=== PATIENT | male | born 1965 | race Caucasian/White ===

== ENCOUNTER 2016-08-12 13:20 | Inpatient (IN) | payer MEDICAID ==
[~2016-08-12] VITALS: Ht 190.5 cm; Wt 95.3 kg
[2016-08-12 13:30] VITALS: BP 151/81
[2016-08-12] MEDS ORDERED: LORazepam Inj 2mg/ml 1ml IV ONE (13:45)
[2016-08-12] MEDS ORDERED: Thiamine HCl 100 MG in D5W 55 ML IVPB ONE (14:00)
[2016-08-12] MEDS ORDERED: Thiamine HCl 100mg/ml Inj ONE ×2 (14:09→15:01)
--- NOTE | 2016-08-12 14:12 | Emergency Room Report ---
History of Present Illness General Chief Complaint: Edema Source: Patient Present Illness HPI Patient is a 50-year-old male presented for increased lower extremity swelling. The patient had prior history of alcohol abuse and had been previously told he had some liver disease as well as low platelet count patient reports having fallen down some stairs. Patient states he drinks alcohol every day. He states he usually drinks approximately one bottle of hard alcohol.He denies any fever. He reports having some low back pain which he states is chronic for him.He had previously been prescribed Librium. Allergies: Coded Allergies: No Known Allergies (Unverified , 08/12/16) Patient History Reviewed Nursing Documentation: PMH: Agreed, PSxH: Agreed Nursing Documentation-PM Past Medical History: No History, Except For History Of Psychiatric Problem: Yes - etoh abuse Review of Systems All Other Systems: negative except mentioned in HPI Physical Exam Vital Signs Date Time Temp Pulse Resp B/P Pulse Ox O2 Delivery O2 Flow Rate FiO2 08/12/16 13:24 98.1 98 18 150/97 100 Room Air Sp02 EP Interpretation: reviewed, normal General Appearance: normal inspection, well appearing, no apparent distress, alert, GCS 15 Head: atraumatic ENT: normal ENT inspection, hearing grossly normal, normal voice Neck: normal inspection, full range of motion, supple, no bony tend Respiratory: normal inspection, lungs clear, normal breath sounds, no respiratory distress, no retraction, no wheezing Cardiovascular #1: regular rate, rhythm, no edema Gastrointestinal: normal inspection, normal bowel sounds, non tender, soft, no guarding, no hernia Genitourinary: no CVA tenderness Musculoskeletal: normal inspection, back normal, normal range of motion Neurologic: normal inspection, alert, oriented x3, responsive, development team lead III-XII nml as tested, speech normal Psychiatric: normal inspection, judgement/insight normal, mood/affect normal Skin: normal color, no rash, other Medical Decision Making Diagnostic Impression: Primary Impression: Generalized weakness Additional Impressions: Alcohol withdrawal Alcoholic liver disease ER Course Patient presented for leg swelling and generalized weakness. Differential diagnosis included but was not limited to deep venous thrombosis, dependent edema, alcohol liver disease, congestive heart failure, alcohol withdrawal among others.Because of complexity of patient's case laboratory testing and imaging studies were ordered. The patient was given IV thiamine and appear to have evidence of chronic liver disease. Patient was noted to be tremulous and tachycardic. Patient was given IV Ativan. Dr. Chacon was contacted for inpatient management Labs Test 08/12/16 14:16 08/12/16 14:52 Urine Color Brown Urine Appearance Clear Urine pH 6.5 (4.5-8.0) Urine Specific [place] 1.010 (1.005-1.035) Urine Protein 1+ (NEGATIVE) Urine Glucose (UA) Negative (NEGATIVE) Urine Ketones 3+ (NEGATIVE) Urine Occult Blood 2+ (NEGATIVE) Urine Nitrite Negative (NEGATIVE) Urine Bilirubin 1+ (NEGATIVE) Urine Ictotest Negative Urine Urobilinogen 12 MG/DL (0.0-1.0) Urine Leukocyte Esterase 1+ (NEGATIVE) Urine RBC 5-10 /HPF (0 - 0) Urine WBC 0-2 /HPF (0 - 0) Urine Squamous Epithelial Cells Occasional /LPF Urine Bacteria Few /HPF (NONE) Urine Mucus Occasional /LPF White Blood Count 6.4 K/UL (4.8-10.8) Red Blood Count 3.84 M/UL (4.70-6.10) Hemoglobin 10.7 G/DL (14.2-18.0) Hematocrit 33.1 % (42.0-52.0) Mean Corpuscular Volume 86 FL (80-99) Mean Corpuscular Hemoglobin 27.8 PG (27.0-31.0) Mean Corpuscular Hemoglobin Concent 32.2 G/DL (32.0-36.0) Red Cell Distribution Width 16.7 % (11.6-14.8) Platelet Count 48 K/UL (150-450) Mean Platelet Volume 9.0 FL (6.5-10.1) Neutrophils (%) (Auto) % (45.0-75.0) Lymphocytes (%) (Auto) % (20.0-45.0) Monocytes (%) (Auto) % (1.0-10.0) Eosinophils (%) (Auto) % (0.0-3.0) Basophils (%) (Auto) % (0.0-2.0) Differential Total Cells Counted 100 Neutrophils % (Manual) 69 % (45-75) Lymphocytes % (Manual) 18 % (20-45) Monocytes % (Manual) 10 % (1-10) Eosinophils % (Manual) 2 % (0-3) Basophils % (Manual) 1 % (0-2) Band Neutrophils 0 % (0-8) Platelet Estimate Decreased Platelet Morphology Normal Hypochromasia 1+ Anisocytosis 1+ Prothrombin Time 17.1 SEC (9.30-11.50) Prothromb Time International Ratio 1.7 (0.9-1.1) Activated Partial Thromboplast Time 31 SEC (23-33) Sodium Level 140 mEQ/L (135-145) Potassium Level 3.4 mEQ/L (3.4-4.9) Chloride Level 99 mEQ/L (98-107) Carbon Dioxide Level 23 mEQ/L (20-30) Anion Gap 18 (5-15) Blood Urea Nitrogen 9 mg/dL (7-23) Creatinine 0.8 mg/dL (0.7-1.2) Estimat Glomerular Filtration Rate > 60 mL/min (>60) Glucose Level 113 mg/dL (74-106) Calcium Level 8.2 mg/dL (8.6-10.2) Total Bilirubin 4.1 mg/dL (0.0-1.2) Direct Bilirubin 2.1 mg/dL (0.1-0.3) Aspartate Amino Transf (AST/SGOT) 232 U/L (5-40) Alanine Aminotransferase (ALT/SGPT) 54 U/L (3-41) Alkaline Phosphatase 74 U/L (40-129) Total Protein 7.3 g/dL (6.6-8.7) Albumin 3.1 g/dL (3.5-5.2) Globulin 4.2 g/dL Albumin/Globulin Ratio 0.7 (1.0-2.7) Serum Alcohol 96 mg/dL Last Vital Signs Date Time Temp Pulse Resp B/P Pulse Ox O2 Delivery O2 Flow Rate FiO2 08/12/16 13:24 98.1 98 18 150/97 100 Room Air Status: unchanged Disposition: ADMITTED INPATIENT Condition: Serious Referrals: NOT CHOSEN IPA/,REFERRING (PCP) Ramón Gay Aug 12, 2016 14:12
[2016-08-12 14:25] LABS: APPEARANCE,URINE CLEAR; KETONES,URINE 3+ (NEGATIVE); LEUKOCYTE ESTERASE ,URINE 1+ (NEGATIVE); NITRITE,URINE NEGATIVE (NEGATIVE); PH,URINE 6.5 (4.5-8.0); PROTEIN,URINE 1+ (NEGATIVE); UROBILINOGEN,URINE 12 MG/DL (0.0-1.0)
[2016-08-12 14:38] LABS: BACTERIA,URINE FEW /HPF; ICTOTEST NEGATIVE; MUCUS,URINE OCCASIONAL /LPF (NONE/OCC); SQUAMOUS EPITHELIAL CELL,UR OCCASIONAL /LPF (NONE/OCC); WBC,URINE 0-2 /HPF (0 - 0)
[2016-08-12 15:09] LABS: MEAN CORPUSCULAR HEMOGLOBIN 27.8 PG (27.0-31.0); MEAN CORPUSCULAR HGB CONC 32.2 G/DL (32.0-36.0); MEAN CORPUSCULAR VOLUME 86 FL (80-99); PLATELET COUNT 48 K/UL (150-450); RED BLOOD COUNT 3.84 M/UL (4.70-6.10); RED CELL DISTRIBUTION WIDTH 16.7 % (11.6-14.8); WHITE BLOOD COUNT 6.4 K/UL (4.8-10.8)
[2016-08-12 15:11] LABS: INR 1.7 (0.9-1.1); PROTHROMBIN TIME 17.1 SEC (9.30-11.50)
[2016-08-12 15:15] LABS: ALANINE AMINOTRANSFERASE 54 U/L (3-41); ALBUMIN/GLOBULIN RATIO 0.7 (1.0-2.7); ALCOHOL 96 mg/dL; ANION GAP 18 (5-15); ASPARTATE AMINO TRANSFERASE 232 U/L (5-40); CALCIUM 8.2 mg/dL (8.6-10.2); CARBON DIOXIDE 23 mEQ/L (20-30); CHLORIDE 99 mEQ/L (98-107); CREATININE 0.8 mg/dL (0.7-1.2); GLOMERULAR FILTRATION RATE > 60 mL/min (>60); HEMOLYSIS 5; POTASSIUM 3.4 mEQ/L (3.4-4.9); SODIUM 140 mEQ/L (135-145); TOTAL PROTEIN 7.3 g/dL (6.6-8.7)
--- NOTE | 2016-08-12 15:19 | Diagnostic Imaging Report ---
Indication: PAIN Technique: 3 views of the lumbar spine Comparison: None Findings:Bony alignment is normal. There is moderate degenerative disc narrowing at L5-S1. The remaining disc spaces are preserved. Vertebral body heights are preserved. Pedicles are intact. Sacral arches are preserved. Sacroiliac joint spaces are preserved Impression:L5-S1 disc degeneration No acute bony trauma
[2016-08-12 15:29] LABS: BILIRUBIN,DIRECT 2.1 mg/dL (0.1-0.3)
[2016-08-12] MEDS ORDERED: D5 1/2NS w/KCl 20mEq 1,000 ML IV SCH (15:30)
[2016-08-12 15:37] VITALS: BP 157/89
[2016-08-12 16:09] LABS: BASOPHILS % (MANUAL) 1 % (0-2); EOSINOPHILS % (MANUAL) 2 % (0-3); LYMPHOCYTES % (MANUAL) 18 % (20-45); NEUTROPHILS % (MANUAL) 69 % (45-75); TOTAL CELLS COUNTED 100
[2016-08-12 16:10] LABS: ANISOCYTOSIS 1+; BAND NEUTROPHILS % (MANUAL) 0 % (0-8); HYPOCHROMASIA 1+; PLATELET ESTIMATE DECREASED; PLATELET MORPHOLOGY NORMAL
[2016-08-12 18:08] VITALS: BP 156/79
[2016-08-12 19:00] VITALS: BP 164/101
[2016-08-12] MEDS: LORazepam Inj 2mg/ml 1ml IV ONE ×2 (19:51→20:01)
[2016-08-12 20:08] VITALS: BP 151/78
[2016-08-12] MEDS: LORazepam Inj 2mg/ml 1ml IV PRN (23:57)
[2016-08-13] VITALS (7 sets, daily range): BP systolic 135–156; BP diastolic 69–96
[2016-08-13] MEDS: LORazepam Inj 2mg/ml 1ml IV PRN ×3 (04:32→13:44)
--- NOTE | 2016-08-13 04:39 | History and Physical Report ---
DATE OF ADMISSION: 08/12/2016 REASON FOR ADMISSION: Alcohol intoxication and withdrawal. HISTORY OF PRESENT ILLNESS: This is a 50-year-old white male with history of alcoholism and a known history of alcoholic liver disease. He fell down some stairs. He has been drinking alcohol daily and consumes almost approximately a bottle of hard liquor a day. He came to the emergency room with low back pain following his fall and was noted to be intoxicated, confused and having signs of withdrawal. In the emergency room, workup was undertaken. He was admitted to the medical adrian. PAST MEDICAL HISTORY: Difficult to obtain due to his mental status, other than that noted above. MEDICATIONS: Unknown. ALLERGIES: None known. SOCIAL HISTORY: Alcoholic. No smoking history. Denied substance abuse. FAMILY HISTORY: Not obtainable. REVIEW OF SYSTEMS: A 10-point review of systems was attempted. Limited data from the patient, positive findings noted above. PHYSICAL EXAMINATION: GENERAL: The patient is tremulous and diaphoretic. VITAL SIGNS: Afebrile. Blood pressure 150/97, pulse 98, and respiratory rate 18. HEENT: Normocephalic and atraumatic. Conjunctivae pink. Sclerae are anicteric. Oropharynx clear. Mucous membranes moist. NECK: Supple. Jugular venous pressure normal. LUNGS: Clear. CARDIAC: Regular rhythm and rate. Normal S1 and S2 with no murmur rub or gallop. ABDOMEN: Soft. Normoactive bowel sounds. No palpable liver. EXTREMITIES: With trace edema. SKIN: With no rash or petechiae. LABORATORY AND DIAGNOSTIC DATA: Urinalysis reveals ketones and blood. White count is 6.4, hemoglobin 10.7, and platelet count is 48,000. Sodium 140, potassium 3.4, bicarbonate 23, BUN 9, and creatinine 0.8. AST and ALT elevated at 232, and 54 respectively. Albumin 3.1. Alcohol level was 96. IMPRESSION: 1. Alcohol intoxication, alcohol withdrawal. 2. Alcoholic liver disease. 3. Probable encephalopathy. PLAN: 1. Hydration, withdrawal precautions. 2. Vitamin supplementation. 3. Fall precautions. 4. Seizure precautions. 5. We will make effort to contact family members and database in addition to the assistance with discharge disposition. Suman Chacon M.D. DR: Tamera JOB#: [id number] CC:
[2016-08-13 05:00] LABS: MEAN CORPUSCULAR HEMOGLOBIN 28.4 PG (27.0-31.0); MEAN CORPUSCULAR HGB CONC 33.1 G/DL (32.0-36.0); MEAN CORPUSCULAR VOLUME 86 FL (80-99); MEAN PLATELET VOLUME 11.6 FL (6.5-10.1); PLATELET COUNT 46 K/UL (150-450); RED BLOOD COUNT 3.83 M/UL (4.70-6.10); RED CELL DISTRIBUTION WIDTH 16.7 % (11.6-14.8); WHITE BLOOD COUNT 5.7 K/UL (4.8-10.8)
[2016-08-13 05:14] LABS: AMMONIA 127 umol/L (16-60)
[2016-08-13 06:11] LABS: AMYLASE 46 U/L (10-110); ANION GAP 18 (5-15); CALCIUM 8.3 mg/dL (8.6-10.2); CARBON DIOXIDE 23 mEQ/L (20-30); CHLORIDE 97 mEQ/L (98-107); CREATININE 0.7 mg/dL (0.7-1.2); GLOMERULAR FILTRATION RATE > 60 mL/min (>60); HEMOLYSIS 3; POTASSIUM 3.3 mEQ/L (3.4-4.9); SODIUM 138 mEQ/L (135-145)
[2016-08-13] MEDS: Thiamine 100mg tab ORAL SCH (09:00)
[2016-08-13] MEDS ORDERED: Heparin 5000 units/ml inj SUBQ SCH (09:00)
--- NOTE | 2016-08-13 10:08 | Diagnostic Imaging Report ---
Indication: Headache Technique: Contiguous 5 mm thick transaxial imaging of the head obtained in a Siemens Sensation [address] scanner. Soft tissue and bone windows generated. Total Dose length Product (DLP): [address] Dose Index Volume (CTDIvol): 70.38 mGy Comparison: none Findings: There is mild prominence of the ventricles, basal cisterns, and cerebral sulci consistent with atrophy. Mild, nonspecific, white matter hypoattenuation is noted throughout the brain consistent with chronic small vessel disease. There is no midline shift, edema, acute hemorrhage, mass effect, or abnormal extra-axial fluid collections. Bones and extra osseous soft tissues are unremarkable. Impression: No acute intracranial bleed, mass effect or edema. Mild atrophy of the brain. Nonspecific white matter hypoattenuation probably due to chronic small vessel disease. The CT scanner at [facility] is accredited by the [employer] and the scans are performed using protocols designed to limit radiation exposure to as low as reasonably achievable to attain images of sufficient resolution adequate for diagnostic evaluation.
[2016-08-13 10:32] LABS: ANISOCYTOSIS 1+; BAND NEUTROPHILS % (MANUAL) 2 % (0-8); BASOPHILS % (MANUAL) 1 % (0-2); EOSINOPHILS % (MANUAL) 2 % (0-3); HYPOCHROMASIA 1+; LYMPHOCYTES % (MANUAL) 17 % (20-45); NEUTROPHILS % (MANUAL) 67 % (45-75); PLATELET ESTIMATE DECREASED; PLATELET MORPHOLOGY NORMAL; TOTAL CELLS COUNTED 100
[2016-08-13] MEDS ORDERED: KCl 10% 20 mEq/15ml liquid ORAL ONE (20:00)
[2016-08-13] MEDS: Lactulose 20gm/30ml UDC ORAL SCH (21:26)
[2016-08-14 04:00] VITALS: BP 145/79
[2016-08-14 07:12] LABS: ANION GAP 18 (5-15); CALCIUM 8.2 mg/dL (8.6-10.2); CARBON DIOXIDE 22 mEQ/L (20-30); CHLORIDE 95 mEQ/L (98-107); CREATININE 0.9 mg/dL (0.7-1.2); GLOMERULAR FILTRATION RATE > 60 mL/min (>60); HEMOLYSIS 5; MAGNESIUM 1.3 mg/dL (1.7-2.5); POTASSIUM 3.5 mEQ/L (3.4-4.9); SODIUM 135 mEQ/L (135-145)
[2016-08-14 08:00] VITALS: BP 149/98
[2016-08-14] MEDS: Lactulose 20gm/30ml UDC ORAL SCH ×3 (08:07→19:10)
[2016-08-14] MEDS: Thiamine 100mg tab ORAL SCH (08:08)
--- NOTE | 2016-08-14 08:26 | Diagnostic Imaging Report ---
Indication:Abdominal pain Technique: Grayscale and duplex Doppler imaging of the abdomen performed. Comparison: None Findings: The liver is abnormal with coarsened echotexture, surface nodularity. Portosystemic varices are demonstrated in the upper abdomen. Main portal vein is patent. The spleen is enlarged measuring 13 cm. CBD is 5 mm. Gallbladder noted with stones. There is a small mount of ascites. Pancreas and aorta are poorly seen. There is no hydronephrosis identified. Impression: Chronic liver disease/cirrhosis. Signs of portal hypertension including ascites, splenomegaly and varices. Cholelithiasis. Note: The study was suboptimal as the patient was uncooperative and combative
--- NOTE | 2016-08-14 12:45 | Diagnostic Imaging Report ---
APPROVED REPORT CPT Code: 19936 Present Symptoms Comments: R/O DVT Limited study due to patient status, moved all extremites. BILATERAL: Imaging reveals a patent deep venous system bilaterally. There is no evidence of thrombus within the femoral, popliteal or tibial segments. The greater saphenous veins are also within normal limits. Doppler indicates normal spontaneous flow within these segments.
[2016-08-14 16:05] VITALS: BP 132/77
[2016-08-14 20:32] VITALS: BP 155/97
--- NOTE | 2016-08-15 00:28 | Progress Note ---
DATE: 08/13/2016 INTERNAL MEDICINE PROGRESS NOTE SUBJECTIVE: The patient remains withdrawn and lethargic. He is arousable, but confused. OBJECTIVE: VITAL SIGNS: Blood pressure 156/96, pulse 127, respirations 20, and afebrile. HEENT: Oropharynx is clear. Anicteric sclerae. NECK: Supple. LUNGS: Clear. CARDIAC: Regular rhythm. Rapid rate. Normal S1 and S2. ABDOMEN: Soft. EXTREMITIES: No edema. Positive asterixis. LABORATORY DATA: White count 5.7, hemoglobin 10.9, and platelets 46,000. Potassium 3.3, BUN 6, and creatinine 0.7. Ammonia level is 127. TSH and amylase are normal. IMPRESSION: 1. Alcohol intoxication. 2. Alcoholic liver disease. 3. Hepatic encephalopathy. 4. Alcoholism. 5. Thrombocytopenia. PLAN: 1. therapy. 2. Hydration. 3. Vitamin replacement. 4. Withdrawal precautions. Suman Chacon M.D. DR: RUBEN JOB#: [id number] CC:
[2016-08-15 00:31] VITALS: BP 155/103
[2016-08-15] MEDS: NS w/KCl 20mEq 1,000 ML IV SCH ×2 (00:55→12:38)
--- NOTE | 2016-08-15 01:28 | Progress Note ---
DATE: 08/14/2016 INTERNAL MEDICINE PROGRESS NOTE: SUBJECTIVE: The patient is more awake and alert. Still has episodes of confusion and agitation. OBJECTIVE: VITAL SIGNS: Blood pressure 149/98, pulse 102, respiratory rate 20, and afebrile. NECK: Supple. LUNGS: Clear. CARDIAC: Regular rhythm. Rapid rate. Normal S1, S2. ABDOMEN: Soft. No edema. LABORATORY DATA: Potassium 3.5, BUN 8, and creatinine 0.9. Magnesium 1.3. IMPRESSION: 1. Alcohol intoxication. 2. Alcohol withdrawal . 3. Alcoholism. 4. Hypomagnesemia. 5. Thrombocytopenia. 6. Hepatic encephalopathy. 7. Secondary sinus tachycardia. 8. Labile blood pressure. PLAN: Continue hydration. IV magnesium. Oral potassium. benzodiazepine for withdrawal symptoms. Continue lactulose. Follow up lab studies including ammonia level. Suman Chacon M.D. DR: Eloina JOB#: [id number] CC:
[2016-08-15 05:49] LABS: MEAN CORPUSCULAR HEMOGLOBIN 28.5 PG (27.0-31.0); MEAN CORPUSCULAR HGB CONC 32.8 G/DL (32.0-36.0); MEAN CORPUSCULAR VOLUME 87 FL (80-99); MEAN PLATELET VOLUME 8.1 FL (6.5-10.1); PLATELET COUNT 50 K/UL (150-450); RED BLOOD COUNT 3.84 M/UL (4.70-6.10); RED CELL DISTRIBUTION WIDTH 16.7 % (11.6-14.8); WHITE BLOOD COUNT 5.5 K/UL (4.8-10.8)
[2016-08-15 06:09] LABS: AMMONIA 96 umol/L (16-60)
[2016-08-15 06:13] LABS: ALANINE AMINOTRANSFERASE 57 U/L (3-41); ALBUMIN/GLOBULIN RATIO 0.6 (1.0-2.7); ANION GAP 15 (5-15); ASPARTATE AMINO TRANSFERASE 196 U/L (5-40); CALCIUM 8.2 mg/dL (8.6-10.2); CARBON DIOXIDE 23 mEQ/L (20-30); CHLORIDE 101 mEQ/L (98-107); CREATININE 0.7 mg/dL (0.7-1.2); GLOMERULAR FILTRATION RATE > 60 mL/min (>60); HEMOLYSIS 0; POTASSIUM 3.3 mEQ/L (3.4-4.9); SODIUM 139 mEQ/L (135-145); TOTAL PROTEIN 6.8 g/dL (6.6-8.7)
[2016-08-15 06:55] LABS: BILIRUBIN,DIRECT 1.9 mg/dL (0.1-0.3)
[2016-08-15 08:00] VITALS: BP 148/99
[2016-08-15] MEDS: Lactulose 20gm/30ml UDC ORAL SCH ×3 (08:24→17:17)
[2016-08-15] MEDS: Thiamine 100mg tab ORAL SCH (08:24)
[2016-08-15] MEDS: LORazepam Inj 2mg/ml 1ml IV PRN ×4 (08:25→21:25)
[2016-08-15 08:26] LABS: ANISOCYTOSIS 1+; BAND NEUTROPHILS % (MANUAL) 0 % (0-8); BASOPHILS % (MANUAL) 1 % (0-2); EOSINOPHILS % (MANUAL) 6 % (0-3); HYPOCHROMASIA 1+; LYMPHOCYTES % (MANUAL) 25 % (20-45); METAMYELOCYTES % 1 % (0-0); NEUTROPHILS % (MANUAL) 52 % (45-75); PLATELET ESTIMATE DECREASED; PLATELET MORPHOLOGY NORMAL; TOTAL CELLS COUNTED 100
[2016-08-15 11:25] VITALS: BP 150/99
[2016-08-15] MEDS ORDERED: KCl 10% 40mEq/30ml liquid ORAL ONE (13:15)
[2016-08-15 16:00] VITALS: BP 150/87
[2016-08-15] MEDS ORDERED: Artificial Tears 1.4% Op Soln BOTH EYES PRN (18:15)
[2016-08-15 20:00] VITALS: BP 131/98
[2016-08-16] VITALS: BP 141/91
[2016-08-16] MEDS: LORazepam Inj 2mg/ml 1ml IV PRN ×4 (00:19→19:34)
--- NOTE | 2016-08-16 02:18 | Progress Note ---
DATE: 08/15/2016 Internal medicine progress note SUBJECTIVE: The patient remains awake, but confused frequently to try to get out of bed and go home. He is confused as such. OBJECTIVE: VITAL SIGNS: Blood pressure 131/98, pulse 108, respiratory rate 20. NECK: Supple. LUNGS: Clear. CARDIAC: Regular rhythm. Rapid rate. Normal S1 and S2. ABDOMEN: Soft. No ascites. No edema. LABORATORY AND DIAGNOSTIC DATA: Reviewed. IMPRESSION: Alcoholism, alcohol intoxication, alcohol-withdrawal thrombocytopenia, and alcoholic liver disease, secondary sinus tachycardia and hypertension. PLAN OF CARE: In place, we will continue to replace electrolytes including potassium today with vitamin supplements and benzodiazepines for withdrawal. We will attempt physical therapy for mobilization. Suman Chacon M.D. DR: Tamera JOB#: [id number] CC:
[2016-08-16] MEDS: NS w/KCl 20mEq 1,000 ML IV SCH ×2 (02:56→15:49)
[2016-08-16 04:00] VITALS: BP 122/74
[2016-08-16 04:47] LABS: MEAN CORPUSCULAR HEMOGLOBIN 28.4 PG (27.0-31.0); MEAN CORPUSCULAR HGB CONC 32.5 G/DL (32.0-36.0); MEAN CORPUSCULAR VOLUME 87 FL (80-99); MEAN PLATELET VOLUME 7.6 FL (6.5-10.1); PLATELET COUNT 56 K/UL (150-450); RED BLOOD COUNT 3.81 M/UL (4.70-6.10); RED CELL DISTRIBUTION WIDTH 17.6 % (11.6-14.8); WHITE BLOOD COUNT 6.3 K/UL (4.8-10.8)
[2016-08-16 05:17] LABS: AMMONIA 78 umol/L (16-60)
[2016-08-16 05:19] LABS: ANION GAP 13 (5-15); CALCIUM 8.1 mg/dL (8.6-10.2); CARBON DIOXIDE 23 mEQ/L (20-30); CHLORIDE 100 mEQ/L (98-107); CREATININE 0.8 mg/dL (0.7-1.2); GLOMERULAR FILTRATION RATE > 60 mL/min (>60); HEMOLYSIS 0; MAGNESIUM 1.4 mg/dL (1.7-2.5); POTASSIUM 3.7 mEQ/L (3.4-4.9); SODIUM 136 mEQ/L (135-145)
[2016-08-16 08:00] VITALS: BP 142/86
[2016-08-16] MEDS: Thiamine 100mg tab ORAL SCH (08:30)
[2016-08-16] MEDS: Lactulose 20gm/30ml UDC ORAL SCH ×3 (08:30→17:27)
[2016-08-16 09:35] LABS: ANISOCYTOSIS 1+; BAND NEUTROPHILS % (MANUAL) 0 % (0-8); BASOPHILS % (MANUAL) 0 % (0-2); EOSINOPHILS % (MANUAL) 1 % (0-3); HYPOCHROMASIA 1+; LYMPHOCYTES % (MANUAL) 17 % (20-45); NEUTROPHILS % (MANUAL) 63 % (45-75); PLATELET ESTIMATE DECREASED; PLATELET MORPHOLOGY NORMAL; TOTAL CELLS COUNTED 100
[2016-08-16 12:00] VITALS: BP 123/72
[2016-08-16 16:00] VITALS: BP 142/44
[2016-08-16 20:00] VITALS: BP 141/86
[2016-08-17] VITALS: BP 148/90
--- NOTE | 2016-08-17 03:48 | Progress Note ---
DATE: 08/16/2016 INTERNAL MEDICINE PROGRESS NOTE SUBJECTIVE: Condition largely unchanged. The patient is more alert. Still with episodes of agitation and confusion. He still needs a sitter for safety as he is pulling out lines and gets out of bed without assist. LABORATORY DATA: Reviewed. Ammonia down to 78 and magnesium 1.4. PHYSICAL EXAMINATION: Unchanged. IMPRESSION: 1. Alcoholism. 2. Alcohol withdrawal. 3. Alcoholic liver disease. 4. Hypomagnesemia. PLAN: 1. Continue vitamin supplementation. 2. IV magnesium. 3. Discontinue telemetry. 4. Continue sitter. 5. Withdrawal precautions. 6. Mobilize. Suman Chacon M.D. DR: ANTWON JOB#: [id number] CC:
[2016-08-17 04:00] VITALS: BP 148/90
[2016-08-17] MEDS: NS w/KCl 20mEq 1,000 ML IV SCH ×2 (05:12→18:19)
[2016-08-17] MEDS: LORazepam Inj 2mg/ml 1ml IV PRN ×2 (05:28→12:00)
[2016-08-17 08:00] VITALS: BP 135/82
[2016-08-17] MEDS: Thiamine 100mg tab ORAL SCH (08:21)
[2016-08-17] MEDS: Lactulose 20gm/30ml UDC ORAL SCH ×3 (08:22→18:17)
[2016-08-17 12:00] VITALS: BP 153/98
[2016-08-17 16:00] VITALS: BP 147/84
[2016-08-17 19:59] VITALS: BP 137/78
[2016-08-18] VITALS: BP 140/84
[2016-08-18] MEDS: NS w/KCl 20mEq 1,000 ML IV SCH ×2 (01:17→14:54)
[2016-08-18] MEDS ORDERED: Artificial Tears 1.4% Op Soln BOTH EYES PRN (02:15)
--- NOTE | 2016-08-18 02:18 | Progress Note ---
DATE: 08/17/2016 INTERNAL MEDICINE PROGRESS NOTE SUBJECTIVE: The patient is still unsteady on his feet. He is confused periodically and less tremulous. OBJECTIVE: VITAL SIGNS: More stable. Blood pressure 147/84, pulse 92, and respirations 19. NECK: Supple. LUNGS: Clear. CARDIAC: Regular. ABDOMEN: Soft. No ascites. EXTREMITIES: No asterixis. No edema. IMPRESSION: Slow progress with ongoing alcohol withdrawal in the setting of alcoholism. We will continue efforts at mobilizing and adjust therapy accordingly. Disposition remains a concern and he is unable to care for himself at home. Suman Chacon M.D. DR: URBEN JOB#: [id number] CC:
[2016-08-18 04:00] VITALS: BP 137/87
[2016-08-18 07:31] LABS: MEAN CORPUSCULAR HEMOGLOBIN 29.1 PG (27.0-31.0); MEAN CORPUSCULAR HGB CONC 32.9 G/DL (32.0-36.0); MEAN CORPUSCULAR VOLUME 88 FL (80-99); PLATELET COUNT 57 K/UL (150-450); RED BLOOD COUNT 3.76 M/UL (4.70-6.10); RED CELL DISTRIBUTION WIDTH 17.3 % (11.6-14.8); WHITE BLOOD COUNT 6.4 K/UL (4.8-10.8)
[2016-08-18 07:59] LABS: AMMONIA 60 umol/L (16-60)
[2016-08-18 08:00] VITALS: BP 135/84
[2016-08-18 08:07] LABS: ALANINE AMINOTRANSFERASE 43 U/L (3-41); ALBUMIN/GLOBULIN RATIO 0.6 (1.0-2.7); ANION GAP 14 (5-15); ASPARTATE AMINO TRANSFERASE 108 U/L (5-40); CALCIUM 7.9 mg/dL (8.6-10.2); CARBON DIOXIDE 21 mEQ/L (20-30); CHLORIDE 99 mEQ/L (98-107); CREATININE 0.8 mg/dL (0.7-1.2); GLOMERULAR FILTRATION RATE > 60 mL/min (>60); HEMOLYSIS 6; MAGNESIUM 1.6 mg/dL (1.7-2.5); POTASSIUM 4.3 mEQ/L (3.4-4.9); SODIUM 134 mEQ/L (135-145); TOTAL PROTEIN 6.6 g/dL (6.6-8.7)
[2016-08-18] MEDS: Thiamine 100mg tab ORAL SCH (08:54)
[2016-08-18] MEDS: Lactulose 20gm/30ml UDC ORAL SCH ×3 (08:54→17:39)
[2016-08-18 11:34] LABS: BAND NEUTROPHILS % (MANUAL) 0 % (0-8); BASOPHILS % (MANUAL) 4 % (0-2); EOSINOPHILS % (MANUAL) 1 % (0-3); LYMPHOCYTES % (MANUAL) 17 % (20-45); NEUTROPHILS % (MANUAL) 58 % (45-75); PLATELET ESTIMATE DECREASED; TOTAL CELLS COUNTED 100
[2016-08-18 11:35] LABS: ANISOCYTOSIS 1+; HYPOCHROMASIA 1+; PLATELET MORPHOLOGY NORMAL
[2016-08-18 12:00] VITALS: BP 127/76
[2016-08-18 16:00] VITALS: BP 122/71
[2016-08-18 19:00] VITALS: BP 120/67
[2016-08-19] VITALS (7 sets, daily range): BP systolic 118–138; BP diastolic 67–85
[2016-08-19] MEDS: NS w/KCl 20mEq 1,000 ML IV SCH ×2 (02:20→16:41)
--- NOTE | 2016-08-19 02:59 | Progress Note ---
DATE: 08/18/2016 INTERNAL MEDICINE PROGRESS NOTE SUBJECTIVE: The patient is somewhat more alert, less confused, but still impaired with regard to function. OBJECTIVE: VITAL SIGNS: Blood pressure 120/67, pulse 98, respirations 18, and afebrile. NECK: Supple. LUNGS: Clear. CARDIAC: Regular. Normal S1 and S2. ABDOMEN: Soft. EXTREMITIES: No edema. IMPRESSION: 1. Alcoholism recovering. 2. Alcoholic intoxication and alcoholic liver disease. 3. Hypomagnesemia. 4. Alcohol associated dementia. PLAN: 1. Advance oral intake. 2. Decrease intravenous therapy. 3. Vitamin supplementation. 4. Await social service assistance with safe disposition. Suman Chacon M.D. DR: RUBEN JOB#: [id number] CC:
[2016-08-19] MEDS: Lactulose 20gm/30ml UDC ORAL SCH ×3 (08:18→17:24)
[2016-08-19] MEDS: Thiamine 100mg tab ORAL SCH (08:19)
[2016-08-19 08:20] LABS: MEAN CORPUSCULAR HGB CONC 32.9 G/DL (32.0-36.0); MEAN CORPUSCULAR VOLUME 88 FL (80-99); MEAN PLATELET VOLUME 8.8 FL (6.5-10.1); PLATELET COUNT 65 K/UL (150-450); RED BLOOD COUNT 3.75 M/UL (4.70-6.10); RED CELL DISTRIBUTION WIDTH 17.4 % (11.6-14.8); WHITE BLOOD COUNT 6.3 K/UL (4.8-10.8)
[2016-08-19 08:34] LABS: ALANINE AMINOTRANSFERASE 39 U/L (3-41); ALBUMIN/GLOBULIN RATIO 0.6 (1.0-2.7); ANION GAP 13 (5-15); ASPARTATE AMINO TRANSFERASE 92 U/L (5-40); CALCIUM 7.9 mg/dL (8.6-10.2); CARBON DIOXIDE 23 mEQ/L (20-30); CHLORIDE 99 mEQ/L (98-107); CREATININE 0.7 mg/dL (0.7-1.2); GLOMERULAR FILTRATION RATE > 60 mL/min (>60); HEMOLYSIS 37; MAGNESIUM 1.5 mg/dL (1.7-2.5); POTASSIUM 4.1 mEQ/L (3.4-4.9); SODIUM 135 mEQ/L (135-145); TOTAL PROTEIN 6.4 g/dL (6.6-8.7)
[2016-08-19] MEDS ORDERED: Influenza Virus Vaccine 0.5ml IM ONE (09:00)
[2016-08-19 09:01] LABS: BILIRUBIN,DIRECT 1.4 mg/dL (0.1-0.3)
[2016-08-19 09:13] LABS: AMMONIA 50 umol/L (16-60)
[2016-08-19 10:23] LABS: BAND NEUTROPHILS % (MANUAL) 0 % (0-8); BASOPHILS % (MANUAL) 2 % (0-2); EOSINOPHILS % (MANUAL) 7 % (0-3); LYMPHOCYTES % (MANUAL) 16 % (20-45); NEUTROPHILS % (MANUAL) 55 % (45-75); PLATELET ESTIMATE DECREASED; PLATELET MORPHOLOGY NORMAL; TOTAL CELLS COUNTED 100
[2016-08-19 10:24] LABS: ANISOCYTOSIS 1+; HYPOCHROMASIA 1+
[2016-08-19] MEDS ORDERED: Sterile Water Irrig 1000ml IRRIG ONE (18:48)
[2016-08-19] MEDS ORDERED: Tubing IV Secondary IV ONE (18:48)
[2016-08-20] VITALS: BP 129/86
[2016-08-20 04:00] VITALS: BP 133/81
--- NOTE | 2016-08-20 05:09 | Progress Note ---
DATE: 08/19/2016 Internal Medicine Progress Note SUBJECTIVE: The patient continues to have limitations in mobility and function due to ongoing withdrawal from alcohol. His ex- was available today and felt that he is still more confused than his prior baseline, although she has not seen him for a while. The patient's vital signs are stable. LABORATORY DATA: Laboratory studies were notable for white count of 6.3, hemoglobin 10.9, and platelet count improved at 65,000. Chemistry panel is within normal limits. Magnesium remains low at 1.5 and albumin is 2.5. PLAN: We will continue withdrawal precautions and lactulose titration, ammonia level has normalized now. Additional magnesium will be ordered. The patient cannot be discharged until we find a suitable disposition with adequate support, he is presently requiring total care. Suman Chacon M.D. DR: JOEY JOB#: [id number] CC:
[2016-08-20 08:09] VITALS: BP 136/83
[2016-08-20] MEDS: Thiamine 100mg tab ORAL SCH (08:10)
[2016-08-20] MEDS: Lactulose 20gm/30ml UDC ORAL SCH ×2 (08:10→17:31)
[2016-08-20 12:15] VITALS: BP 133/62
[2016-08-20 16:00] VITALS: BP 97/49
[2016-08-20 19:00] VITALS: BP 108/58
[2016-08-20] MEDS ORDERED: Tubing IV Secondary IV ONE (22:23)
[2016-08-20] MEDS ORDERED: NS 275ml ONE (22:23)
[2016-08-21 00:39] VITALS: BP 131/79
--- NOTE | 2016-08-21 01:28 | Progress Note ---
DATE: 08/20/2016 INTERNAL MEDICINE PROGRESS NOTE SUBJECTIVE: The patient remains incontinent and episodically confused. We are awaiting callback from the patient's friend to confirm that he can care for the patient upon discharge. Overall, the patient is more appropriate with answers to questions, however, he needs a 24-hour care at this point in view of his alcoholism. OBJECTIVE: Exam is unchanged and vitals remained stable. PLAN: We will recheck laboratory studies and proceed with discharge once appropriate caregiver is identified. Suman Chacon M.D. DR: LUCIA JOB#: [id number] CC:
[2016-08-21 04:00] VITALS: BP 115/71
[2016-08-21 06:52] LABS: AMMONIA 97 umol/L (16-60); MEAN CORPUSCULAR HEMOGLOBIN 28.7 PG (27.0-31.0); MEAN CORPUSCULAR HGB CONC 32.7 G/DL (32.0-36.0); MEAN CORPUSCULAR VOLUME 88 FL (80-99); MEAN PLATELET VOLUME 8.1 FL (6.5-10.1); PLATELET COUNT 70 K/UL (150-450); RED BLOOD COUNT 3.49 M/UL (4.70-6.10); RED CELL DISTRIBUTION WIDTH 17.3 % (11.6-14.8); WHITE BLOOD COUNT 5.7 K/UL (4.8-10.8)
[2016-08-21 06:55] LABS: ANION GAP 14 (5-15); CALCIUM 7.6 mg/dL (8.6-10.2); CARBON DIOXIDE 22 mEQ/L (20-30); CHLORIDE 99 mEQ/L (98-107); CREATININE 0.7 mg/dL (0.7-1.2); GLOMERULAR FILTRATION RATE > 60 mL/min (>60); HEMOLYSIS 3; MAGNESIUM 1.6 mg/dL (1.7-2.5); POTASSIUM 3.8 mEQ/L (3.4-4.9); SODIUM 135 mEQ/L (135-145)
[2016-08-21 07:45] LABS: BAND NEUTROPHILS % (MANUAL) 0 % (0-8); BASOPHILS % (MANUAL) 0 % (0-2); EOSINOPHILS % (MANUAL) 5 % (0-3); LYMPHOCYTES % (MANUAL) 17 % (20-45); NEUTROPHILS % (MANUAL) 63 % (45-75); PLATELET ESTIMATE DECREASED; TOTAL CELLS COUNTED 100
[2016-08-21 07:46] LABS: ANISOCYTOSIS 1+; HYPOCHROMASIA 1+; PLATELET MORPHOLOGY NORMAL
[2016-08-21] MEDS: Thiamine 100mg tab ORAL SCH (09:14)
[2016-08-21] MEDS: Lactulose 20gm/30ml UDC ORAL SCH ×2 (09:16→17:15)
[2016-08-21 11:52] VITALS: BP 120/74
[2016-08-21 16:15] VITALS: BP 127/81
[2016-08-21 19:00] VITALS: BP 133/77
[2016-08-21] MEDS: LORazepam Inj 2mg/ml 1ml IV PRN (22:28)
[2016-08-22 00:15] VITALS: BP 126/74
[2016-08-22 04:00] VITALS: BP 125/81
[2016-08-22 08:03] VITALS: BP 112/66
[2016-08-22] MEDS: Thiamine 100mg tab ORAL SCH (08:38)
[2016-08-22] MEDS: Lactulose 20gm/30ml UDC ORAL SCH ×3 (08:38→18:06)
[2016-08-22 12:06] VITALS: BP 114/65
[2016-08-22 16:00] VITALS: BP 132/62
[2016-08-22 20:00] VITALS: BP 132/60
[2016-08-22] MEDS: LORazepam Inj 2mg/ml 1ml IV PRN (22:42)
[2016-08-23] VITALS: BP 130/72
--- NOTE | 2016-08-23 01:48 | Progress Note ---
DATE: 08/22/2016 INTERNAL MEDICINE PROGRESS NOTE: SUBJECTIVE: The patient is ambulatory with a walker up and down the hallway. No chest pain. No shortness of breath. He has not had any seizures. He still requires close observation. Suitable disposition home is pending. He remains medically stable on current regimen. Suman Chacon M.D. DR: Eloina JOB#: [id number] CC:
[2016-08-23 04:00] VITALS: BP 122/55
[2016-08-23] MEDS: Thiamine 100mg tab ORAL SCH (07:46)
[2016-08-23] MEDS: Lactulose 20gm/30ml UDC ORAL SCH ×3 (07:46→18:54)
[2016-08-23 07:49] VITALS: BP 130/78
[2016-08-23 12:00] VITALS: BP 140/85
[2016-08-23] MEDS: LORazepam Inj 2mg/ml 1ml IV PRN (14:00)
[2016-08-23 16:05] VITALS: BP 132/78
[2016-08-23] MEDS ORDERED: LORazepam Inj 2mg/ml 1ml IV PRN (16:36)
[2016-08-23 17:59] LABS: MEAN CORPUSCULAR HEMOGLOBIN 28.3 PG (27.0-31.0); MEAN CORPUSCULAR HGB CONC 30.8 G/DL (32.0-36.0); MEAN CORPUSCULAR VOLUME 92 FL (80-99); MEAN PLATELET VOLUME 7.7 FL (6.5-10.1); PLATELET COUNT 72 K/UL (150-450); RED CELL DISTRIBUTION WIDTH 16.8 % (11.6-14.8); WHITE BLOOD COUNT 6.8 K/UL (4.8-10.8)
[2016-08-23 18:05] LABS: AMMONIA 46 umol/L (16-60)
[2016-08-23 18:08] LABS: ALANINE AMINOTRANSFERASE 38 U/L (3-41); ALBUMIN/GLOBULIN RATIO 0.7 (1.0-2.7); ANION GAP 16 (5-15); ASPARTATE AMINO TRANSFERASE 84 U/L (5-40); CALCIUM 8.4 mg/dL (8.6-10.2); CARBON DIOXIDE 22 mEQ/L (20-30); CHLORIDE 98 mEQ/L (98-107); CREATININE 0.8 mg/dL (0.7-1.2); GLOMERULAR FILTRATION RATE > 60 mL/min (>60); HEMOLYSIS 8; MAGNESIUM 1.5 mg/dL (1.7-2.5); POTASSIUM 3.7 mEQ/L (3.4-4.9); SODIUM 136 mEQ/L (135-145); TOTAL PROTEIN 6.8 g/dL (6.6-8.7)
[2016-08-23 18:25] LABS: BILIRUBIN,DIRECT 1.4 mg/dL (0.1-0.3)
[2016-08-23 18:45] LABS: ANISOCYTOSIS 1+; BAND NEUTROPHILS % (MANUAL) 0 % (0-8); BASOPHILS % (MANUAL) 0 % (0-2); EOSINOPHILS % (MANUAL) 9 % (0-3); LYMPHOCYTES % (MANUAL) 16 % (20-45); NEUTROPHILS % (MANUAL) 66 % (45-75); PLATELET ESTIMATE DECREASED; PLATELET MORPHOLOGY NORMAL; TOTAL CELLS COUNTED 100
[2016-08-23 20:00] VITALS: BP 105/58
[2016-08-24] VITALS: BP 121/66
--- NOTE | 2016-08-24 00:58 | Progress Note ---
DATE: 08/23/2016 INTERNAL MEDICINE PROGRESS NOTE SUBJECTIVE: The patient is awake and alert. Memory is good. Comprehension is normal. He is ambulatory without assist, up and down the adrian and to the bathroom. OBJECTIVE: VITAL SIGNS: Stable. NECK: Supple. LUNGS: Clear. ABDOMEN: soft. No ascites. EXTREMITIES: No edema. CARDIAC: Regular. LABORATORY DATA: White count 6.8, hemoglobin 9.9, and platelet count is 2000. Potassium 3.7, BUN 8, creatinine 0.8, glucose 157, magnesium 1.5. Ammonia is down to 46. IMPRESSION: 1. Acute alcohol intoxication, resolved. 2. Alcoholic withdrawal, resolved. 3. Encephalopathy, . 4. Hypomagnesemia. 5. Hyperglycemia. PLAN: 1. Additional IV magnesium. 2. Decrease lactulose dose. 3. Discharge home when family members can pick him up as he is functionally stable to remain at home alone in the absence of any alcohol. Suman Chacon M.D. DR: RAUL JOB#: [id number] CC:
[2016-08-24 04:21] VITALS: BP 134/81
[2016-08-24 08:00] VITALS: BP 118/68
[2016-08-24] MEDS: Thiamine 100mg tab ORAL SCH (08:08)
[2016-08-24] MEDS ORDERED: Lactulose 20gm/30ml UDC ORAL SCH (09:00)
[2016-08-24] MEDS ORDERED: LACTULOSE20 GM/301 ORAL (11:23)
[2016-08-24] MEDS ORDERED: FOLIC ACID1 MG ORAL (11:24)
[2016-08-24] MEDS ORDERED: VITAMIN B1100 MG PO (11:26)
[2016-08-24 12:00] VITALS: BP 120/71
--- NOTE | 2016-08-26 09:49 | Discharge Summary ---
Discharge Summary Hospital Course Date of Admission Aug 12, 2016 at 16:56 Date of Discharge Aug 24, 2016 at 13:40 Admitting Diagnosis alcohol withdrawal, generalized weakness HPI Mario Ramirez is a 50 year old male who was admitted on Aug 12, 2016 at 16:56 for Alcohol Withdrawal Generalized Weakness Hospital Course dc summary #[id number] Discharge Medications Continued Medications: Folic Acid* (Folic Acid*) 1 Mg Tablet 1 MG ORAL DAILY, #30 TAB Lactulose (Lactulose*) 20 Gm/30 Ml Solution 45 ML ORAL BID for 30 Days, ML 0 Refills Thiamine HCl (Thiamine HCl) 100 Mg Tablet 100 MG PO DAILY, #30 TAB Discharge Condition Upon Discharge: stable Discharge Disposition Patient was discharged to Home (01) Discharge Diagnoses: Discharge Instructions Discharge Instructions Special Instructions I have been assigned to complete a D/C Summary on this account. I was not involved in the patient management Wendy Hunter NP (Vanchtein) Aug 26, 2016 09:49
--- NOTE | 2016-08-27 04:18 | Discharge Summary 2 SIG ---
DATE OF ADMISSION: 08/12/2016 DATE OF DISCHARGE: 08/24/2016 REASON FOR ADMISSION: 50-year-old male presented with increased lower extremities swelling. The patient with a prior history of alcohol abuse. Patient have been told that he had liver disease. The patient reported falling downstairs. The patient was drinking alcohol every day. He usually drinks about 1 bottle of hard liquor daily. He denied fever or chills. He reported low back pain, which became chronic. Workup in the emergency room revealed serum alcohol level of 96. CT of the head revealed no acute intracranial pathology. Urinalysis was negative for urinary tract infection. Noted elevated total and direct bilirubin and LFT. Platelets low -48, mild anemia, no leukocytosis. AST 232, ALT 54, total bilirubin 4.1. Direct bilirubin - 2.1. Albumin -3.1. INR- 1.7. The patient admitted to the hospital for further management. ADMITTING DIAGNOSES: 1. Alcohol intoxication 2. Alcohol withdrawal 3. Alcoholic liver disease. 4. Encephalopathy secondary to alcohol intoxication. HOSPITAL STAY: The patient started on IV fluids with thiamine, folic acid, and multivitamin. Withdrawal precaution maintained. Seizure precaution maintained. The patient was on Ativan as needed and Klonopin. Fall precaution maintained. Sitter at the bedside at all times. Magnesium level initially low, replaced. Ammonia high - 127. The patient was started on lactulose. Ammonia level was monitored clsoely, 46 on day of discharge. When mental status was stab, the patient was mobilized with physical and occupational therapists. Able to ambulate with a walker. Venous duplex bilateral lower extremities was negative. Abdominal ultrasound revealed chronic liver disease/cirrhosis with signs of portal hypertension including ascites, splenomegaly, and varices. LFT and bilirubin were trending down. The patient was counseled on abstinence from the alcohol and urged to go to Alcoholics Anonymous meetings. The patient counseled about gravity of his prognosis. The family member was able to get the patient discharged home with him. The patient deemed functionally stable to remain at home alone in absence of alcohol. Patient was able to ambulate with walker. DISCHARGE DIAGNOSES: 1. Acute alcohol intoxication. 2. Alcohol withdrawal. 3. Alcoholic liver disease/cirrhosis manifested by thrombocytopenia,hypoalbuminemia and coagulopathy. 4. Portal hypertension manifested by ascites, splenomegaly, and varices. 5. Toxic encephalopathy secondary to alcohol intoxication. 6. Hepatic encephalopathy. 7. Hypomagnesemia. DISCHARGE MEDICATIONS: See medication reconciliation list. DISCHARGE INSTRUCTIONS: Follow up with primary doctor. The patient was counseled on abstinence from alcohol and the seriousness of his condition and need to enrol and attend Alcoholic Anonymous meetings. Suman Chacon M.D. I have been assigned to dictate discharge summary on this account and I was not involved in the patient's management. Wendy PhillipSt. [facility]S Hospital Westchesterkalyani N.PRita DR: Chelsy JOB#: [id number] CC: ALICIA
== END 2016-08-24 13:40 | disposition home or self-care (01) | DRG 775 ==
LOC: EMR 13:50 → 4E 16:56 → EDBEDREQ 19:43 → 2W 22:18 → 4E 08-18 00:53
DX: F10.239 Alcohol dependence with withdrawal, unspecified (principal); F10.27 Alcohol dependence with alcohol-induced persisting dementia; D69.59 Other secondary thrombocytopenia; K70.9 Alcoholic liver disease, unspecified; E83.42 Hypomagnesemia; F10.229 Alcohol dependence with intoxication, unspecified; Y90.4 Blood alcohol level of 80-99 mg/100 ml; K72.90 Hepatic failure, unspecified without coma; R00.0 Tachycardia, unspecified; R73.9 Hyperglycemia, unspecified
CPT/HCPCS: 36415; 70450; 72020; 76700; 80048; 80053; 80329; 81001; 82140; 82150; 82248; 82962; 82977; 83735; 84443; 85007; 85025; 85610; 85730; 93970; Q2036

== ENCOUNTER 2016-09-08 07:37 | Inpatient (IN) | payer MEDICAID ==
[~2016-09-08] VITALS: Ht 190.5 cm; Wt 95.3 kg
[2016-09-08] VITALS (8 sets, daily range): BP systolic 121–139; BP diastolic 73–97
--- NOTE | 2016-09-08 07:35 | Emergency Room Report ---
History of Present Illness General Source: Patient Present Illness HPI Patient is a 49-year-old male who presented after having reported hematemesis. Patient was having some dark stool over the past 2 days. Patient had prior history of alcohol abuse. Patient states he drank a bottle of vodka throughout the day. Patient had prior history of alcohol abuse he does take any medications currently. Patient had recently been hospitalized for similar symptoms. The patient is brought in by EMS. Allergies: Coded Allergies: No Known Allergies (Unverified , 08/12/16) Patient History Past Medical History: see triage record Reviewed Nursing Documentation: PMH: Agreed, PSxH: Agreed Review of Systems All Other Systems: negative except mentioned in HPI Physical Exam Sp02 EP Interpretation: reviewed, normal General Appearance: normal inspection, well appearing, no apparent distress, alert, GCS 15 Head: atraumatic ENT: normal ENT inspection, hearing grossly normal, normal voice Neck: normal inspection, full range of motion, supple, no bony tend Respiratory: normal inspection, lungs clear, normal breath sounds, no respiratory distress, no retraction, no wheezing Cardiovascular #1: regular rate, rhythm, no edema Gastrointestinal: normal inspection, normal bowel sounds, non tender, soft, no guarding, no hernia Genitourinary: no CVA tenderness Musculoskeletal: normal inspection, back normal, normal range of motion Neurologic: normal inspection, alert, oriented x3, responsive, sports lawyer III-XII nml as tested, speech normal Psychiatric: normal inspection, judgement/insight normal, mood/affect normal Skin: normal inspection, normal color, no rash Medical Decision Making Diagnostic Impression: Primary Impression: Gastrointestinal hemorrhage Additional Impression: Alcohol abuse ER Course Patient presented for vomiting blood. Differential diagnosis included was not limited to gastritis, esophageal varices, peptic ulcer disease, and others.Because of complexity of patient's case laboratory testing and imaging studies were ordered.Patient was placed on a ekg monitor tech. Patient was noted to have episode of coffee-ground emesis while in the emergency department. Patient started on IV Protonix. Patient was on ekg monitor tech. Rhythm strip interpreted by me showed sinus tachycardia with rate of 112 without PVCs or ectopy.The patient was noted to have prior history of portal hypertension on ultrasound. Patient was given IV octreotide.Dr. hernandez was contacted for inpatient management. Labs Test 09/08/16 08:33 White Blood Count 5.4 K/UL (4.8-10.8) Red Blood Count 3.35 M/UL (4.70-6.10) Hemoglobin 9.5 G/DL (14.2-18.0) Hematocrit 30.2 % (42.0-52.0) Mean Corpuscular Volume 90 FL (80-99) Mean Corpuscular Hemoglobin 28.4 PG (27.0-31.0) Mean Corpuscular Hemoglobin Concent 31.5 G/DL (32.0-36.0) Red Cell Distribution Width 17.3 % (11.6-14.8) Platelet Count 58 K/UL (150-450) Mean Platelet Volume 6.8 FL (6.5-10.1) Neutrophils (%) (Auto) % (45.0-75.0) Lymphocytes (%) (Auto) % (20.0-45.0) Monocytes (%) (Auto) % (1.0-10.0) Eosinophils (%) (Auto) % (0.0-3.0) Basophils (%) (Auto) % (0.0-2.0) Prothrombin Time 18.3 SEC (9.30-11.50) Prothromb Time International Ratio 1.8 (0.9-1.1) Activated Partial Thromboplast Time 32 SEC (23-33) Sodium Level 142 mEQ/L (135-145) Potassium Level 4.6 mEQ/L (3.4-4.9) Chloride Level 103 mEQ/L (98-107) Carbon Dioxide Level 27 mEQ/L (20-30) Anion Gap 12 (5-15) Blood Urea Nitrogen 20 mg/dL (7-23) Creatinine 0.9 mg/dL (0.7-1.2) Estimat Glomerular Filtration Rate > 60 mL/min (>60) Glucose Level 131 mg/dL (74-106) Calcium Level 7.9 mg/dL (8.6-10.2) Total Bilirubin 2.6 mg/dL (0.0-1.2) Aspartate Amino Transf (AST/SGOT) 111 U/L (5-40) Alanine Aminotransferase (ALT/SGPT) 32 U/L (3-41) Alkaline Phosphatase 71 U/L (40-129) Troponin I < 0.30 ng/mL (<=0.30) Total Protein 6.2 g/dL (6.6-8.7) Albumin 2.6 g/dL (3.5-5.2) Globulin 3.6 g/dL Albumin/Globulin Ratio 0.7 (1.0-2.7) Serum Alcohol 191 mg/dL EKG Diagnostic Results Rate: tachycardiac - 111 Rhythm: NSR ST Segments: no acute changes Status: unchanged Disposition: ADMITTED INPATIENT Condition: Serious Ramón Gay Sep 08, 2016 07:35
[~2016-09-08 07:37] MED LIST: FOLIC ACID1 MG ORAL; LACTULOSE20 GM/301 ORAL; VITAMIN B1100 MG PO
[2016-09-08] MEDS ORDERED: NKM (07:41)
[2016-09-08] MEDS ORDERED: Pantoprazole Inj IVP ONE (08:00)
[2016-09-08 08:55] LABS: MEAN CORPUSCULAR HEMOGLOBIN 28.4 PG (27.0-31.0); MEAN CORPUSCULAR HGB CONC 31.5 G/DL (32.0-36.0); MEAN CORPUSCULAR VOLUME 90 FL (80-99); MEAN PLATELET VOLUME 6.8 FL (6.5-10.1); PLATELET COUNT 58 K/UL (150-450); RED BLOOD COUNT 3.35 M/UL (4.70-6.10); RED CELL DISTRIBUTION WIDTH 17.3 % (11.6-14.8); WHITE BLOOD COUNT 5.4 K/UL (4.8-10.8)
[2016-09-08] MEDS ORDERED: SandoSTATIN 50mcg Inj IVP ONE (09:00)
[2016-09-08 09:02] LABS: INR 1.8 (0.9-1.1); PROTHROMBIN TIME 18.3 SEC (9.30-11.50)
[2016-09-08 09:11] LABS: TROPONIN I < 0.30 ng/mL (<=0.30)
[2016-09-08 09:13] LABS: ALANINE AMINOTRANSFERASE 32 U/L (3-41); ALBUMIN/GLOBULIN RATIO 0.7 (1.0-2.7); ALCOHOL 191 mg/dL; ANION GAP 12 (5-15); ASPARTATE AMINO TRANSFERASE 111 U/L (5-40); CALCIUM 7.9 mg/dL (8.6-10.2); CARBON DIOXIDE 27 mEQ/L (20-30); CHLORIDE 103 mEQ/L (98-107); CREATININE 0.9 mg/dL (0.7-1.2); GLOMERULAR FILTRATION RATE > 60 mL/min (>60); HEMOLYSIS 2; POTASSIUM 4.6 mEQ/L (3.4-4.9); SODIUM 142 mEQ/L (135-145); TOTAL PROTEIN 6.2 g/dL (6.6-8.7)
[2016-09-08] MEDS ORDERED: LORazepam Inj 2mg/ml 1ml IV ONE (09:15)
[2016-09-08] MEDS ORDERED: Thiamine HCl 100 MG in D5W 55 ML IVPB SCH (09:15)
[2016-09-08 09:25] LABS: BILIRUBIN,DIRECT 1.3 mg/dL (0.1-0.3)
[2016-09-08 09:59] LABS: ANISOCYTOSIS 1+; BAND NEUTROPHILS % (MANUAL) 1 % (0-8); BASOPHILS % (MANUAL) 0 % (0-2); EOSINOPHILS % (MANUAL) 1 % (0-3); HYPOCHROMASIA 1+; LYMPHOCYTES % (MANUAL) 19 % (20-45); NEUTROPHILS % (MANUAL) 61 % (45-75); PLATELET ESTIMATE DECREASED; PLATELET MORPHOLOGY NORMAL; TOTAL CELLS COUNTED 100
[2016-09-08] MEDS ORDERED: Morphine Sulfate 2mg/ml Inj IVP PRN (13:00)
[2016-09-08] MEDS ORDERED: Nitroglycerin Subl 0.4mg tab (Bottle Of 25) SL PRN (13:00)
[2016-09-08] MEDS ORDERED: Mylanta II UD 30ml ORAL PRN (13:00)
[2016-09-08] MEDS ORDERED: Phytonadione 10 MG in D5W 55 ML IVPB ONE (14:30)
[2016-09-08] MEDS ORDERED: Phytonadione 10 mg/mL 1ml amp ONE (14:36)
[2016-09-08 14:54] LABS: MEAN CORPUSCULAR HEMOGLOBIN 28.9 PG (27.0-31.0); MEAN CORPUSCULAR HGB CONC 31.9 G/DL (32.0-36.0); MEAN CORPUSCULAR VOLUME 91 FL (80-99); PLATELET COUNT 54 K/UL (150-450); RED BLOOD COUNT 3.19 M/UL (4.70-6.10); WHITE BLOOD COUNT 6.1 K/UL (4.8-10.8)
[2016-09-08] MEDS: D5 1/2NS 1,000 ML IV SCH (15:29)
[2016-09-08 15:52] LABS: BASOPHILS % (MANUAL) 1 % (0-2); EOSINOPHILS % (MANUAL) 1 % (0-3); LYMPHOCYTES % (MANUAL) 20 % (20-45); NEUTROPHILS % (MANUAL) 71 % (45-75); TOTAL CELLS COUNTED 100
[2016-09-08 15:53] LABS: ANISOCYTOSIS 1+; BAND NEUTROPHILS % (MANUAL) 0 % (0-8); HYPOCHROMASIA 1+; PLATELET ESTIMATE DECREASED; PLATELET MORPHOLOGY NORMAL; POLYCHROMASIA 1+; TARGET CELLS 1+
--- NOTE | 2016-09-08 17:54 | GI Initial Consult Note ---
History of Present Illness General Date patient seen: Sep 08, 2016 Time patient seen: 17:54 Reason for Hospitalization: Gastrointestinal Bleed Referring physician: SPENCER NIÑO Reason for Consultation: UGIB Present Illness HPI Patient is a 49-year-old male who presented after having reported hematemesis. Patient was having some dark stool over the past 2 days. Patient had prior history of alcohol abuse. Patient states he drank a bottle of vodka throughout the day. Patient had prior history of alcohol abuse he does take any medications currently. Patient had recently been hospitalized for similar symptoms. The patient is brought in by EMS. GI CONSULT: HPI as noted above. GI consulted for hematemesis. Pt seen in ER, awake alert AMS with periods of confusion. Pt stated he's been drinking alot and has been vomiting up alot of blood. Unable to obtain any other history at this time. Unknown history of any endoscopic procedures. He presents today with active hematemesis, anemia due to acute blood loss, elevated LFTs and serum alcohol 191. Home Meds Reported Medications No Known Medications* (NKM - No Known Medications*) ., 0 ., 0 Refills 09/08/16 Thiamine HCl (Thiamine HCl) 100 Mg Tablet, 100 MG PO DAILY, #30 TAB 08/24/16 Folic Acid* (FOLIC ACID*) 1 Mg Tablet, 1 MG ORAL DAILY, #30 TAB 08/24/16 Lactulose (LACTULOSE*) 20 Gm/30 Ml Solution, 45 ML ORAL BID for 30 Days, ML 0 Refills 08/24/16 Med list reviewed/reconciled: Yes Allergies: Coded Allergies: No Known Allergies (Unverified , 08/12/16) Patient History Limited by: medical condition History Provided By: Medical Record PMH Narrative Past Medical History: see triage record Reviewed Nursing Documentation: PMH: Agreed, PSxH: Agreed Social History: Reports: alcohol use Review of Systems All Other Systems: limited Physical Exam Vital Signs Date Time Temp Pulse Resp B/P Pulse Ox O2 Delivery O2 Flow Rate FiO2 09/08/16 07:31 98.6 111 18 126/77 98 Room Air Sp02 EP Interpretation: reviewed Labs Laboratory Tests Test 09/08/16 08:33 09/08/16 14:38 White Blood Count 5.4 K/UL (4.8-10.8) 6.1 K/UL (4.8-10.8) Red Blood Count 3.35 M/UL (4.70-6.10) L 3.19 M/UL (4.70-6.10) L Hemoglobin 9.5 G/DL (14.2-18.0) L 9.2 G/DL (14.2-18.0) L Hematocrit 30.2 % (42.0-52.0) L 28.9 % (42.0-52.0) L Mean Corpuscular Volume 90 FL (80-99) 91 FL (80-99) Mean Corpuscular Hemoglobin 28.4 PG (27.0-31.0) 28.9 PG (27.0-31.0) Mean Corpuscular Hemoglobin Concent 31.5 G/DL (32.0-36.0) L 31.9 G/DL (32.0-36.0) L Red Cell Distribution Width 17.3 % (11.6-14.8) H 17.0 % (11.6-14.8) H Platelet Count 58 K/UL (150-450) L 54 K/UL (150-450) L Mean Platelet Volume 6.8 FL (6.5-10.1) 7.0 FL (6.5-10.1) Neutrophils (%) (Auto) % (45.0-75.0) % (45.0-75.0) Lymphocytes (%) (Auto) % (20.0-45.0) % (20.0-45.0) Monocytes (%) (Auto) % (1.0-10.0) % (1.0-10.0) Eosinophils (%) (Auto) % (0.0-3.0) % (0.0-3.0) Basophils (%) (Auto) % (0.0-2.0) % (0.0-2.0) Differential Total Cells Counted 100 100 Neutrophils % (Manual) 61 % (45-75) 71 % (45-75) Lymphocytes % (Manual) 19 % (20-45) L 20 % (20-45) Monocytes % (Manual) 18 % (1-10) H 7 % (1-10) Eosinophils % (Manual) 1 % (0-3) 1 % (0-3) Basophils % (Manual) 0 % (0-2) 1 % (0-2) Band Neutrophils 1 % (0-8) 0 % (0-8) Platelet Estimate Decreased L Decreased L Platelet Morphology Normal Normal Hypochromasia 1+ 1+ Anisocytosis 1+ 1+ Prothrombin Time 18.3 SEC (9.30-11.50) H Prothromb Time International Ratio 1.8 (0.9-1.1) H Activated Partial Thromboplast Time 32 SEC (23-33) Sodium Level 142 mEQ/L (135-145) Potassium Level 4.6 mEQ/L (3.4-4.9) Chloride Level 103 mEQ/L (98-107) Carbon Dioxide Level 27 mEQ/L (20-30) Anion Gap 12 (5-15) Blood Urea Nitrogen 20 mg/dL (7-23) Creatinine 0.9 mg/dL (0.7-1.2) Estimat Glomerular Filtration Rate > 60 mL/min (>60) Glucose Level 131 mg/dL (74-106) H Calcium Level 7.9 mg/dL (8.6-10.2) L Total Bilirubin 2.6 mg/dL (0.0-1.2) H Direct Bilirubin 1.3 mg/dL (0.1-0.3) H Aspartate Amino Transf (AST/SGOT) 111 U/L (5-40) H Alanine Aminotransferase (ALT/SGPT) 32 U/L (3-41) Alkaline Phosphatase 71 U/L (40-129) Troponin I < 0.30 ng/mL (<=0.30) Total Protein 6.2 g/dL (6.6-8.7) L Albumin 2.6 g/dL (3.5-5.2) L Globulin 3.6 g/dL Albumin/Globulin Ratio 0.7 (1.0-2.7) L Serum Alcohol 191 mg/dL Polychromasia 1+ Target Cells 1+ General Appearance: no apparent distress, alert, other - AMS 2/2 alcohol intoxication Head: normocephalic EENT: PERRL/EOMI, normal ENT inspection Neck: supple Respiratory: normal breath sounds, no respiratory distress Cardiovascular: normal rate Gastrointestinal: normal bowel sounds Rectal: deferred Genitourinary: no CVA tenderness Musculoskeletal: back normal Neurologic: alert, oriented x3, responsive Skin: jaundice Lymphatic: normal inspection, no adenopathy Current Medications Current Medications Medications (Trade) Dose Ordered Sig/Saturnino Route PRN Reason Start Time Stop Time Status Last Admin Dose Admin Acetaminophen (Tylenol) 650 mg Q4H PRN ORAL T>100.5 09/08/16 13:00 10/08/16 12:59 Al Hydroxide/Mg Hydroxide (Mylanta II) 30 ml Q6H PRN ORAL dyspepsia 09/08/16 13:00 10/08/16 12:59 Ciprofloxacin (Cipro 400mg/ 200ml premix bag) 200 ml @ 200 mls/hr DAILY IVPB 09/08/16 21:00 09/15/16 20:59 UNV Dextrose STAT PRN IV Hypoglycemia 09/08/16 13:00 10/08/16 12:59 Dextrose/Sodium Chloride (D5 0.45% NS) 1,000 ml @ 75 mls/hr [id number] IV 09/08/16 15:00 10/08/16 14:59 09/08/16 15:29 Diphenhydramine HCl (Benadryl) 25 mg Q6H PRN ORAL Itching/Pruritis 09/08/16 13:00 10/08/16 12:59 Morphine Sulfate (Morphine Sulfate) 2 mg Q4H PRN IVP Severe Pain (Pain Scale 7-10) 09/08/16 13:00 09/15/16 12:59 Nitroglycerin (Ntg) 0.4 mg Q5M X 3 DOSES PRN SL Prn Chest Pain 09/08/16 13:00 10/08/16 12:59 Octreotide Acetate 500 mcg/ Sodium Chloride 500 ml @ 50 mls/hr Q10H IV 09/08/16 18:00 10/08/16 17:59 UNV Ondansetron HCl (Zofran) 4 mg Q6H PRN IVP Nausea & Vomiting 09/08/16 13:00 10/08/16 12:59 09/08/16 16:40 Pantoprazole 80 mg/Sodium Chloride 250 ml @ 25 mls/hr Q10H IV 09/08/16 18:00 10/08/16 17:59 UNV Polyethylene Glycol (Miralax) 17 gm HSPRN PRN ORAL Constipation 09/08/16 21:00 10/08/16 20:59 Temazepam (Restoril) 15 mg HSPRN PRN ORAL Insomnia 09/08/16 21:00 09/15/16 20:59 Thiamine HCl 100 mg/Dextrose 56 ml @ 112 mls/hr Q24H IVPB 09/08/16 09:15 10/08/16 09:14 09/08/16 11:05 GI: Plan Problems: (1) Alcohol abuse (2) Gastrointestinal hemorrhage (3) Anemia due to acute blood loss (4) Hypoalbuminemia (5) LFT elevation Plan UGIB most likely due to EV anemia due to acute blood loss alcoholic abuse elevated serum alcohol EGD scheduled for tomorrow for hematemesis most likely due to esophageal varices maintain NPO + IVF, ok for ice chips ordered octreotide gtt ordered ppi gtt ordered ciprofloxacin IV 400mg daily ordered ammonia level fu labs Discussed with Dr. Wright. Thank you for referring this patient, we will follow. Mary Norman N.P. Sep 08, 2016 17:54
[2016-09-08] MEDS: Pantoprazole 80 MG in NS 250 ML IV SCH (20:42)
[2016-09-08] MEDS: Octreotide Acetate 500 MCG in Sodium Chloride 499 ML IV SCH (20:42)
[2016-09-08] MEDS ORDERED: Miralax 17gm pkt ORAL PRN (21:00)
--- NOTE | 2016-09-08 23:07 | History and Physical ---
History of Present Illness General Date patient seen: Sep 08, 2016 Reason for Hospitalization: Gastrointestinal Bleed Present Illness HPI 49-year-old male with end stage liver disease brought in by paramedics for hematemesis. He was having some dark stool over the past 2 days. Patient had prior history of alcohol abuse. Patient states he drank a bottle of vodka throughout the day. . Patient had recently been hospitalized for similar symptoms. He is admitted to telemetry for acute GI bleeding and encephalopathy. Allergies: Coded Allergies: No Known Allergies (Unverified , 08/12/16) Medication History Scheduled Folic Acid* (Folic Acid*), 1 MG ORAL DAILY, (Reported) Lactulose (Lactulose*), 45 ML ORAL BID, (Reported) No Known Medications* (NKM - No Known Medications*), 0 ., (Reported) Thiamine HCl (Thiamine HCl), 100 MG PO DAILY, (Reported) Patient History Healthcare decision maker Resuscitation status No Chest Compressions Advanced Directive on File Past Medical/Surgical History Past Medical/Surgical History: (1) Liver cirrhosis (2) Hypoalbuminemia (3) Alcohol abuse Physical Exam Lines, tubes and drains: peripheral HEENT: normocephalic, atraumatic Neck: non-tender, normal alignment Respiratory/Chest: chest wall non-tender, lungs clear Cardiovascular/Chest: normal peripheral pulses, normal rate Abdomen: normal bowel sounds, non tender Extremities: normal range of motion Neurologic: cone operator II-XII grossly normal Last 24 Hour Vital Signs Date Time Temp Pulse Resp B/P Pulse Ox O2 Delivery O2 Flow Rate FiO2 09/08/16 19:56 98.5 86 20 139/84 95 Room Air 09/08/16 18:30 97.0 79 17 138/79 98 Room Air 09/08/16 18:17 97.0 94 19 138/79 98 Room Air 09/08/16 18:00 97.8 79 19 138/79 98 Room Air 09/08/16 16:54 110 16 157/83 98 Room Air 09/08/16 13:05 119 14 121/73 98 Room Air 09/08/16 11:05 98.0 121 21 133/85 99 Room Air 09/08/16 08:48 98.6 111 18 128/97 98 Room Air 09/08/16 07:31 98.6 111 18 126/77 98 Room Air Laboratory Tests Test 09/08/16 08:33 09/08/16 14:38 White Blood Count 5.4 K/UL (4.8-10.8) 6.1 K/UL (4.8-10.8) Red Blood Count 3.35 M/UL (4.70-6.10) L 3.19 M/UL (4.70-6.10) L Hemoglobin 9.5 G/DL (14.2-18.0) L 9.2 G/DL (14.2-18.0) L Hematocrit 30.2 % (42.0-52.0) L 28.9 % (42.0-52.0) L Mean Corpuscular Volume 90 FL (80-99) 91 FL (80-99) Mean Corpuscular Hemoglobin 28.4 PG (27.0-31.0) 28.9 PG (27.0-31.0) Mean Corpuscular Hemoglobin Concent 31.5 G/DL (32.0-36.0) L 31.9 G/DL (32.0-36.0) L Red Cell Distribution Width 17.3 % (11.6-14.8) H 17.0 % (11.6-14.8) H Platelet Count 58 K/UL (150-450) L 54 K/UL (150-450) L Mean Platelet Volume 6.8 FL (6.5-10.1) 7.0 FL (6.5-10.1) Neutrophils (%) (Auto) % (45.0-75.0) % (45.0-75.0) Lymphocytes (%) (Auto) % (20.0-45.0) % (20.0-45.0) Monocytes (%) (Auto) % (1.0-10.0) % (1.0-10.0) Eosinophils (%) (Auto) % (0.0-3.0) % (0.0-3.0) Basophils (%) (Auto) % (0.0-2.0) % (0.0-2.0) Differential Total Cells Counted 100 100 Neutrophils % (Manual) 61 % (45-75) 71 % (45-75) Lymphocytes % (Manual) 19 % (20-45) L 20 % (20-45) Monocytes % (Manual) 18 % (1-10) H 7 % (1-10) Eosinophils % (Manual) 1 % (0-3) 1 % (0-3) Basophils % (Manual) 0 % (0-2) 1 % (0-2) Band Neutrophils 1 % (0-8) 0 % (0-8) Platelet Estimate Decreased L Decreased L Platelet Morphology Normal Normal Hypochromasia 1+ 1+ Anisocytosis 1+ 1+ Prothrombin Time 18.3 SEC (9.30-11.50) H Prothromb Time International Ratio 1.8 (0.9-1.1) H Activated Partial Thromboplast Time 32 SEC (23-33) Sodium Level 142 mEQ/L (135-145) Potassium Level 4.6 mEQ/L (3.4-4.9) Chloride Level 103 mEQ/L (98-107) Carbon Dioxide Level 27 mEQ/L (20-30) Anion Gap 12 (5-15) Blood Urea Nitrogen 20 mg/dL (7-23) Creatinine 0.9 mg/dL (0.7-1.2) Estimat Glomerular Filtration Rate > 60 mL/min (>60) Glucose Level 131 mg/dL (74-106) H Calcium Level 7.9 mg/dL (8.6-10.2) L Total Bilirubin 2.6 mg/dL (0.0-1.2) H Direct Bilirubin 1.3 mg/dL (0.1-0.3) H Aspartate Amino Transf (AST/SGOT) 111 U/L (5-40) H Alanine Aminotransferase (ALT/SGPT) 32 U/L (3-41) Alkaline Phosphatase 71 U/L (40-129) Troponin I < 0.30 ng/mL (<=0.30) Total Protein 6.2 g/dL (6.6-8.7) L Albumin 2.6 g/dL (3.5-5.2) L Globulin 3.6 g/dL Albumin/Globulin Ratio 0.7 (1.0-2.7) L Serum Alcohol 191 mg/dL Polychromasia 1+ Target Cells 1+ Height (Feet): 6 Height (Inches): 3.00 Weight (Pounds): 220 Medications Current Medications Medications (Trade) Dose Ordered Sig/Saturnino Route PRN Reason Start Time Stop Time Status Last Admin Dose Admin Acetaminophen (Tylenol) 650 mg Q4H PRN ORAL T>100.5 09/08/16 13:00 10/08/16 12:59 Al Hydroxide/Mg Hydroxide (Mylanta II) 30 ml Q6H PRN ORAL dyspepsia 09/08/16 13:00 10/08/16 12:59 Ciprofloxacin (Cipro 400mg/ 200ml premix bag) 200 ml @ 200 mls/hr QHS IV 09/08/16 19:00 09/15/16 18:59 09/08/16 19:35 Dextrose STAT PRN IV Hypoglycemia 09/08/16 13:00 10/08/16 12:59 Dextrose/Sodium Chloride (D5 0.45% NS) 1,000 ml @ 75 mls/hr [id number] IV 09/08/16 15:00 10/08/16 14:59 09/08/16 15:29 Diphenhydramine HCl (Benadryl) 25 mg Q6H PRN ORAL Itching/Pruritis 09/08/16 13:00 10/08/16 12:59 Metoprolol Tartrate (Lopressor) 10 mg Q4HR PRN IVP HR>120 09/08/16 18:30 10/08/16 18:29 Morphine Sulfate (Morphine Sulfate) 2 mg Q4H PRN IVP Severe Pain (Pain Scale 7-10) 09/08/16 13:00 09/15/16 12:59 Nitroglycerin (Ntg) 0.4 mg Q5M X 3 DOSES PRN SL Prn Chest Pain 09/08/16 13:00 10/08/16 12:59 Octreotide Acetate 500 mcg/ Sodium Chloride 500 ml @ 50 mls/hr Q10H IV 09/08/16 19:00 10/08/16 18:59 09/08/16 20:42 Ondansetron HCl (Zofran) 4 mg Q6H PRN IVP Nausea & Vomiting 09/08/16 13:00 10/08/16 12:59 09/08/16 16:40 Pantoprazole 80 mg/Sodium Chloride 250 ml @ 25 mls/hr Q10H IV 09/08/16 19:00 10/08/16 18:59 09/08/16 20:42 Polyethylene Glycol (Miralax) 17 gm HSPRN PRN ORAL Constipation 09/08/16 21:00 10/08/16 20:59 Temazepam (Restoril) 15 mg HSPRN PRN ORAL Insomnia 09/08/16 21:00 09/15/16 20:59 09/08/16 20:43 Thiamine HCl 100 mg/Dextrose 56 ml @ 112 mls/hr Q24H IVPB 09/08/16 09:15 10/08/16 09:14 09/08/16 11:05 Assessment/Plan Problem List: (1) Gastrointestinal hemorrhage ICD Codes: K92.2 - Gastrointestinal hemorrhage, unspecified SNOMED: 62087849 (2) Anemia due to acute blood loss ICD Codes: D62 - Acute posthemorrhagic anemia SNOMED: 313595043 (3) Alcohol abuse ICD Codes: F10.10 - Alcohol abuse, uncomplicated SNOMED: 85727239 (4) Liver cirrhosis ICD Codes: K74.60 - Unspecified cirrhosis of liver SNOMED: 44575018 Assessment/Plan NPO GI evaluation prbc prn iv fluids SPENCER BERGER Sep 08, 2016 23:07
[2016-09-09] VITALS (8 sets, daily range): BP systolic 135–195; BP diastolic 81–118
[2016-09-09] MEDS: Metoprolol 5mg/5ml Inj IVP PRN ×2 (02:01→15:30)
[2016-09-09] MEDS: D5 1/2NS 1,000 ML IV SCH (04:20)
[2016-09-09 04:53] LABS: MEAN CORPUSCULAR HEMOGLOBIN 28.4 PG (27.0-31.0); MEAN CORPUSCULAR HGB CONC 31.8 G/DL (32.0-36.0); MEAN CORPUSCULAR VOLUME 90 FL (80-99); MEAN PLATELET VOLUME 7.9 FL (6.5-10.1); PLATELET COUNT 68 K/UL (150-450); RED BLOOD COUNT 3.08 M/UL (4.70-6.10); RED CELL DISTRIBUTION WIDTH 16.8 % (11.6-14.8); WHITE BLOOD COUNT 8.2 K/UL (4.8-10.8)
[2016-09-09 05:06] LABS: INR 1.7 (0.9-1.1)
[2016-09-09 05:14] LABS: ALANINE AMINOTRANSFERASE 30 U/L (3-41); ALBUMIN/GLOBULIN RATIO 0.7 (1.0-2.7); AMYLASE 68 U/L (10-110); ANION GAP 16 (5-15); ASPARTATE AMINO TRANSFERASE 104 U/L (5-40); CALCIUM 7.9 mg/dL (8.6-10.2); CARBON DIOXIDE 22 mEQ/L (20-30); CHLORIDE 101 mEQ/L (98-107); GLOMERULAR FILTRATION RATE > 60 mL/min (>60); HEMOLYSIS 2; LIPASE 39 U/L (< 60); POTASSIUM 4.5 mEQ/L (3.4-4.9); SODIUM 139 mEQ/L (135-145); TOTAL PROTEIN 6.2 g/dL (6.6-8.7)
[2016-09-09 05:35] LABS: BILIRUBIN,DIRECT 1.6 mg/dL (0.1-0.3)
[2016-09-09 05:44] LABS: ANISOCYTOSIS 1+; BAND NEUTROPHILS % (MANUAL) 0 % (0-8); BASOPHILS % (MANUAL) 1 % (0-2); EOSINOPHILS % (MANUAL) 0 % (0-3); HYPOCHROMASIA 3+; LYMPHOCYTES % (MANUAL) 9 % (20-45); NEUTROPHILS % (MANUAL) 86 % (45-75); PLATELET ESTIMATE DECREASED; TOTAL CELLS COUNTED 100
[2016-09-09 05:45] LABS: PLATELET MORPHOLOGY NORMAL
[2016-09-09] MEDS: Octreotide Acetate 500 MCG in Sodium Chloride 499 ML IV SCH ×2 (06:01→16:14)
[2016-09-09] MEDS: Pantoprazole 80 MG in NS 250 ML IV SCH ×2 (06:01→16:14)
[2016-09-09] MEDS ORDERED: chlordiazePOXIDE 25mg Cap ORAL PRN (07:00)
[2016-09-09] MEDS ORDERED: Pantoprazole Inj IVP SCH (09:00)
--- NOTE | 2016-09-09 12:53 | Pulmonology Progress Note ---
Assessment/Plan Problems: (1) Anemia due to acute blood loss (2) Alcohol abuse (3) Liver cirrhosis (4) Gastrointestinal hemorrhage (5) Coagulopathy (6) Fever Assessment/Plan banana bag iv fluids ID evaluation IV antibiotics giron culture Subjective ROS Limited/Unobtainable: Yes Interval Events: obtundet Allergies: Coded Allergies: No Known Allergies (Unverified , 08/12/16) Objective Last 24 Hour Vital Signs Date Time Temp Pulse Resp B/P Pulse Ox O2 Delivery O2 Flow Rate FiO2 09/09/16 11:24 98.2 104 20 144/96 95 Room Air 09/09/16 07:45 98.1 83 20 135/81 95 Room Air 09/09/16 05:09 98.7 09/09/16 04:00 120 09/09/16 03:56 101.1 145 24 156/92 95 Room Air 09/09/16 02:01 150 165/107 09/09/16 00:00 107 09/08/16 23:54 98.3 100 21 123/73 98 Room Air 09/08/16 20:00 111 09/08/16 19:56 98.5 86 20 139/84 95 Room Air 09/08/16 18:30 97.0 79 17 138/79 98 Room Air 09/08/16 18:17 97.0 94 19 138/79 98 Room Air 09/08/16 18:00 97.8 79 19 138/79 98 Room Air 09/08/16 16:54 110 16 157/83 98 Room Air 09/08/16 13:05 119 14 121/73 98 Room Air Intake and Output 09/08/16 09/09/16 19:00 07:00 Intake Total 56 ml 1448.75 ml Balance 56 ml 1448.75 ml Intake Oral 0 ml IV Total 56 ml 1448.75 ml # Voids 2 # Bowel Movements 2 General Appearance: WD/WN HEENT: normocephalic, atraumatic Respiratory/Chest: chest wall non-tender, normal breath sounds Cardiovascular: normal peripheral pulses, normal rate Abdomen: normal bowel sounds, soft, non tender Extremities: no cyanosis Skin: no rash Laboratory Tests 09/08/16 14:38: White Blood Count 6.1, Red Blood Count 3.19L, Hemoglobin 9.2L, Hematocrit 28.9L , Mean Corpuscular Volume 91, Mean Corpuscular Hemoglobin 28.9, Mean Corpuscular Hemoglobin Concent 31.9L, Red Cell Distribution Width 17.0H, Platelet Count 54L, Mean Platelet Volume 7.0, Neutrophils (%) (Auto) , Lymphocytes (%) (Auto) , Monocytes (%) (Auto) , Eosinophils (%) (Auto) , Basophils (%) (Auto) , Differential Total Cells Counted 100, Neutrophils % ( Manual) 71, Lymphocytes % (Manual) 20, Monocytes % (Manual) 7, Eosinophils % ( Manual) 1, Basophils % (Manual) 1, Band Neutrophils 0, Platelet Estimate DecreasedL, Platelet Morphology Normal, Polychromasia 1+, Hypochromasia 1+, Anisocytosis 1+, Target Cells 1+ 09/09/16 04:45: White Blood Count 8.2, Red Blood Count 3.08L, Hemoglobin 8.8L, Hematocrit 27.6L , Mean Corpuscular Volume 90, Mean Corpuscular Hemoglobin 28.4, Mean Corpuscular Hemoglobin Concent 31.8L, Red Cell Distribution Width 16.8H, Platelet Count 68L, Mean Platelet Volume 7.9, Neutrophils (%) (Auto) , Lymphocytes (%) (Auto) , Monocytes (%) (Auto) , Eosinophils (%) (Auto) , Basophils (%) (Auto) , Differential Total Cells Counted 100, Neutrophils % ( Manual) 86H, Lymphocytes % (Manual) 9L, Monocytes % (Manual) 4, Eosinophils % ( Manual) 0, Basophils % (Manual) 1, Band Neutrophils 0, Platelet Estimate DecreasedL, Platelet Morphology Normal, Hypochromasia 3+, Anisocytosis 1+, Prothrombin Time 18.0H, Prothromb Time International Ratio 1.7H, Activated Partial Thromboplast Time 32, Sodium Level 139, Potassium Level 4.5, Chloride Level 101, Carbon Dioxide Level 22, Anion Gap 16H, Blood Urea Nitrogen 26H, Creatinine 1.0, Estimat Glomerular Filtration Rate > 60, Glucose Level 155H, Calcium Level 7.9L, Total Bilirubin 3.8H, Direct Bilirubin 1.6H, Aspartate Amino Transf (AST/SGOT) 104H, Alanine Aminotransferase (ALT/SGPT) 30, Alkaline Phosphatase 60, Ammonia 190H, Total Protein 6.2L, Albumin 2.6L, Globulin 3.6, Albumin/Globulin Ratio 0.7L, Amylase Level 68, Lipase 39 Current Medications Medications (Trade) Dose Ordered Sig/Saturnino Route PRN Reason Start Time Stop Time Status Last Admin Dose Admin Acetaminophen (Tylenol) 650 mg Q4H PRN ORAL T>100.5 09/08/16 13:00 10/08/16 12:59 09/09/16 04:10 Al Hydroxide/Mg Hydroxide (Mylanta II) 30 ml Q6H PRN ORAL dyspepsia 09/08/16 13:00 10/08/16 12:59 Chlordiazepoxide 25 mg 25 mg Q8H PRN ORAL Agitation 09/09/16 07:00 09/16/16 06:59 Ciprofloxacin (Cipro 400mg/ 200ml premix bag) 200 ml @ 200 mls/hr Q12HR IV 09/09/16 13:00 09/16/16 12:59 Dextrose STAT PRN IV Hypoglycemia 09/08/16 13:00 10/08/16 12:59 Dextrose/Sodium Chloride (D5 0.45% NS) 1,000 ml @ 75 mls/hr [id number] IV 09/08/16 15:00 10/08/16 14:59 09/08/16 15:29 Diphenhydramine HCl (Benadryl) 25 mg Q6H PRN ORAL Itching/Pruritis 09/08/16 13:00 10/08/16 12:59 Metoprolol Tartrate (Lopressor) 10 mg Q4HR PRN IVP HR>120 09/08/16 18:30 10/08/16 18:29 09/09/16 02:01 Morphine Sulfate (Morphine Sulfate) 2 mg Q4H PRN IVP Severe Pain (Pain Scale 7-10) 09/08/16 13:00 09/15/16 12:59 Nitroglycerin (Ntg) 0.4 mg Q5M X 3 DOSES PRN SL Prn Chest Pain 09/08/16 13:00 10/08/16 12:59 Octreotide Acetate 500 mcg/ Sodium Chloride 500 ml @ 50 mls/hr Q10H IV 09/08/16 19:00 10/08/16 18:59 09/09/16 06:01 Ondansetron HCl (Zofran) 4 mg Q6H PRN IVP Nausea & Vomiting 09/08/16 13:00 10/08/16 12:59 09/08/16 16:40 Pantoprazole/ Sodium Chloride (Protonix/Sodium Chloride) 250 ml @ 25 mls/hr Q10H IV 09/08/16 19:00 10/08/16 18:59 09/09/16 06:01 Polyethylene Glycol (Miralax) 17 gm HSPRN PRN ORAL Constipation 09/08/16 21:00 10/08/16 20:59 Rifaximin (Xifaxan) 550 mg EVERY 12 HOURS ORAL 09/09/16 13:00 09/16/16 12:59 Temazepam (Restoril) 15 mg HSPRN PRN ORAL Insomnia 09/08/16 21:00 09/15/16 20:59 09/08/16 20:43 SPENCER BERGER Sep 09, 2016 12:53
[2016-09-09] MEDS ORDERED: Cipro 400mg/D5W 200ml IV SCH (13:00)
--- NOTE | 2016-09-09 13:20 | GI Progress Note ---
Assessment/Plan Problems: (1) Liver cirrhosis ICD Codes: K74.60 - Unspecified cirrhosis of liver SNOMED: 33551746 (2) LFT elevation ICD Codes: R94.5 - Abnormal results of liver function studies SNOMED: 846257745 (3) Anemia due to acute blood loss ICD Codes: D62 - Acute posthemorrhagic anemia SNOMED: 836400940 (4) Hypoalbuminemia ICD Codes: E88.09 - Other disorders of plasma-protein metabolism, not elsewhere classified SNOMED: 783863413 (5) Gastrointestinal hemorrhage ICD Codes: K92.2 - Gastrointestinal hemorrhage, unspecified SNOMED: 17344941 (6) Alcohol abuse ICD Codes: F10.10 - Alcohol abuse, uncomplicated SNOMED: 65176202 Status: not improved Status Narrative Discussed with Dr. Wright. Assessment/Plan EGD cancelled by anesthesia due to lethargy/AMS, rescheduled for tomorrow. Maintain NPO + IVFs insert NGT elevated ammonia >> lactulose TID cont octreotide gtt cont ppi gtt cont ciprofloxacin IV 400mg daily monitor H&H, transfuse prn fu labs Subjective Subjective limited, AMS Objective Last 24 Hour Vital Signs Date Time Temp Pulse Resp B/P Pulse Ox O2 Delivery O2 Flow Rate FiO2 09/09/16 11:24 98.2 104 20 144/96 95 Room Air 09/09/16 07:45 98.1 83 20 135/81 95 Room Air 09/09/16 05:09 98.7 09/09/16 04:00 120 09/09/16 03:56 101.1 145 24 156/92 95 Room Air 09/09/16 02:01 150 165/107 09/09/16 00:00 107 09/08/16 23:54 98.3 100 21 123/73 98 Room Air 09/08/16 20:00 111 09/08/16 19:56 98.5 86 20 139/84 95 Room Air 09/08/16 18:30 97.0 79 17 138/79 98 Room Air 09/08/16 18:17 97.0 94 19 138/79 98 Room Air 09/08/16 18:00 97.8 79 19 138/79 98 Room Air 09/08/16 16:54 110 16 157/83 98 Room Air Intake and Output 09/08/16 09/09/16 19:00 07:00 Intake Total 56 ml 1448.75 ml Balance 56 ml 1448.75 ml Intake Oral 0 ml IV Total 56 ml 1448.75 ml # Voids 2 # Bowel Movements 2 Laboratory Tests Test 09/08/16 14:38 09/09/16 04:45 White Blood Count 6.1 K/UL (4.8-10.8) 8.2 K/UL (4.8-10.8) Red Blood Count 3.19 M/UL (4.70-6.10) L 3.08 M/UL (4.70-6.10) L Hemoglobin 9.2 G/DL (14.2-18.0) L 8.8 G/DL (14.2-18.0) L Hematocrit 28.9 % (42.0-52.0) L 27.6 % (42.0-52.0) L Mean Corpuscular Volume 91 FL (80-99) 90 FL (80-99) Mean Corpuscular Hemoglobin 28.9 PG (27.0-31.0) 28.4 PG (27.0-31.0) Mean Corpuscular Hemoglobin Concent 31.9 G/DL (32.0-36.0) L 31.8 G/DL (32.0-36.0) L Red Cell Distribution Width 17.0 % (11.6-14.8) H 16.8 % (11.6-14.8) H Platelet Count 54 K/UL (150-450) L 68 K/UL (150-450) L Mean Platelet Volume 7.0 FL (6.5-10.1) 7.9 FL (6.5-10.1) Neutrophils (%) (Auto) % (45.0-75.0) % (45.0-75.0) Lymphocytes (%) (Auto) % (20.0-45.0) % (20.0-45.0) Monocytes (%) (Auto) % (1.0-10.0) % (1.0-10.0) Eosinophils (%) (Auto) % (0.0-3.0) % (0.0-3.0) Basophils (%) (Auto) % (0.0-2.0) % (0.0-2.0) Differential Total Cells Counted 100 100 Neutrophils % (Manual) 71 % (45-75) 86 % (45-75) H Lymphocytes % (Manual) 20 % (20-45) 9 % (20-45) L Monocytes % (Manual) 7 % (1-10) 4 % (1-10) Eosinophils % (Manual) 1 % (0-3) 0 % (0-3) Basophils % (Manual) 1 % (0-2) 1 % (0-2) Band Neutrophils 0 % (0-8) 0 % (0-8) Platelet Estimate Decreased L Decreased L Platelet Morphology Normal Normal Polychromasia 1+ Hypochromasia 1+ 3+ Anisocytosis 1+ 1+ Target Cells 1+ Prothrombin Time 18.0 SEC (9.30-11.50) H Prothromb Time International Ratio 1.7 (0.9-1.1) H Activated Partial Thromboplast Time 32 SEC (23-33) Sodium Level 139 mEQ/L (135-145) Potassium Level 4.5 mEQ/L (3.4-4.9) Chloride Level 101 mEQ/L (98-107) Carbon Dioxide Level 22 mEQ/L (20-30) Anion Gap 16 (5-15) H Blood Urea Nitrogen 26 mg/dL (7-23) H Creatinine 1.0 mg/dL (0.7-1.2) Estimat Glomerular Filtration Rate > 60 mL/min (>60) Glucose Level 155 mg/dL (74-106) H Calcium Level 7.9 mg/dL (8.6-10.2) L Total Bilirubin 3.8 mg/dL (0.0-1.2) H Direct Bilirubin 1.6 mg/dL (0.1-0.3) H Aspartate Amino Transf (AST/SGOT) 104 U/L (5-40) H Alanine Aminotransferase (ALT/SGPT) 30 U/L (3-41) Alkaline Phosphatase 60 U/L (40-129) Ammonia 190 umol/L (16-60) H Total Protein 6.2 g/dL (6.6-8.7) L Albumin 2.6 g/dL (3.5-5.2) L Globulin 3.6 g/dL Albumin/Globulin Ratio 0.7 (1.0-2.7) L Amylase Level 68 U/L (10-110) Lipase 39 U/L (< 60) Height (Feet): 6 Height (Inches): 3.00 Weight (Pounds): 220 General Appearance: no apparent distress, lethargic, confused Cardiovascular: normal rate Respiratory/Chest: normal breath sounds Abdominal Exam: soft Mary Norman N.P. Sep 09, 2016 13:20
[2016-09-09] MEDS ORDERED: NS IV SCH ×4 (15:00)
[2016-09-09] MEDS ORDERED: KCL IV SCH ×4 (15:00)
[2016-09-09] MEDS ORDERED: FOLIC ACID IV SCH ×4 (15:00)
[2016-09-09] MEDS ORDERED: MVI IV SCH ×4 (15:00)
[2016-09-09] MEDS: Thiamine 100mg IVPB (Q24H) IVPB SCH ×2 (15:00)
[2016-09-09] MEDS ORDERED: Phytonadione 10 MG in D5W 55 ML IVPB ONE (15:00)
[2016-09-09] MEDS ORDERED: [UNRECOGNIZED DRUG - OTHER] IV SCH ×4 (15:00)
[2016-09-09] MEDS: Piperacillin/Tazobactam 3.375 GM in NS 110 ML IVPB SCH ×2 (16:13→22:48)
--- NOTE | 2016-09-09 16:34 | Diagnostic Imaging Report ---
Indication: Post nasogastric tube placement Technique: Supine view of the abdomen Comparison: none Findings: There is a nasogastric tube present, tip projecting at level of the fundus body junction, proximal port within the fundus. Bowel gas pattern demonstrates slight prominence to gas filled small bowel loops, otherwise unremarkable. No unusual masses or calcifications Impression: Satisfactory position of nasogastric tube
[2016-09-09] MEDS: Lactulose 20gm/30ml UDC ORAL SCH ×2 (19:16→23:37)
[2016-09-09] MEDS: Rifaximin 550mg tab ORAL SCH ×2 (19:18→22:48)
[2016-09-09] MEDS ORDERED: Vancomycin 1.5 GM in D5W 325 ML IVPB ONE (20:00)
[2016-09-10] VITALS: BP 185/109
[2016-09-10] MEDS: Octreotide Acetate 500 MCG in Sodium Chloride 499 ML IV SCH ×3 (01:58→19:16)
[2016-09-10] MEDS: Pantoprazole 80 MG in NS 250 ML IV SCH ×3 (01:59→22:18)
[2016-09-10 04:00] VITALS: BP 142/86
[2016-09-10] MEDS: Vancomycin 1gm/D5W 275ml IVPB SCH ×4 (04:02→11:11)
[2016-09-10] MEDS: Piperacillin/Tazobactam 3.375 GM in NS 110 ML IVPB SCH ×3 (05:51→22:26)
[2016-09-10 07:32] LABS: MEAN CORPUSCULAR HEMOGLOBIN 29.5 PG (27.0-31.0); MEAN CORPUSCULAR HGB CONC 32.9 G/DL (32.0-36.0); MEAN CORPUSCULAR VOLUME 90 FL (80-99); MEAN PLATELET VOLUME 8.3 FL (6.5-10.1); PLATELET COUNT 71 K/UL (150-450); RED BLOOD COUNT 2.92 M/UL (4.70-6.10); RED CELL DISTRIBUTION WIDTH 16.8 % (11.6-14.8); WHITE BLOOD COUNT 9.3 K/UL (4.8-10.8)
[2016-09-10 07:41] LABS: ALANINE AMINOTRANSFERASE 27 U/L (3-41); ALBUMIN/GLOBULIN RATIO 0.7 (1.0-2.7); ANION GAP 16 (5-15); ASPARTATE AMINO TRANSFERASE 98 U/L (5-40); CALCIUM 7.8 mg/dL (8.6-10.2); CARBON DIOXIDE 22 mEQ/L (20-30); CHLORIDE 107 mEQ/L (98-107); CREATININE 0.9 mg/dL (0.7-1.2); GLOMERULAR FILTRATION RATE > 60 mL/min (>60); HEMOLYSIS 0; POTASSIUM 3.4 mEQ/L (3.4-4.9); SODIUM 145 mEQ/L (135-145); TOTAL PROTEIN 6.1 g/dL (6.6-8.7)
[2016-09-10 07:58] LABS: MAGNESIUM 1.7 mg/dL (1.7-2.5); PHOSPHORUS 3.9 mg/dL (2.5-4.8)
[2016-09-10 08:00] VITALS: BP 153/108
[2016-09-10 08:01] LABS: INR 1.8 (0.9-1.1); PROTHROMBIN TIME 18.3 SEC (9.30-11.50)
--- NOTE | 2016-09-10 08:48 | Pre-Procedure Note/Attestation ---
Pre-Procedure Note/Attestation Complete Prior to Procedure Planned Procedure: not applicable Procedure Narrative: egd Indications for Procedure Pre-Operative Diagnosis: gib Attestation I attest that I discussed the nature of the procedure; its benefits; risks and complications; and alternatives (and the risks and benefits of such alternatives ), prior to the procedure, with the patient (or the patient's legal financial representative). I attest that, if there was a reasonable possibility of needing a blood transfusion, the patient (or the patient's legal financial representative) was given the [facility] standardized written summary, pursuant to the Ajay [place] Blood Safety Act ([place] Health and Safety Code # 1645, as amended). I attest that I re-evaluated the patient just prior to the surgery and that there has been no change in the patient's H&P, except as documented below: GURWINDER STANLEY Sep 10, 2016 08:48
[2016-09-10] MEDS: Lactulose 20gm/30ml UDC ORAL SCH ×3 (10:17→18:19)
[2016-09-10] MEDS: Rifaximin 550mg tab ORAL SCH ×2 (10:18→22:25)
[2016-09-10 10:40] LABS: ANISOCYTOSIS 1+; BAND NEUTROPHILS % (MANUAL) 0 % (0-8); BASOPHILS % (MANUAL) 0 % (0-2); EOSINOPHILS % (MANUAL) 0 % (0-3); HYPOCHROMASIA 1+; LYMPHOCYTES % (MANUAL) 24 % (20-45); NEUTROPHILS % (MANUAL) 68 % (45-75); PLATELET ESTIMATE ADEQUATE; PLATELET MORPHOLOGY NORMAL; POLYCHROMASIA OCCASIONAL; TOTAL CELLS COUNTED 100
--- NOTE | 2016-09-10 10:52 | GI Progress Note ---
Assessment/Plan Problems: (1) Liver cirrhosis ICD Codes: K74.60 - Unspecified cirrhosis of liver SNOMED: 38313597 (2) LFT elevation ICD Codes: R94.5 - Abnormal results of liver function studies SNOMED: 071733383 (3) Anemia due to acute blood loss ICD Codes: D62 - Acute posthemorrhagic anemia SNOMED: 602202844 (4) Hypoalbuminemia ICD Codes: E88.09 - Other disorders of plasma-protein metabolism, not elsewhere classified SNOMED: 399455948 (5) Gastrointestinal hemorrhage ICD Codes: K92.2 - Gastrointestinal hemorrhage, unspecified SNOMED: 09410208 (6) Alcohol abuse ICD Codes: F10.10 - Alcohol abuse, uncomplicated SNOMED: 62332795 Status: unchanged Status Narrative Discussed with Dr. Wright. Assessment/Plan EGD cancelled again by anesthesia due to lethargy/AMS, rescheduled for Thursday. Maintain NPO + IVFs insert NGT elevated ammonia >> lactulose TID + xifaxin cont octreotide gtt cont ppi gtt cont ciprofloxacin IV 400mg daily monitor H&H, transfuse prn fu labs Subjective Subjective limited, AMS Objective Last 24 Hour Vital Signs Date Time Temp Pulse Resp B/P Pulse Ox O2 Delivery O2 Flow Rate FiO2 09/10/16 08:00 99.7 102 19 153/108 94 Room Air 09/10/16 04:00 105 09/10/16 04:00 99.3 81 16 142/86 94 Room Air 09/10/16 00:00 84 09/10/16 00:00 99.5 108 16 185/109 98 Room Air 09/09/16 20:00 103 09/09/16 20:00 100.4 87 16 160/92 94 Room Air 09/09/16 18:07 91 165/93 09/09/16 16:00 101 09/09/16 15:52 101 18 160/106 95 Room Air 09/09/16 15:30 131 195/118 09/09/16 15:30 131 195/118 09/09/16 15:18 98.2 95 20 188/106 95 Room Air 09/09/16 12:00 101 09/09/16 11:24 98.2 104 20 144/96 95 Room Air Intake and Output 09/09/16 09/10/16 19:00 07:00 Intake Total 150 ml Balance 150 ml IV Total 150 ml # Voids 5 2 # Bowel Movements 2 Laboratory Tests Test 09/10/16 06:15 White Blood Count 9.3 K/UL (4.8-10.8) Red Blood Count 2.92 M/UL (4.70-6.10) L Hemoglobin 8.6 G/DL (14.2-18.0) L Hematocrit 26.1 % (42.0-52.0) L Mean Corpuscular Volume 90 FL (80-99) Mean Corpuscular Hemoglobin 29.5 PG (27.0-31.0) Mean Corpuscular Hemoglobin Concent 32.9 G/DL (32.0-36.0) Red Cell Distribution Width 16.8 % (11.6-14.8) H Platelet Count 71 K/UL (150-450) L Mean Platelet Volume 8.3 FL (6.5-10.1) Neutrophils (%) (Auto) % (45.0-75.0) Lymphocytes (%) (Auto) % (20.0-45.0) Monocytes (%) (Auto) % (1.0-10.0) Eosinophils (%) (Auto) % (0.0-3.0) Basophils (%) (Auto) % (0.0-2.0) Differential Total Cells Counted 100 Neutrophils % (Manual) 68 % (45-75) Lymphocytes % (Manual) 24 % (20-45) Monocytes % (Manual) 8 % (1-10) Eosinophils % (Manual) 0 % (0-3) Basophils % (Manual) 0 % (0-2) Band Neutrophils 0 % (0-8) Platelet Estimate Adequate Platelet Morphology Normal Polychromasia Occasional Hypochromasia 1+ Anisocytosis 1+ Prothrombin Time 18.3 SEC (9.30-11.50) H Prothromb Time International Ratio 1.8 (0.9-1.1) H Activated Partial Thromboplast Time 33 SEC (23-33) Sodium Level 145 mEQ/L (135-145) Potassium Level 3.4 mEQ/L (3.4-4.9) Chloride Level 107 mEQ/L (98-107) Carbon Dioxide Level 22 mEQ/L (20-30) Anion Gap 16 (5-15) H Blood Urea Nitrogen 23 mg/dL (7-23) Creatinine 0.9 mg/dL (0.7-1.2) Estimat Glomerular Filtration Rate > 60 mL/min (>60) Glucose Level 123 mg/dL (74-106) H Calcium Level 7.8 mg/dL (8.6-10.2) L Phosphorus Level 3.9 mg/dL (2.5-4.8) Magnesium Level 1.7 mg/dL (1.7-2.5) Total Bilirubin 4.1 mg/dL (0.0-1.2) H Direct Bilirubin 2.0 mg/dL (0.1-0.3) H Aspartate Amino Transf (AST/SGOT) 98 U/L (5-40) H Alanine Aminotransferase (ALT/SGPT) 27 U/L (3-41) Alkaline Phosphatase 63 U/L (40-129) Ammonia 122 umol/L (16-60) H Total Protein 6.1 g/dL (6.6-8.7) L Albumin 2.6 g/dL (3.5-5.2) L Globulin 3.5 g/dL Albumin/Globulin Ratio 0.7 (1.0-2.7) L Height (Feet): 6 Height (Inches): 3.00 Weight (Pounds): 220 General Appearance: lethargic Cardiovascular: normal rate Respiratory/Chest: normal breath sounds, no respiratory distress Abdominal Exam: soft, other - NGT Mary Norman N.P. Sep 10, 2016 10:52
[2016-09-10 12:00] VITALS: BP 146/93
--- NOTE | 2016-09-10 12:42 | Diagnostic Imaging Report ---
Indications: Altered level of consciousness Technique: Spiral acquisitions obtained through the brain. Angled axial and coronal 5 x 5 mm slices were reconstructed. Total dose length product 1541 mGycm. CTDI vol(s) 70 mGy. Dose reduction achieved using automated exposure control Comparison: 08/12/2016 Findings: Prominent, for age, ventricles and extra-axial CSF spaces are again demonstrated. There is some periventricular the white matter low-attenuation. No acute hemorrhage or edema. No mass effect or midline shift. Normal herzog-white differentiation otherwise. There is minimal ethmoid sinus disease. The mastoids are clear. Impression: Mild cerebral volume loss and periventricular deep white matter chronic changes, rather striking for age. Also previously demonstrated Negative for acute intracranial bleed or mass effect Minimal ethmoid sinus disease The CT scanner at [facility] is accredited by the [employer] and the scans are performed using protocols designed to limit radiation exposure to as low as reasonably achievable to attain images of sufficient resolution adequate for diagnostic evaluation.
--- NOTE | 2016-09-10 12:44 | Pulmonology Progress Note ---
Assessment/Plan Problems: (1) Anemia due to acute blood loss (2) Alcohol abuse (3) Liver cirrhosis (4) Gastrointestinal hemorrhage (5) Coagulopathy (6) Fever Assessment/Plan banana bag iv fluids ID evaluation IV antibiotics giron culture lactulose check ammonia level Subjective ROS Limited/Unobtainable: Yes Interval Events: still deep coma Allergies: Coded Allergies: No Known Allergies (Unverified , 08/12/16) Objective Last 24 Hour Vital Signs Date Time Temp Pulse Resp B/P Pulse Ox O2 Delivery O2 Flow Rate FiO2 09/10/16 08:00 99.7 102 19 153/108 94 Room Air 09/10/16 04:00 105 09/10/16 04:00 99.3 81 16 142/86 94 Room Air 09/10/16 00:00 84 09/10/16 00:00 99.5 108 16 185/109 98 Room Air 09/09/16 20:00 103 09/09/16 20:00 100.4 87 16 160/92 94 Room Air 09/09/16 18:07 91 165/93 09/09/16 16:00 101 09/09/16 15:52 101 18 160/106 95 Room Air 09/09/16 15:30 131 195/118 09/09/16 15:30 131 195/118 09/09/16 15:18 98.2 95 20 188/106 95 Room Air Intake and Output 09/09/16 09/10/16 19:00 07:00 Intake Total 150 ml Balance 150 ml IV Total 150 ml # Voids 5 2 # Bowel Movements 2 General Appearance: WD/WN HEENT: normocephalic, atraumatic Respiratory/Chest: chest wall non-tender, lungs clear Cardiovascular: normal peripheral pulses, normal rate Abdomen: normal bowel sounds, no organomegaly Genitourinary: normal external genitalia Skin: no rash 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: guidance secretary II-XII grossly normal Microbiology Date/Time Source Procedure Growth Status 09/09/16 04:55 Blood Blood Culture - Preliminary NO GROWTH AFTER 24 HOURS Resulted 09/09/16 04:45 Blood Blood Culture - Preliminary NO GROWTH AFTER 24 HOURS Resulted Laboratory Tests 09/10/16 06:15: White Blood Count 9.3, Red Blood Count 2.92L, Hemoglobin 8.6L, Hematocrit 26.1L , Mean Corpuscular Volume 90, Mean Corpuscular Hemoglobin 29.5, Mean Corpuscular Hemoglobin Concent 32.9, Red Cell Distribution Width 16.8H, Platelet Count 71L, Mean Platelet Volume 8.3, Neutrophils (%) (Auto) , Lymphocytes (%) (Auto) , Monocytes (%) (Auto) , Eosinophils (%) (Auto) , Basophils (%) (Auto) , Differential Total Cells Counted 100, Neutrophils % ( Manual) 68, Lymphocytes % (Manual) 24, Monocytes % (Manual) 8, Eosinophils % ( Manual) 0, Basophils % (Manual) 0, Band Neutrophils 0, Platelet Estimate Adequate, Platelet Morphology Normal, Polychromasia Occasional, Hypochromasia 1+ , Anisocytosis 1+, Prothrombin Time 18.3H, Prothromb Time International Ratio 1.8H, Activated Partial Thromboplast Time 33, Sodium Level 145, Potassium Level 3.4, Chloride Level 107, Carbon Dioxide Level 22, Anion Gap 16H, Blood Urea Nitrogen 23, Creatinine 0.9, Estimat Glomerular Filtration Rate > 60, Glucose Level 123H, Calcium Level 7.8L, Phosphorus Level 3.9, Magnesium Level 1.7, Total Bilirubin 4.1H, Direct Bilirubin 2.0H, Aspartate Amino Transf (AST/SGOT) 98H, Alanine Aminotransferase (ALT/SGPT) 27, Alkaline Phosphatase 63, Ammonia 122H, Total Protein 6.1L, Albumin 2.6L, Globulin 3.5, Albumin/Globulin Ratio 0.7L Current Medications Medications (Trade) Dose Ordered Sig/Satrunino Route PRN Reason Start Time Stop Time Status Last Admin Dose Admin Acetaminophen (Tylenol) 650 mg Q4H PRN ORAL T>100.5 09/08/16 13:00 10/08/16 12:59 09/09/16 04:10 Al Hydroxide/Mg Hydroxide (Mylanta II) 30 ml Q6H PRN ORAL dyspepsia 09/08/16 13:00 10/08/16 12:59 Chlordiazepoxide (Librium) 25 mg Q8H PRN ORAL Agitation 09/09/16 07:00 09/16/16 06:59 Dextrose STAT PRN IV Hypoglycemia 09/08/16 13:00 10/08/16 12:59 Diphenhydramine HCl (Benadryl) 25 mg Q6H PRN ORAL Itching/Pruritis 09/08/16 13:00 10/08/16 12:59 Folic Acid 1 mg/ Magnesium Sulfate 2000 mg/ Multivitamins 10 ml/Sodium Chloride 1,014.2 ml @ 125 mls/ hr Q24H IV 09/09/16 15:00 10/09/16 14:59 09/09/16 16:13 Lactulose 30 gm 30 gm THREE TIMES A DAY ORAL 09/09/16 14:00 10/09/16 13:59 09/10/16 12:19 Metoprolol Tartrate (Lopressor) 10 mg Q4HR PRN IVP HR>120 09/08/16 18:30 10/08/16 18:29 09/09/16 15:30 Octreotide Acetate 500 mcg/ Sodium Chloride 500 ml @ 50 mls/hr Q10H IV 09/08/16 19:00 10/08/16 18:59 09/10/16 10:19 Ondansetron HCl (Zofran) 4 mg Q6H PRN IVP Nausea & Vomiting 09/08/16 13:00 10/08/16 12:59 09/08/16 16:40 Pantoprazole/ Sodium Chloride (Protonix/Sodium Chloride) 250 ml @ 25 mls/hr Q10H IV 09/08/16 19:00 10/08/16 18:59 09/10/16 10:18 Piperacillin Sod/ Tazobactam Sod/ Sodium Chloride (Zosyn/Sodium Chloride) 110 ml @ 27.5 mls/hr Q8HR IVPB 09/09/16 14:30 09/16/16 14:29 09/10/16 05:51 Rifaximin 550 mg 550 mg EVERY 12 HOURS ORAL 09/09/16 13:00 09/16/16 12:59 09/10/16 10:18 Temazepam (Restoril) 15 mg HSPRN PRN ORAL Insomnia 09/08/16 21:00 09/15/16 20:59 09/08/16 20:43 Thiamine HCl 100 mg/Dextrose 56 ml @ 112 mls/hr Q24H IVPB 09/09/16 15:00 10/09/16 14:59 09/09/16 15:00 Vancomycin HCl (Vanco rx to dose) 1 ea DAILY PRN MISC Per rx protocol 09/09/16 12:45 10/09/16 12:44 Vancomycin HCl/ Dextrose (Vancomycin/D5W) 275 ml @ 183.708 mls/hr Q8HR@0400,1200,2000 IVPB 09/10/16 04:00 09/15/16 03:59 09/10/16 11:11 SPENCER BERGER Sep 10, 2016 12:43
[2016-09-10] MEDS: Thiamine 100mg IVPB (Q24H) IVPB SCH ×2 (15:24)
--- NOTE | 2016-09-10 16:29 | Infectious Diseases Prog Note ---
Assessment/Plan Assessment/Plan Ro UTI Subjective Allergies: Coded Allergies: No Known Allergies (Unverified , 08/12/16) Subjective low grade fever Objective Vital Signs Last 24 Hour Vital Signs Date Time Temp Pulse Resp B/P Pulse Ox O2 Delivery O2 Flow Rate FiO2 09/10/16 12:00 98.4 94 19 146/93 97 09/10/16 12:00 77 09/10/16 08:00 99.7 102 19 153/108 94 Room Air 09/10/16 08:00 89 09/10/16 04:00 105 09/10/16 04:00 99.3 81 16 142/86 94 Room Air 09/10/16 00:00 84 09/10/16 00:00 99.5 108 16 185/109 98 Room Air 09/09/16 20:00 103 09/09/16 20:00 100.4 87 16 160/92 94 Room Air 09/09/16 18:07 91 165/93 Height (Feet): 6 Height (Inches): 3.00 Weight (Pounds): 220 HEENT: atraumatic Respiratory/Chest: normal breath sounds Cardiovascular: no JVD Abdomen: non distended Microbiology Date/Time Source Procedure Growth Status 09/09/16 04:55 Blood Blood Culture - Preliminary NO GROWTH AFTER 24 HOURS Resulted 09/09/16 04:45 Blood Blood Culture - Preliminary NO GROWTH AFTER 24 HOURS Resulted Laboratory Tests Test 09/10/16 06:15 White Blood Count 9.3 K/UL (4.8-10.8) Red Blood Count 2.92 M/UL (4.70-6.10) L Hemoglobin 8.6 G/DL (14.2-18.0) L Hematocrit 26.1 % (42.0-52.0) L Mean Corpuscular Volume 90 FL (80-99) Mean Corpuscular Hemoglobin 29.5 PG (27.0-31.0) Mean Corpuscular Hemoglobin Concent 32.9 G/DL (32.0-36.0) Red Cell Distribution Width 16.8 % (11.6-14.8) H Platelet Count 71 K/UL (150-450) L Mean Platelet Volume 8.3 FL (6.5-10.1) Neutrophils (%) (Auto) % (45.0-75.0) Lymphocytes (%) (Auto) % (20.0-45.0) Monocytes (%) (Auto) % (1.0-10.0) Eosinophils (%) (Auto) % (0.0-3.0) Basophils (%) (Auto) % (0.0-2.0) Differential Total Cells Counted 100 Neutrophils % (Manual) 68 % (45-75) Lymphocytes % (Manual) 24 % (20-45) Monocytes % (Manual) 8 % (1-10) Eosinophils % (Manual) 0 % (0-3) Basophils % (Manual) 0 % (0-2) Band Neutrophils 0 % (0-8) Platelet Estimate Adequate Platelet Morphology Normal Polychromasia Occasional Hypochromasia 1+ Anisocytosis 1+ Prothrombin Time 18.3 SEC (9.30-11.50) H Prothromb Time International Ratio 1.8 (0.9-1.1) H Activated Partial Thromboplast Time 33 SEC (23-33) Sodium Level 145 mEQ/L (135-145) Potassium Level 3.4 mEQ/L (3.4-4.9) Chloride Level 107 mEQ/L (98-107) Carbon Dioxide Level 22 mEQ/L (20-30) Anion Gap 16 (5-15) H Blood Urea Nitrogen 23 mg/dL (7-23) Creatinine 0.9 mg/dL (0.7-1.2) Estimat Glomerular Filtration Rate > 60 mL/min (>60) Glucose Level 123 mg/dL (74-106) H Calcium Level 7.8 mg/dL (8.6-10.2) L Phosphorus Level 3.9 mg/dL (2.5-4.8) Magnesium Level 1.7 mg/dL (1.7-2.5) Total Bilirubin 4.1 mg/dL (0.0-1.2) H Direct Bilirubin 2.0 mg/dL (0.1-0.3) H Aspartate Amino Transf (AST/SGOT) 98 U/L (5-40) H Alanine Aminotransferase (ALT/SGPT) 27 U/L (3-41) Alkaline Phosphatase 63 U/L (40-129) Ammonia 122 umol/L (16-60) H Total Protein 6.1 g/dL (6.6-8.7) L Albumin 2.6 g/dL (3.5-5.2) L Globulin 3.5 g/dL Albumin/Globulin Ratio 0.7 (1.0-2.7) L Current Medications Medications (Trade) Dose Ordered Sig/Saturnino Route PRN Reason Start Time Stop Time Status Last Admin Dose Admin Acetaminophen (Tylenol) 650 mg Q4H PRN ORAL T>100.5 09/10/16 17:00 10/10/16 16:59 UNV Al Hydroxide/Mg Hydroxide (Mylanta II) 30 ml Q6H PRN ORAL dyspepsia 09/10/16 19:00 10/10/16 18:59 UNV Chlordiazepoxide (Librium) 25 mg Q8H PRN ORAL Agitation 09/10/16 23:00 09/17/16 22:59 UNV Dextrose (Dextrose 50%) STAT PRN IV Hypoglycemia 09/11/16 13:00 10/11/16 12:59 UNV Diphenhydramine HCl (Benadryl) 25 mg Q6H PRN ORAL Itching/Pruritis 09/10/16 19:00 10/10/16 18:59 UNV Folic Acid 1 mg/ Magnesium Sulfate 2000 mg/ Multivitamins 10 ml/Sodium Chloride 1,014.2 ml @ 125 mls/ hr Q24H IV 09/11/16 15:00 10/11/16 14:59 UNV Lactulose (Cephulac) 30 gm THREE TIMES A DAY ORAL 09/10/16 18:00 10/10/16 17:59 UNV Metoprolol Tartrate (Lopressor) 10 mg Q4HR PRN IVP HR>120 09/10/16 17:00 10/10/16 16:59 UNV Octreotide Acetate 500 mcg/ Sodium Chloride 500 ml @ 50 mls/hr Q10H IV 09/10/16 16:30 10/10/16 16:29 UNV Ondansetron HCl (Zofran) 4 mg Q6H PRN IVP Nausea & Vomiting 09/10/16 19:00 10/10/16 18:59 UNV Pantoprazole 80 mg/Sodium Chloride 250 ml @ 25 mls/hr Q10H IV 09/10/16 16:30 10/10/16 16:29 UNV Phytonadione 1 mg/ Dextrose 55.5 ml @ 222 mls/hr ONCE ONCE IVPB 09/10/16 17:00 09/10/16 17:14 UNV Piperacillin Sod/ Tazobactam Sod 3.375 gm/Sodium Chloride 110 ml @ 27.5 mls/hr Q8HR IVPB 09/10/16 22:00 09/17/16 21:59 UNV Rifaximin (Xifaxan) 550 mg EVERY 12 HOURS ORAL 09/10/16 21:00 09/17/16 20:59 UNV Temazepam (Restoril) 15 mg HSPRN PRN ORAL Insomnia 09/10/16 21:00 09/17/16 20:59 UNV Thiamine HCl 100 mg/Dextrose 56 ml @ 112 mls/hr Q24H IVPB 09/11/16 15:00 10/11/16 14:59 UNV Vancomycin HCl (Vanco rx to dose) 1 ea DAILY PRN MISC Per rx protocol 09/11/16 09:00 10/11/16 08:59 UNV Vancomycin HCl/ Dextrose (Vancomycin/D5W) 275 ml @ 183.708 mls/hr Q8HR@0400,1200,2000 IVPB 09/10/16 20:00 09/15/16 19:59 UNV JACQUELINE LUGO M.D. Sep 10, 2016 16:29
[2016-09-10 16:57] VITALS: BP 151/88
[2016-09-10] MEDS ORDERED: Mylanta II UD 30ml ORAL PRN (17:00)
[2016-09-10] MEDS ORDERED: Phytonadione 1 MG in D5W 55 ML IVPB ONE ×4 (17:00)
[2016-09-10] MEDS ORDERED: Metoprolol 5mg/5ml Inj IVP PRN (17:00)
[2016-09-10] MEDS: Folic Acid 1 MG, Magnesium Sulfate 2,000 MG, Multivitamin - 12 Injection 10 ML in NS w/... IV SCH (17:09)
--- NOTE | 2016-09-10 17:36 | Consultation ---
Consult Note Consult Note ID Dic# [id number] JACQUELINE LUGO M.D. Sep 10, 2016 17:36
[2016-09-10 20:00] VITALS: BP 140/92
[2016-09-10] MEDS ORDERED: Vancomycin 1 GM in D5W 275 ML IVPB SCH (20:00)
--- NOTE | 2016-09-10 22:19 | Consultation ---
DATE OF CONSULTATION: INFECTIOUS DISEASE CONSULTATION: REFERRING PHYSICIAN: Massiel Stevens M.D. REASON FOR CONSULTATION: Evaluation of patient for possible sepsis. HISTORY OF PRESENT ILLNESS: The patient is a 50-year-old male who was admitted to this medical center two days ago for altered level of consciousness. The patient was found to have dark stool suggestive of GI bleed. The patient was brought to the hospital encephalopathy. Infectious Disease consultation has been requested for further evaluation of the patient's for possible sepsis as a contributory factor to the patient's hepatic encephalopathy. PAST MEDICAL HISTORY: Significant for, 1. Alcohol abuse. 2. Alcoholic liver cirrhosis. 3. History of hepatic encephalopathy. 4. History of portal hypertension. PAST SURGICAL HISTORY: As mentioned. ALLERGIES: No known drug allergies. FAMILY HISTORY: Not available. REVIEW OF SYSTEMS: Unobtainable. The patient is confused. PHYSICAL EXAMINATION: VITAL SIGNS: Temperature 98.2 degrees, blood pressure 151/88, T-Max 99.7, and pulse 101. HEENT: Mouth, no thrush. No icterus. CHEST: Coarse breathing sounds. HEART: S1 and S2. ABDOMEN: Soft. EXTREMITIES: No cyanosis. NEUROLOGIC: Confused. LABORATORY AND DIAGNOSTIC DATA: White blood cell 9.2, hemoglobin 8.6, and platelets 71,000. UA, 5-10 red blood cells and 0-2 white blood cells. BUN 22 and creatinine 0.3. ALT and alkaline phosphatase within normal range, and AST 98. Blood culture is pending. ASSESSMENT: The patient is a 50-year-old male with multiple medical problems, who was admitted to this medical center. The patient has low-grade fever. The patient is at risk for aspiration pneumonia also spontaneous bacterial peritonitis. The patient will benefit from coverage for gram positive cocci and anaerobes. PLAN: 1. We will continue the patient on IV Zosyn, discontinue vancomycin. 2. CBC. 3. Monitor BMP. 4. Ultrasound of the abdomen to rule out for evaluation of ascites and possible need later for paracentesis. 5. Chest x-ray, rule out aspiration pneumonia. 6. Monitor blood cultures. 7. Based on the patient's clinical course and labs, we will do further recommendations. Thank you, Dr. Stevens, for allowing me to participate in the care of this patient. I will follow the patient with you during this hospitalization Matias Koch M.D. DR: Beverly JOB#: [id number] CC:
[2016-09-11] VITALS: BP 151/82
[2016-09-11] MEDS: Pantoprazole 80 MG in NS 250 ML IV SCH ×3 (02:56→23:35)
[2016-09-11] MEDS: Octreotide Acetate 500 MCG in Sodium Chloride 499 ML IV SCH ×3 (02:57→23:36)
[2016-09-11 04:11] VITALS: BP 170/99
[2016-09-11] MEDS: Piperacillin/Tazobactam 3.375 GM in NS 110 ML IVPB SCH ×3 (06:03→21:57)
[2016-09-11 07:15] LABS: MEAN CORPUSCULAR HEMOGLOBIN 29.8 PG (27.0-31.0); MEAN CORPUSCULAR HGB CONC 32.8 G/DL (32.0-36.0); MEAN CORPUSCULAR VOLUME 91 FL (80-99); MEAN PLATELET VOLUME 7.1 FL (6.5-10.1); PLATELET COUNT 57 K/UL (150-450); RED BLOOD COUNT 2.91 M/UL (4.70-6.10); WHITE BLOOD COUNT 8.7 K/UL (4.8-10.8)
[2016-09-11 07:45] LABS: ALANINE AMINOTRANSFERASE 28 U/L (3-41); ALBUMIN/GLOBULIN RATIO 0.7 (1.0-2.7); ANION GAP 16 (5-15); ASPARTATE AMINO TRANSFERASE 102 U/L (5-40); CALCIUM 7.6 mg/dL (8.6-10.2); CARBON DIOXIDE 21 mEQ/L (20-30); CHLORIDE 106 mEQ/L (98-107); CREATININE 0.9 mg/dL (0.7-1.2); GLOMERULAR FILTRATION RATE > 60 mL/min (>60); HEMOLYSIS 1; SODIUM 143 mEQ/L (135-145); TOTAL PROTEIN 6.2 g/dL (6.6-8.7)
[2016-09-11 08:00] VITALS: BP 160/92
[2016-09-11 08:01] LABS: AMMONIA 62 umol/L (16-60); INR 1.7 (0.9-1.1); PROTHROMBIN TIME 17.3 SEC (9.30-11.50)
[2016-09-11] MEDS: Lactulose 20gm/30ml UDC ORAL SCH ×3 (08:01→17:03)
[2016-09-11] MEDS: Rifaximin 550mg tab ORAL SCH ×2 (08:01→21:57)
[2016-09-11 08:04] LABS: PHOSPHORUS 3.2 mg/dL (2.5-4.8)
[2016-09-11 08:30] LABS: BILIRUBIN,DIRECT 2.3 mg/dL (0.1-0.3)
[2016-09-11 10:01] LABS: ANISOCYTOSIS 1+; BAND NEUTROPHILS % (MANUAL) 0 % (0-8); BASOPHILS % (MANUAL) 0 % (0-2); EOSINOPHILS % (MANUAL) 2 % (0-3); LYMPHOCYTES % (MANUAL) 13 % (20-45); NEUTROPHILS % (MANUAL) 79 % (45-75); PLATELET ESTIMATE DECREASED; PLATELET MORPHOLOGY NORMAL; TOTAL CELLS COUNTED 100
--- NOTE | 2016-09-11 10:36 | Infectious Diseases Prog Note ---
Assessment/Plan Assessment/Plan A: The patient is a 50-year-old male w Aspiration pneumonia Possible sepsis Low grade fever may need to SBP ALOC / hepatic Encephalopathy GI bleed Hx of Alcohol abuse Alcoholic liver cirrhosis. History of portal hypertension PLAN: continue the patient on IV Zosyn d# 3 CBC Monitor BMP. Ultrasound of the abdomen to rule out for evaluation of ascites Chest x-ray, rule out aspiration pneumonia. Monitor blood cultures. Subjective Allergies: Coded Allergies: No Known Allergies (Unverified , 08/12/16) Subjective afebrile Objective Vital Signs Last 24 Hour Vital Signs Date Time Temp Pulse Resp B/P Pulse Ox O2 Delivery O2 Flow Rate FiO2 09/11/16 08:00 98.2 89 20 160/92 98 Room Air 09/11/16 04:11 98.5 115 21 170/99 95 Room Air 09/11/16 00:00 98.2 91 20 151/82 97 Room Air 09/10/16 20:00 98.4 90 21 140/92 98 Room Air 09/10/16 16:57 98.2 94 20 151/88 98 Room Air 09/10/16 12:00 98.4 94 19 146/93 97 09/10/16 12:00 77 Height (Feet): 6 Height (Inches): 3.00 Weight (Pounds): 220 HEENT: mucous membranes moist Respiratory/Chest: no accessory muscle use Cardiovascular: regularly irregular Abdomen: no mass Microbiology Date/Time Source Procedure Growth Status 09/09/16 04:55 Blood Blood Culture - Preliminary NO GROWTH AFTER 48 HOURS Resulted 09/09/16 04:45 Blood Blood Culture - Preliminary NO GROWTH AFTER 48 HOURS Resulted Laboratory Tests Test 09/10/16 17:40 09/11/16 05:50 Stool Occult Blood Pending White Blood Count 8.7 K/UL (4.8-10.8) Red Blood Count 2.91 M/UL (4.70-6.10) L Hemoglobin 8.7 G/DL (14.2-18.0) L Hematocrit 26.4 % (42.0-52.0) L Mean Corpuscular Volume 91 FL (80-99) Mean Corpuscular Hemoglobin 29.8 PG (27.0-31.0) Mean Corpuscular Hemoglobin Concent 32.8 G/DL (32.0-36.0) Red Cell Distribution Width 17.0 % (11.6-14.8) H Platelet Count 57 K/UL (150-450) L Mean Platelet Volume 7.1 FL (6.5-10.1) Neutrophils (%) (Auto) % (45.0-75.0) Lymphocytes (%) (Auto) % (20.0-45.0) Monocytes (%) (Auto) % (1.0-10.0) Eosinophils (%) (Auto) % (0.0-3.0) Basophils (%) (Auto) % (0.0-2.0) Differential Total Cells Counted 100 Neutrophils % (Manual) 79 % (45-75) H Lymphocytes % (Manual) 13 % (20-45) L Monocytes % (Manual) 6 % (1-10) Eosinophils % (Manual) 2 % (0-3) Basophils % (Manual) 0 % (0-2) Band Neutrophils 0 % (0-8) Platelet Estimate Decreased L Platelet Morphology Normal Anisocytosis 1+ Prothrombin Time 17.3 SEC (9.30-11.50) H Prothromb Time International Ratio 1.7 (0.9-1.1) H Activated Partial Thromboplast Time 30 SEC (23-33) Sodium Level 143 mEQ/L (135-145) Potassium Level 3.0 mEQ/L (3.4-4.9) L Chloride Level 106 mEQ/L (98-107) Carbon Dioxide Level 21 mEQ/L (20-30) Anion Gap 16 (5-15) H Blood Urea Nitrogen 22 mg/dL (7-23) Creatinine 0.9 mg/dL (0.7-1.2) Estimat Glomerular Filtration Rate > 60 mL/min (>60) Glucose Level 126 mg/dL (74-106) H Calcium Level 7.6 mg/dL (8.6-10.2) L Phosphorus Level 3.2 mg/dL (2.5-4.8) Magnesium Level 2.0 mg/dL (1.7-2.5) Total Bilirubin 4.4 mg/dL (0.0-1.2) H Direct Bilirubin 2.3 mg/dL (0.1-0.3) H Aspartate Amino Transf (AST/SGOT) 102 U/L (5-40) H Alanine Aminotransferase (ALT/SGPT) 28 U/L (3-41) Alkaline Phosphatase 64 U/L (40-129) Ammonia 62 umol/L (16-60) H Total Protein 6.2 g/dL (6.6-8.7) L Albumin 2.6 g/dL (3.5-5.2) L Globulin 3.6 g/dL Albumin/Globulin Ratio 0.7 (1.0-2.7) L Current Medications Medications (Trade) Dose Ordered Sig/Saturnino Route PRN Reason Start Time Stop Time Status Last Admin Dose Admin Acetaminophen (Tylenol) 650 mg Q4H PRN ORAL T>100.5 09/10/16 17:00 10/10/16 16:59 Al Hydroxide/Mg Hydroxide (Mylanta II) 30 ml Q6H PRN ORAL dyspepsia 09/10/16 17:00 10/10/16 16:59 Chlordiazepoxide (Librium) 25 mg Q8H PRN ORAL Agitation 09/10/16 17:00 09/17/16 16:59 Dextrose (Dextrose 50%) STAT PRN IV Hypoglycemia 09/10/16 17:00 10/10/16 16:59 Diphenhydramine HCl (Benadryl) 25 mg Q6H PRN ORAL Itching/Pruritis 09/10/16 17:00 10/10/16 16:59 Folic Acid 1 mg/ Magnesium Sulfate 2000 mg/ Multivitamins 10 ml/Sodium Chloride 1,014.2 ml @ 125 mls/ hr Q24H IV 09/10/16 17:00 10/10/16 16:59 09/10/16 17:09 Lactulose (Cephulac) 30 gm THREE TIMES A DAY ORAL 09/10/16 18:00 10/10/16 17:59 09/11/16 08:01 Octreotide Acetate 500 mcg/ Sodium Chloride 500 ml @ 50 mls/hr Q10H IV 09/10/16 17:30 10/10/16 17:29 09/11/16 02:57 Ondansetron HCl (Zofran) 4 mg Q6H PRN IVP Nausea & Vomiting 09/10/16 17:00 10/10/16 16:59 Pantoprazole 80 mg/Sodium Chloride 250 ml @ 25 mls/hr Q10H IV 09/10/16 17:30 10/10/16 17:29 09/11/16 02:56 Piperacillin Sod/ Tazobactam Sod 3.375 gm/Sodium Chloride 110 ml @ 27.5 mls/hr Q8HR IVPB 09/10/16 22:00 09/17/16 21:59 09/11/16 06:03 Rifaximin (Xifaxan) 550 mg EVERY 12 HOURS ORAL 09/10/16 21:00 09/17/16 20:59 09/11/16 08:01 Temazepam (Restoril) 15 mg HSPRN PRN ORAL Insomnia 09/10/16 21:00 09/17/16 20:59 Thiamine HCl/ Dextrose (Vitamin B1/D5W) 56 ml @ 112 mls/hr Q24H IVPB 09/11/16 17:00 10/11/16 16:59 JACQUELINE LUGO M.D. Sep 11, 2016 10:36
--- NOTE | 2016-09-11 11:18 | GI Progress Note ---
Assessment/Plan Problems: (1) Liver cirrhosis ICD Codes: K74.60 - Unspecified cirrhosis of liver SNOMED: 32412618 (2) LFT elevation ICD Codes: R94.5 - Abnormal results of liver function studies SNOMED: 384018581 (3) Anemia due to acute blood loss ICD Codes: D62 - Acute posthemorrhagic anemia SNOMED: 666832119 (4) Hypoalbuminemia ICD Codes: E88.09 - Other disorders of plasma-protein metabolism, not elsewhere classified SNOMED: 806107378 (5) Gastrointestinal hemorrhage ICD Codes: K92.2 - Gastrointestinal hemorrhage, unspecified SNOMED: 50444968 (6) Alcohol abuse ICD Codes: F10.10 - Alcohol abuse, uncomplicated SNOMED: 13564929 Status: unchanged Status Narrative Discussed with Dr. Wright. Assessment/Plan EGD cancelled yesterday by anesthesia due to lethargy/AMS, presumptively scheduled for tomorrow if more alert. ordered paracentesis >> r/o SBP Maintain NPO + IVFs maintain NGT elevated ammonia >> lactulose TID + xifaxin cont octreotide gtt cont ppi gtt cont ciprofloxacin IV 400mg daily monitor H&H, transfuse prn fu labs Subjective Subjective limited, AMS Objective Last 24 Hour Vital Signs Date Time Temp Pulse Resp B/P Pulse Ox O2 Delivery O2 Flow Rate FiO2 09/11/16 08:00 98.2 89 20 160/92 98 Room Air 09/11/16 04:11 98.5 115 21 170/99 95 Room Air 09/11/16 00:00 98.2 91 20 151/82 97 Room Air 09/10/16 20:00 98.4 90 21 140/92 98 Room Air 09/10/16 16:57 98.2 94 20 151/88 98 Room Air 09/10/16 12:00 98.4 94 19 146/93 97 09/10/16 12:00 77 Intake and Output 09/10/16 09/11/16 19:00 07:00 Intake Total 1265 ml Output Total 95 ml Balance 1170 ml IV Total 1265 ml Output Stool Total 95 ml # Bowel Movements 1 Laboratory Tests Test 09/10/16 17:40 09/11/16 05:50 Stool Occult Blood Negative (NEGATIVE) White Blood Count 8.7 K/UL (4.8-10.8) Red Blood Count 2.91 M/UL (4.70-6.10) L Hemoglobin 8.7 G/DL (14.2-18.0) L Hematocrit 26.4 % (42.0-52.0) L Mean Corpuscular Volume 91 FL (80-99) Mean Corpuscular Hemoglobin 29.8 PG (27.0-31.0) Mean Corpuscular Hemoglobin Concent 32.8 G/DL (32.0-36.0) Red Cell Distribution Width 17.0 % (11.6-14.8) H Platelet Count 57 K/UL (150-450) L Mean Platelet Volume 7.1 FL (6.5-10.1) Neutrophils (%) (Auto) % (45.0-75.0) Lymphocytes (%) (Auto) % (20.0-45.0) Monocytes (%) (Auto) % (1.0-10.0) Eosinophils (%) (Auto) % (0.0-3.0) Basophils (%) (Auto) % (0.0-2.0) Differential Total Cells Counted 100 Neutrophils % (Manual) 79 % (45-75) H Lymphocytes % (Manual) 13 % (20-45) L Monocytes % (Manual) 6 % (1-10) Eosinophils % (Manual) 2 % (0-3) Basophils % (Manual) 0 % (0-2) Band Neutrophils 0 % (0-8) Platelet Estimate Decreased L Platelet Morphology Normal Anisocytosis 1+ Prothrombin Time 17.3 SEC (9.30-11.50) H Prothromb Time International Ratio 1.7 (0.9-1.1) H Activated Partial Thromboplast Time 30 SEC (23-33) Sodium Level 143 mEQ/L (135-145) Potassium Level 3.0 mEQ/L (3.4-4.9) L Chloride Level 106 mEQ/L (98-107) Carbon Dioxide Level 21 mEQ/L (20-30) Anion Gap 16 (5-15) H Blood Urea Nitrogen 22 mg/dL (7-23) Creatinine 0.9 mg/dL (0.7-1.2) Estimat Glomerular Filtration Rate > 60 mL/min (>60) Glucose Level 126 mg/dL (74-106) H Calcium Level 7.6 mg/dL (8.6-10.2) L Phosphorus Level 3.2 mg/dL (2.5-4.8) Magnesium Level 2.0 mg/dL (1.7-2.5) Total Bilirubin 4.4 mg/dL (0.0-1.2) H Direct Bilirubin 2.3 mg/dL (0.1-0.3) H Aspartate Amino Transf (AST/SGOT) 102 U/L (5-40) H Alanine Aminotransferase (ALT/SGPT) 28 U/L (3-41) Alkaline Phosphatase 64 U/L (40-129) Ammonia 62 umol/L (16-60) H Total Protein 6.2 g/dL (6.6-8.7) L Albumin 2.6 g/dL (3.5-5.2) L Globulin 3.6 g/dL Albumin/Globulin Ratio 0.7 (1.0-2.7) L Height (Feet): 6 Height (Inches): 3.00 Weight (Pounds): 220 General Appearance: no apparent distress, lethargic Cardiovascular: normal rate Respiratory/Chest: normal breath sounds, no respiratory distress Abdominal Exam: other - NGT Mary Norman NTerri Sep 11, 2016 11:18
--- NOTE | 2016-09-11 11:45 | Diagnostic Imaging Report ---
Indication: Cough Technique: Single portable AP view of the chest. Findings: Comparison: None. Nasogastric tube in place, tip in region of proximal aspect of stomach, proximal port in region of esophagogastric junction. The bones and extra pulmonary soft tissues, cardiomediastinal silhouette, pulmonary vasculature and parenchyma, and pleural surfaces are otherwise unremarkable. IMPRESSION: Nasogastric tube in place as described, recommend advancement 5-10 cm Otherwise negative portable AP chest.
[2016-09-11 12:00] VITALS: BP 140/92
[2016-09-11 16:00] VITALS: BP 158/90
[2016-09-11] MEDS: Thiamine HCl 100 MG in D5W 55 ML IVPB SCH (17:02)
[2016-09-11] MEDS: Folic Acid 1 MG, Magnesium Sulfate 2,000 MG, Multivitamin - 12 Injection 10 ML in NS w/... IV SCH (17:03)
[2016-09-11 20:00] VITALS: BP 145/100
--- NOTE | 2016-09-11 22:22 | Pulmonology Progress Note ---
Assessment/Plan Problems: (1) Anemia due to acute blood loss (2) Alcohol abuse (3) Liver cirrhosis (4) Gastrointestinal hemorrhage (5) Coagulopathy (6) Fever Assessment/Plan banana bag iv fluids ID evaluation IV antibiotics giron culture lactulose check ammonia level Subjective Constitutional: Reports: anorexia, fatigue Neurologic: Reports: weakness Allergies: Coded Allergies: No Known Allergies (Unverified , 08/12/16) Objective Last 24 Hour Vital Signs Date Time Temp Pulse Resp B/P Pulse Ox O2 Delivery O2 Flow Rate FiO2 09/11/16 20:00 97.7 68 18 145/100 100 Room Air 09/11/16 16:00 97.8 88 20 158/90 98 Room Air 09/11/16 12:00 98.2 90 20 140/92 98 Room Air 09/11/16 08:00 98.2 89 20 160/92 98 Room Air 09/11/16 04:11 98.5 115 21 170/99 95 Room Air 09/11/16 00:00 98.2 91 20 151/82 97 Room Air Intake and Output 09/10/16 09/11/16 19:00 07:00 Intake Total 1265 ml 100 ml Output Total 95 ml Balance 1170 ml 100 ml IV Total 1265 ml 100 ml Output Stool Total 95 ml # Bowel Movements 1 General Appearance: no acute distress HEENT: normocephalic, atraumatic, PERRL Respiratory/Chest: chest wall non-tender, normal breath sounds, no respiratory distress Cardiovascular: normal peripheral pulses, normal rate, regular rhythm, no JVD Abdomen: normal bowel sounds, distended, guarding, tender, rebound tenderness Genitourinary: normal external genitalia Extremities: no cyanosis Skin: no lesions 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, no motor/sensory deficits Microbiology Date/Time Source Procedure Growth Status 09/09/16 04:55 Blood Blood Culture - Preliminary NO GROWTH AFTER 48 HOURS Resulted 09/09/16 04:45 Blood Blood Culture - Preliminary NO GROWTH AFTER 48 HOURS Resulted Laboratory Tests 09/11/16 05:50: White Blood Count 8.7, Red Blood Count 2.91L, Hemoglobin 8.7L, Hematocrit 26.4L , Mean Corpuscular Volume 91, Mean Corpuscular Hemoglobin 29.8, Mean Corpuscular Hemoglobin Concent 32.8, Red Cell Distribution Width 17.0H, Platelet Count 57L, Mean Platelet Volume 7.1, Neutrophils (%) (Auto) , Lymphocytes (%) (Auto) , Monocytes (%) (Auto) , Eosinophils (%) (Auto) , Basophils (%) (Auto) , Differential Total Cells Counted 100, Neutrophils % ( Manual) 79H, Lymphocytes % (Manual) 13L, Monocytes % (Manual) 6, Eosinophils % ( Manual) 2, Basophils % (Manual) 0, Band Neutrophils 0, Platelet Estimate DecreasedL, Platelet Morphology Normal, Anisocytosis 1+, Prothrombin Time 17.3H , Prothromb Time International Ratio 1.7H, Activated Partial Thromboplast Time 30, Sodium Level 143, Potassium Level 3.0L, Chloride Level 106, Carbon Dioxide Level 21, Anion Gap 16H, Blood Urea Nitrogen 22, Creatinine 0.9, Estimat Glomerular Filtration Rate > 60, Glucose Level 126H, Calcium Level 7.6L, Phosphorus Level 3.2, Magnesium Level 2.0, Total Bilirubin 4.4H, Direct Bilirubin 2.3H, Aspartate Amino Transf (AST/SGOT) 102H, Alanine Aminotransferase (ALT/SGPT) 28, Alkaline Phosphatase 64, Ammonia 62H, Total Protein 6.2L, Albumin 2.6L, Globulin 3.6, Albumin/Globulin Ratio 0.7L Current Medications Medications (Trade) Dose Ordered Sig/Saturnino Route PRN Reason Start Time Stop Time Status Last Admin Dose Admin Acetaminophen (Tylenol) 650 mg Q4H PRN ORAL T>100.5 09/10/16 17:00 10/10/16 16:59 Al Hydroxide/Mg Hydroxide (Mylanta II) 30 ml Q6H PRN ORAL dyspepsia 09/10/16 17:00 10/10/16 16:59 Chlordiazepoxide (Librium) 25 mg Q8H PRN ORAL Agitation 09/10/16 17:00 09/17/16 16:59 Clonidine HCl (Catapres) 0.1 mg Q6H PRN ORAL SBP>160 09/11/16 12:00 10/11/16 11:59 Dextrose (Dextrose 50%) STAT PRN IV Hypoglycemia 09/10/16 17:00 10/10/16 16:59 Diphenhydramine HCl (Benadryl) 25 mg Q6H PRN ORAL Itching/Pruritis 09/10/16 17:00 10/10/16 16:59 Folic Acid 1 mg/ Magnesium Sulfate 2000 mg/ Multivitamins 10 ml/Sodium Chloride 1,014.2 ml @ 125 mls/ hr Q24H IV 09/10/16 17:00 10/10/16 16:59 09/11/16 17:03 Lactulose (Cephulac) 30 gm THREE TIMES A DAY ORAL 09/10/16 18:00 10/10/16 17:59 09/11/16 17:03 Octreotide Acetate 500 mcg/ Sodium Chloride 500 ml @ 50 mls/hr Q10H IV 09/10/16 17:30 10/10/16 17:29 09/11/16 14:32 Ondansetron HCl (Zofran) 4 mg Q6H PRN IVP Nausea & Vomiting 09/10/16 17:00 10/10/16 16:59 Pantoprazole 80 mg/Sodium Chloride 250 ml @ 25 mls/hr Q10H IV 09/10/16 17:30 10/10/16 17:29 09/11/16 16:29 Piperacillin Sod/ Tazobactam Sod 3.375 gm/Sodium Chloride 110 ml @ 27.5 mls/hr Q8HR IVPB 09/10/16 22:00 09/17/16 21:59 09/11/16 21:57 Rifaximin (Xifaxan) 550 mg EVERY 12 HOURS ORAL 09/10/16 21:00 09/17/16 20:59 09/11/16 21:57 Temazepam (Restoril) 15 mg HSPRN PRN ORAL Insomnia 09/10/16 21:00 09/17/16 20:59 Thiamine HCl/ Dextrose (Vitamin B1/D5W) 56 ml @ 112 mls/hr Q24H IVPB 09/11/16 17:00 10/11/16 16:59 09/11/16 17:02 SPENCER BERGER Sep 11, 2016 22:22
--- NOTE | 2016-09-11 23:07 | Diagnostic Imaging Report ---
APPROVED REPORT CPT Code: 73677 Present Symptoms Comments: LE pain and Fall BILATERAL: Imaging reveals a patent deep venous system bilaterally. There is no evidence of thrombus within the femoral, popliteal or tibial segments. The greater saphenous veins are also within normal limits. Doppler indicates normal spontaneous flow within these segments.
[2016-09-11] MEDS: chlordiazePOXIDE 25mg Cap ORAL PRN (23:23)
[2016-09-12] VITALS (12 sets, daily range): BP systolic 129–151; BP diastolic 68–98
[2016-09-12] MEDS: Piperacillin/Tazobactam 3.375 GM in NS 110 ML IVPB SCH ×3 (05:14→22:17)
[2016-09-12 07:25] LABS: MEAN CORPUSCULAR HEMOGLOBIN 29.5 PG (27.0-31.0); MEAN CORPUSCULAR HGB CONC 31.9 G/DL (32.0-36.0); MEAN CORPUSCULAR VOLUME 93 FL (80-99); MEAN PLATELET VOLUME 7.9 FL (6.5-10.1); PLATELET COUNT 36 K/UL (150-450); RED BLOOD COUNT 2.16 M/UL (4.70-6.10); RED CELL DISTRIBUTION WIDTH 18.1 % (11.6-14.8); WHITE BLOOD COUNT 5.4 K/UL (4.8-10.8)
[2016-09-12 08:03] LABS: ANION GAP 16 (5-15); CARBON DIOXIDE 19 mEQ/L (20-30); CHLORIDE 109 mEQ/L (98-107); CREATININE 0.6 mg/dL (0.7-1.2); SODIUM 144 mEQ/L (135-145)
[2016-09-12 08:04] LABS: CALCIUM 6.4 mg/dL (8.6-10.2); GLOMERULAR FILTRATION RATE > 60 mL/min (>60); HEMOLYSIS 14
[2016-09-12 08:06] LABS: POTASSIUM 2.5 mEQ/L (3.4-4.9)
[2016-09-12 08:43] LABS: EOSINOPHILS % (MANUAL) 4 % (0-3); LYMPHOCYTES % (MANUAL) 2 % (20-45); NEUTROPHILS % (MANUAL) 90 % (45-75); TOTAL CELLS COUNTED 100
[2016-09-12 08:44] LABS: ANISOCYTOSIS 2+; BAND NEUTROPHILS % (MANUAL) 0 % (0-8); BASOPHILS % (MANUAL) 0 % (0-2); HYPOCHROMASIA 3+; PLATELET ESTIMATE DECREASED; PLATELET MORPHOLOGY NORMAL
[2016-09-12] MEDS: Lactulose 20gm/30ml UDC ORAL SCH ×3 (09:00→18:00)
[2016-09-12] MEDS: Rifaximin 550mg tab ORAL SCH ×2 (09:00→21:00)
--- NOTE | 2016-09-12 09:41 | Diagnostic Imaging Report ---
Indication: Abdominal distention, abnormal liver function tests and renal function tests Technique: Krishna-scale and duplex images of the upper abdomen were obtained Comparison: 08/12/2016 Findings: Exam is limited. Per technologist, patient was very restless and extending up throughout the exam. Gallbladder demonstrates sludge. Previously reported calculi are not evident on this exam. No wall thickening nor pericholecystic fluid. Common bile duct measures 6 mm in diameter. No intrahepatic biliary ductal dilatation. Liver demonstrates coarsened echotexture, with surface micro-nodularity. Portal vein and hepatic veins are patent.. Pancreas is unremarkable. Spleen is borderline enlarged, measuring 13 cm long axis dimension. Left kidney measures 11.7 cm in length. Right kidney measures 12.1 cm length. Both kidneys demonstrate normal echogenicity. There is no hydronephrosis. No focal abnormality. . Non-aneurysmal abdominal aorta. A small amount of ascites fluid is present. There are anterior abdominal varices Impression: Evidence of hepatic cirrhosis, with coarsened hepatic echogenicity and hepatic surface micro-nodularity, also previously described Evidence of portal hypertension, with borderline splenomegaly, ascites, and varices, also previously reported Gallbladder sludge. Calculi demonstrated on prior study are not evident currently, probably related to the technical difficulties in performing the current exam Negative for biliary ductal dilatation
[2016-09-12 10:14] LABS: MEAN CORPUSCULAR HEMOGLOBIN 29.1 PG (27.0-31.0); MEAN CORPUSCULAR HGB CONC 31.4 G/DL (32.0-36.0); MEAN CORPUSCULAR VOLUME 93 FL (80-99); MEAN PLATELET VOLUME 9.3 FL (6.5-10.1); PLATELET COUNT 46 K/UL (150-450); RED BLOOD COUNT 2.76 M/UL (4.70-6.10); RED CELL DISTRIBUTION WIDTH 18.3 % (11.6-14.8); WHITE BLOOD COUNT 7.3 K/UL (4.8-10.8)
[2016-09-12] MEDS: Potassium Chloride 40 MEQ in Sodium Chloride 550 ML IV SCH ×2 (10:34→18:14)
[2016-09-12] MEDS: Pantoprazole 80 MG in NS 250 ML IV SCH ×2 (10:35→22:04)
[2016-09-12] MEDS: Octreotide Acetate 500 MCG in Sodium Chloride 499 ML IV SCH ×2 (10:35→22:04)
[2016-09-12 10:42] LABS: BASOPHILS % (MANUAL) 1 % (0-2); EOSINOPHILS % (MANUAL) 5 % (0-3); LYMPHOCYTES % (MANUAL) 19 % (20-45); NEUTROPHILS % (MANUAL) 56 % (45-75); TOTAL CELLS COUNTED 100
[2016-09-12 10:43] LABS: ANISOCYTOSIS 2+; BAND NEUTROPHILS % (MANUAL) 0 % (0-8); HYPOCHROMASIA 2+; PLATELET ESTIMATE DECREASED; PLATELET MORPHOLOGY NORMAL
[2016-09-12] MEDS ORDERED: Lidocaine 1% MPF 10mg/ml 5ml ONE (12:30)
[2016-09-12] MEDS ORDERED: Propofol 10mg/ml 20ml IV ONE (12:30)
--- NOTE | 2016-09-12 12:46 | Endoscopy Procedure Note ---
Endoscopy Procedure Note Indication for Procedure: gib Procedures Performed: EGD Operative Findings/Diagnosis: esophgeal tear Specimen: yes Pt Tolerated Procedure Well: Yes Estimated Blood Loss: none Anesthesiologist: artem Anesthesia: MAC Implant(s) used?: No 50 yrs or older w/o bx or poly: Not Applicable 10yrs. F/U not recommended: Not Applicable GURWINDER STANLEY Sep 12, 2016 12:46
--- NOTE | 2016-09-12 13:07 | Immediate Post-Op Evaluation ---
Immediate Post-Op Evalulation Immediate Post-Op Evalulation Procedure: egd/clipping Date of Evaluation: Sep 12, 2016 Time of Evaluation: 13:00 IV Fluids: 300 Blood Products: 150 Estimated Blood Loss: 5 Blood Pressure Systolic: 129 Blood Pressure Diastolic: 80 Pulse Rate: 82 Respiratory Rate: 14 O2 Sat by Pulse Oximetry: 100 Temperature (Fahrenheit): 98.8 Nausea: No Vomiting: No Complications none Patient Status: awake, reacts, patent Hydration Status: adequate Drug: none ANNETTERIMEENU SUBRAMANIAN CRNA Sep 12, 2016 13:07
--- NOTE | 2016-09-12 13:10 | Anethesia Preoperative Eval ---
Anesthesia Pre-op PMH/ROS General Date of Evaluation: Sep 12, 2016 Time of Evaluation: 12:30 Anesthesiologist: aung ASA Score: ASA 4 Mallampati Score Class I : Soft palate, uvula, fauces, pillars visible Class II: Soft palate, uvula, fauces visible Class III: Soft palate, base of uvula visible Class IV: Only hard plate visible Mallampati Classification: Class III Surgeon: christofer Diagnosis: gi bleed Surgical Procedure: EGD with clipping Anesthesia History: none Social History: alcohol use Family History: no anesthesia problems Allergies: Coded Allergies: No Known Allergies (Unverified , 08/12/16) Medications: see eMAR Past Medical History Cardiovascular: Reports: HTN Pulmonary: Denies: COPD, VERONICA, asthma, other Gastrointestinal/Genitourinary: Reports: GERD, other - liver cirrohosis 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: Reports: depression/anxiety, other - ETOH abuse Endocrine: Denies: DM, hypothyroidism, other, steroids HEENT: Denies: KALSKAG (L), KALSKAG (R), cataract (L), cataract (R), glaucoma, other Hematology/Immune: Reports: anemia, bleeding disorder PSxH Narrative: unknown Anesthesia Pre-op Phys. Exam Physician Exam Last Vital Signs Date Time Temp Pulse Resp B/P Pulse Ox O2 Delivery O2 Flow Rate FiO2 09/12/16 13:00 89 20 138/94 100 Simple Mask 6.0 09/12/16 12:55 98.8 Constitutional: NAD Neurologic: other - able to answer questions appropriately, coherent Cardiovascular: RRR Respiratory: CTA Gastrointestinal: S/NT/ND Airway Exam Mallampati Classification 3 MO: full ROM: full Dentures: no lower, no upper Anesthesia Pre-op A/P Labs Hematology Test 09/12/16 05:33 09/12/16 09:46 White Blood Count 5.4 K/UL (4.8-10.8) 7.3 K/UL (4.8-10.8) Red Blood Count 2.16 M/UL (4.70-6.10) L 2.76 M/UL (4.70-6.10) L Hemoglobin 6.4 G/DL (14.2-18.0) *L 8.0 G/DL (14.2-18.0) L Hematocrit 20.0 % (42.0-52.0) L 25.6 % (42.0-52.0) L Mean Corpuscular Volume 93 FL (80-99) 93 FL (80-99) Mean Corpuscular Hemoglobin 29.5 PG (27.0-31.0) 29.1 PG (27.0-31.0) Mean Corpuscular Hemoglobin Concent 31.9 G/DL (32.0-36.0) L 31.4 G/DL (32.0-36.0) L Red Cell Distribution Width 18.1 % (11.6-14.8) H 18.3 % (11.6-14.8) H Platelet Count 36 K/UL (150-450) L 46 K/UL (150-450) L Mean Platelet Volume 7.9 FL (6.5-10.1) 9.3 FL (6.5-10.1) Neutrophils (%) (Auto) % (45.0-75.0) % (45.0-75.0) Lymphocytes (%) (Auto) % (20.0-45.0) % (20.0-45.0) Monocytes (%) (Auto) % (1.0-10.0) % (1.0-10.0) Eosinophils (%) (Auto) % (0.0-3.0) % (0.0-3.0) Basophils (%) (Auto) % (0.0-2.0) % (0.0-2.0) Differential Total Cells Counted 100 100 Neutrophils % (Manual) 90 % (45-75) H 56 % (45-75) Lymphocytes % (Manual) 2 % (20-45) L 19 % (20-45) L Monocytes % (Manual) 4 % (1-10) 19 % (1-10) H Eosinophils % (Manual) 4 % (0-3) H 5 % (0-3) H Basophils % (Manual) 0 % (0-2) 1 % (0-2) Band Neutrophils 0 % (0-8) 0 % (0-8) Platelet Estimate Decreased L Decreased L Platelet Morphology Normal Normal Hypochromasia 3+ 2+ Anisocytosis 2+ 2+ Chemistry Test 09/12/16 05:33 Sodium Level 144 mEQ/L (135-145) Potassium Level 2.5 mEQ/L (3.4-4.9) *L Chloride Level 109 mEQ/L (98-107) H Carbon Dioxide Level 19 mEQ/L (20-30) L Anion Gap 16 (5-15) H Blood Urea Nitrogen 13 mg/dL (7-23) Creatinine 0.6 mg/dL (0.7-1.2) L Estimat Glomerular Filtration Rate > 60 mL/min (>60) Glucose Level 76 mg/dL (74-106) Calcium Level 6.4 mg/dL (8.6-10.2) L Studies Pre-op Studies: EKG - sr Risk Assessment & Plan Plan: mac Status Change Before Surgery: No Pre-Antibiotics Drug: none MEENU FERNANDEZ CRNA Sep 12, 2016 13:10
--- NOTE | 2016-09-12 13:11 | 48 Hour Post Anesthesia Eval ---
Post Anesthesia Evaluation Procedure: egd/clipping Date of Evaluation: Sep 12, 2016 Time of Evaluation: 13:11 Blood Pressure Systolic: 130 0: 50 Pulse Rate: 75 O2 Sat by Pulse Oximetry: 98 Airway: patent Nausea: No Hydration Status: other - pt is receiving #1 unit of prbc Mental Status/LOC: patient returned to baseline Post-Anesthesia Complications: none Follow-up care needed: N/A MEENU FERNANDEZ CRNA Sep 12, 2016 13:11
[2016-09-12] MEDS: Thiamine HCl 100 MG in D5W 55 ML IVPB SCH (16:38)
[2016-09-12] MEDS: Folic Acid 1 MG, Magnesium Sulfate 2,000 MG, Multivitamin - 12 Injection 10 ML in NS w/... IV SCH (17:02)
--- NOTE | 2016-09-12 17:54 | Infectious Diseases Prog Note ---
Assessment/Plan Assessment/Plan A: The patient is a 50-year-old male w Aspiration pneumonia Possible sepsis Low grade fever US : Evidence of portal hypertension, with borderline splenomegaly, ascites, ALOC / hepatic Encephalopathy GI bleed Hx of Alcohol abuse Alcoholic liver cirrhosis. History of portal hypertension PLAN: continue the patient on IV Zosyn d# 4 / 7 , upon DC will change to Augmentin to complete the course CBC Monitor BMP. Ultrasound of the abdomen to rule out for evaluation of ascites Chest x-ray, rule out aspiration pneumonia. Monitor blood cultures. need for paracentesis , defer to GI Subjective Constitutional: Denies: anorexia, chills, drenching sweats, fatigue, fever, no symptoms, other Allergies: Coded Allergies: No Known Allergies (Unverified , 08/12/16) Subjective Objective Vital Signs Last 24 Hour Vital Signs Date Time Temp Pulse Resp B/P Pulse Ox O2 Delivery O2 Flow Rate FiO2 09/12/16 16:44 97.9 61 20 137/74 99 Room Air 09/12/16 14:01 98.1 81 20 149/91 98 Room Air 09/12/16 13:20 98.9 85 20 144/94 100 Nasal Cannula 3.0 09/12/16 13:11 75 98 09/12/16 13:07 82 14 100 09/12/16 13:05 88 18 149/96 100 Nasal Cannula 3.0 09/12/16 13:00 89 20 138/94 100 Simple Mask 6.0 09/12/16 12:55 98.8 79 20 129/83 100 Simple Mask 6.0 09/12/16 11:48 98.0 74 20 144/88 97 Room Air 09/12/16 11:33 97.8 78 18 151/79 98 09/12/16 08:00 97.0 81 18 134/68 98 Room Air 09/12/16 04:00 98.7 92 18 151/77 98 Room Air 09/12/16 00:00 97.9 77 20 140/98 100 Room Air 09/11/16 20:00 97.7 68 18 145/100 100 Room Air Height (Feet): 6 Height (Inches): 3.00 Weight (Pounds): 210 HEENT: anicteric Respiratory/Chest: normal breath sounds Cardiovascular: normal peripheral pulses Abdomen: no organomegaly Laboratory Tests Test 09/12/16 05:33 09/12/16 09:46 White Blood Count 5.4 K/UL (4.8-10.8) 7.3 K/UL (4.8-10.8) Red Blood Count 2.16 M/UL (4.70-6.10) L 2.76 M/UL (4.70-6.10) L Hemoglobin 6.4 G/DL (14.2-18.0) *L 8.0 G/DL (14.2-18.0) L Hematocrit 20.0 % (42.0-52.0) L 25.6 % (42.0-52.0) L Mean Corpuscular Volume 93 FL (80-99) 93 FL (80-99) Mean Corpuscular Hemoglobin 29.5 PG (27.0-31.0) 29.1 PG (27.0-31.0) Mean Corpuscular Hemoglobin Concent 31.9 G/DL (32.0-36.0) L 31.4 G/DL (32.0-36.0) L Red Cell Distribution Width 18.1 % (11.6-14.8) H 18.3 % (11.6-14.8) H Platelet Count 36 K/UL (150-450) L 46 K/UL (150-450) L Mean Platelet Volume 7.9 FL (6.5-10.1) 9.3 FL (6.5-10.1) Neutrophils (%) (Auto) % (45.0-75.0) % (45.0-75.0) Lymphocytes (%) (Auto) % (20.0-45.0) % (20.0-45.0) Monocytes (%) (Auto) % (1.0-10.0) % (1.0-10.0) Eosinophils (%) (Auto) % (0.0-3.0) % (0.0-3.0) Basophils (%) (Auto) % (0.0-2.0) % (0.0-2.0) Differential Total Cells Counted 100 100 Neutrophils % (Manual) 90 % (45-75) H 56 % (45-75) Lymphocytes % (Manual) 2 % (20-45) L 19 % (20-45) L Monocytes % (Manual) 4 % (1-10) 19 % (1-10) H Eosinophils % (Manual) 4 % (0-3) H 5 % (0-3) H Basophils % (Manual) 0 % (0-2) 1 % (0-2) Band Neutrophils 0 % (0-8) 0 % (0-8) Platelet Estimate Decreased L Decreased L Platelet Morphology Normal Normal Hypochromasia 3+ 2+ Anisocytosis 2+ 2+ Sodium Level 144 mEQ/L (135-145) Potassium Level 2.5 mEQ/L (3.4-4.9) *L Chloride Level 109 mEQ/L (98-107) H Carbon Dioxide Level 19 mEQ/L (20-30) L Anion Gap 16 (5-15) H Blood Urea Nitrogen 13 mg/dL (7-23) Creatinine 0.6 mg/dL (0.7-1.2) L Estimat Glomerular Filtration Rate > 60 mL/min (>60) Glucose Level 76 mg/dL (74-106) Calcium Level 6.4 mg/dL (8.6-10.2) L Current Medications Medications (Trade) Dose Ordered Sig/Saturnino Route PRN Reason Start Time Stop Time Status Last Admin Dose Admin Acetaminophen (Tylenol) 650 mg Q4H PRN ORAL T>100.5 09/10/16 17:00 10/10/16 16:59 Al Hydroxide/Mg Hydroxide (Mylanta II) 30 ml Q6H PRN ORAL dyspepsia 09/10/16 17:00 10/10/16 16:59 Chlordiazepoxide (Librium) 25 mg Q8H PRN ORAL Agitation 09/10/16 17:00 09/17/16 16:59 09/11/16 23:23 Clonidine HCl 0.1 mg 0.1 mg Q6H PRN ORAL SBP>160 09/11/16 12:00 10/11/16 11:59 Dextrose (Dextrose 50%) STAT PRN IV Hypoglycemia 09/10/16 17:00 10/10/16 16:59 Diphenhydramine HCl (Benadryl) 25 mg Q6H PRN ORAL Itching/Pruritis 09/10/16 17:00 10/10/16 16:59 Folic Acid 1 mg/ Magnesium Sulfate 2000 mg/ Multivitamins 10 ml/Sodium Chloride 1,014.2 ml @ 125 mls/ hr Q24H IV 09/10/16 17:00 10/10/16 16:59 09/12/16 17:02 Lactulose (Cephulac) 30 gm THREE TIMES A DAY ORAL 09/10/16 18:00 10/10/16 17:59 09/11/16 17:03 Octreotide Acetate 500 mcg/ Sodium Chloride 500 ml @ 50 mls/hr Q10H IV 09/10/16 17:30 10/10/16 17:29 09/12/16 10:35 Ondansetron HCl (Zofran) 4 mg Q6H PRN IVP Nausea & Vomiting 09/10/16 17:00 10/10/16 16:59 Pantoprazole 80 mg/Sodium Chloride 250 ml @ 25 mls/hr Q10H IV 09/10/16 17:30 10/10/16 17:29 09/12/16 10:35 Piperacillin Sod/ Tazobactam Sod 3.375 gm/Sodium Chloride 110 ml @ 27.5 mls/hr Q8HR IVPB 09/10/16 22:00 09/17/16 21:59 09/12/16 13:54 Potassium Chloride/Sodium Chloride (KCl/NS) 570 ml @ 142.5 mls/ hr Q6H IV 09/12/16 11:00 09/13/16 08:59 09/12/16 10:34 Rifaximin (Xifaxan) 550 mg EVERY 12 HOURS ORAL 09/10/16 21:00 09/17/16 20:59 09/11/16 21:57 Temazepam (Restoril) 15 mg HSPRN PRN ORAL Insomnia 09/10/16 21:00 09/17/16 20:59 09/11/16 23:23 Thiamine HCl/ Dextrose (Vitamin B1/D5W) 56 ml @ 112 mls/hr Q24H IVPB 09/11/16 17:00 10/11/16 16:59 09/12/16 16:38 JACQUELINE LUGO M.D. Sep 12, 2016 17:54
[2016-09-12] MEDS: chlordiazePOXIDE 25mg Cap ORAL PRN (21:56)
--- NOTE | 2016-09-12 22:14 | Pulmonology Progress Note ---
Assessment/Plan Problems: (1) Anemia due to acute blood loss (2) Alcohol abuse (3) Liver cirrhosis (4) Gastrointestinal hemorrhage (5) Coagulopathy (6) Fever Assessment/Plan banana bag iv fluids ID evaluation IV antibiotics giron culture lactulose check ammonia level Subjective Constitutional: Reports: anorexia, fatigue Gastrointestinal/Abdominal: Reports: bloating, blood in stool, diarrhea Neurologic: Reports: confusion, weakness Allergies: Coded Allergies: No Known Allergies (Unverified , 08/12/16) Objective Last 24 Hour Vital Signs Date Time Temp Pulse Resp B/P Pulse Ox O2 Delivery O2 Flow Rate FiO2 09/12/16 16:44 97.9 61 20 137/74 99 Room Air 09/12/16 14:01 98.1 81 20 149/91 98 Room Air 09/12/16 13:20 98.9 85 20 144/94 100 Nasal Cannula 3.0 09/12/16 13:11 75 98 09/12/16 13:07 82 14 100 09/12/16 13:05 88 18 149/96 100 Nasal Cannula 3.0 09/12/16 13:00 89 20 138/94 100 Simple Mask 6.0 09/12/16 12:55 98.8 79 20 129/83 100 Simple Mask 6.0 09/12/16 11:48 98.0 74 20 144/88 97 Room Air 09/12/16 11:33 97.8 78 18 151/79 98 09/12/16 08:00 97.0 81 18 134/68 98 Room Air 09/12/16 04:00 98.7 92 18 151/77 98 Room Air 09/12/16 00:00 97.9 77 20 140/98 100 Room Air Intake and Output 09/11/16 09/12/16 19:00 07:00 Intake Total 525 ml Output Total 100 ml 1400 ml Balance 425 ml -1400 ml IV Total 525 ml Output Urine Total 1400 ml Stool Total 100 ml General Appearance: no acute distress HEENT: normocephalic, atraumatic, PERRL Respiratory/Chest: chest wall non-tender, decreased breath sounds, accessory muscle use Cardiovascular: normal peripheral pulses, normal rate, regular rhythm, no JVD Abdomen: hyperactive bowel sounds, distended, guarding, tender, rebound tenderness Genitourinary: normal external genitalia Extremities: no cyanosis 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, responsive, disoriented Laboratory Tests 09/12/16 05:33: White Blood Count 5.4, Red Blood Count 2.16L, Hemoglobin 6.4*L, Hematocrit 20.0L , Mean Corpuscular Volume 93, Mean Corpuscular Hemoglobin 29.5, Mean Corpuscular Hemoglobin Concent 31.9L, Red Cell Distribution Width 18.1H, Platelet Count 36L, Mean Platelet Volume 7.9, Neutrophils (%) (Auto) , Lymphocytes (%) (Auto) , Monocytes (%) (Auto) , Eosinophils (%) (Auto) , Basophils (%) (Auto) , Differential Total Cells Counted 100, Neutrophils % ( Manual) 90H, Lymphocytes % (Manual) 2L, Monocytes % (Manual) 4, Eosinophils % ( Manual) 4H, Basophils % (Manual) 0, Band Neutrophils 0, Platelet Estimate DecreasedL, Platelet Morphology Normal, Hypochromasia 3+, Anisocytosis 2+, Sodium Level 144, Potassium Level 2.5*L, Chloride Level 109H, Carbon Dioxide Level 19L, Anion Gap 16H, Blood Urea Nitrogen 13, Creatinine 0.6L, Estimat Glomerular Filtration Rate > 60, Glucose Level 76, Calcium Level 6.4L 09/12/16 09:46: White Blood Count 7.3, Red Blood Count 2.76L, Hemoglobin 8.0L, Hematocrit 25.6L , Mean Corpuscular Volume 93, Mean Corpuscular Hemoglobin 29.1, Mean Corpuscular Hemoglobin Concent 31.4L, Red Cell Distribution Width 18.3H, Platelet Count 46L, Mean Platelet Volume 9.3, Neutrophils (%) (Auto) , Lymphocytes (%) (Auto) , Monocytes (%) (Auto) , Eosinophils (%) (Auto) , Basophils (%) (Auto) , Differential Total Cells Counted 100, Neutrophils % ( Manual) 56, Lymphocytes % (Manual) 19L, Monocytes % (Manual) 19H, Eosinophils % (Manual) 5H, Basophils % (Manual) 1, Band Neutrophils 0, Platelet Estimate DecreasedL, Platelet Morphology Normal, Hypochromasia 2+, Anisocytosis 2+ Current Medications Medications (Trade) Dose Ordered Sig/Saturnino Route PRN Reason Start Time Stop Time Status Last Admin Dose Admin Acetaminophen (Tylenol) 650 mg Q4H PRN ORAL T>100.5 09/10/16 17:00 10/10/16 16:59 Al Hydroxide/Mg Hydroxide (Mylanta II) 30 ml Q6H PRN ORAL dyspepsia 09/10/16 17:00 10/10/16 16:59 Chlordiazepoxide (Librium) 25 mg Q8H PRN ORAL Agitation 09/10/16 17:00 09/17/16 16:59 09/12/16 21:56 Clonidine HCl 0.1 mg 0.1 mg Q6H PRN ORAL SBP>160 09/11/16 12:00 10/11/16 11:59 Dextrose (Dextrose 50%) STAT PRN IV Hypoglycemia 09/10/16 17:00 10/10/16 16:59 Diphenhydramine HCl (Benadryl) 25 mg Q6H PRN ORAL Itching/Pruritis 09/10/16 17:00 10/10/16 16:59 Folic Acid 1 mg/ Magnesium Sulfate 2000 mg/ Multivitamins 10 ml/Sodium Chloride 1,014.2 ml @ 125 mls/ hr Q24H IV 09/10/16 17:00 10/10/16 16:59 09/12/16 17:02 Lactulose (Cephulac) 30 gm THREE TIMES A DAY ORAL 09/10/16 18:00 10/10/16 17:59 09/11/16 17:03 Octreotide Acetate 500 mcg/ Sodium Chloride 500 ml @ 50 mls/hr Q10H IV 09/10/16 17:30 10/10/16 17:29 09/12/16 22:04 Ondansetron HCl (Zofran) 4 mg Q6H PRN IVP Nausea & Vomiting 09/10/16 17:00 10/10/16 16:59 Pantoprazole 80 mg/Sodium Chloride 250 ml @ 25 mls/hr Q10H IV 09/10/16 17:30 10/10/16 17:29 09/12/16 22:04 Piperacillin Sod/ Tazobactam Sod 3.375 gm/Sodium Chloride 110 ml @ 27.5 mls/hr Q8HR IVPB 09/10/16 22:00 09/17/16 21:59 09/12/16 13:54 Potassium Chloride/Sodium Chloride (KCl/NS) 570 ml @ 142.5 mls/ hr Q6H IV 09/12/16 11:00 09/13/16 08:59 09/12/16 18:14 Rifaximin (Xifaxan) 550 mg EVERY 12 HOURS ORAL 09/10/16 21:00 09/17/16 20:59 09/11/16 21:57 Temazepam (Restoril) 15 mg HSPRN PRN ORAL Insomnia 09/10/16 21:00 09/17/16 20:59 09/11/16 23:23 Thiamine HCl/ Dextrose (Vitamin B1/D5W) 56 ml @ 112 mls/hr Q24H IVPB 09/11/16 17:00 10/11/16 16:59 09/12/16 16:38 SPENCER BERGER Sep 12, 2016 22:14
[2016-09-13] VITALS: BP 143/87
[2016-09-13] MEDS: Potassium Chloride 40 MEQ in Sodium Chloride 550 ML IV SCH ×2 (00:20→04:58)
[2016-09-13 04:00] VITALS: BP 144/85
[2016-09-13] MEDS: Pantoprazole 80 MG in NS 250 ML IV SCH ×2 (05:13→15:41)
[2016-09-13] MEDS: Octreotide Acetate 500 MCG in Sodium Chloride 499 ML IV SCH ×2 (05:14→15:41)
[2016-09-13] MEDS: Piperacillin/Tazobactam 3.375 GM in NS 110 ML IVPB SCH ×3 (05:14→22:15)
[2016-09-13] MEDS: chlordiazePOXIDE 25mg Cap ORAL PRN ×2 (06:24→14:24)
[2016-09-13 07:13] LABS: MEAN CORPUSCULAR HEMOGLOBIN 29.8 PG (27.0-31.0); MEAN CORPUSCULAR HGB CONC 32.9 G/DL (32.0-36.0); MEAN CORPUSCULAR VOLUME 91 FL (80-99); MEAN PLATELET VOLUME 6.8 FL (6.5-10.1); PLATELET COUNT 55 K/UL (150-450); RED BLOOD COUNT 2.49 M/UL (4.70-6.10); WHITE BLOOD COUNT 5.7 K/UL (4.8-10.8)
[2016-09-13 08:00] VITALS: BP 136/84
[2016-09-13 09:38] LABS: ANISOCYTOSIS 1+; BAND NEUTROPHILS % (MANUAL) 0 % (0-8); BASOPHILS % (MANUAL) 0 % (0-2); EOSINOPHILS % (MANUAL) 6 % (0-3); HYPOCHROMASIA 1+; LYMPHOCYTES % (MANUAL) 14 % (20-45); NEUTROPHILS % (MANUAL) 63 % (45-75); PLATELET ESTIMATE DECREASED; PLATELET MORPHOLOGY NORMAL; TOTAL CELLS COUNTED 100
[2016-09-13 09:40] LABS: POLYCHROMASIA OCCASIONAL
[2016-09-13] MEDS: Lactulose 20gm/30ml UDC ORAL SCH ×3 (09:53→18:07)
[2016-09-13] MEDS: Rifaximin 550mg tab ORAL SCH ×2 (09:53→21:00)
[2016-09-13 10:32] LABS: ALANINE AMINOTRANSFERASE 41 U/L (3-41); ALBUMIN/GLOBULIN RATIO 0.7 (1.0-2.7); ANION GAP 15 (5-15); ASPARTATE AMINO TRANSFERASE 161 U/L (5-40); CARBON DIOXIDE 20 mEQ/L (20-30); CHLORIDE 100 mEQ/L (98-107); CREATININE 0.7 mg/dL (0.7-1.2); GLOMERULAR FILTRATION RATE > 60 mL/min (>60); HEMOLYSIS 2; POTASSIUM 3.4 mEQ/L (3.4-4.9); SODIUM 135 mEQ/L (135-145); TOTAL PROTEIN 5.5 g/dL (6.6-8.7)
[2016-09-13 10:47] LABS: BILIRUBIN,DIRECT 1.9 mg/dL (0.1-0.3)
--- NOTE | 2016-09-13 11:06 | General Progress Note ---
Assessment/Plan Problem List: (1) Alcohol abuse ICD Codes: F10.10 - Alcohol abuse, uncomplicated SNOMED: 00451232 (2) Gastrointestinal hemorrhage ICD Codes: K92.2 - Gastrointestinal hemorrhage, unspecified SNOMED: 53623055 (3) Hypoalbuminemia ICD Codes: E88.09 - Other disorders of plasma-protein metabolism, not elsewhere classified SNOMED: 335470144 (4) Liver cirrhosis ICD Codes: K74.60 - Unspecified cirrhosis of liver SNOMED: 49091077 (5) Coagulopathy ICD Codes: D68.9 - Coagulation defect, unspecified SNOMED: 78306013 (6) Hepatic encephalopathy ICD Codes: K72.90 - Hepatic failure, unspecified without coma SNOMED: 17680465 Assessment/Plan no recurrent active bleed transfuse one more unit PRBC clears lactulose and xifaxan Subjective ROS Limited/Unobtainable: No Allergies: Coded Allergies: No Known Allergies (Unverified , 08/12/16) Objective Last 24 Hour Vital Signs Date Time Temp Pulse Resp B/P Pulse Ox O2 Delivery O2 Flow Rate FiO2 09/13/16 04:00 98.1 85 19 144/85 96 Room Air 09/13/16 00:00 97.5 82 22 143/87 96 Room Air 09/12/16 20:00 97.5 76 18 133/79 97 Room Air 09/12/16 16:44 97.9 61 20 137/74 99 Room Air 09/12/16 14:01 98.1 81 20 149/91 98 Room Air 09/12/16 13:20 98.9 85 20 144/94 100 Nasal Cannula 3.0 09/12/16 13:11 75 98 09/12/16 13:07 82 14 100 09/12/16 13:05 88 18 149/96 100 Nasal Cannula 3.0 09/12/16 13:00 89 20 138/94 100 Simple Mask 6.0 09/12/16 12:55 98.8 79 20 129/83 100 Simple Mask 6.0 09/12/16 11:48 98.0 74 20 144/88 97 Room Air 09/12/16 11:33 97.8 78 18 151/79 98 Intake and Output 09/12/16 09/13/16 19:00 07:00 Intake Total 916.0 ml 1550 ml Output Total 1500 ml 2250 ml Balance -584.0 ml -700 ml Intake Oral 1200 ml IV Total 666.0 ml Blood Product 250 ml 350 ml Output Urine Total 1500 ml 1950 ml Stool Total 300 ml Laboratory Tests 09/13/16 04:50: White Blood Count 5.7, Red Blood Count 2.49L, Hemoglobin 7.4L, Hematocrit 22.6L , Mean Corpuscular Volume 91, Mean Corpuscular Hemoglobin 29.8, Mean Corpuscular Hemoglobin Concent 32.9, Red Cell Distribution Width 18.0H, Platelet Count 55L, Mean Platelet Volume 6.8, Neutrophils (%) (Auto) , Lymphocytes (%) (Auto) , Monocytes (%) (Auto) , Eosinophils (%) (Auto) , Basophils (%) (Auto) , Differential Total Cells Counted 100, Neutrophils % ( Manual) 63, Lymphocytes % (Manual) 14L, Monocytes % (Manual) 17H, Eosinophils % (Manual) 6H, Basophils % (Manual) 0, Band Neutrophils 0, Platelet Estimate DecreasedL, Platelet Morphology Normal, Polychromasia Occasional, Hypochromasia 1+, Anisocytosis 1+ 09/13/16 09:30: Sodium Level 135, Potassium Level 3.4, Chloride Level 100, Carbon Dioxide Level 20, Anion Gap 15, Blood Urea Nitrogen 7, Creatinine 0.7, Estimat Glomerular Filtration Rate > 60, Glucose Level 115H, Calcium Level 7.0L, Total Bilirubin 3.5H, Direct Bilirubin 1.9H, Aspartate Amino Transf (AST/SGOT) 161H, Alanine Aminotransferase (ALT/SGPT) 41, Alkaline Phosphatase 57, Total Protein 5.5L, Albumin 2.3L, Globulin 3.2, Albumin/Globulin Ratio 0.7L Height (Feet): 6 Height (Inches): 3.00 Weight (Pounds): 210 General Appearance: no apparent distress EENT: normal ENT inspection Neck: supple Cardiovascular: normal rate Respiratory/Chest: decreased breath sounds Abdomen: normal bowel sounds, non tender, soft Extremities: non-tender GURWINDER STANLEY Sep 13, 2016 11:06
[2016-09-13 12:00] VITALS: BP 133/86
[2016-09-13] MEDS ORDERED: Tubing IV Secondary IV ONE (14:44)
[2016-09-13] MEDS ORDERED: NS 275ml ONE (14:44)
[2016-09-13] MEDS ORDERED: 1/2 NS 1000ml IV ONE (14:44)
[2016-09-13] MEDS ORDERED: Tubing IV Blood Pump IV ONE (14:44)
[2016-09-13 16:00] VITALS: BP 134/83
[2016-09-13] MEDS: Folic Acid 1 MG, Magnesium Sulfate 2,000 MG, Multivitamin - 12 Injection 10 ML in NS w/... IV SCH (17:30)
[2016-09-13] MEDS: Thiamine HCl 100 MG in D5W 55 ML IVPB SCH (17:30)
[2016-09-13] MEDS: LORazepam Inj 2mg/ml 1ml IV PRN ×2 (18:04→22:14)
--- NOTE | 2016-09-13 18:58 | Procedure Note ---
DATE OF PROCEDURE: 09/12/2016 SURGEON: Berhane Wright M.D. PROCEDURE: Upper endoscopy with hemostasis. ANESTHESIA: Per JONEL Su. INSTRUMENT: Olympus adult flexible upper endoscope. INDICATION: Upper gastrointestinal bleeding. REASON FOR PROCEDURE: The procedure, risks, benefits, and possible consequences, including hemorrhage, aspiration, perforation and infection, and alternative treatments, were explained to the patient/legal guardian by Dr. Berhane Wright and the patient/legal guardian understood and accepted these risks. DESCRIPTION OF PROCEDURE: After informed consent was obtained and the patient was adequately sedated, Olympus upper endoscope was advanced from mouth into the second portion of the duodenum and retroflexion was performed in the stomach. The patient has evidence of active bleeding from at least two esophageal tears in the distal esophagus. Both of them were clipped with hemoclips. Then after the hemoclips, bleeding stopped. The patient did not have any obvious significant esophageal varices. In the stomach, there was evidence of portal hypertensive gastropathy. The patient tolerated the procedure well without any complication. SUMMARY OF FINDINGS: Active bleeding from the distal esophageal tears status post hemoclip x2. RECOMMENDATIONS: The patient to be kept overnight. Hemoglobin and hematocrit to be monitored and transfused as needed to keep hemoglobin above 7. The patient units of platelets. We will follow laboratories tomorrow and start diet if the patient is stable tomorrow. I want to thank, Dr. Stevens, for this kind referral. Berhane Wright M.D. DR: JOVANNY JOB#: [id number] CC: Massiel Stevens M.D.
--- NOTE | 2016-09-13 23:54 | Pulmonology Progress Note ---
Assessment/Plan Problems: (1) Anemia due to acute blood loss (2) Alcohol abuse (3) Liver cirrhosis (4) Gastrointestinal hemorrhage (5) Coagulopathy (6) Fever Assessment/Plan IV antibiotics giron culture lactulose check ammonia level all notes, labs reviewed Subjective ROS Limited/Unobtainable: No Allergies: Coded Allergies: No Known Allergies (Unverified , 08/12/16) Objective Last 24 Hour Vital Signs Date Time Temp Pulse Resp B/P Pulse Ox O2 Delivery O2 Flow Rate FiO2 09/13/16 16:00 98.2 91 18 134/83 97 Room Air 09/13/16 12:00 98.4 89 18 133/86 97 Room Air 09/13/16 08:00 94.6 102 18 136/84 96 Room Air 09/13/16 04:00 98.1 85 19 144/85 96 Room Air 09/13/16 00:00 97.5 82 22 143/87 96 Room Air Intake and Output 09/12/16 09/13/16 19:00 07:00 Intake Total 916.0 ml 2416.7 ml Output Total 1500 ml 2250 ml Balance -584.0 ml 166.7 ml Intake Oral 1200 ml IV Total 666.0 ml 866.7 ml Blood Product 250 ml 350 ml Output Urine Total 1500 ml 1950 ml Stool Total 300 ml General Appearance: WD/WN HEENT: normocephalic Respiratory/Chest: chest wall non-tender Cardiovascular: normal peripheral pulses Abdomen: normal bowel sounds Genitourinary: normal external genitalia Laboratory Tests 09/13/16 04:50: White Blood Count 5.7, Red Blood Count 2.49L, Hemoglobin 7.4L, Hematocrit 22.6L , Mean Corpuscular Volume 91, Mean Corpuscular Hemoglobin 29.8, Mean Corpuscular Hemoglobin Concent 32.9, Red Cell Distribution Width 18.0H, Platelet Count 55L, Mean Platelet Volume 6.8, Neutrophils (%) (Auto) , Lymphocytes (%) (Auto) , Monocytes (%) (Auto) , Eosinophils (%) (Auto) , Basophils (%) (Auto) , Differential Total Cells Counted 100, Neutrophils % ( Manual) 63, Lymphocytes % (Manual) 14L, Monocytes % (Manual) 17H, Eosinophils % (Manual) 6H, Basophils % (Manual) 0, Band Neutrophils 0, Platelet Estimate DecreasedL, Platelet Morphology Normal, Polychromasia Occasional, Hypochromasia 1+, Anisocytosis 1+ 09/13/16 09:30: Sodium Level 135, Potassium Level 3.4, Chloride Level 100, Carbon Dioxide Level 20, Anion Gap 15, Blood Urea Nitrogen 7, Creatinine 0.7, Estimat Glomerular Filtration Rate > 60, Glucose Level 115H, Calcium Level 7.0L, Total Bilirubin 3.5H, Direct Bilirubin 1.9H, Aspartate Amino Transf (AST/SGOT) 161H, Alanine Aminotransferase (ALT/SGPT) 41, Alkaline Phosphatase 57, Total Protein 5.5L, Albumin 2.3L, Globulin 3.2, Albumin/Globulin Ratio 0.7L Current Medications Medications (Trade) Dose Ordered Sig/Saturnino Route PRN Reason Start Time Stop Time Status Last Admin Dose Admin Acetaminophen (Tylenol) 650 mg Q4H PRN ORAL T>100.5 09/10/16 17:00 10/10/16 16:59 Al Hydroxide/Mg Hydroxide (Mylanta II) 30 ml Q6H PRN ORAL dyspepsia 09/10/16 17:00 10/10/16 16:59 Chlordiazepoxide (Librium) 25 mg Q8H PRN ORAL Agitation 09/10/16 17:00 09/17/16 16:59 09/13/16 14:24 Clonidine HCl (Catapres) 0.1 mg Q6H PRN ORAL SBP>160 09/11/16 12:00 10/11/16 11:59 Dextrose (Dextrose 50%) STAT PRN IV Hypoglycemia 09/10/16 17:00 10/10/16 16:59 Diphenhydramine HCl (Benadryl) 25 mg Q6H PRN ORAL Itching/Pruritis 09/10/16 17:00 10/10/16 16:59 09/13/16 01:40 Folic Acid 1 mg/ Magnesium Sulfate 2000 mg/ Multivitamins 10 ml/Sodium Chloride 1,014.2 ml @ 125 mls/ hr Q24H IV 09/10/16 17:00 10/10/16 16:59 09/13/16 17:30 Lactulose (Cephulac) 30 gm THREE TIMES A DAY ORAL 09/10/16 18:00 10/10/16 17:59 09/13/16 18:07 Lorazepam (Ativan 2mg/ml 1ml) 0.5 mg Q4H PRN IV For Anxiety 09/13/16 17:45 09/20/16 17:44 09/13/16 22:14 Octreotide Acetate 500 mcg/ Sodium Chloride 500 ml @ 50 mls/hr Q10H IV 09/10/16 17:30 10/10/16 17:29 09/13/16 15:41 Ondansetron HCl (Zofran) 4 mg Q6H PRN IVP Nausea & Vomiting 09/10/16 17:00 10/10/16 16:59 Pantoprazole 80 mg/Sodium Chloride 250 ml @ 25 mls/hr Q10H IV 09/10/16 17:30 10/10/16 17:29 09/13/16 15:41 Piperacillin Sod/ Tazobactam Sod 3.375 gm/Sodium Chloride 110 ml @ 27.5 mls/hr Q8HR IVPB 09/10/16 22:00 09/17/16 21:59 09/13/16 22:15 Rifaximin (Xifaxan) 550 mg EVERY 12 HOURS ORAL 09/10/16 21:00 09/17/16 20:59 09/13/16 09:53 Temazepam (Restoril) 15 mg HSPRN PRN ORAL Insomnia 09/10/16 21:00 09/17/16 20:59 09/13/16 01:40 Thiamine HCl/ Dextrose (Vitamin B1/D5W) 56 ml @ 112 mls/hr Q24H IVPB 09/11/16 17:00 10/11/16 16:59 09/13/16 17:30 SPENCER BERGER Sep 13, 2016 23:54
[2016-09-14] MEDS: Octreotide Acetate 500 MCG in Sodium Chloride 499 ML IV SCH ×2 (01:30→06:56)
[2016-09-14] MEDS: Pantoprazole 80 MG in NS 250 ML IV SCH (02:19)
[2016-09-14 04:00] VITALS: BP 140/95
[2016-09-14] MEDS: chlordiazePOXIDE 25mg Cap ORAL PRN ×2 (06:00→17:47)
[2016-09-14] MEDS: Piperacillin/Tazobactam 3.375 GM in NS 110 ML IVPB SCH ×3 (06:02→21:53)
[2016-09-14 07:01] LABS: MEAN CORPUSCULAR HEMOGLOBIN 28.9 PG (27.0-31.0); MEAN CORPUSCULAR HGB CONC 32.1 G/DL (32.0-36.0); MEAN CORPUSCULAR VOLUME 90 FL (80-99); MEAN PLATELET VOLUME 8.3 FL (6.5-10.1); PLATELET COUNT 55 K/UL (150-450); RED BLOOD COUNT 3.42 M/UL (4.70-6.10); RED CELL DISTRIBUTION WIDTH 17.4 % (11.6-14.8); WHITE BLOOD COUNT 5.3 K/UL (4.8-10.8)
[2016-09-14 07:12] LABS: INR 1.8 (0.9-1.1); PROTHROMBIN TIME 18.5 SEC (9.30-11.50)
[2016-09-14 07:15] LABS: ANION GAP 13 (5-15); CARBON DIOXIDE 21 mEQ/L (20-30); CHLORIDE 99 mEQ/L (98-107); CREATININE 0.8 mg/dL (0.7-1.2); GLOMERULAR FILTRATION RATE > 60 mL/min (>60); HEMOLYSIS 0; POTASSIUM 3.8 mEQ/L (3.4-4.9); SODIUM 133 mEQ/L (135-145)
[2016-09-14 08:32] VITALS: BP 127/85
[2016-09-14] MEDS: Lactulose 20gm/30ml UDC ORAL SCH ×3 (08:58→17:48)
[2016-09-14] MEDS: Rifaximin 550mg tab ORAL SCH ×2 (08:59→21:00)
[2016-09-14 10:05] LABS: ANISOCYTOSIS 1+; BAND NEUTROPHILS % (MANUAL) 0 % (0-8); BASOPHILS % (MANUAL) 0 % (0-2); EOSINOPHILS % (MANUAL) 6 % (0-3); LYMPHOCYTES % (MANUAL) 23 % (20-45); NEUTROPHILS % (MANUAL) 60 % (45-75); PLATELET ESTIMATE DECREASED; PLATELET MORPHOLOGY NORMAL; TOTAL CELLS COUNTED 100
[2016-09-14 10:06] LABS: HYPOCHROMASIA 1+
--- NOTE | 2016-09-14 10:08 | General Progress Note ---
Assessment/Plan Problem List: (1) Alcohol abuse ICD Codes: F10.10 - Alcohol abuse, uncomplicated SNOMED: 85351890 (2) Gastrointestinal hemorrhage ICD Codes: K92.2 - Gastrointestinal hemorrhage, unspecified SNOMED: 59872667 (3) Hypoalbuminemia ICD Codes: E88.09 - Other disorders of plasma-protein metabolism, not elsewhere classified SNOMED: 768254649 (4) Liver cirrhosis ICD Codes: K74.60 - Unspecified cirrhosis of liver SNOMED: 04105364 (5) Coagulopathy ICD Codes: D68.9 - Coagulation defect, unspecified SNOMED: 40151121 (6) Hepatic encephalopathy ICD Codes: K72.90 - Hepatic failure, unspecified without coma SNOMED: 25418471 Assessment/Plan no recurrent active bleed advance diet lactulose and xifaxan Subjective ROS Limited/Unobtainable: Yes Allergies: Coded Allergies: No Known Allergies (Unverified , 08/12/16) Objective Last 24 Hour Vital Signs Date Time Temp Pulse Resp B/P Pulse Ox O2 Delivery O2 Flow Rate FiO2 09/14/16 08:32 97.9 94 20 127/85 98 Room Air 09/14/16 04:00 98.1 81 18 140/95 95 Room Air 09/13/16 16:00 98.2 91 18 134/83 97 Room Air 09/13/16 12:00 98.4 89 18 133/86 97 Room Air Intake and Output 09/13/16 09/14/16 19:00 07:00 Intake Total 1523.5 ml 1902.5 ml Output Total 400 ml 100 ml Balance 1123.5 ml 1802.5 ml Intake Oral 240 ml IV Total 1273.5 ml 1662.5 ml Blood Product 250 ml Output Urine Total 400 ml Stool Total 100 ml # Voids 2 Laboratory Tests 09/14/16 05:55: White Blood Count 5.3, Red Blood Count 3.42L, Hemoglobin 9.9#L, Hematocrit 30.8# L, Mean Corpuscular Volume 90, Mean Corpuscular Hemoglobin 28.9, Mean Corpuscular Hemoglobin Concent 32.1, Red Cell Distribution Width 17.4H, Platelet Count 55L, Mean Platelet Volume 8.3, Neutrophils (%) (Auto) , Lymphocytes (%) (Auto) , Monocytes (%) (Auto) , Eosinophils (%) (Auto) , Basophils (%) (Auto) , Differential Total Cells Counted 100, Neutrophils % ( Manual) 60, Lymphocytes % (Manual) 23, Monocytes % (Manual) 11H, Eosinophils % ( Manual) 6H, Basophils % (Manual) 0, Band Neutrophils 0, Platelet Estimate DecreasedL, Platelet Morphology Normal, Hypochromasia 1+, Anisocytosis 1+, Prothrombin Time 18.5H, Prothromb Time International Ratio 1.8H, Activated Partial Thromboplast Time 36H, Sodium Level 133L, Potassium Level 3.8, Chloride Level 99, Carbon Dioxide Level 21, Anion Gap 13, Blood Urea Nitrogen 5L, Creatinine 0.8, Estimat Glomerular Filtration Rate > 60, Glucose Level 163H, Calcium Level 7.0L Height (Feet): 6 Height (Inches): 3.00 Weight (Pounds): 210 General Appearance: no apparent distress EENT: normal ENT inspection Neck: supple Cardiovascular: normal rate Respiratory/Chest: decreased breath sounds Abdomen: normal bowel sounds, non tender, soft Extremities: non-tender GURWINDER STANLEY Sep 14, 2016 10:08
[2016-09-14 12:00] VITALS: BP 101/55
--- NOTE | 2016-09-14 13:18 | Infectious Diseases Prog Note ---
Assessment/Plan Assessment/Plan A; Sepsis Pneumonia Alcoholic cirrhosis GI bleeding Anemia P; continue Zosyn Subjective ROS Limited/Unobtainable: Yes Respiratory: Reports: no symptoms Gastrointestinal/Abdominal: Reports: no symptoms Allergies: Coded Allergies: No Known Allergies (Unverified , 08/12/16) Objective Vital Signs Last 24 Hour Vital Signs Date Time Temp Pulse Resp B/P Pulse Ox O2 Delivery O2 Flow Rate FiO2 09/14/16 12:00 98.1 102 19 101/55 98 Room Air 09/14/16 08:32 97.9 94 20 127/85 98 Room Air 09/14/16 04:00 98.1 81 18 140/95 95 Room Air 09/13/16 16:00 98.2 91 18 134/83 97 Room Air Height (Feet): 6 Height (Inches): 3.00 Weight (Pounds): 210 General Appearance: no acute distress HEENT: mucous membranes moist Respiratory/Chest: lungs clear Cardiovascular: tachycardia Abdomen: soft, non tender Extremities: no edema 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: alert, responsive Laboratory Tests Test 09/14/16 05:55 White Blood Count 5.3 K/UL (4.8-10.8) Red Blood Count 3.42 M/UL (4.70-6.10) L Hemoglobin 9.9 G/DL (14.2-18.0) #L Hematocrit 30.8 % (42.0-52.0) #L Mean Corpuscular Volume 90 FL (80-99) Mean Corpuscular Hemoglobin 28.9 PG (27.0-31.0) Mean Corpuscular Hemoglobin Concent 32.1 G/DL (32.0-36.0) Red Cell Distribution Width 17.4 % (11.6-14.8) H Platelet Count 55 K/UL (150-450) L Mean Platelet Volume 8.3 FL (6.5-10.1) Neutrophils (%) (Auto) % (45.0-75.0) Lymphocytes (%) (Auto) % (20.0-45.0) Monocytes (%) (Auto) % (1.0-10.0) Eosinophils (%) (Auto) % (0.0-3.0) Basophils (%) (Auto) % (0.0-2.0) Differential Total Cells Counted 100 Neutrophils % (Manual) 60 % (45-75) Lymphocytes % (Manual) 23 % (20-45) Monocytes % (Manual) 11 % (1-10) H Eosinophils % (Manual) 6 % (0-3) H Basophils % (Manual) 0 % (0-2) Band Neutrophils 0 % (0-8) Platelet Estimate Decreased L Platelet Morphology Normal Hypochromasia 1+ Anisocytosis 1+ Prothrombin Time 18.5 SEC (9.30-11.50) H Prothromb Time International Ratio 1.8 (0.9-1.1) H Activated Partial Thromboplast Time 36 SEC (23-33) H Sodium Level 133 mEQ/L (135-145) L Potassium Level 3.8 mEQ/L (3.4-4.9) Chloride Level 99 mEQ/L (98-107) Carbon Dioxide Level 21 mEQ/L (20-30) Anion Gap 13 (5-15) Blood Urea Nitrogen 5 mg/dL (7-23) L Creatinine 0.8 mg/dL (0.7-1.2) Estimat Glomerular Filtration Rate > 60 mL/min (>60) Glucose Level 163 mg/dL (74-106) H Calcium Level 7.0 mg/dL (8.6-10.2) L Current Medications Medications (Trade) Dose Ordered Sig/Saturnino Route PRN Reason Start Time Stop Time Status Last Admin Dose Admin Acetaminophen (Tylenol) 650 mg Q4H PRN ORAL T>100.5 09/10/16 17:00 10/10/16 16:59 Al Hydroxide/Mg Hydroxide (Mylanta II) 30 ml Q6H PRN ORAL dyspepsia 09/10/16 17:00 10/10/16 16:59 Chlordiazepoxide (Librium) 25 mg Q8H PRN ORAL Agitation 09/10/16 17:00 09/17/16 16:59 09/14/16 06:00 Clonidine HCl (Catapres) 0.1 mg Q6H PRN ORAL SBP>160 09/11/16 12:00 10/11/16 11:59 Dextrose (Dextrose 50%) STAT PRN IV Hypoglycemia 09/10/16 17:00 10/10/16 16:59 Diphenhydramine HCl (Benadryl) 25 mg Q6H PRN ORAL Itching/Pruritis 09/10/16 17:00 10/10/16 16:59 09/13/16 01:40 Lactulose (Cephulac) 30 gm THREE TIMES A DAY ORAL 09/10/16 18:00 10/10/16 17:59 09/14/16 08:58 Lorazepam (Ativan 2mg/ml 1ml) 0.5 mg Q4H PRN IV For Anxiety 09/13/16 17:45 09/20/16 17:44 09/13/16 22:14 Ondansetron HCl (Zofran) 4 mg Q6H PRN IVP Nausea & Vomiting 09/10/16 17:00 10/10/16 16:59 Pantoprazole (Protonix) 40 mg DAILY ORAL 09/15/16 09:00 10/15/16 08:59 Piperacillin Sod/ Tazobactam Sod/ Sodium Chloride (Zosyn/Sodium Chloride) 110 ml @ 27.5 mls/hr Q8HR IVPB 09/10/16 22:00 09/17/16 21:59 09/14/16 06:02 Rifaximin (Xifaxan) 550 mg EVERY 12 HOURS ORAL 09/10/16 21:00 09/17/16 20:59 09/14/16 08:59 Temazepam (Restoril) 15 mg HSPRN PRN ORAL Insomnia 09/10/16 21:00 09/17/16 20:59 09/13/16 01:40 J LUIS SÁNCHEZ Sep 14, 2016 13:18
[2016-09-14] MEDS ORDERED: Tubing IV Secondary IV ONE (14:06)
[2016-09-14] MEDS ORDERED: NS 275ml ONE (14:06)
[2016-09-14 16:00] VITALS: BP 118/74
[2016-09-14 20:00] VITALS: BP 128/73
--- NOTE | 2016-09-14 23:25 | Pulmonology Progress Note ---
Assessment/Plan Problems: (1) Anemia due to acute blood loss (2) Alcohol abuse (3) Liver cirrhosis (4) Gastrointestinal hemorrhage (5) Coagulopathy (6) Fever Assessment/Plan ID evaluation IV antibiotics giron culture lactulose check ammonia level Subjective ROS Limited/Unobtainable: No Allergies: Coded Allergies: No Known Allergies (Unverified , 08/12/16) Objective Last 24 Hour Vital Signs Date Time Temp Pulse Resp B/P Pulse Ox O2 Delivery O2 Flow Rate FiO2 09/14/16 20:00 97.2 83 14 128/73 98 Room Air 09/14/16 16:00 98.4 93 20 118/74 98 Room Air 09/14/16 12:00 98.1 102 19 101/55 98 Room Air 09/14/16 08:32 97.9 94 20 127/85 98 Room Air 09/14/16 04:00 98.1 81 18 140/95 95 Room Air Intake and Output 09/13/16 09/14/16 19:00 07:00 Intake Total 1523.5 ml 1902.5 ml Output Total 400 ml 100 ml Balance 1123.5 ml 1802.5 ml Intake Oral 240 ml IV Total 1273.5 ml 1662.5 ml Blood Product 250 ml Output Urine Total 400 ml Stool Total 100 ml # Voids 2 General Appearance: no acute distress HEENT: normocephalic Respiratory/Chest: chest wall non-tender Cardiovascular: normal peripheral pulses Abdomen: normal bowel sounds Extremities: no cyanosis Laboratory Tests 09/14/16 05:55: White Blood Count 5.3, Red Blood Count 3.42L, Hemoglobin 9.9#L, Hematocrit 30.8# L, Mean Corpuscular Volume 90, Mean Corpuscular Hemoglobin 28.9, Mean Corpuscular Hemoglobin Concent 32.1, Red Cell Distribution Width 17.4H, Platelet Count 55L, Mean Platelet Volume 8.3, Neutrophils (%) (Auto) , Lymphocytes (%) (Auto) , Monocytes (%) (Auto) , Eosinophils (%) (Auto) , Basophils (%) (Auto) , Differential Total Cells Counted 100, Neutrophils % ( Manual) 60, Lymphocytes % (Manual) 23, Monocytes % (Manual) 11H, Eosinophils % ( Manual) 6H, Basophils % (Manual) 0, Band Neutrophils 0, Platelet Estimate DecreasedL, Platelet Morphology Normal, Hypochromasia 1+, Anisocytosis 1+, Prothrombin Time 18.5H, Prothromb Time International Ratio 1.8H, Activated Partial Thromboplast Time 36H, Sodium Level 133L, Potassium Level 3.8, Chloride Level 99, Carbon Dioxide Level 21, Anion Gap 13, Blood Urea Nitrogen 5L, Creatinine 0.8, Estimat Glomerular Filtration Rate > 60, Glucose Level 163H, Calcium Level 7.0L Current Medications Medications (Trade) Dose Ordered Sig/Saturnino Route PRN Reason Start Time Stop Time Status Last Admin Dose Admin Acetaminophen (Tylenol) 650 mg Q4H PRN ORAL T>100.5 09/10/16 17:00 10/10/16 16:59 Al Hydroxide/Mg Hydroxide (Mylanta II) 30 ml Q6H PRN ORAL dyspepsia 09/10/16 17:00 10/10/16 16:59 Chlordiazepoxide (Librium) 25 mg Q8H PRN ORAL Agitation 09/10/16 17:00 09/17/16 16:59 09/14/16 17:47 Clonidine HCl (Catapres) 0.1 mg Q6H PRN ORAL SBP>160 09/11/16 12:00 10/11/16 11:59 Dextrose (Dextrose 50%) STAT PRN IV Hypoglycemia 09/10/16 17:00 10/10/16 16:59 Diphenhydramine HCl (Benadryl) 25 mg Q6H PRN ORAL Itching/Pruritis 09/10/16 17:00 10/10/16 16:59 09/13/16 01:40 Lactulose (Cephulac) 30 gm THREE TIMES A DAY ORAL 09/10/16 18:00 10/10/16 17:59 09/14/16 17:48 Lorazepam (Ativan 2mg/ml 1ml) 0.5 mg Q4H PRN IV For Anxiety 09/13/16 17:45 09/20/16 17:44 09/13/16 22:14 Ondansetron HCl (Zofran) 4 mg Q6H PRN IVP Nausea & Vomiting 09/10/16 17:00 10/10/16 16:59 Pantoprazole (Protonix) 40 mg DAILY ORAL 09/15/16 09:00 10/15/16 08:59 Piperacillin Sod/ Tazobactam Sod/ Sodium Chloride (Zosyn/Sodium Chloride) 110 ml @ 27.5 mls/hr Q8HR IVPB 09/10/16 22:00 09/17/16 21:59 09/14/16 21:53 Rifaximin (Xifaxan) 550 mg EVERY 12 HOURS ORAL 09/10/16 21:00 09/17/16 20:59 09/14/16 08:59 Temazepam (Restoril) 15 mg HSPRN PRN ORAL Insomnia 09/10/16 21:00 09/17/16 20:59 09/13/16 01:40 SPENCER BERGER Sep 14, 2016 23:25
[2016-09-15] VITALS: BP 132/73
[2016-09-15] MEDS: chlordiazePOXIDE 25mg Cap ORAL PRN ×2 (01:33→21:51)
[2016-09-15 04:00] VITALS: BP 130/68
[2016-09-15] MEDS: Piperacillin/Tazobactam 3.375 GM in NS 110 ML IVPB SCH ×3 (05:59→21:36)
[2016-09-15 08:00] VITALS: BP 110/63
[2016-09-15] MEDS: Lactulose 20gm/30ml UDC ORAL SCH ×3 (08:45→17:02)
[2016-09-15] MEDS: Promethazine/Codeine 5ml UD ORAL PRN (08:45)
[2016-09-15] MEDS: Rifaximin 550mg tab ORAL SCH ×2 (08:45→21:36)
--- NOTE | 2016-09-15 10:06 | Infectious Diseases Prog Note ---
Assessment/Plan Assessment/Plan A: The patient is a 50-year-old male w Aspiration pneumonia Possible sepsis Low grade fever, sp US : Evidence of portal hypertension, with borderline splenomegaly, ascites, ALOC / hepatic Encephalopathy improved GI bleed Hx of Alcohol abuse Alcoholic liver cirrhosis. History of portal hypertension PLAN: continue the patient on IV Zosyn d# 7 / 7 ( will DC in AM ) CBC Monitor BMP. Chest x-ray, rule out aspiration pneumonia. Monitor blood cultures. need for paracentesis , defer to GI Subjective Constitutional: Denies: anorexia, chills, drenching sweats, fatigue, fever, no symptoms, other Allergies: Coded Allergies: No Known Allergies (Unverified , 08/12/16) Subjective Objective Vital Signs Last 24 Hour Vital Signs Date Time Temp Pulse Resp B/P Pulse Ox O2 Delivery O2 Flow Rate FiO2 09/15/16 08:00 98.0 104 18 110/63 94 Room Air 09/15/16 04:00 97.2 72 16 130/68 97 Room Air 09/15/16 00:00 97.4 76 14 132/73 98 Room Air 09/14/16 20:00 97.2 83 14 128/73 98 Room Air 09/14/16 16:00 98.4 93 20 118/74 98 Room Air 09/14/16 12:00 98.1 102 19 101/55 98 Room Air Height (Feet): 6 Height (Inches): 3.00 Weight (Pounds): 210 HEENT: atraumatic Respiratory/Chest: lungs clear Cardiovascular: regular rhythm Abdomen: non distended Current Medications Medications (Trade) Dose Ordered Sig/Saturnino Route PRN Reason Start Time Stop Time Status Last Admin Dose Admin Acetaminophen (Tylenol) 650 mg Q4H PRN ORAL T>100.5 09/10/16 17:00 10/10/16 16:59 Al Hydroxide/Mg Hydroxide (Mylanta II) 30 ml Q6H PRN ORAL dyspepsia 09/10/16 17:00 10/10/16 16:59 Chlordiazepoxide (Librium) 25 mg Q8H PRN ORAL Agitation 09/10/16 17:00 09/17/16 16:59 09/15/16 01:33 Clonidine HCl (Catapres) 0.1 mg Q6H PRN ORAL SBP>160 09/11/16 12:00 10/11/16 11:59 Dextrose (Dextrose 50%) STAT PRN IV Hypoglycemia 09/10/16 17:00 10/10/16 16:59 Diphenhydramine HCl (Benadryl) 25 mg Q6H PRN ORAL Itching/Pruritis 09/10/16 17:00 10/10/16 16:59 09/13/16 01:40 Lactulose (Cephulac) 30 gm THREE TIMES A DAY ORAL 09/10/16 18:00 10/10/16 17:59 09/15/16 08:45 Lorazepam (Ativan 2mg/ml 1ml) 0.5 mg Q4H PRN IV For Anxiety 09/13/16 17:45 09/20/16 17:44 09/13/16 22:14 Ondansetron HCl (Zofran) 4 mg Q6H PRN IVP Nausea & Vomiting 09/10/16 17:00 10/10/16 16:59 Pantoprazole (Protonix) 40 mg DAILY ORAL 09/15/16 09:00 10/15/16 08:59 09/15/16 08:45 Piperacillin Sod/ Tazobactam Sod/ Sodium Chloride (Zosyn/Sodium Chloride) 110 ml @ 27.5 mls/hr Q8HR IVPB 09/10/16 22:00 09/17/16 21:59 09/15/16 05:59 Promethazine HCl/ Codeine (Phenergan with Codeine) 5 ml Q6HR PRN ORAL For Cough 09/15/16 08:30 10/15/16 08:29 09/15/16 08:45 Rifaximin (Xifaxan) 550 mg EVERY 12 HOURS ORAL 09/10/16 21:00 09/17/16 20:59 09/15/16 08:45 Temazepam (Restoril) 15 mg HSPRN PRN ORAL Insomnia 09/10/16 21:00 09/17/16 20:59 09/13/16 01:40 JACQUELINE LUGO M.D. Sep 15, 2016 10:06
--- NOTE | 2016-09-15 10:59 | GI Progress Note ---
Assessment/Plan Problems: (1) Liver cirrhosis ICD Codes: K74.60 - Unspecified cirrhosis of liver SNOMED: 91621009 (2) LFT elevation ICD Codes: R94.5 - Abnormal results of liver function studies SNOMED: 121905457 (3) Anemia due to acute blood loss ICD Codes: D62 - Acute posthemorrhagic anemia SNOMED: 253378275 (4) Hypoalbuminemia ICD Codes: E88.09 - Other disorders of plasma-protein metabolism, not elsewhere classified SNOMED: 126303837 (5) Gastrointestinal hemorrhage ICD Codes: K92.2 - Gastrointestinal hemorrhage, unspecified SNOMED: 07770936 (6) Alcohol abuse ICD Codes: F10.10 - Alcohol abuse, uncomplicated SNOMED: 54976107 (7) Tear of lower esophagus with hemorrhage ICD Codes: K22.6 - Gastro-esophageal laceration-hemorrhage syndrome SNOMED: 82685170, 476497940 Status: stable, progressing Status Narrative Discussed with Dr. Wright. Assessment/Plan S/P EGD - SUMMARY OF FINDINGS: Active bleeding from the distal esophageal tears status post hemoclip x2. no recurrent active bleed advance diet elevated ammonia >> lactulose + Xifaxan monitor H&H, transfuse prn fu labs Subjective Subjective limited, AMS Objective Last 24 Hour Vital Signs Date Time Temp Pulse Resp B/P Pulse Ox O2 Delivery O2 Flow Rate FiO2 09/15/16 08:00 98.0 104 18 110/63 94 Room Air 09/15/16 04:00 97.2 72 16 130/68 97 Room Air 09/15/16 00:00 97.4 76 14 132/73 98 Room Air 09/14/16 20:00 97.2 83 14 128/73 98 Room Air 09/14/16 16:00 98.4 93 20 118/74 98 Room Air 09/14/16 12:00 98.1 102 19 101/55 98 Room Air Intake and Output 09/14/16 09/15/16 19:00 07:00 Intake Total 1857.5 ml 110.0 ml Output Total 1000 ml Balance 1857.5 ml -890.0 ml Intake Oral 1440 ml IV Total 417.5 ml 110.0 ml Output Urine Total 1000 ml # Voids 2 Height (Feet): 6 Height (Inches): 3.00 Weight (Pounds): 210 General Appearance: no apparent distress, alert - more alert Cardiovascular: normal rate Respiratory/Chest: normal breath sounds, no respiratory distress Abdominal Exam: normal bowel sounds, non tender, soft Mary Norman N.P. Sep 15, 2016 10:59
[2016-09-15 12:00] VITALS: BP 131/71
[2016-09-15 16:00] VITALS: BP 117/67
--- NOTE | 2016-09-15 16:10 | Diagnostic Imaging Report ---
Indications: Ascites Technique: Ultrasound used to localize optimal puncture site. Sterile prepping and draping . Local anesthesia with 1% lidocaine. Under real-time ultrasound guidance, puncture peritoneal space using paracentesis needle. Stylet removed. Catheter placed to vacuum bottle suction. Total 1.6 liters of fluid aspirated. Patient tolerated procedure well, without immediate complication. Note that the first catheter placed came out after only a few 100 mL drained, so the peritoneal space was repunctured with a Yueh needle. A specimen was sent to the lab Findings: Followup sonography demonstrates complete resolution of peritoneal fluid. Impression: Successful ultrasound-guided paracentesis, yielding 1.6 liters of fluid
[2016-09-15 20:31] VITALS: BP 125/73
[2016-09-15 21:37] LABS: APPEARANCE, BODY FLUID CLEAR; BD FL SOURCE PARACENTESIS; BD FL VOLUME 24 mL; BODY FLUID NUCLEATED CELLS 19 /CUMM; BODY FLUID RBC 88 /CUMM
[2016-09-15 21:38] LABS: MONONUCLEAR WBC 92 %; POLYMORPHONUCLEAR WBC 5 %
--- NOTE | 2016-09-15 23:14 | Pulmonology Progress Note ---
Assessment/Plan Problems: (1) Anemia due to acute blood loss (2) Alcohol abuse (3) Liver cirrhosis (4) Gastrointestinal hemorrhage (5) Coagulopathy (6) Fever Assessment/Plan banana bag iv fluids ID evaluation IV antibiotics giron culture lactulose check ammonia level Subjective ROS Limited/Unobtainable: No Constitutional: Reports: anorexia, chills, fatigue, fever Neurologic: Reports: confusion, weakness Allergies: Coded Allergies: No Known Allergies (Unverified , 08/12/16) Objective Last 24 Hour Vital Signs Date Time Temp Pulse Resp B/P Pulse Ox O2 Delivery O2 Flow Rate FiO2 09/15/16 20:31 98.6 89 19 125/73 93 Room Air 09/15/16 16:00 97.1 87 20 117/67 96 Room Air 09/15/16 12:00 98.1 97 18 131/71 96 Room Air 09/15/16 08:00 98.0 104 18 110/63 94 Room Air 09/15/16 04:00 97.2 72 16 130/68 97 Room Air 09/15/16 00:00 97.4 76 14 132/73 98 Room Air Intake and Output 09/14/16 09/15/16 19:00 07:00 Intake Total 1857.5 ml 137.5 ml Output Total 1000 ml Balance 1857.5 ml -862.5 ml Intake Oral 1440 ml IV Total 417.5 ml 137.5 ml Output Urine Total 1000 ml # Voids 2 General Appearance: no acute distress HEENT: normocephalic, atraumatic, PERRL Respiratory/Chest: chest wall non-tender, decreased breath sounds, accessory muscle use Cardiovascular: normal peripheral pulses, normal rate, regular rhythm, no JVD Abdomen: hypoactive bowel sounds, distended, guarding, tender, rebound tenderness, mass, hepatomegaly Genitourinary: normal external genitalia Extremities: other - bilateral lower extremity edema 2+ 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: 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, no motor/sensory deficits Laboratory Tests 09/15/16 15:30: Body Fluid Source Paracentesis, Body Fluid Volume 24, Body Fluid Appearance Clear, Body Fluid RBC 88, Body Fluid Total Nucleated Cells 19, Body Fluid Polynuclear WBCs (%) 5, Body Fluid Mononuclear WBCs (%) 92, Body Fluid Mesothelial Cells (%) 2, Body Fluid Albumin [Pending] Current Medications Medications (Trade) Dose Ordered Sig/Saturnino Route PRN Reason Start Time Stop Time Status Last Admin Dose Admin Acetaminophen (Tylenol) 650 mg Q4H PRN ORAL T>100.5 09/10/16 17:00 10/10/16 16:59 Al Hydroxide/Mg Hydroxide (Mylanta II) 30 ml Q6H PRN ORAL dyspepsia 09/10/16 17:00 10/10/16 16:59 Chlordiazepoxide (Librium) 25 mg Q8H PRN ORAL Agitation 09/10/16 17:00 09/17/16 16:59 09/15/16 21:51 Clonidine HCl (Catapres) 0.1 mg Q6H PRN ORAL SBP>160 09/11/16 12:00 10/11/16 11:59 Dextrose (Dextrose 50%) STAT PRN IV Hypoglycemia 09/10/16 17:00 10/10/16 16:59 Diphenhydramine HCl (Benadryl) 25 mg Q6H PRN ORAL Itching/Pruritis 09/10/16 17:00 10/10/16 16:59 09/13/16 01:40 Lactulose (Cephulac) 30 gm THREE TIMES A DAY ORAL 09/10/16 18:00 10/10/16 17:59 09/15/16 17:02 Lorazepam (Ativan 2mg/ml 1ml) 0.5 mg Q4H PRN IV For Anxiety 09/13/16 17:45 09/20/16 17:44 09/13/16 22:14 Ondansetron HCl (Zofran) 4 mg Q6H PRN IVP Nausea & Vomiting 09/10/16 17:00 10/10/16 16:59 Pantoprazole (Protonix) 40 mg DAILY ORAL 09/15/16 09:00 10/15/16 08:59 09/15/16 08:45 Piperacillin Sod/ Tazobactam Sod/ Sodium Chloride (Zosyn/Sodium Chloride) 110 ml @ 27.5 mls/hr Q8HR IVPB 09/10/16 22:00 09/16/16 21:59 09/15/16 21:36 Promethazine HCl/ Codeine (Phenergan with Codeine) 5 ml Q6HR PRN ORAL For Cough 09/15/16 08:30 10/15/16 08:29 09/15/16 08:45 Rifaximin (Xifaxan) 550 mg EVERY 12 HOURS ORAL 09/10/16 21:00 09/17/16 20:59 09/15/16 21:36 Temazepam (Restoril) 15 mg HSPRN PRN ORAL Insomnia 09/10/16 21:00 09/17/16 20:59 09/13/16 01:40 SPENCER BERGER Sep 15, 2016 23:14
[2016-09-16] VITALS (7 sets, daily range): BP systolic 95–130; BP diastolic 60–80
[2016-09-16] MEDS: Piperacillin/Tazobactam 3.375 GM in NS 110 ML IVPB SCH (05:31)
[2016-09-16] MEDS: chlordiazePOXIDE 25mg Cap ORAL PRN ×2 (05:50→14:43)
[2016-09-16 07:07] LABS: ANION GAP 10 (5-15); CALCIUM 7.7 mg/dL (8.6-10.2); CARBON DIOXIDE 23 mEQ/L (20-30); CHLORIDE 102 mEQ/L (98-107); CREATININE 0.7 mg/dL (0.7-1.2); GLOMERULAR FILTRATION RATE > 60 mL/min (>60); HEMOLYSIS 1; POTASSIUM 3.7 mEQ/L (3.4-4.9); SODIUM 135 mEQ/L (135-145)
[2016-09-16 07:32] LABS: MEAN CORPUSCULAR HEMOGLOBIN 29.5 PG (27.0-31.0); MEAN CORPUSCULAR HGB CONC 32.2 G/DL (32.0-36.0); MEAN CORPUSCULAR VOLUME 92 FL (80-99); MEAN PLATELET VOLUME 7.9 FL (6.5-10.1); PLATELET COUNT 53 K/UL (150-450); RED BLOOD COUNT 3.46 M/UL (4.70-6.10); RED CELL DISTRIBUTION WIDTH 16.8 % (11.6-14.8); WHITE BLOOD COUNT 7.8 K/UL (4.8-10.8)
[2016-09-16] MEDS: Lactulose 20gm/30ml UDC ORAL SCH ×3 (08:08→18:05)
[2016-09-16] MEDS: Rifaximin 550mg tab ORAL SCH ×2 (08:08→21:30)
--- NOTE | 2016-09-16 09:39 | Infectious Diseases Prog Note ---
Assessment/Plan Assessment/Plan A: The patient is a 50-year-old male w Aspiration pneumonia Possible sepsis Low grade fever, sp US : Evidence of portal hypertension, with borderline splenomegaly, ascites, 09/15 SP paracentesis : Successful ultrasound-guided paracentesis, yielding 1.6 liters of fluid ( no evidence of SBP ) ALOC / hepatic Encephalopathy improved GI bleed Hx of Alcohol abuse Alcoholic liver cirrhosis. History of portal hypertension PLAN: DC IV Zosyn d# 7 / and monitor pt off of AB Rx CBC Monitor BMP. Chest x-ray, rule out aspiration pneumonia. Monitor blood cultures. Subjective Constitutional: Denies: anorexia, chills, drenching sweats, fatigue, fever, no symptoms, other Allergies: Coded Allergies: No Known Allergies (Unverified , 08/12/16) Subjective Objective Vital Signs Last 24 Hour Vital Signs Date Time Temp Pulse Resp B/P Pulse Ox O2 Delivery O2 Flow Rate FiO2 09/16/16 04:00 97.9 96 20 122/80 97 Room Air 09/16/16 00:00 98.4 94 17 120/72 93 Room Air 09/15/16 20:31 98.6 89 19 125/73 93 Room Air 09/15/16 16:00 97.1 87 20 117/67 96 Room Air 09/15/16 12:00 98.1 97 18 131/71 96 Room Air Height (Feet): 6 Height (Inches): 3.00 Weight (Pounds): 210 HEENT: anicteric Respiratory/Chest: normal breath sounds Cardiovascular: regular rhythm Abdomen: no organomegaly Extremities: no cyanosis Laboratory Tests Test 09/15/16 15:30 09/16/16 06:05 Body Fluid Source Paracentesis Body Fluid Volume 24 mL Body Fluid Appearance Clear Body Fluid RBC 88 /CUMM Body Fluid Total Nucleated Cells 19 /CUMM Body Fluid Polynuclear WBCs (%) 5 % Body Fluid Mononuclear WBCs (%) 92 % Body Fluid Mesothelial Cells (%) 2 % Body Fluid Albumin Pending White Blood Count 7.8 K/UL (4.8-10.8) Red Blood Count 3.46 M/UL (4.70-6.10) L Hemoglobin 10.2 G/DL (14.2-18.0) L Hematocrit 31.7 % (42.0-52.0) L Mean Corpuscular Volume 92 FL (80-99) Mean Corpuscular Hemoglobin 29.5 PG (27.0-31.0) Mean Corpuscular Hemoglobin Concent 32.2 G/DL (32.0-36.0) Red Cell Distribution Width 16.8 % (11.6-14.8) H Platelet Count 53 K/UL (150-450) L Mean Platelet Volume 7.9 FL (6.5-10.1) Neutrophils (%) (Auto) % (45.0-75.0) Lymphocytes (%) (Auto) % (20.0-45.0) Monocytes (%) (Auto) % (1.0-10.0) Eosinophils (%) (Auto) % (0.0-3.0) Basophils (%) (Auto) % (0.0-2.0) Neutrophils % (Manual) Pending Lymphocytes % (Manual) Pending Platelet Estimate Pending Platelet Morphology Pending Sodium Level 135 mEQ/L (135-145) Potassium Level 3.7 mEQ/L (3.4-4.9) Chloride Level 102 mEQ/L (98-107) Carbon Dioxide Level 23 mEQ/L (20-30) Anion Gap 10 (5-15) Blood Urea Nitrogen 8 mg/dL (7-23) Creatinine 0.7 mg/dL (0.7-1.2) Estimat Glomerular Filtration Rate > 60 mL/min (>60) Glucose Level 131 mg/dL (74-106) H Calcium Level 7.7 mg/dL (8.6-10.2) L Current Medications Medications (Trade) Dose Ordered Sig/Saturnino Route PRN Reason Start Time Stop Time Status Last Admin Dose Admin Acetaminophen (Tylenol) 650 mg Q4H PRN ORAL T>100.5 09/10/16 17:00 10/10/16 16:59 Al Hydroxide/Mg Hydroxide (Mylanta II) 30 ml Q6H PRN ORAL dyspepsia 09/10/16 17:00 10/10/16 16:59 Chlordiazepoxide (Librium) 25 mg Q8H PRN ORAL Agitation 09/10/16 17:00 09/17/16 16:59 09/16/16 05:50 Clonidine HCl (Catapres) 0.1 mg Q6H PRN ORAL SBP>160 09/11/16 12:00 10/11/16 11:59 Dextrose (Dextrose 50%) STAT PRN IV Hypoglycemia 09/10/16 17:00 10/10/16 16:59 Diphenhydramine HCl (Benadryl) 25 mg Q6H PRN ORAL Itching/Pruritis 09/10/16 17:00 10/10/16 16:59 09/13/16 01:40 Lactulose (Cephulac) 30 gm THREE TIMES A DAY ORAL 09/10/16 18:00 10/10/16 17:59 09/16/16 08:08 Lorazepam (Ativan 2mg/ml 1ml) 0.5 mg Q4H PRN IV For Anxiety 09/13/16 17:45 09/20/16 17:44 09/13/16 22:14 Ondansetron HCl (Zofran) 4 mg Q6H PRN IVP Nausea & Vomiting 09/10/16 17:00 10/10/16 16:59 Pantoprazole (Protonix) 40 mg DAILY ORAL 09/15/16 09:00 10/15/16 08:59 09/16/16 08:08 Piperacillin Sod/ Tazobactam Sod/ Sodium Chloride (Zosyn/Sodium Chloride) 110 ml @ 27.5 mls/hr Q8HR IVPB 09/10/16 22:00 09/16/16 21:59 09/16/16 05:31 Promethazine HCl/ Codeine (Phenergan with Codeine) 5 ml Q6HR PRN ORAL For Cough 09/15/16 08:30 10/15/16 08:29 09/15/16 08:45 Rifaximin (Xifaxan) 550 mg EVERY 12 HOURS ORAL 09/10/16 21:00 09/17/16 20:59 09/16/16 08:08 Temazepam (Restoril) 15 mg HSPRN PRN ORAL Insomnia 09/10/16 21:00 09/17/16 20:59 09/13/16 01:40 JACQUELINE LUGO M.D. Sep 16, 2016 09:39
--- NOTE | 2016-09-16 10:54 | GI Progress Note ---
Assessment/Plan Problems: (1) Liver cirrhosis ICD Codes: K74.60 - Unspecified cirrhosis of liver SNOMED: 47640661 (2) LFT elevation ICD Codes: R94.5 - Abnormal results of liver function studies SNOMED: 473767973 (3) Anemia due to acute blood loss ICD Codes: D62 - Acute posthemorrhagic anemia SNOMED: 467324254 (4) Hypoalbuminemia ICD Codes: E88.09 - Other disorders of plasma-protein metabolism, not elsewhere classified SNOMED: 220059654 (5) Gastrointestinal hemorrhage ICD Codes: K92.2 - Gastrointestinal hemorrhage, unspecified SNOMED: 21059762 (6) Alcohol abuse ICD Codes: F10.10 - Alcohol abuse, uncomplicated SNOMED: 00871060 (7) Tear of lower esophagus with hemorrhage ICD Codes: K22.6 - Gastro-esophageal laceration-hemorrhage syndrome SNOMED: 27649859, 240956901 Status: stable, progressing Status Narrative Discussed with Dr. Wright. Assessment/Plan S/P EGD - SUMMARY OF FINDINGS: Active bleeding from the distal esophageal tears status post hemoclip x2. US : Evidence of portal hypertension, with borderline splenomegaly, ascites, 09/15 SP paracentesis : Successful ultrasound-guided paracentesis, yielding 1.6 liters of fluid ( no evidence of SBP ) ok for DC per GI standpoint no recurrent active bleed soft diet, tolerating elevated ammonia >> lactulose + Xifaxan stable H&H, transfuse prn fu labs Subjective Gastrointestinal/Abdominal: Reports: no symptoms Subjective limited, AMS Objective Last 24 Hour Vital Signs Date Time Temp Pulse Resp B/P Pulse Ox O2 Delivery O2 Flow Rate FiO2 09/16/16 08:00 99.1 104 20 95/60 96 Room Air 09/16/16 04:00 97.9 96 20 122/80 97 Room Air 09/16/16 00:00 98.4 94 17 120/72 93 Room Air 09/15/16 20:31 98.6 89 19 125/73 93 Room Air 09/15/16 16:00 97.1 87 20 117/67 96 Room Air 09/15/16 12:00 98.1 97 18 131/71 96 Room Air Intake and Output 09/15/16 09/16/16 19:00 07:00 Intake Total 852.5 ml Output Total 2000 ml Balance -1147.5 ml Intake Oral 660 ml IV Total 192.5 ml Stool Total 400 ml Other 1600 ml # Voids 3 # Bowel Movements 2 Laboratory Tests Test 09/15/16 15:30 09/16/16 06:05 Body Fluid Source Paracentesis Body Fluid Volume 24 mL Body Fluid Appearance Clear Body Fluid RBC 88 /CUMM Body Fluid Total Nucleated Cells 19 /CUMM Body Fluid Polynuclear WBCs (%) 5 % Body Fluid Mononuclear WBCs (%) 92 % Body Fluid Mesothelial Cells (%) 2 % Body Fluid Albumin Pending White Blood Count 7.8 K/UL (4.8-10.8) Red Blood Count 3.46 M/UL (4.70-6.10) L Hemoglobin 10.2 G/DL (14.2-18.0) L Hematocrit 31.7 % (42.0-52.0) L Mean Corpuscular Volume 92 FL (80-99) Mean Corpuscular Hemoglobin 29.5 PG (27.0-31.0) Mean Corpuscular Hemoglobin Concent 32.2 G/DL (32.0-36.0) Red Cell Distribution Width 16.8 % (11.6-14.8) H Platelet Count 53 K/UL (150-450) L Mean Platelet Volume 7.9 FL (6.5-10.1) Neutrophils (%) (Auto) % (45.0-75.0) Lymphocytes (%) (Auto) % (20.0-45.0) Monocytes (%) (Auto) % (1.0-10.0) Eosinophils (%) (Auto) % (0.0-3.0) Basophils (%) (Auto) % (0.0-2.0) Neutrophils % (Manual) Pending Lymphocytes % (Manual) Pending Platelet Estimate Pending Platelet Morphology Pending Sodium Level 135 mEQ/L (135-145) Potassium Level 3.7 mEQ/L (3.4-4.9) Chloride Level 102 mEQ/L (98-107) Carbon Dioxide Level 23 mEQ/L (20-30) Anion Gap 10 (5-15) Blood Urea Nitrogen 8 mg/dL (7-23) Creatinine 0.7 mg/dL (0.7-1.2) Estimat Glomerular Filtration Rate > 60 mL/min (>60) Glucose Level 131 mg/dL (74-106) H Calcium Level 7.7 mg/dL (8.6-10.2) L Height (Feet): 6 Height (Inches): 3.00 Weight (Pounds): 210 General Appearance: no apparent distress, alert Cardiovascular: normal rate Respiratory/Chest: normal breath sounds, no respiratory distress Abdominal Exam: normal bowel sounds, non tender, soft Mary Norman N.P. Sep 16, 2016 10:54
[2016-09-16 11:15] LABS: ANISOCYTOSIS 1+; BAND NEUTROPHILS % (MANUAL) 0 % (0-8); BASOPHILS % (MANUAL) 2 % (0-2); EOSINOPHILS % (MANUAL) 1 % (0-3); HYPOCHROMASIA 1+; LYMPHOCYTES % (MANUAL) 14 % (20-45); NEUTROPHILS % (MANUAL) 72 % (45-75); PLATELET ESTIMATE DECREASED; PLATELET MORPHOLOGY NORMAL; SPHEROCYTES 1+; TOTAL CELLS COUNTED 100
[2016-09-16] MEDS: LORazepam Inj 2mg/ml 1ml IV PRN (18:09)
--- NOTE | 2016-09-16 23:33 | Pulmonology Progress Note ---
Assessment/Plan Problems: (1) Anemia due to acute blood loss (2) Alcohol abuse (3) Liver cirrhosis (4) Gastrointestinal hemorrhage (5) Coagulopathy (6) Fever Assessment/Plan dc planning lactulose check ammonia level Subjective ROS Limited/Unobtainable: No Allergies: Coded Allergies: No Known Allergies (Unverified , 08/12/16) Objective Last 24 Hour Vital Signs Date Time Temp Pulse Resp B/P Pulse Ox O2 Delivery O2 Flow Rate FiO2 09/16/16 20:00 98.2 95 18 130/78 95 Room Air 09/16/16 16:00 98.4 94 17 96/65 94 Room Air 09/16/16 12:00 99.5 97 28 103/60 96 Room Air 09/16/16 08:00 99.1 104 20 95/60 96 Room Air 09/16/16 04:00 97.9 96 20 122/80 97 Room Air 09/16/16 00:00 98.4 94 17 120/72 93 Room Air Intake and Output 09/15/16 09/16/16 19:00 07:00 Intake Total 852.5 ml Output Total 2000 ml Balance -1147.5 ml Intake Oral 660 ml IV Total 192.5 ml Stool Total 400 ml Other 1600 ml # Voids 3 # Bowel Movements 2 Objective General Appearance: WD/WN HEENT: normocephalic Respiratory/Chest: chest wall non-tender, lungs clear, normal breath sounds Cardiovascular: normal peripheral pulses, normal rate, regular rhythm Abdomen: normal bowel sounds, soft, non tender, no organomegaly, non distended Extremities: no cyanosis, no clubbing Skin: no rash, no lesions 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 Laboratory Tests 09/16/16 06:05: White Blood Count 7.8, Red Blood Count 3.46L, Hemoglobin 10.2L, Hematocrit 31.7L , Mean Corpuscular Volume 92, Mean Corpuscular Hemoglobin 29.5, Mean Corpuscular Hemoglobin Concent 32.2, Red Cell Distribution Width 16.8H, Platelet Count 53L, Mean Platelet Volume 7.9, Neutrophils (%) (Auto) , Lymphocytes (%) (Auto) , Monocytes (%) (Auto) , Eosinophils (%) (Auto) , Basophils (%) (Auto) , Differential Total Cells Counted 100, Neutrophils % ( Manual) 72, Lymphocytes % (Manual) 14L, Monocytes % (Manual) 11H, Eosinophils % (Manual) 1, Basophils % (Manual) 2, Band Neutrophils 0, Platelet Estimate DecreasedL, Platelet Morphology Normal, Hypochromasia 1+, Anisocytosis 1+, Spherocytes 1+, Sodium Level 135, Potassium Level 3.7, Chloride Level 102, Carbon Dioxide Level 23, Anion Gap 10, Blood Urea Nitrogen 8, Creatinine 0.7, Estimat Glomerular Filtration Rate > 60, Glucose Level 131H, Calcium Level 7.7L Current Medications Medications (Trade) Dose Ordered Sig/Saturnino Route PRN Reason Start Time Stop Time Status Last Admin Dose Admin Acetaminophen (Tylenol) 650 mg Q4H PRN ORAL T>100.5 09/10/16 17:00 10/10/16 16:59 Al Hydroxide/Mg Hydroxide (Mylanta II) 30 ml Q6H PRN ORAL dyspepsia 09/10/16 17:00 10/10/16 16:59 Chlordiazepoxide (Librium) 25 mg Q8H PRN ORAL Agitation 09/10/16 17:00 09/17/16 16:59 09/16/16 14:43 Clonidine HCl (Catapres) 0.1 mg Q6H PRN ORAL SBP>160 09/11/16 12:00 10/11/16 11:59 Dextrose (Dextrose 50%) STAT PRN IV Hypoglycemia 09/10/16 17:00 10/10/16 16:59 Diphenhydramine HCl (Benadryl) 25 mg Q6H PRN ORAL Itching/Pruritis 09/10/16 17:00 10/10/16 16:59 09/13/16 01:40 Lactulose (Cephulac) 30 gm THREE TIMES A DAY ORAL 09/10/16 18:00 10/10/16 17:59 09/16/16 18:05 Lorazepam (Ativan 2mg/ml 1ml) 0.5 mg Q4H PRN IV For Anxiety 09/13/16 17:45 09/20/16 17:44 09/16/16 18:09 Ondansetron HCl (Zofran) 4 mg Q6H PRN IVP Nausea & Vomiting 09/10/16 17:00 10/10/16 16:59 Pantoprazole (Protonix) 40 mg DAILY ORAL 09/15/16 09:00 10/15/16 08:59 09/16/16 08:08 Promethazine HCl/ Codeine (Phenergan with Codeine) 5 ml Q6HR PRN ORAL For Cough 09/15/16 08:30 10/15/16 08:29 09/15/16 08:45 Rifaximin (Xifaxan) 550 mg EVERY 12 HOURS ORAL 09/10/16 21:00 09/17/16 20:59 09/16/16 21:30 Temazepam (Restoril) 15 mg HSPRN PRN ORAL Insomnia 09/10/16 21:00 09/17/16 20:59 09/16/16 21:31 SPENCER BERGER Sep 16, 2016 23:33
--- NOTE | 2016-09-17 00:48 | Consultation ---
DATE OF CONSULTATION: 09/16/2016 HISTORY: This is a 50-year-old male with a history of multiple medical problems, who has been admitted to the hospital due to gastrointestinal bleed. The patient has a history of alcohol dependence and has end-stage liver disease. The patient's power of prosecuting attorney is his ex-. I am evaluating the patient for . During the evaluation, the patient was aware of the year and month, however, he was illogical. For example, he stated that he does not want to be DNR, as if he dies his would get all the money. After speaking with the social services counselor, it is apparent that the patient has no money. The patient also has been presenting with confusion and impairment of concentration, memory, and attention. He is less delirious and is able to participate in the simple conversation, however, he was unable to understand process, communicate, nor appreciate the information that was given to him in regards to his medical condition. PAST PSYCHIATRIC HISTORY: He has a history of anxiety disorder. He was not taking any psychotropic medications. He has been treated for alcohol dependence with lithium to prevent withdrawal symptoms. PAST MEDICAL HISTORY: Significant for end-stage hepatic disease, anemia, hypoglycemia, and gastrointestinal hemorrhage due to tear in his lower part of the esophagus. MEDICATIONS: Medications in the hospital were reviewed. Please see the medication reconciliation. ALLERGIES: No known drug allergies. SUBSTANCE ABUSE HISTORY: Significant for alcohol. He has been chronically consuming a bottle of vodka per day previous. MENTAL STATUS EXAMINATION: The patient is alert and oriented times self, place, and date. Mood was neutral. Affect was constricted. Congruent mood. Thought process is concrete. Thought content, there is no suicidal or homicidal ideations. ASSESSMENT AND PLAN: 1. Alcohol dependence. The patient lacks capacity to make any medical decisions. 2. No medication at this time. The patient will be continued on Librium and Ativan. 3. Provide the patient with reality orientation and supportive therapy. Arvin Gonzalez M.D. DR: MARISELA JOB#: [id number] CC:
[2016-09-17 04:00] VITALS: BP 123/78
[2016-09-17] MEDS: chlordiazePOXIDE 25mg Cap ORAL PRN ×3 (06:18→21:16)
[2016-09-17 08:00] VITALS: BP 114/70
[2016-09-17] MEDS: Rifaximin 550mg tab ORAL SCH (08:00)
[2016-09-17] MEDS: Lactulose 20gm/30ml UDC ORAL SCH ×3 (08:00→16:59)
[2016-09-17 09:05] LABS: COMMENT,BODY FLUID PATHOLOGIST COMMENT
[2016-09-17 09:05] LABS: MEAN CORPUSCULAR HGB CONC 31.9 G/DL (32.0-36.0); MEAN CORPUSCULAR VOLUME 91 FL (80-99); MEAN PLATELET VOLUME 9.1 FL (6.5-10.1); PLATELET COUNT 74 K/UL (150-450); RED BLOOD COUNT 3.33 M/UL (4.70-6.10); RED CELL DISTRIBUTION WIDTH 16.6 % (11.6-14.8); WHITE BLOOD COUNT 8.1 K/UL (4.8-10.8)
[2016-09-17 09:27] LABS: ANION GAP 11 (5-15); CALCIUM 7.8 mg/dL (8.6-10.2); CARBON DIOXIDE 23 mEQ/L (20-30); CHLORIDE 100 mEQ/L (98-107); CREATININE 0.7 mg/dL (0.7-1.2); GLOMERULAR FILTRATION RATE > 60 mL/min (>60); HEMOLYSIS 1; POTASSIUM 3.8 mEQ/L (3.4-4.9); SODIUM 134 mEQ/L (135-145)
[2016-09-17 10:11] LABS: BASOPHILS % (MANUAL) 2 % (0-2); EOSINOPHILS % (MANUAL) 1 % (0-3); LYMPHOCYTES % (MANUAL) 17 % (20-45); NEUTROPHILS % (MANUAL) 67 % (45-75); TOTAL CELLS COUNTED 100
[2016-09-17 10:12] LABS: ANISOCYTOSIS 1+; BAND NEUTROPHILS % (MANUAL) 0 % (0-8); HYPOCHROMASIA 2+; PLATELET ESTIMATE DECREASED; PLATELET MORPHOLOGY NORMAL
[2016-09-17 11:59] VITALS: BP 111/62
--- NOTE | 2016-09-17 12:37 | GI Progress Note ---
Assessment/Plan Problems: (1) Liver cirrhosis ICD Codes: K74.60 - Unspecified cirrhosis of liver SNOMED: 25327568 (2) LFT elevation ICD Codes: R94.5 - Abnormal results of liver function studies SNOMED: 173743543 (3) Anemia due to acute blood loss ICD Codes: D62 - Acute posthemorrhagic anemia SNOMED: 028283906 (4) Hypoalbuminemia ICD Codes: E88.09 - Other disorders of plasma-protein metabolism, not elsewhere classified SNOMED: 840106939 (5) Gastrointestinal hemorrhage ICD Codes: K92.2 - Gastrointestinal hemorrhage, unspecified SNOMED: 35853341 (6) Alcohol abuse ICD Codes: F10.10 - Alcohol abuse, uncomplicated SNOMED: 65940262 (7) Tear of lower esophagus with hemorrhage ICD Codes: K22.6 - Gastro-esophageal laceration-hemorrhage syndrome SNOMED: 39303775, 637028522 Status: stable Status Narrative Discussed with Dr. Wright. Assessment/Plan S/P EGD - SUMMARY OF FINDINGS: Active bleeding from the distal esophageal tears status post hemoclip x2. US : Evidence of portal hypertension, with borderline splenomegaly, ascites, 09/15 SP paracentesis : Successful ultrasound-guided paracentesis, yielding 1.6 liters of fluid ( no evidence of SBP ) ok for DC per GI standpoint no recurrent active bleed soft diet, tolerating elevated ammonia >> lactulose + Xifaxan stable H&H, transfuse prn PT eval fu labs Subjective Subjective denies any abdominal pain wants to go home Objective Last 24 Hour Vital Signs Date Time Temp Pulse Resp B/P Pulse Ox O2 Delivery O2 Flow Rate FiO2 09/17/16 11:59 98.4 83 19 111/62 95 Room Air 09/17/16 08:00 99.0 102 18 114/70 96 Room Air 09/17/16 04:00 97.0 83 18 123/78 92 Room Air 09/16/16 23:55 98.1 83 20 123/73 96 Room Air 09/16/16 20:00 98.2 95 18 130/78 95 Room Air 09/16/16 16:00 98.4 94 17 96/65 94 Room Air Intake and Output 09/16/16 09/17/16 19:00 07:00 Intake Total 400 ml Output Total 400 ml Balance 0 ml Intake Oral 400 ml Stool Total 400 ml # Voids 2 4 Laboratory Tests Test 09/17/16 08:47 White Blood Count 8.1 K/UL (4.8-10.8) Red Blood Count 3.33 M/UL (4.70-6.10) L Hemoglobin 9.6 G/DL (14.2-18.0) L Hematocrit 30.2 % (42.0-52.0) L Mean Corpuscular Volume 91 FL (80-99) Mean Corpuscular Hemoglobin 29.0 PG (27.0-31.0) Mean Corpuscular Hemoglobin Concent 31.9 G/DL (32.0-36.0) L Red Cell Distribution Width 16.6 % (11.6-14.8) H Platelet Count 74 K/UL (150-450) L Mean Platelet Volume 9.1 FL (6.5-10.1) Neutrophils (%) (Auto) % (45.0-75.0) Lymphocytes (%) (Auto) % (20.0-45.0) Monocytes (%) (Auto) % (1.0-10.0) Eosinophils (%) (Auto) % (0.0-3.0) Basophils (%) (Auto) % (0.0-2.0) Differential Total Cells Counted 100 Neutrophils % (Manual) 67 % (45-75) Lymphocytes % (Manual) 17 % (20-45) L Monocytes % (Manual) 13 % (1-10) H Eosinophils % (Manual) 1 % (0-3) Basophils % (Manual) 2 % (0-2) Band Neutrophils 0 % (0-8) Platelet Estimate Decreased L Platelet Morphology Normal Hypochromasia 2+ Anisocytosis 1+ Sodium Level 134 mEQ/L (135-145) L Potassium Level 3.8 mEQ/L (3.4-4.9) Chloride Level 100 mEQ/L (98-107) Carbon Dioxide Level 23 mEQ/L (20-30) Anion Gap 11 (5-15) Blood Urea Nitrogen 10 mg/dL (7-23) Creatinine 0.7 mg/dL (0.7-1.2) Estimat Glomerular Filtration Rate > 60 mL/min (>60) Glucose Level 141 mg/dL (74-106) H Calcium Level 7.8 mg/dL (8.6-10.2) L Height (Feet): 6 Height (Inches): 3.00 Weight (Pounds): 210 General Appearance: alert - A&Ox4 Cardiovascular: normal rate Respiratory/Chest: normal breath sounds, no respiratory distress Abdominal Exam: normal bowel sounds, non tender, soft Mary Norman N.P. Sep 17, 2016 12:37
--- NOTE | 2016-09-17 12:37 | Infectious Diseases Prog Note ---
Assessment/Plan Assessment/Plan A: The patient is a 50-year-old male w Aspiration pneumonia, SP Rx Possible sepsis , SP Low grade fever, sp US : Evidence of portal hypertension, with borderline splenomegaly, ascites, 09/15 SP paracentesis : Successful ultrasound-guided paracentesis, yielding 1.6 liters of fluid ( no evidence of SBP ) ALOC / hepatic Encephalopathy improved GI bleed Hx of Alcohol abuse Alcoholic liver cirrhosis. History of portal hypertension PLAN: monitor pt off of AB Rx ( 09/16 SP DC IV Zosyn d# 7 ) CBC Monitor BMP. Chest x-ray, rule out aspiration pneumonia. Subjective Constitutional: Denies: anorexia, chills, drenching sweats, fatigue, fever, no symptoms, other Allergies: Coded Allergies: No Known Allergies (Unverified , 08/12/16) Subjective Objective Vital Signs Last 24 Hour Vital Signs Date Time Temp Pulse Resp B/P Pulse Ox O2 Delivery O2 Flow Rate FiO2 09/17/16 11:59 98.4 83 19 111/62 95 Room Air 09/17/16 08:00 99.0 102 18 114/70 96 Room Air 09/17/16 04:00 97.0 83 18 123/78 92 Room Air 09/16/16 23:55 98.1 83 20 123/73 96 Room Air 09/16/16 20:00 98.2 95 18 130/78 95 Room Air 09/16/16 16:00 98.4 94 17 96/65 94 Room Air Height (Feet): 6 Height (Inches): 3.00 Weight (Pounds): 210 HEENT: mucous membranes moist Respiratory/Chest: no respiratory distress Cardiovascular: regularly irregular Abdomen: non distended Laboratory Tests Test 09/17/16 08:47 White Blood Count 8.1 K/UL (4.8-10.8) Red Blood Count 3.33 M/UL (4.70-6.10) L Hemoglobin 9.6 G/DL (14.2-18.0) L Hematocrit 30.2 % (42.0-52.0) L Mean Corpuscular Volume 91 FL (80-99) Mean Corpuscular Hemoglobin 29.0 PG (27.0-31.0) Mean Corpuscular Hemoglobin Concent 31.9 G/DL (32.0-36.0) L Red Cell Distribution Width 16.6 % (11.6-14.8) H Platelet Count 74 K/UL (150-450) L Mean Platelet Volume 9.1 FL (6.5-10.1) Neutrophils (%) (Auto) % (45.0-75.0) Lymphocytes (%) (Auto) % (20.0-45.0) Monocytes (%) (Auto) % (1.0-10.0) Eosinophils (%) (Auto) % (0.0-3.0) Basophils (%) (Auto) % (0.0-2.0) Differential Total Cells Counted 100 Neutrophils % (Manual) 67 % (45-75) Lymphocytes % (Manual) 17 % (20-45) L Monocytes % (Manual) 13 % (1-10) H Eosinophils % (Manual) 1 % (0-3) Basophils % (Manual) 2 % (0-2) Band Neutrophils 0 % (0-8) Platelet Estimate Decreased L Platelet Morphology Normal Hypochromasia 2+ Anisocytosis 1+ Sodium Level 134 mEQ/L (135-145) L Potassium Level 3.8 mEQ/L (3.4-4.9) Chloride Level 100 mEQ/L (98-107) Carbon Dioxide Level 23 mEQ/L (20-30) Anion Gap 11 (5-15) Blood Urea Nitrogen 10 mg/dL (7-23) Creatinine 0.7 mg/dL (0.7-1.2) Estimat Glomerular Filtration Rate > 60 mL/min (>60) Glucose Level 141 mg/dL (74-106) H Calcium Level 7.8 mg/dL (8.6-10.2) L Current Medications Medications (Trade) Dose Ordered Sig/Saturnino Route PRN Reason Start Time Stop Time Status Last Admin Dose Admin Acetaminophen (Tylenol) 650 mg Q4H PRN ORAL T>100.5 09/10/16 17:00 10/10/16 16:59 Al Hydroxide/Mg Hydroxide (Mylanta II) 30 ml Q6H PRN ORAL dyspepsia 09/10/16 17:00 10/10/16 16:59 Chlordiazepoxide (Librium) 25 mg Q8H PRN ORAL Agitation 09/10/16 17:00 09/17/16 16:59 09/17/16 06:18 Clonidine HCl (Catapres) 0.1 mg Q6H PRN ORAL SBP>160 09/11/16 12:00 10/11/16 11:59 Dextrose (Dextrose 50%) STAT PRN IV Hypoglycemia 09/10/16 17:00 10/10/16 16:59 Diphenhydramine HCl (Benadryl) 25 mg Q6H PRN ORAL Itching/Pruritis 09/10/16 17:00 10/10/16 16:59 09/13/16 01:40 Lactulose (Cephulac) 30 gm THREE TIMES A DAY ORAL 09/10/16 18:00 10/10/16 17:59 09/16/16 18:05 Lorazepam (Ativan 2mg/ml 1ml) 0.5 mg Q4H PRN IV For Anxiety 09/13/16 17:45 09/20/16 17:44 09/16/16 18:09 Ondansetron HCl (Zofran) 4 mg Q6H PRN IVP Nausea & Vomiting 09/10/16 17:00 10/10/16 16:59 Pantoprazole (Protonix) 40 mg DAILY ORAL 09/15/16 09:00 10/15/16 08:59 09/17/16 08:00 Promethazine HCl/ Codeine (Phenergan with Codeine) 5 ml Q6HR PRN ORAL For Cough 09/15/16 08:30 10/15/16 08:29 09/15/16 08:45 Rifaximin (Xifaxan) 550 mg EVERY 12 HOURS ORAL 09/10/16 21:00 09/17/16 20:59 09/17/16 08:00 Temazepam (Restoril) 15 mg HSPRN PRN ORAL Insomnia 09/10/16 21:00 09/17/16 20:59 09/16/16 21:31 JACQUELINE LUGO M.D. Sep 17, 2016 12:37
[2016-09-17 16:03] VITALS: BP_SYST 64
[2016-09-17 20:00] VITALS: BP 111/66
[2016-09-18] VITALS (7 sets, daily range): BP systolic 105–110; BP diastolic 58–92
[2016-09-18 07:19] LABS: MEAN CORPUSCULAR HEMOGLOBIN 29.1 PG (27.0-31.0); MEAN CORPUSCULAR HGB CONC 32.7 G/DL (32.0-36.0); MEAN CORPUSCULAR VOLUME 89 FL (80-99); MEAN PLATELET VOLUME 6.9 FL (6.5-10.1); PLATELET COUNT 71 K/UL (150-450); RED BLOOD COUNT 3.24 M/UL (4.70-6.10); RED CELL DISTRIBUTION WIDTH 16.5 % (11.6-14.8); WHITE BLOOD COUNT 5.8 K/UL (4.8-10.8)
[2016-09-18 07:41] LABS: ANION GAP 12 (5-15); CALCIUM 7.5 mg/dL (8.6-10.2); CARBON DIOXIDE 23 mEQ/L (20-30); CHLORIDE 103 mEQ/L (98-107); CREATININE 0.8 mg/dL (0.7-1.2); GLOMERULAR FILTRATION RATE > 60 mL/min (>60); HEMOLYSIS 2; POTASSIUM 3.9 mEQ/L (3.4-4.9); SODIUM 138 mEQ/L (135-145)
[2016-09-18] MEDS: chlordiazePOXIDE 25mg Cap ORAL PRN ×2 (08:50→17:40)
[2016-09-18] MEDS: Lactulose 20gm/30ml UDC ORAL SCH ×4 (08:54→18:16)
[2016-09-18 09:26] LABS: ANISOCYTOSIS 1+; BAND NEUTROPHILS % (MANUAL) 0 % (0-8); BASOPHILS % (MANUAL) 0 % (0-2); EOSINOPHILS % (MANUAL) 3 % (0-3); HYPOCHROMASIA 1+; LYMPHOCYTES % (MANUAL) 24 % (20-45); NEUTROPHILS % (MANUAL) 63 % (45-75); PLATELET ESTIMATE DECREASED; PLATELET MORPHOLOGY NORMAL; TOTAL CELLS COUNTED 100
--- NOTE | 2016-09-18 10:41 | Infectious Diseases Prog Note ---
Assessment/Plan Assessment/Plan A: The patient is a 50-year-old male w Aspiration pneumonia, SP Rx Possible sepsis , SP Low grade fever, sp US : Evidence of portal hypertension, with borderline splenomegaly, ascites, 09/15 SP paracentesis : Successful ultrasound-guided paracentesis, yielding 1.6 liters of fluid ( no evidence of SBP ) ALOC / hepatic Encephalopathy improved GI bleed Hx of Alcohol abuse Alcoholic liver cirrhosis. History of portal hypertension PLAN: monitor pt off of AB Rx ( 09/16 SP DC IV Zosyn d# 7 ) CBC Monitor BMP. monitor Chest x-ray, Subjective Constitutional: Denies: anorexia, chills, drenching sweats, fatigue, fever, no symptoms, other Allergies: Coded Allergies: No Known Allergies (Unverified , 08/12/16) Subjective Objective Vital Signs Last 24 Hour Vital Signs Date Time Temp Pulse Resp B/P Pulse Ox O2 Delivery O2 Flow Rate FiO2 09/18/16 08:00 98.4 97 21 107/62 95 Room Air 09/18/16 04:00 97.4 72 16 108/66 96 Room Air 09/18/16 00:00 97.4 62 16 108/92 96 Room Air 09/17/16 20:00 97.3 83 16 111/66 96 Room Air 09/17/16 16:03 98.6 84 18 64/ 97 Room Air 09/17/16 11:59 98.4 83 19 111/62 95 Room Air Height (Feet): 6 Height (Inches): 3.00 Weight (Pounds): 210 HEENT: anicteric Respiratory/Chest: no respiratory distress Cardiovascular: regular rhythm Abdomen: non distended Laboratory Tests Test 09/18/16 06:00 White Blood Count 5.8 K/UL (4.8-10.8) Red Blood Count 3.24 M/UL (4.70-6.10) L Hemoglobin 9.4 G/DL (14.2-18.0) L Hematocrit 28.8 % (42.0-52.0) L Mean Corpuscular Volume 89 FL (80-99) Mean Corpuscular Hemoglobin 29.1 PG (27.0-31.0) Mean Corpuscular Hemoglobin Concent 32.7 G/DL (32.0-36.0) Red Cell Distribution Width 16.5 % (11.6-14.8) H Platelet Count 71 K/UL (150-450) L Mean Platelet Volume 6.9 FL (6.5-10.1) Neutrophils (%) (Auto) % (45.0-75.0) Lymphocytes (%) (Auto) % (20.0-45.0) Monocytes (%) (Auto) % (1.0-10.0) Eosinophils (%) (Auto) % (0.0-3.0) Basophils (%) (Auto) % (0.0-2.0) Differential Total Cells Counted 100 Neutrophils % (Manual) 63 % (45-75) Lymphocytes % (Manual) 24 % (20-45) Monocytes % (Manual) 10 % (1-10) Eosinophils % (Manual) 3 % (0-3) Basophils % (Manual) 0 % (0-2) Band Neutrophils 0 % (0-8) Platelet Estimate Decreased L Platelet Morphology Normal Hypochromasia 1+ Anisocytosis 1+ Sodium Level 138 mEQ/L (135-145) Potassium Level 3.9 mEQ/L (3.4-4.9) Chloride Level 103 mEQ/L (98-107) Carbon Dioxide Level 23 mEQ/L (20-30) Anion Gap 12 (5-15) Blood Urea Nitrogen 8 mg/dL (7-23) Creatinine 0.8 mg/dL (0.7-1.2) Estimat Glomerular Filtration Rate > 60 mL/min (>60) Glucose Level 81 mg/dL (74-106) Calcium Level 7.5 mg/dL (8.6-10.2) L Current Medications Medications (Trade) Dose Ordered Sig/Saturnino Route PRN Reason Start Time Stop Time Status Last Admin Dose Admin Acetaminophen (Tylenol) 650 mg Q4H PRN ORAL T>100.5 09/10/16 17:00 10/10/16 16:59 Al Hydroxide/Mg Hydroxide (Mylanta II) 30 ml Q6H PRN ORAL dyspepsia 09/10/16 17:00 10/10/16 16:59 Chlordiazepoxide (Librium) 25 mg Q8H PRN ORAL Agitation 09/17/16 20:15 09/24/16 20:14 09/18/16 08:50 Clonidine HCl (Catapres) 0.1 mg Q6H PRN ORAL SBP>160 09/11/16 12:00 10/11/16 11:59 Dextrose (Dextrose 50%) STAT PRN IV Hypoglycemia 09/10/16 17:00 10/10/16 16:59 Diphenhydramine HCl (Benadryl) 25 mg Q6H PRN ORAL Itching/Pruritis 09/10/16 17:00 10/10/16 16:59 09/18/16 01:33 Lactulose (Cephulac) 30 gm THREE TIMES A DAY ORAL 09/10/16 18:00 10/10/16 17:59 09/18/16 08:54 Lorazepam (Ativan 2mg/ml 1ml) 0.5 mg Q4H PRN IV For Anxiety 09/13/16 17:45 09/20/16 17:44 09/16/16 18:09 Ondansetron HCl (Zofran) 4 mg Q6H PRN IVP Nausea & Vomiting 09/10/16 17:00 10/10/16 16:59 Pantoprazole (Protonix) 40 mg DAILY ORAL 09/15/16 09:00 10/15/16 08:59 09/18/16 08:48 Promethazine HCl/ Codeine (Phenergan with Codeine) 5 ml Q6HR PRN ORAL For Cough 09/15/16 08:30 10/15/16 08:29 09/15/16 08:45 JACQUELINE LUGO M.D. Sep 18, 2016 10:41
--- NOTE | 2016-09-18 12:36 | GI Progress Note ---
Assessment/Plan Problems: (1) Liver cirrhosis ICD Codes: K74.60 - Unspecified cirrhosis of liver SNOMED: 02380556 (2) LFT elevation ICD Codes: R94.5 - Abnormal results of liver function studies SNOMED: 264155910 (3) Anemia due to acute blood loss ICD Codes: D62 - Acute posthemorrhagic anemia SNOMED: 363385077 (4) Hypoalbuminemia ICD Codes: E88.09 - Other disorders of plasma-protein metabolism, not elsewhere classified SNOMED: 490083507 (5) Gastrointestinal hemorrhage ICD Codes: K92.2 - Gastrointestinal hemorrhage, unspecified SNOMED: 32356329 (6) Alcohol abuse ICD Codes: F10.10 - Alcohol abuse, uncomplicated SNOMED: 49419917 (7) Tear of lower esophagus with hemorrhage ICD Codes: K22.6 - Gastro-esophageal laceration-hemorrhage syndrome SNOMED: 19141058, 719219299 Status: stable Status Narrative Discussed with Dr. Wright. Assessment/Plan S/P EGD - SUMMARY OF FINDINGS: Active bleeding from the distal esophageal tears status post hemoclip x2. US : Evidence of portal hypertension, with borderline splenomegaly, ascites, 09/15 SP paracentesis : Successful ultrasound-guided paracentesis, yielding 1.6 liters of fluid ( no evidence of SBP ) ok for DC per GI standpoint no recurrent active bleed soft diet, tolerating elevated ammonia >> lactulose + Xifaxan stable H&H, transfuse prn PT eval fu labs Subjective Subjective denies any abdominal pain wants to go home Objective Last 24 Hour Vital Signs Date Time Temp Pulse Resp B/P Pulse Ox O2 Delivery O2 Flow Rate FiO2 09/18/16 08:00 98.4 97 21 107/62 95 Room Air 09/18/16 04:00 97.4 72 16 108/66 96 Room Air 09/18/16 00:00 97.4 62 16 108/92 96 Room Air 09/17/16 20:00 97.3 83 16 111/66 96 Room Air 09/17/16 16:03 98.6 84 18 64/ 97 Room Air Intake and Output 09/17/16 09/18/16 19:00 07:00 Intake Total 1080 ml 400 ml Output Total 300 ml Balance 1080 ml 100 ml Intake Oral 1080 ml 400 ml Output Urine Total 300 ml # Voids 3 1 # Bowel Movements 1 Laboratory Tests Test 4/27/17 06:00 White Blood Count 5.8 K/UL (4.8-10.8) Red Blood Count 3.24 M/UL (4.70-6.10) L Hemoglobin 9.4 G/DL (14.2-18.0) L Hematocrit 28.8 % (42.0-52.0) L Mean Corpuscular Volume 89 FL (80-99) Mean Corpuscular Hemoglobin 29.1 PG (27.0-31.0) Mean Corpuscular Hemoglobin Concent 32.7 G/DL (32.0-36.0) Red Cell Distribution Width 16.5 % (11.6-14.8) H Platelet Count 71 K/UL (150-450) L Mean Platelet Volume 6.9 FL (6.5-10.1) Neutrophils (%) (Auto) % (45.0-75.0) Lymphocytes (%) (Auto) % (20.0-45.0) Monocytes (%) (Auto) % (1.0-10.0) Eosinophils (%) (Auto) % (0.0-3.0) Basophils (%) (Auto) % (0.0-2.0) Differential Total Cells Counted 100 Neutrophils % (Manual) 63 % (45-75) Lymphocytes % (Manual) 24 % (20-45) Monocytes % (Manual) 10 % (1-10) Eosinophils % (Manual) 3 % (0-3) Basophils % (Manual) 0 % (0-2) Band Neutrophils 0 % (0-8) Platelet Estimate Decreased L Platelet Morphology Normal Hypochromasia 1+ Anisocytosis 1+ Sodium Level 138 mEQ/L (135-145) Potassium Level 3.9 mEQ/L (3.4-4.9) Chloride Level 103 mEQ/L (98-107) Carbon Dioxide Level 23 mEQ/L (20-30) Anion Gap 12 (5-15) Blood Urea Nitrogen 8 mg/dL (7-23) Creatinine 0.8 mg/dL (0.7-1.2) Estimat Glomerular Filtration Rate > 60 mL/min (>60) Glucose Level 81 mg/dL (74-106) Calcium Level 7.5 mg/dL (8.6-10.2) L Height (Feet): 6 Height (Inches): 3.00 Weight (Pounds): 210 General Appearance: no apparent distress, alert Cardiovascular: normal rate Respiratory/Chest: normal breath sounds, no respiratory distress Abdominal Exam: normal bowel sounds, non tender, soft Extremities: normal range of motion Mary Norman N.P. Sep 18, 2016 12:36
--- NOTE | 2016-09-18 17:04 | Pulmonology Progress Note ---
Assessment/Plan Problems: (1) Anemia due to acute blood loss (2) Alcohol abuse (3) Liver cirrhosis (4) Gastrointestinal hemorrhage (5) Coagulopathy (6) Fever Assessment/Plan dc planning lactulose check ammonia level Subjective Allergies: Coded Allergies: No Known Allergies (Unverified , 08/12/16) Objective Last 24 Hour Vital Signs Date Time Temp Pulse Resp B/P Pulse Ox O2 Delivery O2 Flow Rate FiO2 09/18/16 16:53 97.7 86 18 108/66 95 Room Air 09/18/16 12:00 98.6 92 18 105/58 98 Room Air 09/18/16 08:00 98.4 97 21 107/62 95 Room Air 09/18/16 04:00 97.4 72 16 108/66 96 Room Air 09/18/16 00:00 97.4 62 16 108/92 96 Room Air 09/17/16 20:00 97.3 83 16 111/66 96 Room Air Intake and Output 09/17/16 09/18/16 19:00 07:00 Intake Total 1080 ml 400 ml Output Total 300 ml Balance 1080 ml 100 ml Intake Oral 1080 ml 400 ml Output Urine Total 300 ml # Voids 3 1 # Bowel Movements 1 Objective General Appearance: WD/WN HEENT: normocephalic Respiratory/Chest: chest wall non-tender, lungs clear, normal breath sounds Cardiovascular: normal peripheral pulses, normal rate, regular rhythm Abdomen: normal bowel sounds, soft, non tender, no organomegaly, non distended Extremities: no cyanosis, no clubbing Skin: no rash, no lesions 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 Laboratory Tests 09/18/16 06:00: White Blood Count 5.8, Red Blood Count 3.24L, Hemoglobin 9.4L, Hematocrit 28.8L , Mean Corpuscular Volume 89, Mean Corpuscular Hemoglobin 29.1, Mean Corpuscular Hemoglobin Concent 32.7, Red Cell Distribution Width 16.5H, Platelet Count 71L, Mean Platelet Volume 6.9, Neutrophils (%) (Auto) , Lymphocytes (%) (Auto) , Monocytes (%) (Auto) , Eosinophils (%) (Auto) , Basophils (%) (Auto) , Differential Total Cells Counted 100, Neutrophils % ( Manual) 63, Lymphocytes % (Manual) 24, Monocytes % (Manual) 10, Eosinophils % ( Manual) 3, Basophils % (Manual) 0, Band Neutrophils 0, Platelet Estimate DecreasedL, Platelet Morphology Normal, Hypochromasia 1+, Anisocytosis 1+, Sodium Level 138, Potassium Level 3.9, Chloride Level 103, Carbon Dioxide Level 23, Anion Gap 12, Blood Urea Nitrogen 8, Creatinine 0.8, Estimat Glomerular Filtration Rate > 60, Glucose Level 81, Calcium Level 7.5L Current Medications Medications (Trade) Dose Ordered Sig/Saturnino Route PRN Reason Start Time Stop Time Status Last Admin Dose Admin Acetaminophen (Tylenol) 650 mg Q4H PRN ORAL T>100.5 09/10/16 17:00 10/10/16 16:59 Al Hydroxide/Mg Hydroxide (Mylanta II) 30 ml Q6H PRN ORAL dyspepsia 09/10/16 17:00 10/10/16 16:59 Chlordiazepoxide (Librium) 25 mg Q8H PRN ORAL Agitation 09/17/16 20:15 09/24/16 20:14 09/18/16 08:50 Clonidine HCl (Catapres) 0.1 mg Q6H PRN ORAL SBP>160 09/11/16 12:00 10/11/16 11:59 Dextrose (Dextrose 50%) STAT PRN IV Hypoglycemia 09/10/16 17:00 10/10/16 16:59 Diphenhydramine HCl (Benadryl) 25 mg Q6H PRN ORAL Itching/Pruritis 09/10/16 17:00 10/10/16 16:59 09/18/16 01:33 Lactulose (Cephulac) 30 gm THREE TIMES A DAY ORAL 09/10/16 18:00 10/10/16 17:59 09/18/16 08:54 Lorazepam (Ativan 2mg/ml 1ml) 0.5 mg Q4H PRN IV For Anxiety 09/13/16 17:45 09/20/16 17:44 09/16/16 18:09 Ondansetron HCl (Zofran) 4 mg Q6H PRN IVP Nausea & Vomiting 09/10/16 17:00 10/10/16 16:59 Pantoprazole (Protonix) 40 mg DAILY ORAL 09/15/16 09:00 10/15/16 08:59 09/18/16 08:48 Promethazine HCl/ Codeine (Phenergan with Codeine) 5 ml Q6HR PRN ORAL For Cough 09/15/16 08:30 10/15/16 08:29 09/15/16 08:45 SPENCER BERGER Sep 18, 2016 17:04
[2016-09-18] MEDS: Promethazine/Codeine 5ml UD ORAL PRN (23:43)
[2016-09-19] VITALS (7 sets, daily range): BP systolic 106–118; BP diastolic 65–71
[2016-09-19] MEDS: chlordiazePOXIDE 25mg Cap ORAL PRN (06:20)
[2016-09-19 07:01] LABS: ALANINE AMINOTRANSFERASE 33 U/L (3-41); ALBUMIN/GLOBULIN RATIO 0.5 (1.0-2.7); ANION GAP 13 (5-15); ASPARTATE AMINO TRANSFERASE 90 U/L (5-40); CALCIUM 7.6 mg/dL (8.6-10.2); CARBON DIOXIDE 22 mEQ/L (20-30); CHLORIDE 100 mEQ/L (98-107); CREATININE 0.8 mg/dL (0.7-1.2); GLOMERULAR FILTRATION RATE > 60 mL/min (>60); HEMOLYSIS 18; POTASSIUM 4.3 mEQ/L (3.4-4.9); SODIUM 135 mEQ/L (135-145); TOTAL PROTEIN 5.5 g/dL (6.6-8.7)
[2016-09-19 07:03] LABS: MEAN CORPUSCULAR HEMOGLOBIN 29.3 PG (27.0-31.0); MEAN CORPUSCULAR HGB CONC 33.1 G/DL (32.0-36.0); MEAN CORPUSCULAR VOLUME 89 FL (80-99); MEAN PLATELET VOLUME 7.6 FL (6.5-10.1); PLATELET COUNT 49 K/UL (150-450); RED BLOOD COUNT 3.41 M/UL (4.70-6.10); RED CELL DISTRIBUTION WIDTH 15.9 % (11.6-14.8); WHITE BLOOD COUNT 8.4 K/UL (4.8-10.8)
[2016-09-19 07:15] LABS: BILIRUBIN,DIRECT 1.3 mg/dL (0.1-0.3)
[2016-09-19 08:33] LABS: BASOPHILS % (MANUAL) 3 % (0-2); EOSINOPHILS % (MANUAL) 3 % (0-3); LYMPHOCYTES % (MANUAL) 14 % (20-45); NEUTROPHILS % (MANUAL) 71 % (45-75); TOTAL CELLS COUNTED 100
[2016-09-19 08:34] LABS: ANISOCYTOSIS 1+; BAND NEUTROPHILS % (MANUAL) 0 % (0-8); HYPOCHROMASIA 1+; PLATELET ESTIMATE DECREASED; PLATELET MORPHOLOGY NORMAL
[2016-09-19] MEDS: Lactulose 20gm/30ml UDC ORAL SCH ×3 (09:33→18:38)
--- NOTE | 2016-09-19 10:28 | Pulmonology Progress Note ---
Assessment/Plan Assessment/Plan ASSESSMENT acute hepatic encephalopathy -improved GI hemorrhage 2 to esophageal tear tear of distal esophagus with hemorrhage s/p EGD with hemoclip x 2 coagulopathy ascites s/p paracentesis-1.6 L 09/15 alcohol abuse alcoholic liver cirrhosis anemia 2 to acute blood loss s/p blood transfusion aspiration PNA, s/p Rx possible sepsis elevated transaminase hypoalbuminemia PLAN OF CARE [facility] floor abdominal US + portal HTN, borderline SM, ascites s/p paracentesis -1.6 L GI follows s/p EGD with findings of distal esophageal tear-source of bleeding, hemoclip x 2 HH stable ammonia trending down, continue lactulose GI prophylaxis ID follows s/p Rx for PNA, blood cx negative O2 HHN prn off abx, observe Venous Duplex BLE negative CT head negative for acute finding PT/OT diet as per ST recommendations aspiration and reflux precautions no recurrent active bleeding GI cleared fro dc psych eval appreciated patient lacks capacity to make any informed decision as per psych eval need placement or return to family, if they accept, can t be alone dc plan SS for dc planning case discussed and evaluated by supervising physician Subjective Allergies: Coded Allergies: No Known Allergies (Unverified , 08/12/16) Subjective occasional abdominal pain, no SOB, no chest pain bili with small trend down on RA pulse ox stable ammonia down to 68 Objective Last 24 Hour Vital Signs Date Time Temp Pulse Resp B/P Pulse Ox O2 Delivery O2 Flow Rate FiO2 09/19/16 08:24 99.1 94 19 115/71 93 Room Air 09/19/16 04:00 97.2 89 16 118/70 95 Room Air 09/19/16 00:00 97.4 85 16 114/65 95 Room Air 09/18/16 20:00 97.1 88 18 110/69 95 Room Air 09/18/16 16:53 97.7 86 18 108/66 95 Room Air 09/18/16 12:00 98.6 92 18 105/58 98 Room Air Intake and Output 09/18/16 09/19/16 19:00 07:00 Intake Total 1320 ml 460 ml Balance 1320 ml 460 ml Intake Oral 1320 ml 460 ml # Voids 3 1 # Bowel Movements 1 General Appearance: no acute distress HEENT: normocephalic, atraumatic, mucous membranes moist Respiratory/Chest: lungs clear - with moderate air entry , no accessory muscle use Cardiovascular: normal rate, regular rhythm, no JVD Abdomen: normal bowel sounds, soft, non tender - mild distention Genitourinary: normal external genitalia 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: alert, responsive Laboratory Tests 09/19/16 06:19: White Blood Count 8.4, Red Blood Count 3.41L, Hemoglobin 10.0L, Hematocrit 30.2L , Mean Corpuscular Volume 89, Mean Corpuscular Hemoglobin 29.3, Mean Corpuscular Hemoglobin Concent 33.1, Red Cell Distribution Width 15.9H, Platelet Count 49L, Mean Platelet Volume 7.6, Neutrophils (%) (Auto) , Lymphocytes (%) (Auto) , Monocytes (%) (Auto) , Eosinophils (%) (Auto) , Basophils (%) (Auto) , Differential Total Cells Counted 100, Neutrophils % ( Manual) 71, Lymphocytes % (Manual) 14L, Monocytes % (Manual) 9, Eosinophils % ( Manual) 3, Basophils % (Manual) 3H, Band Neutrophils 0, Platelet Estimate DecreasedL, Platelet Morphology Normal, Hypochromasia 1+, Anisocytosis 1+, Sodium Level 135, Potassium Level 4.3, Chloride Level 100, Carbon Dioxide Level 22, Anion Gap 13, Blood Urea Nitrogen 8, Creatinine 0.8, Estimat Glomerular Filtration Rate > 60, Glucose Level 81, Calcium Level 7.6L, Total Bilirubin 2.6H , Direct Bilirubin 1.3H, Aspartate Amino Transf (AST/SGOT) 90H, Alanine Aminotransferase (ALT/SGPT) 33, Alkaline Phosphatase 68, Total Protein 5.5L, Albumin 2.0L, Globulin 3.5, Albumin/Globulin Ratio 0.5L Current Medications Medications (Trade) Dose Ordered Sig/Saturnino Route PRN Reason Start Time Stop Time Status Last Admin Dose Admin Acetaminophen (Tylenol) 650 mg Q4H PRN ORAL T>100.5 09/10/16 17:00 10/10/16 16:59 Al Hydroxide/Mg Hydroxide (Mylanta II) 30 ml Q6H PRN ORAL dyspepsia 09/10/16 17:00 10/10/16 16:59 Chlordiazepoxide (Librium) 25 mg Q8H PRN ORAL Agitation 09/17/16 20:15 09/24/16 20:14 09/19/16 06:20 Clonidine HCl (Catapres) 0.1 mg Q6H PRN ORAL SBP>160 09/11/16 12:00 10/11/16 11:59 Dextrose (Dextrose 50%) STAT PRN IV Hypoglycemia 09/10/16 17:00 10/10/16 16:59 Diphenhydramine HCl (Benadryl) 25 mg Q6H PRN ORAL Itching/Pruritis 09/10/16 17:00 10/10/16 16:59 09/18/16 23:42 Lactulose (Cephulac) 30 gm THREE TIMES A DAY ORAL 09/10/16 18:00 10/10/16 17:59 09/19/16 09:33 Lorazepam (Ativan 2mg/ml 1ml) 0.5 mg Q4H PRN IV For Anxiety 09/13/16 17:45 09/20/16 17:44 09/16/16 18:09 Ondansetron HCl (Zofran) 4 mg Q6H PRN IVP Nausea & Vomiting 09/10/16 17:00 10/10/16 16:59 Pantoprazole (Protonix) 40 mg DAILY ORAL 09/15/16 09:00 10/15/16 08:59 09/19/16 09:26 Promethazine HCl/ Codeine (Phenergan with Codeine) 5 ml Q6HR PRN ORAL For Cough 09/15/16 08:30 10/15/16 08:29 09/18/16 23:43 [facility]aint [facility]Wendy Mora NP Sep 19, 2016 10:28
--- NOTE | 2016-09-19 12:47 | GI Progress Note ---
Assessment/Plan Problems: (1) Liver cirrhosis ICD Codes: K74.60 - Unspecified cirrhosis of liver SNOMED: 32928588 (2) LFT elevation ICD Codes: R94.5 - Abnormal results of liver function studies SNOMED: 528971074 (3) Anemia due to acute blood loss ICD Codes: D62 - Acute posthemorrhagic anemia SNOMED: 248869671 (4) Hypoalbuminemia ICD Codes: E88.09 - Other disorders of plasma-protein metabolism, not elsewhere classified SNOMED: 657997786 (5) Gastrointestinal hemorrhage ICD Codes: K92.2 - Gastrointestinal hemorrhage, unspecified SNOMED: 41881300 (6) Alcohol abuse ICD Codes: F10.10 - Alcohol abuse, uncomplicated SNOMED: 11465833 (7) Tear of lower esophagus with hemorrhage ICD Codes: K22.6 - Gastro-esophageal laceration-hemorrhage syndrome SNOMED: 54246205, 234661010 Status: stable, progressing Status Narrative Discussed with Dr. Wright. Assessment/Plan S/P EGD - SUMMARY OF FINDINGS: Active bleeding from the distal esophageal tears status post hemoclip x2. US : Evidence of portal hypertension, with borderline splenomegaly, ascites, 09/15 SP paracentesis : Successful ultrasound-guided paracentesis, yielding 1.6 liters of fluid ( no evidence of SBP ) ok for DC per GI standpoint no recurrent active bleed soft diet, tolerating elevated ammonia >> lactulose + Xifaxan stable H&H, transfuse prn PT eval fu labs Subjective Subjective denies any abdominal pain wants to go home Objective Last 24 Hour Vital Signs Date Time Temp Pulse Resp B/P Pulse Ox O2 Delivery O2 Flow Rate FiO2 09/19/16 08:24 99.1 94 19 115/71 93 Room Air 09/19/16 04:00 97.2 89 16 118/70 95 Room Air 09/19/16 00:00 97.4 85 16 114/65 95 Room Air 09/18/16 20:00 97.1 88 18 110/69 95 Room Air 09/18/16 16:53 97.7 86 18 108/66 95 Room Air Intake and Output 09/18/16 09/19/16 19:00 07:00 Intake Total 1320 ml 460 ml Balance 1320 ml 460 ml Intake Oral 1320 ml 460 ml # Voids 3 1 # Bowel Movements 1 Laboratory Tests Test 09/19/16 06:19 White Blood Count 8.4 K/UL (4.8-10.8) Red Blood Count 3.41 M/UL (4.70-6.10) L Hemoglobin 10.0 G/DL (14.2-18.0) L Hematocrit 30.2 % (42.0-52.0) L Mean Corpuscular Volume 89 FL (80-99) Mean Corpuscular Hemoglobin 29.3 PG (27.0-31.0) Mean Corpuscular Hemoglobin Concent 33.1 G/DL (32.0-36.0) Red Cell Distribution Width 15.9 % (11.6-14.8) H Platelet Count 49 K/UL (150-450) L Mean Platelet Volume 7.6 FL (6.5-10.1) Neutrophils (%) (Auto) % (45.0-75.0) Lymphocytes (%) (Auto) % (20.0-45.0) Monocytes (%) (Auto) % (1.0-10.0) Eosinophils (%) (Auto) % (0.0-3.0) Basophils (%) (Auto) % (0.0-2.0) Differential Total Cells Counted 100 Neutrophils % (Manual) 71 % (45-75) Lymphocytes % (Manual) 14 % (20-45) L Monocytes % (Manual) 9 % (1-10) Eosinophils % (Manual) 3 % (0-3) Basophils % (Manual) 3 % (0-2) H Band Neutrophils 0 % (0-8) Platelet Estimate Decreased L Platelet Morphology Normal Hypochromasia 1+ Anisocytosis 1+ Sodium Level 135 mEQ/L (135-145) Potassium Level 4.3 mEQ/L (3.4-4.9) Chloride Level 100 mEQ/L (98-107) Carbon Dioxide Level 22 mEQ/L (20-30) Anion Gap 13 (5-15) Blood Urea Nitrogen 8 mg/dL (7-23) Creatinine 0.8 mg/dL (0.7-1.2) Estimat Glomerular Filtration Rate > 60 mL/min (>60) Glucose Level 81 mg/dL (74-106) Calcium Level 7.6 mg/dL (8.6-10.2) L Total Bilirubin 2.6 mg/dL (0.0-1.2) H Direct Bilirubin 1.3 mg/dL (0.1-0.3) H Aspartate Amino Transf (AST/SGOT) 90 U/L (5-40) H Alanine Aminotransferase (ALT/SGPT) 33 U/L (3-41) Alkaline Phosphatase 68 U/L (40-129) Total Protein 5.5 g/dL (6.6-8.7) L Albumin 2.0 g/dL (3.5-5.2) L Globulin 3.5 g/dL Albumin/Globulin Ratio 0.5 (1.0-2.7) L Height (Feet): 6 Height (Inches): 3.00 Weight (Pounds): 210 General Appearance: no apparent distress, alert Cardiovascular: normal rate Respiratory/Chest: normal breath sounds, no respiratory distress Abdominal Exam: normal bowel sounds, non tender, soft Mary Norman N.P. Sep 19, 2016 12:47
--- NOTE | 2016-09-19 13:28 | Infectious Diseases Prog Note ---
Assessment/Plan Assessment/Plan A: The patient is a 50-year-old male w Aspiration pneumonia, SP Rx Possible sepsis , SP Low grade fever, sp US : Evidence of portal hypertension, with borderline splenomegaly, ascites, 09/15 SP paracentesis : Successful ultrasound-guided paracentesis, yielding 1.6 liters of fluid ( no evidence of SBP ) ALOC / hepatic Encephalopathy improved GI bleed Hx of Alcohol abuse Alcoholic liver cirrhosis. History of portal hypertension PLAN: monitor pt off of AB Rx ( 09/16 SP DC IV Zosyn d# 7 ) CBC Monitor BMP. monitor Chest x-ray, Subjective Constitutional: Denies: anorexia, chills, drenching sweats, fatigue, fever, no symptoms, other Allergies: Coded Allergies: No Known Allergies (Unverified , 08/12/16) Subjective Objective Vital Signs Last 24 Hour Vital Signs Date Time Temp Pulse Resp B/P Pulse Ox O2 Delivery O2 Flow Rate FiO2 09/19/16 13:19 98.4 83 20 110/66 Room Air 09/19/16 12:20 98.4 83 19 110/66 Room Air 09/19/16 08:24 99.1 94 19 115/71 93 Room Air 09/19/16 04:00 97.2 89 16 118/70 95 Room Air 09/19/16 00:00 97.4 85 16 114/65 95 Room Air 09/18/16 20:00 97.1 88 18 110/69 95 Room Air 09/18/16 16:53 97.7 86 18 108/66 95 Room Air Height (Feet): 6 Height (Inches): 3.00 Weight (Pounds): 210 HEENT: anicteric Respiratory/Chest: normal breath sounds Cardiovascular: regularly irregular Abdomen: no mass Laboratory Tests Test 09/19/16 06:19 White Blood Count 8.4 K/UL (4.8-10.8) Red Blood Count 3.41 M/UL (4.70-6.10) L Hemoglobin 10.0 G/DL (14.2-18.0) L Hematocrit 30.2 % (42.0-52.0) L Mean Corpuscular Volume 89 FL (80-99) Mean Corpuscular Hemoglobin 29.3 PG (27.0-31.0) Mean Corpuscular Hemoglobin Concent 33.1 G/DL (32.0-36.0) Red Cell Distribution Width 15.9 % (11.6-14.8) H Platelet Count 49 K/UL (150-450) L Mean Platelet Volume 7.6 FL (6.5-10.1) Neutrophils (%) (Auto) % (45.0-75.0) Lymphocytes (%) (Auto) % (20.0-45.0) Monocytes (%) (Auto) % (1.0-10.0) Eosinophils (%) (Auto) % (0.0-3.0) Basophils (%) (Auto) % (0.0-2.0) Differential Total Cells Counted 100 Neutrophils % (Manual) 71 % (45-75) Lymphocytes % (Manual) 14 % (20-45) L Monocytes % (Manual) 9 % (1-10) Eosinophils % (Manual) 3 % (0-3) Basophils % (Manual) 3 % (0-2) H Band Neutrophils 0 % (0-8) Platelet Estimate Decreased L Platelet Morphology Normal Hypochromasia 1+ Anisocytosis 1+ Sodium Level 135 mEQ/L (135-145) Potassium Level 4.3 mEQ/L (3.4-4.9) Chloride Level 100 mEQ/L (98-107) Carbon Dioxide Level 22 mEQ/L (20-30) Anion Gap 13 (5-15) Blood Urea Nitrogen 8 mg/dL (7-23) Creatinine 0.8 mg/dL (0.7-1.2) Estimat Glomerular Filtration Rate > 60 mL/min (>60) Glucose Level 81 mg/dL (74-106) Calcium Level 7.6 mg/dL (8.6-10.2) L Total Bilirubin 2.6 mg/dL (0.0-1.2) H Direct Bilirubin 1.3 mg/dL (0.1-0.3) H Aspartate Amino Transf (AST/SGOT) 90 U/L (5-40) H Alanine Aminotransferase (ALT/SGPT) 33 U/L (3-41) Alkaline Phosphatase 68 U/L (40-129) Total Protein 5.5 g/dL (6.6-8.7) L Albumin 2.0 g/dL (3.5-5.2) L Globulin 3.5 g/dL Albumin/Globulin Ratio 0.5 (1.0-2.7) L Current Medications Medications (Trade) Dose Ordered Sig/Saturnino Route PRN Reason Start Time Stop Time Status Last Admin Dose Admin Acetaminophen (Tylenol) 650 mg Q4H PRN ORAL T>100.5 09/10/16 17:00 10/10/16 16:59 Al Hydroxide/Mg Hydroxide (Mylanta II) 30 ml Q6H PRN ORAL dyspepsia 09/10/16 17:00 10/10/16 16:59 Chlordiazepoxide (Librium) 25 mg Q8H PRN ORAL Agitation 09/17/16 20:15 09/24/16 20:14 09/19/16 06:20 Clonidine HCl (Catapres) 0.1 mg Q6H PRN ORAL SBP>160 09/11/16 12:00 10/11/16 11:59 Dextrose (Dextrose 50%) STAT PRN IV Hypoglycemia 09/10/16 17:00 10/10/16 16:59 Diphenhydramine HCl (Benadryl) 25 mg Q6H PRN ORAL Itching/Pruritis 09/10/16 17:00 10/10/16 16:59 09/18/16 23:42 Lactulose (Cephulac) 30 gm THREE TIMES A DAY ORAL 09/10/16 18:00 10/10/16 17:59 09/19/16 09:33 Lorazepam (Ativan 2mg/ml 1ml) 0.5 mg Q4H PRN IV For Anxiety 09/13/16 17:45 09/20/16 17:44 09/16/16 18:09 Ondansetron HCl (Zofran) 4 mg Q6H PRN IVP Nausea & Vomiting 09/10/16 17:00 10/10/16 16:59 Pantoprazole (Protonix) 40 mg DAILY ORAL 09/15/16 09:00 10/15/16 08:59 09/19/16 09:26 Promethazine HCl/ Codeine (Phenergan with Codeine) 5 ml Q6HR PRN ORAL For Cough 09/15/16 08:30 10/15/16 08:29 09/18/16 23:43 JACQUELINE LUGO M.D. Sep 19, 2016 13:28
[2016-09-20] VITALS: BP 108/63
[2016-09-20 04:00] VITALS: BP 129/76
[2016-09-20 07:42] LABS: MEAN CORPUSCULAR HEMOGLOBIN 29.2 PG (27.0-31.0); MEAN CORPUSCULAR HGB CONC 32.3 G/DL (32.0-36.0); MEAN CORPUSCULAR VOLUME 91 FL (80-99); MEAN PLATELET VOLUME 7.2 FL (6.5-10.1); PLATELET COUNT 96 K/UL (150-450); RED BLOOD COUNT 3.21 M/UL (4.70-6.10); WHITE BLOOD COUNT 6.5 K/UL (4.8-10.8)
[2016-09-20 08:06] VITALS: BP 110/67
[2016-09-20 08:07] LABS: ANION GAP 10 (5-15); CALCIUM 7.5 mg/dL (8.6-10.2); CARBON DIOXIDE 26 mEQ/L (20-30); CHLORIDE 103 mEQ/L (98-107); CREATININE 0.8 mg/dL (0.7-1.2); GLOMERULAR FILTRATION RATE > 60 mL/min (>60); HEMOLYSIS 3; POTASSIUM 4.1 mEQ/L (3.4-4.9); SODIUM 139 mEQ/L (135-145)
[2016-09-20] MEDS: Lactulose 20gm/30ml UDC ORAL SCH ×3 (09:07→17:16)
--- NOTE | 2016-09-20 09:57 | Pulmonology Progress Note ---
Assessment/Plan Assessment/Plan ASSESSMENT acute hepatic encephalopathy -improved GI hemorrhage 2 to esophageal tear tear of distal esophagus with hemorrhage s/p EGD with hemoclip x 2 coagulopathy ascites s/p paracentesis-1.6 L 09/15 alcohol abuse alcoholic liver cirrhosis anemia 2 to acute blood loss s/p blood transfusion aspiration PNA, s/p Rx possible sepsis elevated transaminase hypoalbuminemia PLAN OF CARE [facility] floor abdominal US + portal HTN, borderline SM, ascites s/p paracentesis -1.6 L GI follows s/p EGD with findings of distal esophageal tear-source of bleeding, hemoclip x 2 HH stable ammonia trending down, continue lactulose GI prophylaxis ID follows s/p Rx for PNA, blood cx negative O2 HHN prn off abx, observe Venous Duplex BLE negative CT head negative for acute finding PT/OT diet as per ST recommendations aspiration and reflux precautions no recurrent active bleeding GI cleared for dc psych eval appreciated patient lacks capacity to make any informed decision as per psych eval need placement or return to family, if they accept, can t be alone dc plan SS for dc planning- unable to place to SNF 2 to insurance, no a candidate for recup care - unable to ambulate PT Rx continue vit K x 1 case discussed and evaluated by supervising physician Subjective Allergies: Coded Allergies: No Known Allergies (Unverified , 08/12/16) Subjective occasional abdominal pain, no SOB, no chest pain bili with small trend down on RA pulse ox stable ammonia down to 68 Objective Last 24 Hour Vital Signs Date Time Temp Pulse Resp B/P Pulse Ox O2 Delivery O2 Flow Rate FiO2 09/20/16 08:06 98.4 88 20 110/67 96 Room Air 09/20/16 04:00 98.8 83 20 129/76 95 Room Air 09/20/16 00:00 98.2 84 20 108/63 93 Room Air 09/19/16 20:00 98.1 83 20 116/67 94 Room Air 09/19/16 16:11 98.5 83 20 106/67 100 Room Air 09/19/16 13:19 98.4 83 20 110/66 Room Air 09/19/16 12:20 98.4 83 19 110/66 Room Air Intake and Output 09/19/16 09/20/16 19:00 07:00 Intake Total 480 ml Balance 480 ml Intake Oral 480 ml # Voids 2 2 Objective General Appearance: no acute distress HEENT: normocephalic, atraumatic, mucous membranes moist Respiratory/Chest: lungs clear - with moderate air entry , no accessory muscle use Cardiovascular: normal rate, regular rhythm, no JVD Abdomen: normal bowel sounds, soft, non tender - mild distention Genitourinary: normal external genitalia 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: alert, responsive Laboratory Tests 09/20/16 05:30: White Blood Count 6.5, Red Blood Count 3.21L, Hemoglobin 9.4L, Hematocrit 29.1L , Mean Corpuscular Volume 91, Mean Corpuscular Hemoglobin 29.2, Mean Corpuscular Hemoglobin Concent 32.3, Red Cell Distribution Width 16.0H, Platelet Count 96#L, Mean Platelet Volume 7.2, Neutrophils (%) (Auto) , Lymphocytes (%) (Auto) , Monocytes (%) (Auto) , Eosinophils (%) (Auto) , Basophils (%) (Auto) , Neutrophils % (Manual) [Pending], Lymphocytes % (Manual) [Pending], Platelet Estimate [Pending], Platelet Morphology [Pending], Sodium Level 139, Potassium Level 4.1, Chloride Level 103, Carbon Dioxide Level 26, Anion Gap 10, Blood Urea Nitrogen 6L, Creatinine 0.8, Estimat Glomerular Filtration Rate > 60, Glucose Level 100, Calcium Level 7.5L Current Medications Medications (Trade) Dose Ordered Sig/Saturnino Route PRN Reason Start Time Stop Time Status Last Admin Dose Admin Acetaminophen (Tylenol) 650 mg Q4H PRN ORAL T>100.5 09/10/16 17:00 10/10/16 16:59 Al Hydroxide/Mg Hydroxide (Mylanta II) 30 ml Q6H PRN ORAL dyspepsia 09/10/16 17:00 10/10/16 16:59 Chlordiazepoxide (Librium) 25 mg Q8H PRN ORAL Agitation 09/17/16 20:15 09/24/16 20:14 09/19/16 06:20 Clonidine HCl (Catapres) 0.1 mg Q6H PRN ORAL SBP>160 09/11/16 12:00 10/11/16 11:59 Dextrose (Dextrose 50%) STAT PRN IV Hypoglycemia 09/10/16 17:00 10/10/16 16:59 Diphenhydramine HCl (Benadryl) 25 mg Q6H PRN ORAL Itching/Pruritis 09/10/16 17:00 10/10/16 16:59 09/18/16 23:42 Lactulose (Cephulac) 30 gm THREE TIMES A DAY ORAL 09/10/16 18:00 10/10/16 17:59 09/20/16 09:07 Lorazepam (Ativan 2mg/ml 1ml) 0.5 mg Q4H PRN IV For Anxiety 09/13/16 17:45 09/20/16 17:44 09/16/16 18:09 Ondansetron HCl (Zofran) 4 mg Q6H PRN IVP Nausea & Vomiting 09/10/16 17:00 10/10/16 16:59 Pantoprazole (Protonix) 40 mg DAILY ORAL 09/15/16 09:00 10/15/16 08:59 09/20/16 09:07 Promethazine HCl/ Codeine (Phenergan with Codeine) 5 ml Q6HR PRN ORAL For Cough 09/15/16 08:30 10/15/16 08:29 09/18/16 23:43 Dale ([facility])Wendy NP Sep 20, 2016 09:57
[2016-09-20] MEDS ORDERED: Phytonadione 10 mg/mL 1ml amp SUBQ ONE ×2 (10:10→15:00)
[2016-09-20] MEDS: chlordiazePOXIDE 25mg Cap ORAL PRN (11:16)
[2016-09-20] MEDS: Promethazine/Codeine 5ml UD ORAL PRN (11:16)
[2016-09-20 11:54] LABS: NEUTROPHILS % (MANUAL) 66 % (45-75); TOTAL CELLS COUNTED 100
[2016-09-20 11:55] LABS: BAND NEUTROPHILS % (MANUAL) 0 % (0-8); BASOPHILS % (MANUAL) 0 % (0-2); EOSINOPHILS % (MANUAL) 0 % (0-3); LYMPHOCYTES % (MANUAL) 20 % (20-45); PLATELET ESTIMATE DECREASED; PLATELET MORPHOLOGY NORMAL
[2016-09-20 12:00] VITALS: BP 104/61
[2016-09-20] MEDS ORDERED: LORazepam Inj 2mg/ml 1ml IV PRN (13:45)
[2016-09-20 16:00] VITALS: BP 108/68
[2016-09-20 20:00] VITALS: BP 115/69
[2016-09-21] VITALS: BP 91/48
[2016-09-21] MEDS: chlordiazePOXIDE 25mg Cap ORAL PRN ×3 (01:32→22:14)
[2016-09-21 04:00] VITALS: BP 119/61
[2016-09-21] MEDS: Promethazine/Codeine 5ml UD ORAL PRN ×2 (04:01→09:58)
[2016-09-21 07:57] VITALS: BP 108/66
[2016-09-21 08:11] LABS: INR 1.8 (0.9-1.1)
[2016-09-21] MEDS: Lactulose 20gm/30ml UDC ORAL SCH ×3 (09:00→18:00)
[2016-09-21] MEDS: Vitamin A&D Oint 2oz Tube TOPIC SCH ×2 (09:07→21:16)
[2016-09-21 12:00] VITALS: BP 104/57
--- NOTE | 2016-09-21 14:50 | Pulmonology Progress Note ---
Assessment/Plan Assessment/Plan ASSESSMENT acute hepatic encephalopathy -improved GI hemorrhage 2 to esophageal tear tear of distal esophagus with hemorrhage s/p EGD with hemoclip x 2 coagulopathy ascites s/p paracentesis-1.6 L 09/15 alcohol abuse alcoholic liver cirrhosis anemia 2 to acute blood loss s/p blood transfusion aspiration PNA, s/p Rx possible sepsis elevated transaminase hypoalbuminemia PLAN OF CARE MS floor abdominal US + portal HTN, borderline SM, ascites s/p paracentesis -1.6 L GI follows s/p EGD with findings of distal esophageal tear-source of bleeding, hemoclip x 2 HH stable ammonia trending down, continue lactulose GI prophylaxis ID follows s/p Rx for PNA, blood cx negative O2 HHN prn off abx, observe Venous Duplex BLE negative CT head negative for acute finding PT/OT diet as per ST recommendations aspiration and reflux precautions no recurrent active bleeding GI cleared for dc psych eval appreciated patient lacks capacity to make any informed decision as per psych eval need placement or return to family, if they accept, can t be alone dc plan SS for dc planning- unable to place to SNF 2 to insurance, no a candidate for recup care - unable to ambulate PT Rx continue s/p vit K x 1 case discussed and evaluated by supervising physician Subjective Allergies: Coded Allergies: No Known Allergies (Unverified , 08/12/16) Subjective no SOB, no chest pain bili with small trend down on RA pulse ox stable ammonia down to 68 Objective Last 24 Hour Vital Signs Date Time Temp Pulse Resp B/P Pulse Ox O2 Delivery O2 Flow Rate FiO2 09/21/16 12:00 96.7 20 104/57 92 Room Air 09/21/16 07:57 98.2 20 108/66 96 Room Air 09/21/16 04:00 98.9 82 20 119/61 93 Room Air 09/21/16 00:00 98.1 86 18 91/48 90 Room Air 09/20/16 20:00 97.7 83 18 115/69 93 Room Air 09/20/16 16:00 98.4 86 20 108/68 96 Room Air Intake and Output 09/20/16 09/21/16 19:00 07:00 Intake Total 600 ml 500 ml Output Total 200 ml 400 ml Balance 400 ml 100 ml Intake Oral 600 ml 500 ml Output Urine Total 200 ml 400 ml # Bowel Movements 3 Objective General Appearance: no acute distress HEENT: normocephalic, atraumatic, mucous membranes moist Respiratory/Chest: lungs clear - with moderate air entry , no accessory muscle use Cardiovascular: normal rate, regular rhythm, no JVD Abdomen: normal bowel sounds, soft, non tender - mild distention Genitourinary: normal external genitalia 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: alert, responsive Laboratory Tests 09/20/16 18:21: Stool Occult Blood Negative 09/21/16 06:15: Prothrombin Time 19.0H, Prothromb Time International Ratio 1.8H Current Medications Medications (Trade) Dose Ordered Sig/Saturnino Route PRN Reason Start Time Stop Time Status Last Admin Dose Admin Acetaminophen (Tylenol) 650 mg Q4H PRN ORAL T>100.5 09/10/16 17:00 10/10/16 16:59 Al Hydroxide/Mg Hydroxide (Mylanta II) 30 ml Q6H PRN ORAL dyspepsia 09/10/16 17:00 10/10/16 16:59 Chlordiazepoxide (Librium) 25 mg Q8H PRN ORAL Agitation 09/17/16 20:15 09/24/16 20:14 09/21/16 12:38 Clonidine HCl (Catapres) 0.1 mg Q6H PRN ORAL SBP>160 09/11/16 12:00 10/11/16 11:59 Dextrose (Dextrose 50%) STAT PRN IV Hypoglycemia 09/10/16 17:00 10/10/16 16:59 Diphenhydramine HCl (Benadryl) 25 mg Q6H PRN ORAL Itching/Pruritis 09/10/16 17:00 10/10/16 16:59 09/18/16 23:42 Lactulose (Cephulac) 30 gm THREE TIMES A DAY ORAL 09/10/16 18:00 10/10/16 17:59 09/20/16 17:16 Lorazepam (Ativan 2mg/ml 1ml) 0.5 mg Q4H PRN IV For Anxiety 09/20/16 13:45 09/27/16 13:44 Ondansetron HCl (Zofran) 4 mg Q6H PRN IVP Nausea & Vomiting 09/10/16 17:00 10/10/16 16:59 Pantoprazole (Protonix) 40 mg DAILY ORAL 09/15/16 09:00 10/15/16 08:59 09/21/16 09:07 Promethazine HCl/ Codeine (Phenergan with Codeine) 5 ml Q6HR PRN ORAL For Cough 09/15/16 08:30 10/15/16 08:29 09/21/16 09:58 Vitamin A/Vitamin D (A & D Oint) 1 applic EVERY 12 HOURS TOPIC 09/21/16 09:00 10/21/16 08:59 09/21/16 09:07 Dale ([facility])Wendy NP Sep 21, 2016 14:50
[2016-09-21 15:54] VITALS: BP 96/57
[2016-09-21 20:00] VITALS: BP 101/63
[2016-09-22] VITALS: BP 109/65
[2016-09-22 04:00] VITALS: BP 116/66
[2016-09-22] MEDS: Promethazine/Codeine 5ml UD ORAL PRN (05:10)
[2016-09-22 08:55] VITALS: BP 105/61
[2016-09-22] MEDS: Lactulose 20gm/30ml UDC ORAL SCH ×3 (09:00→17:43)
[2016-09-22] MEDS: chlordiazePOXIDE 25mg Cap ORAL PRN ×2 (09:36→17:46)
[2016-09-22] MEDS: Vitamin A&D Oint 2oz Tube TOPIC SCH ×2 (09:37→21:07)
--- NOTE | 2016-09-22 09:37 | Infectious Diseases Prog Note ---
Assessment/Plan Assessment/Plan A: The patient is a 50-year-old male w Aspiration pneumonia, SP Rx Possible sepsis , SP Low grade fever, sp US : Evidence of portal hypertension, with borderline splenomegaly, ascites, 09/15 SP paracentesis : Successful ultrasound-guided paracentesis, yielding 1.6 liters of fluid ( no evidence of SBP ) ALOC / hepatic Encephalopathy improved GI bleed Hx of Alcohol abuse Alcoholic liver cirrhosis. History of portal hypertension PLAN: monitor pt off of AB Rx ( 09/16 SP DC IV Zosyn d# 7 ) CBC Monitor BMP. monitor Chest x-ray, Subjective Constitutional: Denies: anorexia, chills, drenching sweats, fatigue, fever, no symptoms, other Allergies: Coded Allergies: No Known Allergies (Unverified , 08/12/16) Subjective Objective Vital Signs Last 24 Hour Vital Signs Date Time Temp Pulse Resp B/P Pulse Ox O2 Delivery O2 Flow Rate FiO2 09/22/16 04:00 98.4 68 16 116/66 93 Room Air 09/22/16 00:00 98.2 81 20 109/65 93 Room Air 09/21/16 20:00 98.4 79 16 101/63 93 Room Air 09/21/16 15:54 98.8 84 20 96/57 91 Room Air 09/21/16 12:00 96.7 20 104/57 92 Room Air Height (Feet): 6 Height (Inches): 3.00 Weight (Pounds): 210 HEENT: anicteric Respiratory/Chest: lungs clear Cardiovascular: normal rate Abdomen: soft, non tender Current Medications Medications (Trade) Dose Ordered Sig/Saturnino Route PRN Reason Start Time Stop Time Status Last Admin Dose Admin Acetaminophen (Tylenol) 650 mg Q4H PRN ORAL T>100.5 09/10/16 17:00 10/10/16 16:59 Al Hydroxide/Mg Hydroxide (Mylanta II) 30 ml Q6H PRN ORAL dyspepsia 09/10/16 17:00 10/10/16 16:59 Chlordiazepoxide (Librium) 25 mg Q8H PRN ORAL Agitation 09/17/16 20:15 09/24/16 20:14 09/21/16 22:14 Clonidine HCl (Catapres) 0.1 mg Q6H PRN ORAL SBP>160 09/11/16 12:00 10/11/16 11:59 Dextrose (Dextrose 50%) STAT PRN IV Hypoglycemia 09/10/16 17:00 10/10/16 16:59 Diphenhydramine HCl (Benadryl) 25 mg Q6H PRN ORAL Itching/Pruritis 09/10/16 17:00 10/10/16 16:59 09/18/16 23:42 Lactulose (Cephulac) 30 gm THREE TIMES A DAY ORAL 09/10/16 18:00 10/10/16 17:59 09/20/16 17:16 Lorazepam (Ativan 2mg/ml 1ml) 0.5 mg Q4H PRN IV For Anxiety 09/20/16 13:45 09/27/16 13:44 Ondansetron HCl (Zofran) 4 mg Q6H PRN IVP Nausea & Vomiting 09/10/16 17:00 10/10/16 16:59 Pantoprazole (Protonix) 40 mg DAILY ORAL 09/15/16 09:00 10/15/16 08:59 09/21/16 09:07 Promethazine HCl/ Codeine (Phenergan with Codeine) 5 ml Q6HR PRN ORAL For Cough 09/15/16 08:30 10/15/16 08:29 09/22/16 05:10 Vitamin A/Vitamin D (A & D Oint) 1 applic EVERY 12 HOURS TOPIC 09/21/16 09:00 10/21/16 08:59 09/21/16 21:16 JACQUELINE LUGO M.D. September 22, 2016 09:37
--- NOTE | 2016-09-22 10:49 | GI Progress Note ---
Assessment/Plan Problems: (1) Liver cirrhosis ICD Codes: K74.60 - Unspecified cirrhosis of liver SNOMED: 57614988 (2) LFT elevation ICD Codes: R94.5 - Abnormal results of liver function studies SNOMED: 955690977 (3) Anemia due to acute blood loss ICD Codes: D62 - Acute posthemorrhagic anemia SNOMED: 775846068 (4) Hypoalbuminemia ICD Codes: E88.09 - Other disorders of plasma-protein metabolism, not elsewhere classified SNOMED: 333786006 (5) Gastrointestinal hemorrhage ICD Codes: K92.2 - Gastrointestinal hemorrhage, unspecified SNOMED: 52200173 (6) Alcohol abuse ICD Codes: F10.10 - Alcohol abuse, uncomplicated SNOMED: 16059430 (7) Tear of lower esophagus with hemorrhage ICD Codes: K22.6 - Gastro-esophageal laceration-hemorrhage syndrome SNOMED: 39542750, 045479295 Status: stable Status Narrative Discussed with Dr. Wright. Assessment/Plan S/P EGD - SUMMARY OF FINDINGS: Active bleeding from the distal esophageal tears status post hemoclip x2. US : Evidence of portal hypertension, with borderline splenomegaly, ascites, 09/15 SP paracentesis : Successful ultrasound-guided paracentesis, yielding 1.6 liters of fluid ( no evidence of SBP ) ok for DC per GI standpoint no recurrent active bleed soft diet, tolerating elevated ammonia >> lactulose + Xifaxan stable H&H, transfuse prn PT eval fu labs Subjective Subjective denies any abdominal pain wants to go home Objective Last 24 Hour Vital Signs Date Time Temp Pulse Resp B/P Pulse Ox O2 Delivery O2 Flow Rate FiO2 09/22/16 08:55 96.9 87 19 105/61 96 Room Air 09/22/16 04:00 98.4 68 16 116/66 93 Room Air 09/22/16 00:00 98.2 81 20 109/65 93 Room Air 09/21/16 20:00 98.4 79 16 101/63 93 Room Air 09/21/16 15:54 98.8 84 20 96/57 91 Room Air 09/21/16 12:00 96.7 20 104/57 92 Room Air Intake and Output 09/21/16 09/22/16 18:59 06:59 Intake Total 1180 ml 1200 ml Output Total 700 ml 700 ml Balance 480 ml 500 ml Intake Oral 1180 ml 1200 ml Output Urine Total 700 ml 700 ml Height (Feet): 6 Height (Inches): 3.00 Weight (Pounds): 210 General Appearance: no apparent distress, alert Cardiovascular: normal rate Respiratory/Chest: normal breath sounds, no respiratory distress Abdominal Exam: normal bowel sounds, non tender, soft Extremities: normal range of motion Mary Norman N.P. September 22, 2016 10:48
[2016-09-22 11:48] VITALS: BP 99/59
--- NOTE | 2016-09-22 12:15 | Neurology Progress Note ---
Interim History Interim History ROS Limited/Unobtainable: No Objective Physical Exam Last Vital Signs Date Time Temp Pulse Resp B/P Pulse Ox O2 Delivery O2 Flow Rate FiO2 09/22/16 11:48 98.2 81 20 99/59 95 Room Air Impression/Recommendations Problems: (1) new onset of paraparesis and ataxia (2) Low calcium levels (3) Alcohol abuse (4) Gastrointestinal hemorrhage (5) Anemia due to acute blood loss (6) Coagulopathy (7) Hepatic encephalopathy Status: stable Recommendations # [id number] ARGELIA JESUS September 22, 2016 12:15
[2016-09-22] MEDS: Thiamine 100mg tab ORAL SCH (13:32)
[2016-09-22] MEDS: Vitamin D 1000 IU Tab ORAL SCH (13:33)
[2016-09-22 14:43] LABS: CHOLESTEROL/HDL RATIO 6.5 (3.3-4.4)
[2016-09-22 14:54] LABS: CKMB 2.1 ng/mL (< 6.7); THYROID STIMULATING HORMONE 2.06 uIU/mL (0.300-4.500)
[2016-09-22 16:23] VITALS: BP 102/55
[2016-09-22 19:03] LABS: IONIZED CALCIUM 1.05 mmol/L (1.10-1.35)
[2016-09-22 20:07] VITALS: BP 97/64
--- NOTE | 2016-09-22 21:48 | Consultation ---
DATE OF CONSULTATION: 09/22/2016 NEUROLOGICAL CONSULTATION CONSULTING PHYSICIAN: Austin Rodriguez M.D. REQUESTING PHYSICIAN: Massiel Stevens M.D. HISTORY OF PRESENT ILLNESS: The patient is a 50-year-old male seen in neurological consultation to evaluate inability to ambulate. According to the patient, he is staying in this hospital for more than 15 days, being "forced to stay in bed" and as a result he developed severe weakness and when tried to walk he was unable to ambulate unless fully assisted. The patient has history of chronic alcohol abuse, alcoholic liver disease with portal hypertension, borderline splenomegaly, and ascites. Following admission, he underwent thoracentesis yielding 1.6 liters of fluid. Head CT of the brain revealed mild diffuse atrophy. No evidence of acute abnormality. Lab work on admission included elevated blood sugar 131, low calcium 7.9, elevated bilirubin total 2.6, direct 1.3, AST 111. Normal troponin. Ammonia level elevated 190 gradually subsiding down to 62. Latest laboratory studies revealed low calcium 7.4, abnormal liver function, and normal amylase and lipase. Serum alcohol on admission 191. CBC studies with signs of anemia, hemoglobin 9.5, hematocrit 30.2. Imaging studies included chest x-ray revealing nasogastric tube in place. Following admission, the patient continued to be on IV fluids and antibiotics. Treated for GI bleed. His treatment list now included Phenergan as needed, pantoprazole, lorazepam as needed, lactulose, Benadryl, Catapres, Librium as needed, Tylenol as needed. Prior to admission, the patient was on lactulose and thiamine only. PAST MEDICAL HISTORY: Again the patient has a history of hepatic encephalopathy, coagulopathy, liver cirrhosis, alcohol abuse, hypoalbuminemia, chronic anemia. FAMILY HISTORY: Noncontributory. SOCIAL HISTORY: The patient lives alone but his ex- lives [address] him. 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 FAMILY HISTORY: Noncontributory. REVIEW OF SYSTEMS: Profound weakness in his both lower extremities and difficulty with ambulation, difficulty moving his legs. He has urinary frequency but denies headache or dizziness. Denies pain or discomfort in the upper and mid lower back, No numbness or tingling. PHYSICAL EXAMINATION: GENERAL: The patient is well-developed and well-nourished man, lying comfortably in bed with a sitter next, the patient placed over the forehead, covered with blanket stating that he is sleeping. VITAL SIGNS: Stable. Blood pressure 105/62 and temperature 96.9. HEENT: Head normocephalic. No evidence of trauma. Eyes, ears, and throat are clear. NECK: Supple. No meningeal signs. No percussion tenderness in the cervical dorsal lumbar spine. EXTREMITIES: Upper and lower extremities 1+ pitting edema both ankles. Peripheral pulses 1+ symmetric. MENTAL STATUS: The patient is alert and oriented to place, but makes several mistakes indicating that he is age of 61, he was unaware why he is in the hospital, stating only that he was forced to stay in bed for 15 days. He was cooperative, follows command, somewhat irritable on pin examination. CRANIAL NERVE II: Pupils both responding to light and accommodation. Extraocular movement full range. CRANIAL NERVE V: Normal corneal responses. CRANIAL NERVE VII: No facial asymmetry. CRANIAL NERVE VIII: Normal hearing. CRANIAL NERVE IX THROUGH XII: Tongue is in midline. Symmetric palate elevation. MOTOR EXAMINATION: Revealed normal muscle tone and strength both upper extremities. Normal muscle tone both lower extremities with strength 3/5 both hip flexors, 4/5 hamstrings and dorsiflexion. Deep reflexes 2+ both upper extremity, 3/5 both knee jerks, reduced both ankle jerks. Plantar responses are flexor on the left. Withdrawal on the right. Coordination normal [id number] test, clumsy due to weakness on testing bilaterally. Romberg test positive. The patient was assisted to get up from the bed. He remained very unstable. He was able to do couple steps fully assisted. SENSORY EXAMINATION: Normal to pinprick and light touch both upper lower extremities. IMPRESSION: 1. New onset of severe gait ataxia and both lower extremities paraparesis, rule out alcohol related to better cerebellar degeneration, need to rule out posterior column disease with , rule out chronic illness polyneuropathy. 2. Mild cognitive impairment, rule out hepatic encephalopathy. 3. Hypocalcemia. 4. Liver cirrhosis. 5. Chronic alcohol abuse hemorrhage. DISCUSSION: 1. The patient who was bedridden for more than two weeks presented with significant weakness and gait ataxia, debilitation due to disuse of her lowe extremities that should be considered, but as far as given the age . We will obtain B12, methylmalonic acid, vitamin D, WILTON, sedimentation rate, CPK, ionized calcium. 2. MRI studies of the brain and cerebellar region will be considered. 3. PT/OT, mobility protocol will be initiated. The patient's treatment include thiamine 100 mg daily, vitamin D supplements. Thank you for allowing me to see this interesting patient in neurologic consultation. Austin Pamela Rodriguez DR: Ellie JOB#: [id number] CC:
--- NOTE | 2016-09-22 22:50 | Pulmonology Progress Note ---
Assessment/Plan Problems: (1) Anemia due to acute blood loss (2) Alcohol abuse (3) Liver cirrhosis (4) Gastrointestinal hemorrhage (5) Coagulopathy (6) Fever Assessment/Plan dc planning lactulose check ammonia level pt/ot social service Subjective ROS Limited/Unobtainable: No Allergies: Coded Allergies: No Known Allergies (Unverified , 08/12/16) Objective Last 24 Hour Vital Signs Date Time Temp Pulse Resp B/P Pulse Ox O2 Delivery O2 Flow Rate FiO2 09/22/16 20:07 98.1 84 19 97/64 95 Room Air 09/22/16 16:23 98.0 85 20 102/55 98 Room Air 09/22/16 11:48 98.2 81 20 99/59 95 Room Air 09/22/16 08:55 96.9 87 19 105/61 96 Room Air 09/22/16 04:00 98.4 68 16 116/66 93 Room Air 09/22/16 00:00 98.2 81 20 109/65 93 Room Air Intake and Output 09/21/16 09/22/16 19:00 07:00 Intake Total 1180 ml 1200 ml Output Total 700 ml 700 ml Balance 480 ml 500 ml Intake Oral 1180 ml 1200 ml Output Urine Total 700 ml 700 ml Objective General Appearance: WD/WN HEENT: normocephalic Respiratory/Chest: chest wall non-tender, lungs clear, normal breath sounds Cardiovascular: normal peripheral pulses, normal rate, regular rhythm Abdomen: normal bowel sounds, soft, non tender, no organomegaly, non distended Extremities: no cyanosis, no clubbing Skin: no rash, no lesions 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: marble helper II-XII grossly normal Laboratory Tests 09/22/16 14:00: Ionized Calcium (Measured) 1.05L, Total Creatine Kinase 169, Creatine Kinase MB 2.1, Creatine Kinase MB Relative Index 1.2, Triglycerides Level 48, Cholesterol Level 85, LDL Cholesterol 62, HDL Cholesterol 13, Cholesterol/HDL Ratio 6.5H, Vitamin B12 Level 1723H, Methylmalonic Acid [Pending], Thyroid Stimulating Hormone (TSH) 2.060, Anti-Nuclear Antibody Screen [Pending] Current Medications Medications (Trade) Dose Ordered Sig/Saturnino Route PRN Reason Start Time Stop Time Status Last Admin Dose Admin Acetaminophen (Tylenol) 650 mg Q4H PRN ORAL T>100.5 09/10/16 17:00 5/19/17 16:59 Al Hydroxide/Mg Hydroxide (Mylanta II) 30 ml Q6H PRN ORAL dyspepsia 09/10/16 17:00 10/10/16 16:59 Chlordiazepoxide (Librium) 25 mg Q8H PRN ORAL Agitation 09/17/16 20:15 09/24/16 20:14 09/22/16 17:46 Clonidine HCl (Catapres) 0.1 mg Q6H PRN ORAL SBP>160 09/11/16 12:00 10/11/16 11:59 Dextrose (Dextrose 50%) STAT PRN IV Hypoglycemia 09/10/16 17:00 10/10/16 16:59 Diphenhydramine HCl (Benadryl) 25 mg Q6H PRN ORAL Itching/Pruritis 09/10/16 17:00 10/10/16 16:59 09/18/16 23:42 Lactulose (Cephulac) 30 gm THREE TIMES A DAY ORAL 09/10/16 18:00 10/10/16 17:59 09/22/16 17:43 Lorazepam (Ativan 2mg/ml 1ml) 0.5 mg Q4H PRN IV For Anxiety 09/20/16 13:45 09/27/16 13:44 Ondansetron HCl (Zofran) 4 mg Q6H PRN IVP Nausea & Vomiting 09/10/16 17:00 10/10/16 16:59 Pantoprazole (Protonix) 40 mg DAILY ORAL 09/15/16 09:00 10/15/16 08:59 09/22/16 09:36 Promethazine HCl/ Codeine (Phenergan with Codeine) 5 ml Q6HR PRN ORAL For Cough 09/15/16 08:30 10/15/16 08:29 09/22/16 05:10 Thiamine HCl (Vitamin B1) 100 mg DAILY ORAL 09/22/16 14:00 10/22/16 13:59 09/22/16 13:32 Vitamin A/Vitamin D (A & D Oint) 1 applic EVERY 12 HOURS TOPIC 09/21/16 09:00 10/21/16 08:59 09/22/16 21:07 Vitamin D (Vitamin D) 1,000 intlu DAILY ORAL 09/22/16 14:00 10/22/16 13:59 09/22/16 13:33 SPENCER BERGER September 22, 2016 22:50
[2016-09-23 00:04] VITALS: BP 110/68
[2016-09-23] MEDS: chlordiazePOXIDE 25mg Cap ORAL PRN (03:13)
[2016-09-23 04:35] VITALS: BP 120/69
[2016-09-23 06:27] LABS: MEAN CORPUSCULAR HEMOGLOBIN 28.7 PG (27.0-31.0); MEAN CORPUSCULAR HGB CONC 32.3 G/DL (32.0-36.0); MEAN CORPUSCULAR VOLUME 89 FL (80-99); MEAN PLATELET VOLUME 6.6 FL (6.5-10.1); PLATELET COUNT 99 K/UL (150-450); RED BLOOD COUNT 3.23 M/UL (4.70-6.10); RED CELL DISTRIBUTION WIDTH 15.8 % (11.6-14.8); WHITE BLOOD COUNT 5.9 K/UL (4.8-10.8)
[2016-09-23 07:10] LABS: ANION GAP 10 (5-15); CALCIUM 7.4 mg/dL (8.6-10.2); CARBON DIOXIDE 25 mEQ/L (20-30); CHLORIDE 105 mEQ/L (98-107); CREATININE 0.7 mg/dL (0.7-1.2); GLOMERULAR FILTRATION RATE > 60 mL/min (>60); HEMOLYSIS 1; POTASSIUM 4.1 mEQ/L (3.4-4.9); SODIUM 140 mEQ/L (135-145)
[2016-09-23] MEDS: Thiamine 100mg tab ORAL SCH (08:12)
[2016-09-23] MEDS: Vitamin D 1000 IU Tab ORAL SCH (08:12)
[2016-09-23] MEDS: Lactulose 20gm/30ml UDC ORAL SCH ×3 (08:12→17:47)
[2016-09-23] MEDS: Vitamin A&D Oint 2oz Tube TOPIC SCH ×2 (08:12→20:44)
[2016-09-23 08:27] VITALS: BP 106/63
--- NOTE | 2016-09-23 09:54 | Infectious Diseases Prog Note ---
Assessment/Plan Assessment/Plan A: The patient is a 50-year-old male w Aspiration pneumonia, SP Rx Possible sepsis , SP Low grade fever, sp US : Evidence of portal hypertension, with borderline splenomegaly, ascites, 09/15 SP paracentesis : Successful ultrasound-guided paracentesis, yielding 1.6 liters of fluid ( no evidence of SBP ) Severe gait ataxia and both lower extremities paraparesis : Neuro is following ALOC / hepatic Encephalopathy improved GI bleed, SP Hx of Alcohol abuse Alcoholic liver cirrhosis. History of portal hypertension PLAN: monitor pt off of AB Rx ( 09/16 SP DC IV Zosyn d# 7 ) CBC Monitor BMP. monitor Chest x-ray, Subjective Constitutional: Denies: anorexia, chills, drenching sweats, fatigue, fever, no symptoms, other Allergies: Coded Allergies: No Known Allergies (Unverified , 08/12/16) Subjective Objective Vital Signs Last 24 Hour Vital Signs Date Time Temp Pulse Resp B/P Pulse Ox O2 Delivery O2 Flow Rate FiO2 09/23/16 08:27 99.0 87 18 106/63 96 Room Air 09/23/16 04:35 98.4 80 18 120/69 93 Room Air 09/23/16 00:04 98.6 80 18 110/68 55 Room Air 09/22/16 20:07 98.1 84 19 97/64 95 Room Air 09/22/16 16:23 98.0 85 20 102/55 98 Room Air 09/22/16 11:48 98.2 81 20 99/59 95 Room Air Height (Feet): 6 Height (Inches): 3.00 Weight (Pounds): 210 HEENT: anicteric Respiratory/Chest: no respiratory distress Cardiovascular: regular rhythm Abdomen: no organomegaly Laboratory Tests Test 09/22/16 14:00 09/23/16 05:40 Ionized Calcium (Measured) 1.05 mmol/L (1.10-1.35) L Total Creatine Kinase 169 U/L (38-174) Creatine Kinase MB 2.1 ng/mL (< 6.7) Creatine Kinase MB Relative Index 1.2 Triglycerides Level 48 mg/dL (< 150) Cholesterol Level 85 mg/dL (< 200) LDL Cholesterol 62 mg/dL (60-99) HDL Cholesterol 13 mg/dL (> 60) Cholesterol/HDL Ratio 6.5 (3.3-4.4) H Vitamin B12 Level 1723 pg/mL (211-946) H Methylmalonic Acid Pending Thyroid Stimulating Hormone (TSH) 2.060 uIU/mL (0.300-4.500) Anti-Nuclear Antibody Screen Pending White Blood Count 5.9 K/UL (4.8-10.8) Red Blood Count 3.23 M/UL (4.70-6.10) L Hemoglobin 9.3 G/DL (14.2-18.0) L Hematocrit 28.7 % (42.0-52.0) L Mean Corpuscular Volume 89 FL (80-99) Mean Corpuscular Hemoglobin 28.7 PG (27.0-31.0) Mean Corpuscular Hemoglobin Concent 32.3 G/DL (32.0-36.0) Red Cell Distribution Width 15.8 % (11.6-14.8) H Platelet Count 99 K/UL (150-450) L Mean Platelet Volume 6.6 FL (6.5-10.1) Neutrophils (%) (Auto) % (45.0-75.0) Lymphocytes (%) (Auto) % (20.0-45.0) Monocytes (%) (Auto) % (1.0-10.0) Eosinophils (%) (Auto) % (0.0-3.0) Basophils (%) (Auto) % (0.0-2.0) Neutrophils % (Manual) Pending Lymphocytes % (Manual) Pending Platelet Estimate Pending Platelet Morphology Pending Sodium Level 140 mEQ/L (135-145) Potassium Level 4.1 mEQ/L (3.4-4.9) Chloride Level 105 mEQ/L (98-107) Carbon Dioxide Level 25 mEQ/L (20-30) Anion Gap 10 (5-15) Blood Urea Nitrogen 6 mg/dL (7-23) L Creatinine 0.7 mg/dL (0.7-1.2) Estimat Glomerular Filtration Rate > 60 mL/min (>60) Glucose Level 103 mg/dL (74-106) Calcium Level 7.4 mg/dL (8.6-10.2) L Current Medications Medications (Trade) Dose Ordered Sig/Saturnino Route PRN Reason Start Time Stop Time Status Last Admin Dose Admin Acetaminophen (Tylenol) 650 mg Q4H PRN ORAL T>100.5 09/10/16 17:00 10/10/16 16:59 Al Hydroxide/Mg Hydroxide (Mylanta II) 30 ml Q6H PRN ORAL dyspepsia 09/10/16 17:00 10/10/16 16:59 Chlordiazepoxide (Librium) 25 mg Q8H PRN ORAL Agitation 09/17/16 20:15 09/24/16 20:14 09/23/16 03:13 Clonidine HCl (Catapres) 0.1 mg Q6H PRN ORAL SBP>160 09/11/16 12:00 10/11/16 11:59 Dextrose (Dextrose 50%) STAT PRN IV Hypoglycemia 09/10/16 17:00 10/10/16 16:59 Diphenhydramine HCl (Benadryl) 25 mg Q6H PRN ORAL Itching/Pruritis 09/10/16 17:00 10/10/16 16:59 09/18/16 23:42 Lactulose (Cephulac) 30 gm THREE TIMES A DAY ORAL 09/10/16 18:00 10/10/16 17:59 09/23/16 08:12 Lorazepam (Ativan 2mg/ml 1ml) 0.5 mg Q4H PRN IV For Anxiety 09/20/16 13:45 09/27/16 13:44 Ondansetron HCl (Zofran) 4 mg Q6H PRN IVP Nausea & Vomiting 09/10/16 17:00 10/10/16 16:59 Pantoprazole (Protonix) 40 mg DAILY ORAL 09/15/16 09:00 10/15/16 08:59 09/23/16 08:12 Promethazine HCl/ Codeine (Phenergan with Codeine) 5 ml Q6HR PRN ORAL For Cough 09/15/16 08:30 10/15/16 08:29 09/22/16 05:10 Thiamine HCl (Vitamin B1) 100 mg DAILY ORAL 09/22/16 14:00 10/22/16 13:59 09/23/16 08:12 Vitamin A/Vitamin D (A & D Oint) 1 applic EVERY 12 HOURS TOPIC 09/21/16 09:00 10/21/16 08:59 09/23/16 08:12 Vitamin D (Vitamin D) 1,000 intlu DAILY ORAL 09/22/16 14:00 10/22/16 13:59 09/23/16 08:12 JACQUELINE LUGO M.D. September 23, 2016 09:54
[2016-09-23 10:07] LABS: ANISOCYTOSIS 1+; BAND NEUTROPHILS % (MANUAL) 0 % (0-8); BASOPHILS % (MANUAL) 3 % (0-2); EOSINOPHILS % (MANUAL) 3 % (0-3); HYPOCHROMASIA 2+; LYMPHOCYTES % (MANUAL) 20 % (20-45); NEUTROPHILS % (MANUAL) 66 % (45-75); PLATELET ESTIMATE DECREASED; PLATELET MORPHOLOGY NORMAL; TOTAL CELLS COUNTED 100
--- NOTE | 2016-09-23 11:20 | GI Progress Note ---
Assessment/Plan Problems: (1) Liver cirrhosis ICD Codes: K74.60 - Unspecified cirrhosis of liver SNOMED: 62202549 (2) LFT elevation ICD Codes: R94.5 - Abnormal results of liver function studies SNOMED: 988462804 (3) Anemia due to acute blood loss ICD Codes: D62 - Acute posthemorrhagic anemia SNOMED: 958950712 (4) Hypoalbuminemia ICD Codes: E88.09 - Other disorders of plasma-protein metabolism, not elsewhere classified SNOMED: 972406745 (5) Gastrointestinal hemorrhage ICD Codes: K92.2 - Gastrointestinal hemorrhage, unspecified SNOMED: 88564659 (6) Alcohol abuse ICD Codes: F10.10 - Alcohol abuse, uncomplicated SNOMED: 61502500 (7) Tear of lower esophagus with hemorrhage ICD Codes: K22.6 - Gastro-esophageal laceration-hemorrhage syndrome SNOMED: 51716234, 445820449 Status: stable Status Narrative Discussed with Dr. Wright. Assessment/Plan S/P EGD - SUMMARY OF FINDINGS: Active bleeding from the distal esophageal tears status post hemoclip x2. US : Evidence of portal hypertension, with borderline splenomegaly, ascites, 09/15 SP paracentesis : Successful ultrasound-guided paracentesis, yielding 1.6 liters of fluid ( no evidence of SBP ) ok for DC per GI standpoint no recurrent active bleed soft diet, tolerating elevated ammonia >> lactulose + Xifaxan stable H&H, transfuse prn PT eval fu labs Subjective Subjective denies any abdominal pain wants to go home Objective Last 24 Hour Vital Signs Date Time Temp Pulse Resp B/P Pulse Ox O2 Delivery O2 Flow Rate FiO2 09/23/16 08:27 99.0 87 18 106/63 96 Room Air 09/23/16 04:35 98.4 80 18 120/69 93 Room Air 09/23/16 00:04 98.6 80 18 110/68 55 Room Air 09/22/16 20:07 98.1 84 19 97/64 95 Room Air 09/22/16 16:23 98.0 85 20 102/55 98 Room Air 09/22/16 11:48 98.2 81 20 99/59 95 Room Air Intake and Output 09/22/16 09/23/16 19:00 07:00 Intake Total 1080 ml Output Total 490 ml Balance 590 ml Intake Oral 1080 ml Output Urine Total 490 ml # Voids 2 Laboratory Tests Test 09/22/16 14:00 09/23/16 05:40 Ionized Calcium (Measured) 1.05 mmol/L (1.10-1.35) L Total Creatine Kinase 169 U/L (38-174) Creatine Kinase MB 2.1 ng/mL (< 6.7) Creatine Kinase MB Relative Index 1.2 Triglycerides Level 48 mg/dL (< 150) Cholesterol Level 85 mg/dL (< 200) LDL Cholesterol 62 mg/dL (60-99) HDL Cholesterol 13 mg/dL (> 60) Cholesterol/HDL Ratio 6.5 (3.3-4.4) H Vitamin B12 Level 1723 pg/mL (211-946) H Methylmalonic Acid Pending Thyroid Stimulating Hormone (TSH) 2.060 uIU/mL (0.300-4.500) Anti-Nuclear Antibody Screen Pending White Blood Count 5.9 K/UL (4.8-10.8) Red Blood Count 3.23 M/UL (4.70-6.10) L Hemoglobin 9.3 G/DL (14.2-18.0) L Hematocrit 28.7 % (42.0-52.0) L Mean Corpuscular Volume 89 FL (80-99) Mean Corpuscular Hemoglobin 28.7 PG (27.0-31.0) Mean Corpuscular Hemoglobin Concent 32.3 G/DL (32.0-36.0) Red Cell Distribution Width 15.8 % (11.6-14.8) H Platelet Count 99 K/UL (150-450) L Mean Platelet Volume 6.6 FL (6.5-10.1) Neutrophils (%) (Auto) % (45.0-75.0) Lymphocytes (%) (Auto) % (20.0-45.0) Monocytes (%) (Auto) % (1.0-10.0) Eosinophils (%) (Auto) % (0.0-3.0) Basophils (%) (Auto) % (0.0-2.0) Differential Total Cells Counted 100 Neutrophils % (Manual) 66 % (45-75) Lymphocytes % (Manual) 20 % (20-45) Monocytes % (Manual) 8 % (1-10) Eosinophils % (Manual) 3 % (0-3) Basophils % (Manual) 3 % (0-2) H Band Neutrophils 0 % (0-8) Platelet Estimate Decreased L Platelet Morphology Normal Hypochromasia 2+ Anisocytosis 1+ Sodium Level 140 mEQ/L (135-145) Potassium Level 4.1 mEQ/L (3.4-4.9) Chloride Level 105 mEQ/L (98-107) Carbon Dioxide Level 25 mEQ/L (20-30) Anion Gap 10 (5-15) Blood Urea Nitrogen 6 mg/dL (7-23) L Creatinine 0.7 mg/dL (0.7-1.2) Estimat Glomerular Filtration Rate > 60 mL/min (>60) Glucose Level 103 mg/dL (74-106) Calcium Level 7.4 mg/dL (8.6-10.2) L Height (Feet): 6 Height (Inches): 3.00 Weight (Pounds): 210 General Appearance: no apparent distress, alert Cardiovascular: normal rate Respiratory/Chest: normal breath sounds, no respiratory distress Abdominal Exam: normal bowel sounds, non tender, soft Extremities: normal range of motion Mary Norman N.P. September 23, 2016 11:20
[2016-09-23 12:14] VITALS: BP 111/67
--- NOTE | 2016-09-23 14:44 | Neurology Progress Note ---
Interim History Interim History ROS Limited/Unobtainable: No Complaints: weaknwss BLE Events: improving Objective Physical Exam Last Vital Signs Date Time Temp Pulse Resp B/P Pulse Ox O2 Delivery O2 Flow Rate FiO2 09/23/16 12:14 98.8 83 19 111/67 94 Room Air Laboratory Tests Test 09/23/16 05:40 White Blood Count 5.9 K/UL (4.8-10.8) Red Blood Count 3.23 M/UL (4.70-6.10) L Hemoglobin 9.3 G/DL (14.2-18.0) L Hematocrit 28.7 % (42.0-52.0) L Mean Corpuscular Volume 89 FL (80-99) Mean Corpuscular Hemoglobin 28.7 PG (27.0-31.0) Mean Corpuscular Hemoglobin Concent 32.3 G/DL (32.0-36.0) Red Cell Distribution Width 15.8 % (11.6-14.8) H Platelet Count 99 K/UL (150-450) L Mean Platelet Volume 6.6 FL (6.5-10.1) Neutrophils (%) (Auto) % (45.0-75.0) Lymphocytes (%) (Auto) % (20.0-45.0) Monocytes (%) (Auto) % (1.0-10.0) Eosinophils (%) (Auto) % (0.0-3.0) Basophils (%) (Auto) % (0.0-2.0) Differential Total Cells Counted 100 Neutrophils % (Manual) 66 % (45-75) Lymphocytes % (Manual) 20 % (20-45) Monocytes % (Manual) 8 % (1-10) Eosinophils % (Manual) 3 % (0-3) Basophils % (Manual) 3 % (0-2) H Band Neutrophils 0 % (0-8) Platelet Estimate Decreased L Platelet Morphology Normal Hypochromasia 2+ Anisocytosis 1+ Sodium Level 140 mEQ/L (135-145) Potassium Level 4.1 mEQ/L (3.4-4.9) Chloride Level 105 mEQ/L (98-107) Carbon Dioxide Level 25 mEQ/L (20-30) Anion Gap 10 (5-15) Blood Urea Nitrogen 6 mg/dL (7-23) L Creatinine 0.7 mg/dL (0.7-1.2) Estimat Glomerular Filtration Rate > 60 mL/min (>60) Glucose Level 103 mg/dL (74-106) Calcium Level 7.4 mg/dL (8.6-10.2) L General: well developed, well nourished, no acute distress Head: normocophalic, atraumatic Neck: no rigidity Neurologic Exam Mental Status: awake, alert, oriented x4, normal cognition, good mathematical skills, normal recent memory, normal remote memory, preserved visuospatial function Speech: normal speech, no dysarthia Language: normal language, no aphasia Cranial Nerve II: fundus normal, visual madden, no papilledema Cranial Nerves III, IV, : PERRLA, EOMI, pupils Cranial Nerve V: normal facial sensations, temporales function normal, masseters function normal, pterygoids function normal Cranial Nerve VII: no facial asymmetry, normal facial expressions Cranial Nerve VIII: normal hearing, no nystagmus Cranial Nerve IX: normal palate elevation, gag response Cranial Nerve X: no voice hoarseness Cranial Nerve XI: SCM symmetric, trapezii function normal Cranial Nerve XII: tongue midline, no tongue atrophy/fasciculations Motor System: normal muscle tone, no involuntary movement, other - muscle wasting BLE weakness 4/5 both hip flexors Sensory: normal pinprick Coordination: normal finger to nose bilaterally Deep Tendon Reflexes: 0 ankle (L), 0 ankle (R), 2+ bicep (L), 2+ bicep (R), 2+ brachioradialis (L), 2+ brachioradialis (R), 2+ knee (L), 2+ knee (R), 2+ tricep (L), 2+ tricep (R) Reflexes: mute plantar (L), mute plantar (R) Impression/Recommendations Problems: (1) Disuse atrophy of muscle (2) new onset of paraparesis and ataxia (3) Low calcium levels (4) Anemia due to acute blood loss (5) Hepatic encephalopathy Status: stable Recommendations # [id number] pt/ot/rehab vid D-- B12- B1 ARGELIA JESUS September 23, 2016 14:43
[2016-09-23 16:08] VITALS: BP 110/65
--- NOTE | 2016-09-23 16:47 | Pulmonology Progress Note ---
Assessment/Plan Problems: (1) Anemia due to acute blood loss (2) Alcohol abuse (3) Liver cirrhosis (4) Gastrointestinal hemorrhage (5) Coagulopathy (6) Fever Assessment/Plan neuro consult appreciated MRI brain ordered lactulose check ammonia level pt/ot social service Subjective ROS Limited/Unobtainable: Yes Allergies: Coded Allergies: No Known Allergies (Unverified , 08/12/16) Objective Last 24 Hour Vital Signs Date Time Temp Pulse Resp B/P Pulse Ox O2 Delivery O2 Flow Rate FiO2 09/23/16 16:08 97.0 85 19 110/65 95 Room Air 09/23/16 12:14 98.8 83 19 111/67 94 Room Air 09/23/16 08:27 99.0 87 18 106/63 96 Room Air 09/23/16 04:35 98.4 80 18 120/69 93 Room Air 09/23/16 00:04 98.6 80 18 110/68 55 Room Air 09/22/16 20:07 98.1 84 19 97/64 95 Room Air Intake and Output 09/22/16 09/23/16 18:59 06:59 Intake Total 1080 ml Output Total 490 ml Balance 590 ml Intake Oral 1080 ml Output Urine Total 490 ml # Voids 2 Objective General Appearance: WD/WN HEENT: normocephalic Respiratory/Chest: chest wall non-tender, lungs clear, normal breath sounds Cardiovascular: normal peripheral pulses, normal rate, regular rhythm Abdomen: normal bowel sounds, soft, non tender, no organomegaly, non distended Extremities: no cyanosis, no clubbing Skin: no rash, no lesions 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 Laboratory Tests 09/23/16 05:40: White Blood Count 5.9, Red Blood Count 3.23L, Hemoglobin 9.3L, Hematocrit 28.7L , Mean Corpuscular Volume 89, Mean Corpuscular Hemoglobin 28.7, Mean Corpuscular Hemoglobin Concent 32.3, Red Cell Distribution Width 15.8H, Platelet Count 99L, Mean Platelet Volume 6.6, Neutrophils (%) (Auto) , Lymphocytes (%) (Auto) , Monocytes (%) (Auto) , Eosinophils (%) (Auto) , Basophils (%) (Auto) , Differential Total Cells Counted 100, Neutrophils % ( Manual) 66, Lymphocytes % (Manual) 20, Monocytes % (Manual) 8, Eosinophils % ( Manual) 3, Basophils % (Manual) 3H, Band Neutrophils 0, Platelet Estimate DecreasedL, Platelet Morphology Normal, Hypochromasia 2+, Anisocytosis 1+, Sodium Level 140, Potassium Level 4.1, Chloride Level 105, Carbon Dioxide Level 25, Anion Gap 10, Blood Urea Nitrogen 6L, Creatinine 0.7, Estimat Glomerular Filtration Rate > 60, Glucose Level 103, Calcium Level 7.4L Current Medications Medications (Trade) Dose Ordered Sig/Saturnino Route PRN Reason Start Time Stop Time Status Last Admin Dose Admin Acetaminophen (Tylenol) 650 mg Q4H PRN ORAL T>100.5 09/10/16 17:00 10/10/16 16:59 Al Hydroxide/Mg Hydroxide (Mylanta II) 30 ml Q6H PRN ORAL dyspepsia 09/10/16 17:00 10/10/16 16:59 Chlordiazepoxide (Librium) 25 mg Q8H PRN ORAL Agitation 09/17/16 20:15 09/24/16 20:14 09/23/16 03:13 Clonidine HCl (Catapres) 0.1 mg Q6H PRN ORAL SBP>160 09/11/16 12:00 10/11/16 11:59 Dextrose (Dextrose 50%) STAT PRN IV Hypoglycemia 09/10/16 17:00 10/10/16 16:59 Diphenhydramine HCl (Benadryl) 25 mg Q6H PRN ORAL Itching/Pruritis 09/10/16 17:00 10/10/16 16:59 09/18/16 23:42 Lactulose (Cephulac) 30 gm THREE TIMES A DAY ORAL 09/10/16 18:00 10/10/16 17:59 09/23/16 12:39 Lorazepam (Ativan 2mg/ml 1ml) 0.5 mg Q4H PRN IV For Anxiety 09/20/16 13:45 09/27/16 13:44 Ondansetron HCl (Zofran) 4 mg Q6H PRN IVP Nausea & Vomiting 09/10/16 17:00 10/10/16 16:59 Pantoprazole (Protonix) 40 mg DAILY ORAL 09/15/16 09:00 10/15/16 08:59 09/23/16 08:12 Promethazine HCl/ Codeine (Phenergan with Codeine) 5 ml Q6HR PRN ORAL For Cough 09/15/16 08:30 10/15/16 08:29 09/22/16 05:10 Thiamine HCl (Vitamin B1) 100 mg DAILY ORAL 09/22/16 14:00 10/22/16 13:59 09/23/16 08:12 Vitamin A/Vitamin D (A & D Oint) 1 applic EVERY 12 HOURS TOPIC 09/21/16 09:00 10/21/16 08:59 09/23/16 08:12 Vitamin D (Vitamin D) 1,000 intlu DAILY ORAL 09/22/16 14:00 10/22/16 13:59 09/23/16 08:12 SPENCER BERGER September 23, 2016 16:47
[2016-09-23 20:00] VITALS: BP 126/68
[2016-09-24] VITALS: BP 109/66
[2016-09-24] MEDS: chlordiazePOXIDE 25mg Cap ORAL PRN (01:53)
[2016-09-24 03:59] VITALS: BP 119/69
[2016-09-24 07:34] VITALS: BP 98/58
[2016-09-24] MEDS: Thiamine 100mg tab ORAL SCH (09:18)
[2016-09-24] MEDS: Vitamin D 1000 IU Tab ORAL SCH (09:18)
[2016-09-24] MEDS: Lactulose 20gm/30ml UDC ORAL SCH ×3 (09:19→17:51)
[2016-09-24] MEDS: Vitamin A&D Oint 2oz Tube TOPIC SCH ×2 (09:19→20:41)
[2016-09-24] MEDS: Promethazine/Codeine 5ml UD ORAL PRN (10:17)
[2016-09-24 11:32] VITALS: BP 110/72
--- NOTE | 2016-09-24 11:41 | GI Progress Note ---
Assessment/Plan Problems: (1) Liver cirrhosis ICD Codes: K74.60 - Unspecified cirrhosis of liver SNOMED: 94157777 (2) LFT elevation ICD Codes: R94.5 - Abnormal results of liver function studies SNOMED: 052405603 (3) Anemia due to acute blood loss ICD Codes: D62 - Acute posthemorrhagic anemia SNOMED: 999029592 (4) Hypoalbuminemia ICD Codes: E88.09 - Other disorders of plasma-protein metabolism, not elsewhere classified SNOMED: 496513674 (5) Gastrointestinal hemorrhage ICD Codes: K92.2 - Gastrointestinal hemorrhage, unspecified SNOMED: 80606841 (6) Alcohol abuse ICD Codes: F10.10 - Alcohol abuse, uncomplicated SNOMED: 58052019 (7) Tear of lower esophagus with hemorrhage ICD Codes: K22.6 - Gastro-esophageal laceration-hemorrhage syndrome SNOMED: 81951586, 075251740 Status: stable Status Narrative Discussed with Dr. Wright. Assessment/Plan S/P EGD - SUMMARY OF FINDINGS: Active bleeding from the distal esophageal tears status post hemoclip x2. US : Evidence of portal hypertension, with borderline splenomegaly, ascites, 09/15 SP paracentesis : Successful ultrasound-guided paracentesis, yielding 1.6 liters of fluid ( no evidence of SBP ) ok for DC per GI standpoint no recurrent active bleed soft diet, tolerating elevated ammonia >> lactulose + Xifaxan stable H&H, transfuse prn PT eval fu labs Subjective Subjective denies any abdominal pain wants to go home Objective Last 24 Hour Vital Signs Date Time Temp Pulse Resp B/P Pulse Ox O2 Delivery O2 Flow Rate FiO2 09/24/16 11:32 97.5 92 18 110/72 94 Room Air 09/24/16 07:34 98.1 93 19 98/58 95 09/24/16 03:59 97.8 80 18 119/69 94 Room Air 09/24/16 00:00 97.4 86 18 109/66 96 Room Air 09/23/16 20:00 97.3 68 18 126/68 95 Room Air 09/23/16 16:08 97.0 85 19 110/65 95 Room Air 09/23/16 12:14 98.8 83 19 111/67 94 Room Air Intake and Output 09/23/16 09/24/16 19:00 07:00 Intake Total 360 ml 350 ml Balance 360 ml 350 ml Intake Oral 360 ml 350 ml # Voids 4 # Bowel Movements 3 Height (Feet): 6 Height (Inches): 3.00 Weight (Pounds): 210 General Appearance: no apparent distress, alert Cardiovascular: normal rate Respiratory/Chest: normal breath sounds, no respiratory distress Abdominal Exam: normal bowel sounds, non tender, soft Extremities: normal range of motion Mary Norman N.P. September 24, 2016 11:41
--- NOTE | 2016-09-24 12:16 | Neurology Progress Note ---
Interim History Interim History ROS Limited/Unobtainable: Yes Complaints: weaknwss BLE Events: improving, walking with PT/OT Objective Physical Exam Last Vital Signs Date Time Temp Pulse Resp B/P Pulse Ox O2 Delivery O2 Flow Rate FiO2 09/24/16 11:32 97.5 92 18 110/72 94 Room Air General: well developed, well nourished, no acute distress Head: normocophalic, atraumatic Neck: no rigidity Neurologic Exam Mental Status: awake, alert, oriented x4, normal cognition, good mathematical skills, normal recent memory, normal remote memory, preserved visuospatial function Speech: normal speech, no dysarthia Language: normal language, no aphasia Cranial Nerve II: fundus normal, visual madden, no papilledema Cranial Nerves III, IV, : PERRLA, EOMI, pupils Cranial Nerve V: normal facial sensations, temporales function normal, masseters function normal, pterygoids function normal Cranial Nerve VII: no facial asymmetry, normal facial expressions Cranial Nerve VIII: normal hearing, no nystagmus Cranial Nerve IX: normal palate elevation, gag response Cranial Nerve X: no voice hoarseness Cranial Nerve XI: SCM symmetric, trapezii function normal Cranial Nerve XII: tongue midline, no tongue atrophy/fasciculations Motor System: normal muscle tone, no involuntary movement, other - weakness 4/ 5 hip flexors, wasting BLE Sensory: normal pinprick Coordination: normal finger to nose bilaterally Deep Tendon Reflexes: 0 ankle (L), 0 ankle (R), 2+ bicep (L), 2+ bicep (R), 2+ brachioradialis (L), 2+ brachioradialis (R), 2+ knee (L), 2+ knee (R), 2+ tricep (L), 2+ tricep (R) Reflexes: mute plantar (L), mute plantar (R) Gait: other - with assist Impression/Recommendations Problems: (1) chronic illness myopathy (2) Disuse atrophy of muscle (3) Low calcium levels (4) Anemia due to acute blood loss (5) Hepatic encephalopathy Status: stable Recommendations # [id number] pt/ot/rehab vid D-- B12- B1 ARGELIA JESUS September 24, 2016 12:16
[2016-09-24 16:00] VITALS: BP 104/64
--- NOTE | 2016-09-24 16:19 | Diagnostic Imaging Report ---
Indication:Generalized weakness and headaches Technique: sagittal T1 fast spin echo, axial T1 FLAIR, axial and coronal T2 FLAIR PROPELLER, axial T2 FS PROPELLER, axial T2* GRE, axial diffusion weighted images. ADC and exponential ADC maps generated Comparison: Brain CT 09/10/2016 Findings: No abnormal areas of restricted diffusion to suggest acute infarction. No acute hemorrhage or edema. No mass effect nor midline shift. The sinuses are clear. The orbits are unremarkable.. There is mild enlargement of the ventricles and extra axial CSF spaces, somewhat out of proportion to patient's age. The vascular flow voids are preserved. Impression: Mild cervical and loss, out of proportion to patient's age. Likely related to stated clinical history of alcohol abuse Negative for acute intracranial bleed, mass effect, or infarct
--- NOTE | 2016-09-24 16:30 | Pulmonology Progress Note ---
Assessment/Plan Problems: (1) Anemia due to acute blood loss (2) Alcohol abuse (3) Liver cirrhosis (4) Gastrointestinal hemorrhage (5) Coagulopathy (6) Fever Assessment/Plan neuro consult appreciated MRI brain ordered lactulose check ammonia level pt/ot social service Subjective Allergies: Coded Allergies: No Known Allergies (Unverified , 08/12/16) Objective Last 24 Hour Vital Signs Date Time Temp Pulse Resp B/P Pulse Ox O2 Delivery O2 Flow Rate FiO2 09/24/16 16:00 98.1 88 18 104/64 95 Room Air 09/24/16 11:32 97.5 92 18 110/72 94 Room Air 09/24/16 07:34 98.1 93 19 98/58 95 09/24/16 03:59 97.8 80 18 119/69 94 Room Air 09/24/16 00:00 97.4 86 18 109/66 96 Room Air 09/23/16 20:00 97.3 68 18 126/68 95 Room Air Intake and Output 09/23/16 09/24/16 19:00 07:00 Intake Total 360 ml 350 ml Balance 360 ml 350 ml Intake Oral 360 ml 350 ml # Voids 4 # Bowel Movements 3 Objective General Appearance: WD/WN HEENT: normocephalic Respiratory/Chest: chest wall non-tender, lungs clear, normal breath sounds Cardiovascular: normal peripheral pulses, normal rate, regular rhythm Abdomen: normal bowel sounds, soft, non tender, no organomegaly, non distended Extremities: no cyanosis, no clubbing Skin: no rash, no lesions 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 Current Medications Medications (Trade) Dose Ordered Sig/Saturnino Route PRN Reason Start Time Stop Time Status Last Admin Dose Admin Acetaminophen (Tylenol) 650 mg Q4H PRN ORAL T>100.5 09/10/16 17:00 10/10/16 16:59 Al Hydroxide/Mg Hydroxide (Mylanta II) 30 ml Q6H PRN ORAL dyspepsia 09/10/16 17:00 10/10/16 16:59 Chlordiazepoxide (Librium) 25 mg Q8H PRN ORAL Agitation 09/17/16 20:15 09/24/16 20:14 09/24/16 01:53 Clonidine HCl (Catapres) 0.1 mg Q6H PRN ORAL SBP>160 09/11/16 12:00 10/11/16 11:59 Dextrose (Dextrose 50%) STAT PRN IV Hypoglycemia 09/10/16 17:00 10/10/16 16:59 Diphenhydramine HCl (Benadryl) 25 mg Q6H PRN ORAL Itching/Pruritis 09/10/16 17:00 10/10/16 16:59 09/18/16 23:42 Lactulose (Cephulac) 30 gm THREE TIMES A DAY ORAL 09/10/16 18:00 10/10/16 17:59 09/24/16 12:32 Lorazepam (Ativan 2mg/ml 1ml) 0.5 mg Q4H PRN IV For Anxiety 09/20/16 13:45 09/27/16 13:44 Ondansetron HCl (Zofran) 4 mg Q6H PRN IVP Nausea & Vomiting 09/10/16 17:00 10/10/16 16:59 Pantoprazole (Protonix) 40 mg DAILY ORAL 09/15/16 09:00 10/15/16 08:59 09/24/16 09:18 Promethazine HCl/ Codeine (Phenergan with Codeine) 5 ml Q6HR PRN ORAL For Cough 09/15/16 08:30 10/15/16 08:29 09/24/16 10:17 Thiamine HCl (Vitamin B1) 100 mg DAILY ORAL 09/22/16 14:00 10/22/16 13:59 09/24/16 09:18 Vitamin A/Vitamin D (A & D Oint) 1 applic EVERY 12 HOURS TOPIC 09/21/16 09:00 10/21/16 08:59 09/24/16 09:19 Vitamin D (Vitamin D) 1,000 intlu DAILY ORAL 09/22/16 14:00 10/22/16 13:59 09/24/16 09:18 SPENCER BERGER September 24, 2016 16:30
--- NOTE | 2016-09-24 18:02 | Infectious Diseases Prog Note ---
Assessment/Plan Assessment/Plan A: The patient is a 50-year-old male w Aspiration pneumonia, SP Rx Possible sepsis , SP Low grade fever, sp US : Evidence of portal hypertension, with borderline splenomegaly, ascites, 09/15 SP paracentesis : Successful ultrasound-guided paracentesis, yielding 1.6 liters of fluid ( no evidence of SBP ) Severe gait ataxia and both lower extremities paraparesis : Neuro is following ALOC / hepatic Encephalopathy improved GI bleed, SP Hx of Alcohol abuse Alcoholic liver cirrhosis. History of portal hypertension PLAN: monitor pt off of AB Rx ( 09/16 SP DC IV Zosyn d# 7 ) CBC Monitor BMP. monitor Chest x-ray, Subjective Constitutional: Denies: anorexia, chills, drenching sweats, fatigue, fever, no symptoms, other Allergies: Coded Allergies: No Known Allergies (Unverified , 08/12/16) Subjective Objective Vital Signs Last 24 Hour Vital Signs Date Time Temp Pulse Resp B/P Pulse Ox O2 Delivery O2 Flow Rate FiO2 09/24/16 16:00 98.1 88 18 104/64 95 Room Air 09/24/16 11:32 97.5 92 18 110/72 94 Room Air 09/24/16 07:34 98.1 93 19 98/58 95 09/24/16 03:59 97.8 80 18 119/69 94 Room Air 09/24/16 00:00 97.4 86 18 109/66 96 Room Air 09/23/16 20:00 97.3 68 18 126/68 95 Room Air Height (Feet): 6 Height (Inches): 3.00 Weight (Pounds): 210 HEENT: atraumatic Respiratory/Chest: no respiratory distress Cardiovascular: regularly irregular Abdomen: no organomegaly Current Medications Medications (Trade) Dose Ordered Sig/Saturnino Route PRN Reason Start Time Stop Time Status Last Admin Dose Admin Acetaminophen (Tylenol) 650 mg Q4H PRN ORAL T>100.5 09/10/16 17:00 10/10/16 16:59 Al Hydroxide/Mg Hydroxide (Mylanta II) 30 ml Q6H PRN ORAL dyspepsia 09/10/16 17:00 10/10/16 16:59 Chlordiazepoxide (Librium) 25 mg Q8H PRN ORAL Agitation 09/17/16 20:15 09/24/16 20:14 09/24/16 01:53 Clonidine HCl (Catapres) 0.1 mg Q6H PRN ORAL SBP>160 09/11/16 12:00 10/11/16 11:59 Dextrose (Dextrose 50%) STAT PRN IV Hypoglycemia 09/10/16 17:00 10/10/16 16:59 Diphenhydramine HCl (Benadryl) 25 mg Q6H PRN ORAL Itching/Pruritis 09/10/16 17:00 10/10/16 16:59 09/18/16 23:42 Lactulose (Cephulac) 30 gm THREE TIMES A DAY ORAL 09/10/16 18:00 10/10/16 17:59 09/24/16 12:32 Lorazepam (Ativan 2mg/ml 1ml) 0.5 mg Q4H PRN IV For Anxiety 09/20/16 13:45 09/27/16 13:44 Ondansetron HCl (Zofran) 4 mg Q6H PRN IVP Nausea & Vomiting 09/10/16 17:00 10/10/16 16:59 Pantoprazole (Protonix) 40 mg DAILY ORAL 09/15/16 09:00 10/15/16 08:59 09/24/16 09:18 Promethazine HCl/ Codeine (Phenergan with Codeine) 5 ml Q6HR PRN ORAL For Cough 09/15/16 08:30 10/15/16 08:29 09/24/16 10:17 Thiamine HCl (Vitamin B1) 100 mg DAILY ORAL 09/22/16 14:00 10/22/16 13:59 09/24/16 09:18 Vitamin A/Vitamin D (A & D Oint) 1 applic EVERY 12 HOURS TOPIC 09/21/16 09:00 10/21/16 08:59 09/24/16 09:19 Vitamin D (Vitamin D) 1,000 intlu DAILY ORAL 09/22/16 14:00 10/22/16 13:59 09/24/16 09:18 JACQUELINE LUGO M.D. September 24, 2016 18:02
[2016-09-24 20:00] VITALS: BP 105/60
[2016-09-25] VITALS: BP 102/56
[2016-09-25 04:00] VITALS: BP 119/69
[2016-09-25 07:14] LABS: ALANINE AMINOTRANSFERASE 20 U/L (3-41); ALBUMIN/GLOBULIN RATIO 0.5 (1.0-2.7); ANION GAP 11 (5-15); ASPARTATE AMINO TRANSFERASE 52 U/L (5-40); CALCIUM 7.6 mg/dL (8.6-10.2); CARBON DIOXIDE 24 mEQ/L (20-30); CHLORIDE 101 mEQ/L (98-107); CREATININE 0.9 mg/dL (0.7-1.2); GLOMERULAR FILTRATION RATE > 60 mL/min (>60); HEMOLYSIS 5; POTASSIUM 3.9 mEQ/L (3.4-4.9); SODIUM 136 mEQ/L (135-145); TOTAL PROTEIN 5.6 g/dL (6.6-8.7)
[2016-09-25 07:22] LABS: MEAN CORPUSCULAR HEMOGLOBIN 28.5 PG (27.0-31.0); MEAN CORPUSCULAR VOLUME 89 FL (80-99); PLATELET COUNT 98 K/UL (150-450); RED BLOOD COUNT 3.33 M/UL (4.70-6.10); RED CELL DISTRIBUTION WIDTH 15.9 % (11.6-14.8); WHITE BLOOD COUNT 5.8 K/UL (4.8-10.8)
[2016-09-25 07:27] LABS: BILIRUBIN,DIRECT 1.3 mg/dL (0.1-0.3)
[2016-09-25] MEDS: Vitamin A&D Oint 2oz Tube TOPIC SCH ×2 (08:36→23:42)
[2016-09-25] MEDS: Thiamine 100mg tab ORAL SCH (08:36)
[2016-09-25] MEDS: Vitamin D 1000 IU Tab ORAL SCH (08:36)
[2016-09-25] MEDS: Lactulose 20gm/30ml UDC ORAL SCH ×3 (08:37→17:05)
[2016-09-25] MEDS: Promethazine/Codeine 5ml UD ORAL PRN (08:40)
[2016-09-25 08:47] VITALS: BP 112/65
[2016-09-25 08:54] LABS: ANISOCYTOSIS 1+; BAND NEUTROPHILS % (MANUAL) 0 % (0-8); BASOPHILS % (MANUAL) 1 % (0-2); EOSINOPHILS % (MANUAL) 4 % (0-3); HYPOCHROMASIA 2+; LYMPHOCYTES % (MANUAL) 20 % (20-45); NEUTROPHILS % (MANUAL) 64 % (45-75); PLATELET ESTIMATE DECREASED; PLATELET MORPHOLOGY NORMAL; TOTAL CELLS COUNTED 100
--- NOTE | 2016-09-25 09:46 | Infectious Diseases Prog Note ---
Assessment/Plan Assessment/Plan A: The patient is a 50-year-old male w Aspiration pneumonia, SP Rx Possible sepsis , SP Low grade fever, sp US : Evidence of portal hypertension, with borderline splenomegaly, ascites, 09/15 SP paracentesis : Successful ultrasound-guided paracentesis, yielding 1.6 liters of fluid ( no evidence of SBP ) Severe gait ataxia and both lower extremities paraparesis : Neuro is following ALOC / hepatic Encephalopathy improved GI bleed, SP Hx of Alcohol abuse Alcoholic liver cirrhosis. History of portal hypertension PLAN: monitor pt off of AB Rx ( 09/16 SP DC IV Zosyn d# 7 ) CBC Monitor BMP. monitor Chest x-ray, Subjective Constitutional: Denies: anorexia, chills, drenching sweats, fatigue, fever, no symptoms, other Allergies: Coded Allergies: No Known Allergies (Unverified , 08/12/16) Subjective Objective Vital Signs Last 24 Hour Vital Signs Date Time Temp Pulse Resp B/P Pulse Ox O2 Delivery O2 Flow Rate FiO2 09/25/16 08:47 97.5 88 15 112/65 97 Room Air 09/25/16 04:00 98.1 78 18 119/69 91 Room Air 09/25/16 00:00 98.2 81 16 102/56 93 Room Air 09/24/16 20:00 98.4 83 16 105/60 91 Room Air 09/24/16 16:00 98.1 88 18 104/64 95 Room Air 09/24/16 11:32 97.5 92 18 110/72 94 Room Air Height (Feet): 6 Height (Inches): 3.00 Weight (Pounds): 210 HEENT: anicteric Abdomen: no organomegaly Laboratory Tests Test 09/25/16 05:20 White Blood Count 5.8 K/UL (4.8-10.8) Red Blood Count 3.33 M/UL (4.70-6.10) L Hemoglobin 9.5 G/DL (14.2-18.0) L Hematocrit 29.7 % (42.0-52.0) L Mean Corpuscular Volume 89 FL (80-99) Mean Corpuscular Hemoglobin 28.5 PG (27.0-31.0) Mean Corpuscular Hemoglobin Concent 32.0 G/DL (32.0-36.0) Red Cell Distribution Width 15.9 % (11.6-14.8) H Platelet Count 98 K/UL (150-450) L Mean Platelet Volume 7.0 FL (6.5-10.1) Neutrophils (%) (Auto) % (45.0-75.0) Lymphocytes (%) (Auto) % (20.0-45.0) Monocytes (%) (Auto) % (1.0-10.0) Eosinophils (%) (Auto) % (0.0-3.0) Basophils (%) (Auto) % (0.0-2.0) Differential Total Cells Counted 100 Neutrophils % (Manual) 64 % (45-75) Lymphocytes % (Manual) 20 % (20-45) Monocytes % (Manual) 11 % (1-10) H Eosinophils % (Manual) 4 % (0-3) H Basophils % (Manual) 1 % (0-2) Band Neutrophils 0 % (0-8) Platelet Estimate Decreased L Platelet Morphology Normal Hypochromasia 2+ Anisocytosis 1+ Sodium Level 136 mEQ/L (135-145) Potassium Level 3.9 mEQ/L (3.4-4.9) Chloride Level 101 mEQ/L (98-107) Carbon Dioxide Level 24 mEQ/L (20-30) Anion Gap 11 (5-15) Blood Urea Nitrogen 8 mg/dL (7-23) Creatinine 0.9 mg/dL (0.7-1.2) Estimat Glomerular Filtration Rate > 60 mL/min (>60) Glucose Level 86 mg/dL (74-106) Calcium Level 7.6 mg/dL (8.6-10.2) L Total Bilirubin 2.7 mg/dL (0.0-1.2) H Direct Bilirubin 1.3 mg/dL (0.1-0.3) H Aspartate Amino Transf (AST/SGOT) 52 U/L (5-40) H Alanine Aminotransferase (ALT/SGPT) 20 U/L (3-41) Alkaline Phosphatase 74 U/L (40-129) Total Protein 5.6 g/dL (6.6-8.7) L Albumin 2.0 g/dL (3.5-5.2) L Globulin 3.6 g/dL Albumin/Globulin Ratio 0.5 (1.0-2.7) L Current Medications Medications (Trade) Dose Ordered Sig/Saturnino Route PRN Reason Start Time Stop Time Status Last Admin Dose Admin Acetaminophen (Tylenol) 650 mg Q4H PRN ORAL T>100.5 09/10/16 17:00 10/10/16 16:59 Al Hydroxide/Mg Hydroxide (Mylanta II) 30 ml Q6H PRN ORAL dyspepsia 09/10/16 17:00 10/10/16 16:59 Clonidine HCl (Catapres) 0.1 mg Q6H PRN ORAL SBP>160 09/11/16 12:00 10/11/16 11:59 Dextrose (Dextrose 50%) STAT PRN IV Hypoglycemia 09/10/16 17:00 10/10/16 16:59 Diphenhydramine HCl (Benadryl) 25 mg Q6H PRN ORAL Itching/Pruritis 09/10/16 17:00 10/10/16 16:59 09/18/16 23:42 Lactulose (Cephulac) 30 gm THREE TIMES A DAY ORAL 09/10/16 18:00 10/10/16 17:59 09/24/16 12:32 Lorazepam (Ativan 2mg/ml 1ml) 0.5 mg Q4H PRN IV For Anxiety 09/20/16 13:45 09/27/16 13:44 Ondansetron HCl (Zofran) 4 mg Q6H PRN IVP Nausea & Vomiting 09/10/16 17:00 10/10/16 16:59 Pantoprazole (Protonix) 40 mg DAILY ORAL 09/15/16 09:00 10/15/16 08:59 09/25/16 08:36 Promethazine HCl/ Codeine (Phenergan with Codeine) 5 ml Q6HR PRN ORAL For Cough 09/15/16 08:30 10/15/16 08:29 09/25/16 08:40 Thiamine HCl (Vitamin B1) 100 mg DAILY ORAL 09/22/16 14:00 10/22/16 13:59 09/25/16 08:36 Vitamin A/Vitamin D (A & D Oint) 1 applic EVERY 12 HOURS TOPIC 09/21/16 09:00 10/21/16 08:59 09/25/16 08:36 Vitamin D (Vitamin D) 1,000 intlu DAILY ORAL 09/22/16 14:00 10/22/16 13:59 09/25/16 08:36 JACQUELINE LUGO M.D. September 25, 2016 09:46
--- NOTE | 2016-09-25 11:50 | GI Progress Note ---
Assessment/Plan Problems: (1) Liver cirrhosis ICD Codes: K74.60 - Unspecified cirrhosis of liver SNOMED: 72268702 (2) LFT elevation ICD Codes: R94.5 - Abnormal results of liver function studies SNOMED: 261634716 (3) Anemia due to acute blood loss ICD Codes: D62 - Acute posthemorrhagic anemia SNOMED: 921729931 (4) Hypoalbuminemia ICD Codes: E88.09 - Other disorders of plasma-protein metabolism, not elsewhere classified SNOMED: 156372931 (5) Gastrointestinal hemorrhage ICD Codes: K92.2 - Gastrointestinal hemorrhage, unspecified SNOMED: 63732127 (6) Alcohol abuse ICD Codes: F10.10 - Alcohol abuse, uncomplicated SNOMED: 32425244 (7) Tear of lower esophagus with hemorrhage ICD Codes: K22.6 - Gastro-esophageal laceration-hemorrhage syndrome SNOMED: 32080565, 625290440 Status: stable Status Narrative Discussed with Dr. Wright. Assessment/Plan S/P EGD - SUMMARY OF FINDINGS: Active bleeding from the distal esophageal tears status post hemoclip x2. US : Evidence of portal hypertension, with borderline splenomegaly, ascites, 09/15 SP paracentesis : Successful ultrasound-guided paracentesis, yielding 1.6 liters of fluid ( no evidence of SBP ) ok for DC per GI standpoint no recurrent active bleed soft diet, tolerating elevated ammonia >> lactulose + Xifaxan stable H&H, transfuse prn PT eval fu labs Subjective Subjective denies any abdominal pain wants to go home Objective Last 24 Hour Vital Signs Date Time Temp Pulse Resp B/P Pulse Ox O2 Delivery O2 Flow Rate FiO2 09/25/16 08:47 97.5 88 15 112/65 97 Room Air 09/25/16 04:00 98.1 78 18 119/69 91 Room Air 09/25/16 00:00 98.2 81 16 102/56 93 Room Air 09/24/16 20:00 98.4 83 16 105/60 91 Room Air 09/24/16 16:00 98.1 88 18 104/64 95 Room Air Intake and Output 09/24/16 09/25/16 19:00 07:00 Intake Total 1320 ml 360 ml Balance 1320 ml 360 ml Intake Oral 1320 ml 360 ml # Voids 1 # Bowel Movements 2 Laboratory Tests Test 09/25/16 05:20 White Blood Count 5.8 K/UL (4.8-10.8) Red Blood Count 3.33 M/UL (4.70-6.10) L Hemoglobin 9.5 G/DL (14.2-18.0) L Hematocrit 29.7 % (42.0-52.0) L Mean Corpuscular Volume 89 FL (80-99) Mean Corpuscular Hemoglobin 28.5 PG (27.0-31.0) Mean Corpuscular Hemoglobin Concent 32.0 G/DL (32.0-36.0) Red Cell Distribution Width 15.9 % (11.6-14.8) H Platelet Count 98 K/UL (150-450) L Mean Platelet Volume 7.0 FL (6.5-10.1) Neutrophils (%) (Auto) % (45.0-75.0) Lymphocytes (%) (Auto) % (20.0-45.0) Monocytes (%) (Auto) % (1.0-10.0) Eosinophils (%) (Auto) % (0.0-3.0) Basophils (%) (Auto) % (0.0-2.0) Differential Total Cells Counted 100 Neutrophils % (Manual) 64 % (45-75) Lymphocytes % (Manual) 20 % (20-45) Monocytes % (Manual) 11 % (1-10) H Eosinophils % (Manual) 4 % (0-3) H Basophils % (Manual) 1 % (0-2) Band Neutrophils 0 % (0-8) Platelet Estimate Decreased L Platelet Morphology Normal Hypochromasia 2+ Anisocytosis 1+ Sodium Level 136 mEQ/L (135-145) Potassium Level 3.9 mEQ/L (3.4-4.9) Chloride Level 101 mEQ/L (98-107) Carbon Dioxide Level 24 mEQ/L (20-30) Anion Gap 11 (5-15) Blood Urea Nitrogen 8 mg/dL (7-23) Creatinine 0.9 mg/dL (0.7-1.2) Estimat Glomerular Filtration Rate > 60 mL/min (>60) Glucose Level 86 mg/dL (74-106) Calcium Level 7.6 mg/dL (8.6-10.2) L Total Bilirubin 2.7 mg/dL (0.0-1.2) H Direct Bilirubin 1.3 mg/dL (0.1-0.3) H Aspartate Amino Transf (AST/SGOT) 52 U/L (5-40) H Alanine Aminotransferase (ALT/SGPT) 20 U/L (3-41) Alkaline Phosphatase 74 U/L (40-129) Total Protein 5.6 g/dL (6.6-8.7) L Albumin 2.0 g/dL (3.5-5.2) L Globulin 3.6 g/dL Albumin/Globulin Ratio 0.5 (1.0-2.7) L Height (Feet): 6 Height (Inches): 3.00 Weight (Pounds): 210 General Appearance: no apparent distress, alert Cardiovascular: normal rate Respiratory/Chest: normal breath sounds, no respiratory distress Abdominal Exam: normal bowel sounds, non tender, soft Mary Norman N.Eliana September 25, 2016 11:50
[2016-09-25 12:15] VITALS: BP 105/58
[2016-09-25] MEDS: chlordiazePOXIDE 25mg Cap ORAL PRN (13:50)
[2016-09-25 15:50] VITALS: BP 99/57
--- NOTE | 2016-09-25 19:29 | Pulmonology Progress Note ---
Assessment/Plan Problems: (1) Anemia due to acute blood loss (2) Alcohol abuse (3) Liver cirrhosis (4) Gastrointestinal hemorrhage (5) Coagulopathy (6) Fever Assessment/Plan neuro consult appreciated lactulose check ammonia level pt/ot social service Subjective ROS Limited/Unobtainable: No Constitutional: Reports: no symptoms HEENT: Repors: no symptoms Respiratory: Reports: no symptoms Allergies: Coded Allergies: No Known Allergies (Unverified , 08/12/16) Objective Last 24 Hour Vital Signs Date Time Temp Pulse Resp B/P Pulse Ox O2 Delivery O2 Flow Rate FiO2 09/25/16 15:50 98.2 85 22 99/57 95 Room Air 09/25/16 12:15 97.8 87 20 105/58 95 Room Air 09/25/16 08:47 97.5 88 15 112/65 97 Room Air 09/25/16 04:00 98.1 78 18 119/69 91 Room Air 09/25/16 00:00 98.2 81 16 102/56 93 Room Air 09/24/16 20:00 98.4 83 16 105/60 91 Room Air Intake and Output 09/24/16 09/25/16 19:00 07:00 Intake Total 1320 ml 360 ml Balance 1320 ml 360 ml Intake Oral 1320 ml 360 ml # Voids 1 # Bowel Movements 2 Objective General Appearance: WD/WN HEENT: normocephalic Respiratory/Chest: chest wall non-tender, lungs clear, normal breath sounds Cardiovascular: normal peripheral pulses, normal rate, regular rhythm Abdomen: normal bowel sounds, soft, non tender, no organomegaly, non distended Extremities: no cyanosis, no clubbing Skin: no rash, no lesions 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 Laboratory Tests 09/25/16 05:20: White Blood Count 5.8, Red Blood Count 3.33L, Hemoglobin 9.5L, Hematocrit 29.7L , Mean Corpuscular Volume 89, Mean Corpuscular Hemoglobin 28.5, Mean Corpuscular Hemoglobin Concent 32.0, Red Cell Distribution Width 15.9H, Platelet Count 98L, Mean Platelet Volume 7.0, Neutrophils (%) (Auto) , Lymphocytes (%) (Auto) , Monocytes (%) (Auto) , Eosinophils (%) (Auto) , Basophils (%) (Auto) , Differential Total Cells Counted 100, Neutrophils % ( Manual) 64, Lymphocytes % (Manual) 20, Monocytes % (Manual) 11H, Eosinophils % ( Manual) 4H, Basophils % (Manual) 1, Band Neutrophils 0, Platelet Estimate DecreasedL, Platelet Morphology Normal, Hypochromasia 2+, Anisocytosis 1+, Sodium Level 136, Potassium Level 3.9, Chloride Level 101, Carbon Dioxide Level 24, Anion Gap 11, Blood Urea Nitrogen 8, Creatinine 0.9, Estimat Glomerular Filtration Rate > 60, Glucose Level 86, Calcium Level 7.6L, Total Bilirubin 2.7H , Direct Bilirubin 1.3H, Aspartate Amino Transf (AST/SGOT) 52H, Alanine Aminotransferase (ALT/SGPT) 20, Alkaline Phosphatase 74, Total Protein 5.6L, Albumin 2.0L, Globulin 3.6, Albumin/Globulin Ratio 0.5L Current Medications Medications (Trade) Dose Ordered Sig/Saturnino Route PRN Reason Start Time Stop Time Status Last Admin Dose Admin Acetaminophen (Tylenol) 650 mg Q4H PRN ORAL T>100.5 09/10/16 17:00 10/10/16 16:59 Al Hydroxide/Mg Hydroxide (Mylanta II) 30 ml Q6H PRN ORAL dyspepsia 09/10/16 17:00 10/10/16 16:59 Chlordiazepoxide (Librium) 25 mg Q8H PRN ORAL Agitation 09/25/16 13:45 10/02/16 13:44 09/25/16 13:50 Clonidine HCl (Catapres) 0.1 mg Q6H PRN ORAL SBP>160 09/11/16 12:00 10/11/16 11:59 Dextrose (Dextrose 50%) STAT PRN IV Hypoglycemia 09/10/16 17:00 10/10/16 16:59 Diphenhydramine HCl (Benadryl) 25 mg Q6H PRN ORAL Itching/Pruritis 09/10/16 17:00 10/10/16 16:59 09/18/16 23:42 Lactulose (Cephulac) 30 gm THREE TIMES A DAY ORAL 09/10/16 18:00 10/10/16 17:59 09/24/16 12:32 Lorazepam (Ativan 2mg/ml 1ml) 0.5 mg Q4H PRN IV For Anxiety 09/20/16 13:45 09/27/16 13:44 Ondansetron HCl (Zofran) 4 mg Q6H PRN IVP Nausea & Vomiting 09/10/16 17:00 10/10/16 16:59 Pantoprazole (Protonix) 40 mg DAILY ORAL 09/15/16 09:00 10/15/16 08:59 09/25/16 08:36 Promethazine HCl/ Codeine (Phenergan with Codeine) 5 ml Q6HR PRN ORAL For Cough 09/15/16 08:30 10/15/16 08:29 09/25/16 08:40 Thiamine HCl (Vitamin B1) 100 mg DAILY ORAL 09/22/16 14:00 10/22/16 13:59 09/25/16 08:36 Vitamin A/Vitamin D (A & D Oint) 1 applic EVERY 12 HOURS TOPIC 09/21/16 09:00 10/21/16 08:59 09/25/16 08:36 Vitamin D (Vitamin D) 1,000 intlu DAILY ORAL 09/22/16 14:00 10/22/16 13:59 09/25/16 08:36 SPENCER BERGER September 25, 2016 19:29
[2016-09-25 20:00] VITALS: BP 93/53
[2016-09-26] VITALS (7 sets, daily range): BP systolic 104–118; BP diastolic 55–73
[2016-09-26 07:19] LABS: MEAN CORPUSCULAR HEMOGLOBIN 28.6 PG (27.0-31.0); MEAN CORPUSCULAR HGB CONC 32.2 G/DL (32.0-36.0); MEAN CORPUSCULAR VOLUME 89 FL (80-99); MEAN PLATELET VOLUME 7.4 FL (6.5-10.1); PLATELET COUNT 98 K/UL (150-450); RED BLOOD COUNT 3.21 M/UL (4.70-6.10); RED CELL DISTRIBUTION WIDTH 16.1 % (11.6-14.8); WHITE BLOOD COUNT 5.7 K/UL (4.8-10.8)
[2016-09-26 07:45] LABS: ANION GAP 12 (5-15); CALCIUM 7.7 mg/dL (8.6-10.2); CARBON DIOXIDE 24 mEQ/L (20-30); CHLORIDE 103 mEQ/L (98-107); CREATININE 0.9 mg/dL (0.7-1.2); GLOMERULAR FILTRATION RATE > 60 mL/min (>60); HEMOLYSIS 1; POTASSIUM 3.9 mEQ/L (3.4-4.9); SODIUM 139 mEQ/L (135-145)
[2016-09-26] MEDS: Vitamin D 1000 IU Tab ORAL SCH (08:38)
[2016-09-26] MEDS: Thiamine 100mg tab ORAL SCH (08:38)
[2016-09-26] MEDS: Lactulose 20gm/30ml UDC ORAL SCH ×3 (08:39→17:05)
[2016-09-26] MEDS: Vitamin A&D Oint 2oz Tube TOPIC SCH ×2 (08:39→21:39)
--- NOTE | 2016-09-26 10:26 | GI Progress Note ---
Assessment/Plan Problems: (1) Liver cirrhosis ICD Codes: K74.60 - Unspecified cirrhosis of liver SNOMED: 57768286 (2) LFT elevation ICD Codes: R94.5 - Abnormal results of liver function studies SNOMED: 544355822 (3) Anemia due to acute blood loss ICD Codes: D62 - Acute posthemorrhagic anemia SNOMED: 978900722 (4) Hypoalbuminemia ICD Codes: E88.09 - Other disorders of plasma-protein metabolism, not elsewhere classified SNOMED: 890582919 (5) Gastrointestinal hemorrhage ICD Codes: K92.2 - Gastrointestinal hemorrhage, unspecified SNOMED: 03470455 (6) Alcohol abuse ICD Codes: F10.10 - Alcohol abuse, uncomplicated SNOMED: 90943264 (7) Tear of lower esophagus with hemorrhage ICD Codes: K22.6 - Gastro-esophageal laceration-hemorrhage syndrome SNOMED: 22696890, 645758110 Status: stable Status Narrative Discussed with Dr. Wright. Assessment/Plan S/P EGD - SUMMARY OF FINDINGS: Active bleeding from the distal esophageal tears status post hemoclip x 2. US : Evidence of portal hypertension, with borderline splenomegaly, ascites, 09/15 SP paracentesis : Successful ultrasound-guided paracentesis, yielding 1.6 liters of fluid ( no evidence of SBP ) ok for DC per GI standpoint no recurrent active bleed soft diet, tolerating elevated ammonia >> lactulose + Xifaxan stable H&H, transfuse prn PT eval fu labs Subjective Subjective denies any abdominal pain wants to go home Objective Last 24 Hour Vital Signs Date Time Temp Pulse Resp B/P Pulse Ox O2 Delivery O2 Flow Rate FiO2 09/26/16 04:00 98.1 79 20 104/62 93 Room Air 09/26/16 00:00 98.8 82 22 109/58 89 Room Air 09/25/16 20:00 98.2 81 22 93/53 90 Room Air 09/25/16 15:50 98.2 85 22 99/57 95 Room Air 09/25/16 12:15 97.8 87 20 105/58 95 Room Air Intake and Output 09/25/16 09/26/16 19:00 07:00 Intake Total 1490 ml Output Total 500 ml 600 ml Balance 990 ml -600 ml Intake Oral 1490 ml Output Urine Total 500 ml 600 ml Laboratory Tests Test 09/26/16 05:20 White Blood Count 5.7 K/UL (4.8-10.8) Red Blood Count 3.21 M/UL (4.70-6.10) L Hemoglobin 9.2 G/DL (14.2-18.0) L Hematocrit 28.5 % (42.0-52.0) L Mean Corpuscular Volume 89 FL (80-99) Mean Corpuscular Hemoglobin 28.6 PG (27.0-31.0) Mean Corpuscular Hemoglobin Concent 32.2 G/DL (32.0-36.0) Red Cell Distribution Width 16.1 % (11.6-14.8) H Platelet Count 98 K/UL (150-450) L Mean Platelet Volume 7.4 FL (6.5-10.1) Neutrophils (%) (Auto) % (45.0-75.0) Lymphocytes (%) (Auto) % (20.0-45.0) Monocytes (%) (Auto) % (1.0-10.0) Eosinophils (%) (Auto) % (0.0-3.0) Basophils (%) (Auto) % (0.0-2.0) Neutrophils % (Manual) Pending Lymphocytes % (Manual) Pending Platelet Estimate Pending Platelet Morphology Pending Sodium Level 139 mEQ/L (135-145) Potassium Level 3.9 mEQ/L (3.4-4.9) Chloride Level 103 mEQ/L (98-107) Carbon Dioxide Level 24 mEQ/L (20-30) Anion Gap 12 (5-15) Blood Urea Nitrogen 8 mg/dL (7-23) Creatinine 0.9 mg/dL (0.7-1.2) Estimat Glomerular Filtration Rate > 60 mL/min (>60) Glucose Level 92 mg/dL (74-106) Calcium Level 7.7 mg/dL (8.6-10.2) L Height (Feet): 6 Height (Inches): 3.00 Weight (Pounds): 210 General Appearance: no apparent distress, alert Cardiovascular: normal rate Respiratory/Chest: normal breath sounds, no respiratory distress Abdominal Exam: non tender, soft Mary Norman N.PRita September 26, 2016 10:26
[2016-09-26 11:58] LABS: BAND NEUTROPHILS % (MANUAL) 0 % (0-8); BASOPHILS % (MANUAL) 0 % (0-2); EOSINOPHILS % (MANUAL) 2 % (0-3); LYMPHOCYTES % (MANUAL) 30 % (20-45); NEUTROPHILS % (MANUAL) 59 % (45-75); PLATELET ESTIMATE DECREASED; TOTAL CELLS COUNTED 100
[2016-09-26 11:59] LABS: ANISOCYTOSIS 1+; HYPOCHROMASIA 1+; PLATELET MORPHOLOGY NORMAL
[2016-09-26] MEDS: chlordiazePOXIDE 25mg Cap ORAL PRN (13:19)
[2016-09-26] MEDS: Promethazine/Codeine 5ml UD ORAL PRN ×2 (15:50→23:35)
--- NOTE | 2016-09-26 18:45 | Infectious Diseases Prog Note ---
Assessment/Plan Assessment/Plan A: The patient is a 50-year-old male w Aspiration pneumonia, SP Rx Possible sepsis , SP Low grade fever, sp US : Evidence of portal hypertension, with borderline splenomegaly, ascites, 09/15 SP paracentesis : Successful ultrasound-guided paracentesis, yielding 1.6 liters of fluid ( no evidence of SBP ) Severe gait ataxia and both lower extremities paraparesis : Neuro is following ALOC / hepatic Encephalopathy improved GI bleed, SP Hx of Alcohol abuse Alcoholic liver cirrhosis. History of portal hypertension PLAN: monitor pt off of AB Rx ( 09/16 SP DC IV Zosyn d# 7 ) CBC Monitor BMP. monitor Chest x-ray, DNR Subjective Constitutional: Denies: anorexia, chills, drenching sweats, fatigue, fever, no symptoms, other Allergies: Coded Allergies: No Known Allergies (Unverified , 08/12/16) Subjective Objective Vital Signs Last 24 Hour Vital Signs Date Time Temp Pulse Resp B/P Pulse Ox O2 Delivery O2 Flow Rate FiO2 09/26/16 17:25 97.9 91 22 109/55 91 Room Air 09/26/16 16:00 97.9 91 22 109/55 91 Room Air 09/26/16 12:00 97.0 89 21 118/73 93 Room Air 09/26/16 08:00 98.2 89 21 109/66 94 Room Air 09/26/16 04:00 98.1 79 20 104/62 93 Room Air 09/26/16 00:00 98.8 82 22 109/58 89 Room Air 09/25/16 20:00 98.2 81 22 93/53 90 Room Air Height (Feet): 6 Height (Inches): 3.00 Weight (Pounds): 210 HEENT: atraumatic Respiratory/Chest: no respiratory distress Cardiovascular: regular rhythm Laboratory Tests Test 09/26/16 05:20 White Blood Count 5.7 K/UL (4.8-10.8) Red Blood Count 3.21 M/UL (4.70-6.10) L Hemoglobin 9.2 G/DL (14.2-18.0) L Hematocrit 28.5 % (42.0-52.0) L Mean Corpuscular Volume 89 FL (80-99) Mean Corpuscular Hemoglobin 28.6 PG (27.0-31.0) Mean Corpuscular Hemoglobin Concent 32.2 G/DL (32.0-36.0) Red Cell Distribution Width 16.1 % (11.6-14.8) H Platelet Count 98 K/UL (150-450) L Mean Platelet Volume 7.4 FL (6.5-10.1) Neutrophils (%) (Auto) % (45.0-75.0) Lymphocytes (%) (Auto) % (20.0-45.0) Monocytes (%) (Auto) % (1.0-10.0) Eosinophils (%) (Auto) % (0.0-3.0) Basophils (%) (Auto) % (0.0-2.0) Differential Total Cells Counted 100 Neutrophils % (Manual) 59 % (45-75) Lymphocytes % (Manual) 30 % (20-45) Monocytes % (Manual) 9 % (1-10) Eosinophils % (Manual) 2 % (0-3) Basophils % (Manual) 0 % (0-2) Band Neutrophils 0 % (0-8) Platelet Estimate Decreased L Platelet Morphology Normal Hypochromasia 1+ Anisocytosis 1+ Sodium Level 139 mEQ/L (135-145) Potassium Level 3.9 mEQ/L (3.4-4.9) Chloride Level 103 mEQ/L (98-107) Carbon Dioxide Level 24 mEQ/L (20-30) Anion Gap 12 (5-15) Blood Urea Nitrogen 8 mg/dL (7-23) Creatinine 0.9 mg/dL (0.7-1.2) Estimat Glomerular Filtration Rate > 60 mL/min (>60) Glucose Level 92 mg/dL (74-106) Calcium Level 7.7 mg/dL (8.6-10.2) L Current Medications Medications (Trade) Dose Ordered Sig/Saturnino Route PRN Reason Start Time Stop Time Status Last Admin Dose Admin Acetaminophen (Tylenol) 650 mg Q4H PRN ORAL T>100.5 09/10/16 17:00 10/10/16 16:59 Al Hydroxide/Mg Hydroxide (Mylanta II) 30 ml Q6H PRN ORAL dyspepsia 09/10/16 17:00 10/10/16 16:59 Chlordiazepoxide (Librium) 25 mg Q8H PRN ORAL Agitation 09/25/16 13:45 10/02/16 13:44 5/5/17 13:19 Clonidine HCl (Catapres) 0.1 mg Q6H PRN ORAL SBP>160 09/11/16 12:00 10/11/16 11:59 Dextrose (Dextrose 50%) STAT PRN IV Hypoglycemia 09/10/16 17:00 10/10/16 16:59 Diphenhydramine HCl (Benadryl) 25 mg Q6H PRN ORAL Itching/Pruritis 09/10/16 17:00 10/10/16 16:59 09/18/16 23:42 Lactulose (Cephulac) 30 gm THREE TIMES A DAY ORAL 09/10/16 18:00 10/10/16 17:59 09/24/16 12:32 Lorazepam (Ativan 2mg/ml 1ml) 0.5 mg Q4H PRN IV For Anxiety 09/20/16 13:45 09/27/16 13:44 Ondansetron HCl (Zofran) 4 mg Q6H PRN IVP Nausea & Vomiting 09/10/16 17:00 10/10/16 16:59 Pantoprazole (Protonix) 40 mg DAILY ORAL 09/15/16 09:00 10/15/16 08:59 09/26/16 08:38 Promethazine HCl/ Codeine (Phenergan with Codeine) 5 ml Q6HR PRN ORAL For Cough 09/15/16 08:30 10/15/16 08:29 09/25/16 08:40 Thiamine HCl (Vitamin B1) 100 mg DAILY ORAL 09/22/16 14:00 10/22/16 13:59 09/26/16 08:38 Vitamin A/Vitamin D (A & D Oint) 1 applic EVERY 12 HOURS TOPIC 09/21/16 09:00 10/21/16 08:59 09/26/16 08:39 Vitamin D (Vitamin D) 1,000 intlu DAILY ORAL 09/22/16 14:00 10/22/16 13:59 09/26/16 08:38 JACQUELINE LUGO M.D. September 26, 2016 18:45
--- NOTE | 2016-09-26 22:24 | Pulmonology Progress Note ---
Assessment/Plan Problems: (1) Anemia due to acute blood loss (2) Alcohol abuse (3) Liver cirrhosis (4) Gastrointestinal hemorrhage (5) Coagulopathy (6) Fever Assessment/Plan lactulose pt/ot social service awaiting placement Subjective ROS Limited/Unobtainable: No Allergies: Coded Allergies: No Known Allergies (Unverified , 08/12/16) Objective Last 24 Hour Vital Signs Date Time Temp Pulse Resp B/P Pulse Ox O2 Delivery O2 Flow Rate FiO2 09/26/16 20:00 98.2 75 20 105/57 91 Room Air 09/26/16 17:25 97.9 91 22 109/55 91 Room Air 09/26/16 16:00 97.9 91 22 109/55 91 Room Air 09/26/16 12:00 97.0 89 21 118/73 93 Room Air 09/26/16 08:00 98.2 89 21 109/66 94 Room Air 09/26/16 04:00 98.1 79 20 104/62 93 Room Air 09/26/16 00:00 98.8 82 22 109/58 89 Room Air Intake and Output 09/25/16 09/26/16 19:00 07:00 Intake Total 1490 ml Output Total 500 ml 600 ml Balance 990 ml -600 ml Intake Oral 1490 ml Output Urine Total 500 ml 600 ml Objective General Appearance: WD/WN HEENT: normocephalic Respiratory/Chest: chest wall non-tender, lungs clear, normal breath sounds Cardiovascular: normal peripheral pulses, normal rate, regular rhythm Abdomen: normal bowel sounds, soft, non tender, no organomegaly, non distended Extremities: no cyanosis, no clubbing Skin: no rash, no lesions 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 Laboratory Tests 09/26/16 05:20: White Blood Count 5.7, Red Blood Count 3.21L, Hemoglobin 9.2L, Hematocrit 28.5L , Mean Corpuscular Volume 89, Mean Corpuscular Hemoglobin 28.6, Mean Corpuscular Hemoglobin Concent 32.2, Red Cell Distribution Width 16.1H, Platelet Count 98L, Mean Platelet Volume 7.4, Neutrophils (%) (Auto) , Lymphocytes (%) (Auto) , Monocytes (%) (Auto) , Eosinophils (%) (Auto) , Basophils (%) (Auto) , Differential Total Cells Counted 100, Neutrophils % ( Manual) 59, Lymphocytes % (Manual) 30, Monocytes % (Manual) 9, Eosinophils % ( Manual) 2, Basophils % (Manual) 0, Band Neutrophils 0, Platelet Estimate DecreasedL, Platelet Morphology Normal, Hypochromasia 1+, Anisocytosis 1+, Sodium Level 139, Potassium Level 3.9, Chloride Level 103, Carbon Dioxide Level 24, Anion Gap 12, Blood Urea Nitrogen 8, Creatinine 0.9, Estimat Glomerular Filtration Rate > 60, Glucose Level 92, Calcium Level 7.7L Current Medications Medications (Trade) Dose Ordered Sig/Saturnino Route PRN Reason Start Time Stop Time Status Last Admin Dose Admin Acetaminophen (Tylenol) 650 mg Q4H PRN ORAL T>100.5 09/10/16 17:00 10/10/16 16:59 Al Hydroxide/Mg Hydroxide (Mylanta II) 30 ml Q6H PRN ORAL dyspepsia 09/10/16 17:00 10/10/16 16:59 Chlordiazepoxide (Librium) 25 mg Q8H PRN ORAL Agitation 09/25/16 13:45 10/02/16 13:44 09/26/16 13:19 Clonidine HCl (Catapres) 0.1 mg Q6H PRN ORAL SBP>160 09/11/16 12:00 10/11/16 11:59 Dextrose (Dextrose 50%) STAT PRN IV Hypoglycemia 09/10/16 17:00 10/10/16 16:59 Diphenhydramine HCl (Benadryl) 25 mg Q6H PRN ORAL Itching/Pruritis 09/10/16 17:00 10/10/16 16:59 09/18/16 23:42 Lactulose (Cephulac) 30 gm THREE TIMES A DAY ORAL 09/10/16 18:00 10/10/16 17:59 09/24/16 12:32 Lorazepam (Ativan 2mg/ml 1ml) 0.5 mg Q4H PRN IV For Anxiety 09/20/16 13:45 09/27/16 13:44 Ondansetron HCl (Zofran) 4 mg Q6H PRN IVP Nausea & Vomiting 09/10/16 17:00 10/10/16 16:59 Pantoprazole (Protonix) 40 mg DAILY ORAL 09/15/16 09:00 10/15/16 08:59 5/5/17 08:38 Promethazine HCl/ Codeine (Phenergan with Codeine) 5 ml Q6HR PRN ORAL For Cough 09/15/16 08:30 10/15/16 08:29 09/26/16 15:50 Thiamine HCl (Vitamin B1) 100 mg DAILY ORAL 09/22/16 14:00 10/22/16 13:59 09/26/16 08:38 Vitamin A/Vitamin D (A & D Oint) 1 applic EVERY 12 HOURS TOPIC 09/21/16 09:00 10/21/16 08:59 09/26/16 21:39 Vitamin D (Vitamin D) 1,000 intlu DAILY ORAL 09/22/16 14:00 10/22/16 13:59 09/26/16 08:38 SPENCER BERGER September 26, 2016 22:24
[2016-09-27] VITALS: BP 103/62
[2016-09-27 04:00] VITALS: BP 100/60
[2016-09-27] MEDS: chlordiazePOXIDE 25mg Cap ORAL PRN ×2 (04:51→22:02)
[2016-09-27 06:30] LABS: BASOPHILS % (AUTO) 1.9 % (0.0-2.0); EOSINOPHILS % (AUTO) 3.4 % (0.0-3.0); LYMPHOCYTES % (AUTO) 23.1 % (20.0-45.0); MEAN CORPUSCULAR HEMOGLOBIN 28.6 PG (27.0-31.0); MEAN CORPUSCULAR VOLUME 89 FL (80-99); MEAN PLATELET VOLUME 7.1 FL (6.5-10.1); MONOCYTES % (AUTO) 11.4 % (1.0-10.0); NEUTROPHILS % (AUTO) 60.2 % (45.0-75.0); PLATELET COUNT 101 K/UL (150-450); RED BLOOD COUNT 3.18 M/UL (4.70-6.10); RED CELL DISTRIBUTION WIDTH 15.7 % (11.6-14.8); WHITE BLOOD COUNT 6.8 K/UL (4.8-10.8)
[2016-09-27 07:28] LABS: ANION GAP 9 (5-15); CALCIUM 7.8 mg/dL (8.6-10.2); CARBON DIOXIDE 26 mEQ/L (20-30); CHLORIDE 103 mEQ/L (98-107); GLOMERULAR FILTRATION RATE > 60 mL/min (>60); HEMOLYSIS 1; SODIUM 138 mEQ/L (135-145)
[2016-09-27 08:00] VITALS: BP 120/71
[2016-09-27] MEDS: Vitamin D 1000 IU Tab ORAL SCH (08:34)
[2016-09-27] MEDS: Thiamine 100mg tab ORAL SCH (08:34)
[2016-09-27] MEDS: Lactulose 20gm/30ml UDC ORAL SCH ×3 (08:35→17:31)
[2016-09-27] MEDS: Vitamin A&D Oint 2oz Tube TOPIC SCH ×2 (08:35→21:00)
[2016-09-27 12:00] VITALS: BP 116/68
[2016-09-27] MEDS: Promethazine/Codeine 5ml UD ORAL PRN (12:38)
[2016-09-27 16:00] VITALS: BP 114/68
--- NOTE | 2016-09-27 17:51 | Cardiology Report ---
APPROVED REPORT EKG Measurement Heart [id number] Sinus tachycardia Otherwise normal ECG
--- NOTE | 2016-09-27 18:34 | Infectious Diseases Prog Note ---
Assessment/Plan Assessment/Plan A: The patient is a 50-year-old male w Aspiration pneumonia, SP Rx Possible sepsis , SP Low grade fever, sp US : Evidence of portal hypertension, with borderline splenomegaly, ascites, 09/15 SP paracentesis : Successful ultrasound-guided paracentesis, yielding 1.6 liters of fluid ( no evidence of SBP ) Severe gait ataxia and both lower extremities paraparesis : Neuro is following ALOC / hepatic Encephalopathy improved GI bleed, SP Hx of Alcohol abuse Alcoholic liver cirrhosis. History of portal hypertension PLAN: monitor pt off of AB Rx ( 09/16 SP DC IV Zosyn d# 7 ) CBC Monitor BMP. monitor Chest x-ray, DNR await placement Subjective Constitutional: Denies: anorexia, chills, drenching sweats, fatigue, fever, no symptoms, other Allergies: Coded Allergies: No Known Allergies (Unverified , 08/12/16) Subjective Objective Vital Signs Last 24 Hour Vital Signs Date Time Temp Pulse Resp B/P Pulse Ox O2 Delivery O2 Flow Rate FiO2 09/27/16 16:00 97.2 79 18 114/68 97 Room Air 09/27/16 12:00 97.7 82 18 116/68 94 Room Air 09/27/16 08:00 97.9 83 18 120/71 95 Room Air 09/27/16 04:00 98.2 83 21 100/60 91 Room Air 09/27/16 00:00 97.9 88 22 103/62 93 Room Air 09/26/16 20:00 98.2 75 20 105/57 91 Room Air Height (Feet): 6 Height (Inches): 3.00 Weight (Pounds): 210 HEENT: anicteric Respiratory/Chest: respiratory distress Cardiovascular: regularly irregular Abdomen: non distended Laboratory Tests Test 09/27/16 05:00 White Blood Count 6.8 K/UL (4.8-10.8) Red Blood Count 3.18 M/UL (4.70-6.10) L Hemoglobin 9.1 G/DL (14.2-18.0) L Hematocrit 28.4 % (42.0-52.0) L Mean Corpuscular Volume 89 FL (80-99) Mean Corpuscular Hemoglobin 28.6 PG (27.0-31.0) Mean Corpuscular Hemoglobin Concent 32.0 G/DL (32.0-36.0) Red Cell Distribution Width 15.7 % (11.6-14.8) H Platelet Count 101 K/UL (150-450) L Mean Platelet Volume 7.1 FL (6.5-10.1) Neutrophils (%) (Auto) 60.2 % (45.0-75.0) Lymphocytes (%) (Auto) 23.1 % (20.0-45.0) Monocytes (%) (Auto) 11.4 % (1.0-10.0) H Eosinophils (%) (Auto) 3.4 % (0.0-3.0) H Basophils (%) (Auto) 1.9 % (0.0-2.0) Sodium Level 138 mEQ/L (135-145) Potassium Level 4.0 mEQ/L (3.4-4.9) Chloride Level 103 mEQ/L (98-107) Carbon Dioxide Level 26 mEQ/L (20-30) Anion Gap 9 (5-15) Blood Urea Nitrogen 9 mg/dL (7-23) Creatinine 1.0 mg/dL (0.7-1.2) Estimat Glomerular Filtration Rate > 60 mL/min (>60) Glucose Level 104 mg/dL (74-106) Calcium Level 7.8 mg/dL (8.6-10.2) L Current Medications Medications (Trade) Dose Ordered Sig/Saturnino Route PRN Reason Start Time Stop Time Status Last Admin Dose Admin Acetaminophen (Tylenol) 650 mg Q4H PRN ORAL T>100.5 09/10/16 17:00 10/10/16 16:59 Al Hydroxide/Mg Hydroxide (Mylanta II) 30 ml Q6H PRN ORAL dyspepsia 09/10/16 17:00 10/10/16 16:59 Chlordiazepoxide (Librium) 25 mg Q8H PRN ORAL Agitation 09/25/16 13:45 10/02/16 13:44 09/27/16 04:51 Clonidine HCl (Catapres) 0.1 mg Q6H PRN ORAL SBP>160 09/11/16 12:00 10/11/16 11:59 Dextrose (Dextrose 50%) STAT PRN IV Hypoglycemia 09/10/16 17:00 10/10/16 16:59 Diphenhydramine HCl (Benadryl) 25 mg Q6H PRN ORAL Itching/Pruritis 09/10/16 17:00 10/10/16 16:59 09/18/16 23:42 Lactulose (Cephulac) 30 gm THREE TIMES A DAY ORAL 09/10/16 18:00 10/10/16 17:59 09/24/16 12:32 Ondansetron HCl (Zofran) 4 mg Q6H PRN IVP Nausea & Vomiting 09/10/16 17:00 10/10/16 16:59 Pantoprazole (Protonix) 40 mg DAILY ORAL 09/15/16 09:00 10/15/16 08:59 09/27/16 08:34 Promethazine HCl/ Codeine (Phenergan with Codeine) 5 ml Q6HR PRN ORAL For Cough 09/15/16 08:30 10/15/16 08:29 09/27/16 12:38 Thiamine HCl (Vitamin B1) 100 mg DAILY ORAL 09/22/16 14:00 10/22/16 13:59 09/27/16 08:34 Vitamin A/Vitamin D (A & D Oint) 1 applic EVERY 12 HOURS TOPIC 09/21/16 09:00 10/21/16 08:59 09/27/16 08:35 Vitamin D (Vitamin D) 1,000 intlu DAILY ORAL 09/22/16 14:00 10/22/16 13:59 09/27/16 08:34 JACQUELINE LUGO M.D. September 27, 2016 18:34
[2016-09-27 20:00] VITALS: BP 112/69
--- NOTE | 2016-09-27 22:13 | Pulmonology Progress Note ---
Assessment/Plan Problems: (1) Anemia due to acute blood loss (2) Alcohol abuse (3) Liver cirrhosis (4) Gastrointestinal hemorrhage (5) Coagulopathy (6) Fever Assessment/Plan lactulose pt/ot social service awaiting placement Subjective Allergies: Coded Allergies: No Known Allergies (Unverified , 08/12/16) Objective Last 24 Hour Vital Signs Date Time Temp Pulse Resp B/P Pulse Ox O2 Delivery O2 Flow Rate FiO2 09/27/16 20:00 97.9 80 20 112/69 92 Room Air 09/27/16 16:00 97.2 79 18 114/68 97 Room Air 09/27/16 12:00 97.7 82 18 116/68 94 Room Air 09/27/16 08:00 97.9 83 18 120/71 95 Room Air 09/27/16 04:00 98.2 83 21 100/60 91 Room Air 09/27/16 00:00 97.9 88 22 103/62 93 Room Air Intake and Output 09/26/16 09/27/16 19:00 07:00 Intake Total 960 ml 600 ml Output Total 400 ml Balance 560 ml 600 ml Intake Oral 960 ml 600 ml Output Urine Total 400 ml # Voids 3 Objective General Appearance: WD/WN HEENT: normocephalic Respiratory/Chest: chest wall non-tender, lungs clear, normal breath sounds Cardiovascular: normal peripheral pulses, normal rate, regular rhythm Abdomen: normal bowel sounds, soft, non tender, no organomegaly, non distended Extremities: no cyanosis, no clubbing Skin: no rash, no lesions 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 Laboratory Tests 09/27/16 05:00: White Blood Count 6.8, Red Blood Count 3.18L, Hemoglobin 9.1L, Hematocrit 28.4L , Mean Corpuscular Volume 89, Mean Corpuscular Hemoglobin 28.6, Mean Corpuscular Hemoglobin Concent 32.0, Red Cell Distribution Width 15.7H, Platelet Count 101L, Mean Platelet Volume 7.1, Neutrophils (%) (Auto) 60.2, Lymphocytes (%) (Auto) 23.1, Monocytes (%) (Auto) 11.4H, Eosinophils (%) (Auto) 3.4H, Basophils (%) (Auto) 1.9, Sodium Level 138, Potassium Level 4.0, Chloride Level 103, Carbon Dioxide Level 26, Anion Gap 9, Blood Urea Nitrogen 9, Creatinine 1.0, Estimat Glomerular Filtration Rate > 60, Glucose Level 104, Calcium Level 7.8L Current Medications Medications (Trade) Dose Ordered Sig/Saturnino Route PRN Reason Start Time Stop Time Status Last Admin Dose Admin Acetaminophen (Tylenol) 650 mg Q4H PRN ORAL T>100.5 09/10/16 17:00 10/10/16 16:59 Al Hydroxide/Mg Hydroxide (Mylanta II) 30 ml Q6H PRN ORAL dyspepsia 09/10/16 17:00 10/10/16 16:59 Chlordiazepoxide (Librium) 25 mg Q8H PRN ORAL Agitation 09/25/16 13:45 10/02/16 13:44 09/27/16 22:02 Clonidine HCl (Catapres) 0.1 mg Q6H PRN ORAL SBP>160 09/11/16 12:00 10/11/16 11:59 Dextrose (Dextrose 50%) STAT PRN IV Hypoglycemia 09/10/16 17:00 10/10/16 16:59 Diphenhydramine HCl (Benadryl) 25 mg Q6H PRN ORAL Itching/Pruritis 09/10/16 17:00 10/10/16 16:59 09/18/16 23:42 Lactulose (Cephulac) 30 gm THREE TIMES A DAY ORAL 09/10/16 18:00 10/10/16 17:59 09/24/16 12:32 Ondansetron HCl (Zofran) 4 mg Q6H PRN IVP Nausea & Vomiting 09/10/16 17:00 10/10/16 16:59 Pantoprazole (Protonix) 40 mg DAILY ORAL 09/15/16 09:00 10/15/16 08:59 09/27/16 08:34 Promethazine HCl/ Codeine (Phenergan with Codeine) 5 ml Q6HR PRN ORAL For Cough 09/15/16 08:30 10/15/16 08:29 09/27/16 12:38 Thiamine HCl (Vitamin B1) 100 mg DAILY ORAL 09/22/16 14:00 10/22/16 13:59 09/27/16 08:34 Vitamin A/Vitamin D (A & D Oint) 1 applic EVERY 12 HOURS TOPIC 09/21/16 09:00 10/21/16 08:59 09/27/16 21:00 Vitamin D (Vitamin D) 1,000 intlu DAILY ORAL 09/22/16 14:00 10/22/16 13:59 09/27/16 08:34 SPENCER BERGER September 27, 2016 22:13
[2016-09-28] VITALS: BP 104/69
[2016-09-28 04:00] VITALS: BP 101/60
[2016-09-28 08:00] VITALS: BP 112/68
[2016-09-28] MEDS: Thiamine 100mg tab ORAL SCH (08:21)
[2016-09-28] MEDS: Vitamin D 1000 IU Tab ORAL SCH (08:21)
[2016-09-28] MEDS: Lactulose 20gm/30ml UDC ORAL SCH ×3 (08:22→17:39)
[2016-09-28] MEDS: Vitamin A&D Oint 2oz Tube TOPIC SCH ×2 (09:00→20:50)
[2016-09-28 12:00] VITALS: BP 110/62
[2016-09-28 16:08] VITALS: BP 112/64
[2016-09-28] MEDS: chlordiazePOXIDE 25mg Cap ORAL PRN (18:18)
[2016-09-28 20:00] VITALS: BP 125/73
--- NOTE | 2016-09-28 23:00 | Pulmonology Progress Note ---
Assessment/Plan Problems: (1) Anemia due to acute blood loss (2) Alcohol abuse (3) Liver cirrhosis (4) Gastrointestinal hemorrhage (5) Coagulopathy (6) Fever Assessment/Plan lactulose pt/ot social service awaiting placement Subjective ROS Limited/Unobtainable: No Allergies: Coded Allergies: No Known Allergies (Unverified , 08/12/16) Objective Last 24 Hour Vital Signs Date Time Temp Pulse Resp B/P Pulse Ox O2 Delivery O2 Flow Rate FiO2 09/28/16 20:00 98.2 87 18 125/73 95 Room Air 09/28/16 16:08 97.7 87 18 112/64 92 Room Air 09/28/16 12:00 97.7 89 18 110/62 95 Room Air 09/28/16 08:00 97.5 82 20 112/68 96 09/28/16 04:00 98.2 82 18 101/60 91 Room Air 09/28/16 00:00 98.2 83 20 104/69 94 Room Air Intake and Output 09/27/16 09/28/16 19:00 07:00 Intake Total 720 ml 440 ml Output Total 750 ml 600 ml Balance -30 ml -160 ml Intake Oral 720 ml 440 ml Output Urine Total 750 ml 600 ml # Bowel Movements 1 Objective General Appearance: WD/WN HEENT: normocephalic Respiratory/Chest: chest wall non-tender, lungs clear, normal breath sounds Cardiovascular: normal peripheral pulses, normal rate, regular rhythm Abdomen: normal bowel sounds, soft, non tender, no organomegaly, non distended Extremities: no cyanosis, no clubbing Skin: no rash, no lesions 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 Current Medications Medications (Trade) Dose Ordered Sig/Saturnino Route PRN Reason Start Time Stop Time Status Last Admin Dose Admin Acetaminophen (Tylenol) 650 mg Q4H PRN ORAL T>100.5 09/10/16 17:00 10/10/16 16:59 Al Hydroxide/Mg Hydroxide (Mylanta II) 30 ml Q6H PRN ORAL dyspepsia 09/10/16 17:00 10/10/16 16:59 Chlordiazepoxide (Librium) 25 mg Q8H PRN ORAL Agitation 09/25/16 13:45 10/02/16 13:44 09/28/16 18:18 Clonidine HCl (Catapres) 0.1 mg Q6H PRN ORAL SBP>160 09/11/16 12:00 10/11/16 11:59 Dextrose (Dextrose 50%) STAT PRN IV Hypoglycemia 09/10/16 17:00 10/10/16 16:59 Diphenhydramine HCl (Benadryl) 25 mg Q6H PRN ORAL Itching/Pruritis 09/10/16 17:00 10/10/16 16:59 09/18/16 23:42 Lactulose (Cephulac) 30 gm THREE TIMES A DAY ORAL 09/10/16 18:00 10/10/16 17:59 09/24/16 12:32 Ondansetron HCl (Zofran) 4 mg Q6H PRN IVP Nausea & Vomiting 09/10/16 17:00 10/10/16 16:59 Pantoprazole (Protonix) 40 mg DAILY ORAL 09/15/16 09:00 10/15/16 08:59 09/28/16 08:20 Promethazine HCl/ Codeine (Phenergan with Codeine) 5 ml Q6HR PRN ORAL For Cough 09/15/16 08:30 10/15/16 08:29 09/27/16 12:38 Thiamine HCl (Vitamin B1) 100 mg DAILY ORAL 09/22/16 14:00 10/22/16 13:59 09/28/16 08:21 Vitamin A/Vitamin D (A & D Oint) 1 applic EVERY 12 HOURS TOPIC 09/21/16 09:00 10/21/16 08:59 09/28/16 20:50 Vitamin D (Vitamin D) 1,000 intlu DAILY ORAL 09/22/16 14:00 10/22/16 13:59 09/28/16 08:21 SPENCER BERGER September 28, 2016 23:00
[2016-09-29] VITALS: BP 118/66
[2016-09-29] MEDS: Promethazine/Codeine 5ml UD ORAL PRN (01:43)
[2016-09-29 04:00] VITALS: BP 112/64
[2016-09-29 08:00] VITALS: BP 116/70
--- NOTE | 2016-09-29 09:40 | Infectious Diseases Prog Note ---
Assessment/Plan Assessment/Plan A: The patient is a 50-year-old male w Aspiration pneumonia, SP Rx Possible sepsis , SP Low grade fever, sp US : Evidence of portal hypertension, with borderline splenomegaly, ascites, 09/15 SP paracentesis : Successful ultrasound-guided paracentesis, yielding 1.6 liters of fluid ( no evidence of SBP ) Severe gait ataxia and both lower extremities paraparesis : Neuro is following ALOC / hepatic Encephalopathy improved GI bleed, SP Hx of Alcohol abuse Alcoholic liver cirrhosis. History of portal hypertension PLAN: monitor pt off of AB Rx ( 09/16 SP DC IV Zosyn d# 7 ) CBC Monitor BMP. monitor Chest x-ray, DNR await placement Subjective Constitutional: Denies: anorexia, chills, drenching sweats, fatigue, fever, no symptoms, other Allergies: Coded Allergies: No Known Allergies (Unverified , 08/12/16) Subjective Objective Vital Signs Last 24 Hour Vital Signs Date Time Temp Pulse Resp B/P Pulse Ox O2 Delivery O2 Flow Rate FiO2 09/29/16 08:00 97.2 82 18 116/70 95 Room Air 09/29/16 04:00 97.8 85 19 112/64 93 Room Air 09/29/16 00:00 97.7 87 18 118/66 94 Room Air 09/28/16 20:00 98.2 87 18 125/73 95 Room Air 09/28/16 16:08 97.7 87 18 112/64 92 Room Air 09/28/16 12:00 97.7 89 18 110/62 95 Room Air Height (Feet): 6 Height (Inches): 3.00 Weight (Pounds): 210 HEENT: anicteric Respiratory/Chest: normal breath sounds Cardiovascular: regular rhythm Abdomen: no organomegaly Current Medications Medications (Trade) Dose Ordered Sig/Saturnino Route PRN Reason Start Time Stop Time Status Last Admin Dose Admin Acetaminophen (Tylenol) 650 mg Q4H PRN ORAL T>100.5 09/10/16 17:00 10/10/16 16:59 Al Hydroxide/Mg Hydroxide (Mylanta II) 30 ml Q6H PRN ORAL dyspepsia 09/10/16 17:00 10/10/16 16:59 Chlordiazepoxide (Librium) 25 mg Q8H PRN ORAL Agitation 09/25/16 13:45 10/02/16 13:44 09/28/16 18:18 Clonidine HCl (Catapres) 0.1 mg Q6H PRN ORAL SBP>160 09/11/16 12:00 10/11/16 11:59 Dextrose (Dextrose 50%) STAT PRN IV Hypoglycemia 09/10/16 17:00 10/10/16 16:59 Diphenhydramine HCl (Benadryl) 25 mg Q6H PRN ORAL Itching/Pruritis 09/10/16 17:00 10/10/16 16:59 09/18/16 23:42 Lactulose (Cephulac) 30 gm THREE TIMES A DAY ORAL 09/10/16 18:00 10/10/16 17:59 09/24/16 12:32 Ondansetron HCl (Zofran) 4 mg Q6H PRN IVP Nausea & Vomiting 09/10/16 17:00 10/10/16 16:59 Pantoprazole (Protonix) 40 mg DAILY ORAL 09/15/16 09:00 10/15/16 08:59 09/28/16 08:20 Promethazine HCl/ Codeine (Phenergan with Codeine) 5 ml Q6HR PRN ORAL For Cough 09/15/16 08:30 10/15/16 08:29 09/29/16 01:43 Thiamine HCl (Vitamin B1) 100 mg DAILY ORAL 09/22/16 14:00 10/22/16 13:59 09/28/16 08:21 Vitamin A/Vitamin D (A & D Oint) 1 applic EVERY 12 HOURS TOPIC 09/21/16 09:00 10/21/16 08:59 09/28/16 20:50 Vitamin D (Vitamin D) 1,000 intlu DAILY ORAL 09/22/16 14:00 10/22/16 13:59 09/28/16 08:21 JACQUELINE LUGO M.D. September 29, 2016 09:40
[2016-09-29] MEDS: Vitamin A&D Oint 2oz Tube TOPIC SCH ×2 (09:59→22:25)
[2016-09-29] MEDS: Lactulose 20gm/30ml UDC ORAL SCH ×3 (10:00→18:00)
[2016-09-29] MEDS: Thiamine 100mg tab ORAL SCH (10:00)
[2016-09-29] MEDS: Vitamin D 1000 IU Tab ORAL SCH (10:00)
[2016-09-29 11:59] VITALS: BP 116/66
--- NOTE | 2016-09-29 13:29 | GI Progress Note ---
Assessment/Plan Problems: (1) Liver cirrhosis ICD Codes: K74.60 - Unspecified cirrhosis of liver SNOMED: 16509498 (2) LFT elevation ICD Codes: R94.5 - Abnormal results of liver function studies SNOMED: 194412003 (3) Anemia due to acute blood loss ICD Codes: D62 - Acute posthemorrhagic anemia SNOMED: 615234959 (4) Hypoalbuminemia ICD Codes: E88.09 - Other disorders of plasma-protein metabolism, not elsewhere classified SNOMED: 954846051 (5) Gastrointestinal hemorrhage ICD Codes: K92.2 - Gastrointestinal hemorrhage, unspecified SNOMED: 79041470 (6) Alcohol abuse ICD Codes: F10.10 - Alcohol abuse, uncomplicated SNOMED: 97714230 (7) Tear of lower esophagus with hemorrhage ICD Codes: K22.6 - Gastro-esophageal laceration-hemorrhage syndrome SNOMED: 03381856, 847693594 Status: stable, unchanged Status Narrative Discussed with Dr. Wright. Assessment/Plan S/P EGD - SUMMARY OF FINDINGS: Active bleeding from the distal esophageal tears status post hemoclip x 2. US : Evidence of portal hypertension, with borderline splenomegaly, ascites, 09/15 SP paracentesis : Successful ultrasound-guided paracentesis, yielding 1.6 liters of fluid ( no evidence of SBP ) ok for DC per GI standpoint no recurrent active bleed soft diet, tolerating elevated ammonia >> lactulose + Xifaxan stable H&H, transfuse prn PT eval fu labs Subjective Gastrointestinal/Abdominal: Reports: no symptoms Subjective denies any abdominal pain wants to go home Objective Last 24 Hour Vital Signs Date Time Temp Pulse Resp B/P Pulse Ox O2 Delivery O2 Flow Rate FiO2 09/29/16 11:59 98.2 79 18 116/66 97 Room Air 09/29/16 08:00 97.2 82 18 116/70 95 Room Air 09/29/16 04:00 97.8 85 19 112/64 93 Room Air 09/29/16 00:00 97.7 87 18 118/66 94 Room Air 09/28/16 20:00 98.2 87 18 125/73 95 Room Air 09/28/16 16:08 97.7 87 18 112/64 92 Room Air Intake and Output 09/28/16 09/29/16 19:00 07:00 Intake Total 840 ml 460 ml Output Total 1100 ml Balance 840 ml -640 ml Intake Oral 840 ml 460 ml Output Urine Total 1100 ml # Voids 4 # Bowel Movements 2 1 Height (Feet): 6 Height (Inches): 3.00 Weight (Pounds): 210 General Appearance: no apparent distress Cardiovascular: normal rate Respiratory/Chest: normal breath sounds, no respiratory distress Abdominal Exam: normal bowel sounds, non tender, soft Mary Norman N.P. September 29, 2016 13:29
[2016-09-29 16:09] VITALS: BP 116/68
[2016-09-29 20:00] VITALS: BP 109/81
[2016-09-30] VITALS (7 sets, daily range): BP systolic 99–121; BP diastolic 56–80
[2016-09-30 07:30] LABS: MEAN CORPUSCULAR HGB CONC 31.2 G/DL (32.0-36.0); MEAN CORPUSCULAR VOLUME 90 FL (80-99); MEAN PLATELET VOLUME 7.3 FL (6.5-10.1); PLATELET COUNT 86 K/UL (150-450); RED BLOOD COUNT 3.34 M/UL (4.70-6.10); RED CELL DISTRIBUTION WIDTH 16.3 % (11.6-14.8); WHITE BLOOD COUNT 4.5 K/UL (4.8-10.8)
[2016-09-30 07:37] LABS: ANION GAP 12 (5-15); CALCIUM 8.1 mg/dL (8.6-10.2); CARBON DIOXIDE 25 mEQ/L (20-30); CHLORIDE 103 mEQ/L (98-107); CREATININE 0.9 mg/dL (0.7-1.2); GLOMERULAR FILTRATION RATE > 60 mL/min (>60); HEMOLYSIS 14; POTASSIUM 3.8 mEQ/L (3.4-4.9); SODIUM 140 mEQ/L (135-145)
[2016-09-30] MEDS: Lactulose 20gm/30ml UDC ORAL SCH ×3 (09:28→17:33)
[2016-09-30] MEDS: Vitamin D 1000 IU Tab ORAL SCH (09:30)
[2016-09-30] MEDS: Thiamine 100mg tab ORAL SCH (09:32)
[2016-09-30] MEDS: Vitamin A&D Oint 2oz Tube TOPIC SCH ×2 (09:33→20:21)
--- NOTE | 2016-09-30 09:59 | Infectious Diseases Prog Note ---
Assessment/Plan Assessment/Plan A: The patient is a 50-year-old male w Aspiration pneumonia, SP Rx Possible sepsis , SP Low grade fever, sp US : Evidence of portal hypertension, with borderline splenomegaly, ascites, 09/15 SP paracentesis : Successful ultrasound-guided paracentesis, yielding 1.6 liters of fluid ( no evidence of SBP ) Severe gait ataxia and both lower extremities paraparesis : Neuro is following ALOC / hepatic Encephalopathy improved GI bleed, SP Hx of Alcohol abuse Alcoholic liver cirrhosis. History of portal hypertension PLAN: monitor pt off of AB Rx ( 09/16 SP DC IV Zosyn d# 7 ) CBC Monitor BMP. monitor Chest x-ray, DNR await placement Subjective Constitutional: Denies: anorexia, chills, drenching sweats, fatigue, fever, no symptoms, other Allergies: Coded Allergies: No Known Allergies (Unverified , 08/12/16) Subjective Objective Vital Signs Last 24 Hour Vital Signs Date Time Temp Pulse Resp B/P Pulse Ox O2 Delivery O2 Flow Rate FiO2 09/30/16 08:03 97.7 87 16 111/67 92 Room Air 09/30/16 04:00 97.9 81 18 110/58 95 Room Air 09/30/16 00:00 98.2 85 18 99/56 93 Room Air 09/29/16 20:00 98.4 86 18 109/81 95 Room Air 09/29/16 16:09 97.6 90 18 116/68 94 Room Air 09/29/16 11:59 98.2 79 18 116/66 97 Room Air Height (Feet): 6 Height (Inches): 3.00 Weight (Pounds): 210 HEENT: mucous membranes moist Respiratory/Chest: no respiratory distress Cardiovascular: regularly irregular Abdomen: non distended Laboratory Tests Test 09/30/16 06:05 White Blood Count 4.5 K/UL (4.8-10.8) L Red Blood Count 3.34 M/UL (4.70-6.10) L Hemoglobin 9.3 G/DL (14.2-18.0) L Hematocrit 29.9 % (42.0-52.0) L Mean Corpuscular Volume 90 FL (80-99) Mean Corpuscular Hemoglobin 28.0 PG (27.0-31.0) Mean Corpuscular Hemoglobin Concent 31.2 G/DL (32.0-36.0) L Red Cell Distribution Width 16.3 % (11.6-14.8) H Platelet Count 86 K/UL (150-450) L Mean Platelet Volume 7.3 FL (6.5-10.1) Neutrophils (%) (Auto) % (45.0-75.0) Lymphocytes (%) (Auto) % (20.0-45.0) Monocytes (%) (Auto) % (1.0-10.0) Eosinophils (%) (Auto) % (0.0-3.0) Basophils (%) (Auto) % (0.0-2.0) Neutrophils % (Manual) Pending Lymphocytes % (Manual) Pending Platelet Estimate Pending Platelet Morphology Pending Sodium Level 140 mEQ/L (135-145) Potassium Level 3.8 mEQ/L (3.4-4.9) Chloride Level 103 mEQ/L (98-107) Carbon Dioxide Level 25 mEQ/L (20-30) Anion Gap 12 (5-15) Blood Urea Nitrogen 7 mg/dL (7-23) Creatinine 0.9 mg/dL (0.7-1.2) Estimat Glomerular Filtration Rate > 60 mL/min (>60) Glucose Level 97 mg/dL (74-106) Calcium Level 8.1 mg/dL (8.6-10.2) L Current Medications Medications (Trade) Dose Ordered Sig/Saturnino Route PRN Reason Start Time Stop Time Status Last Admin Dose Admin Acetaminophen (Tylenol) 650 mg Q4H PRN ORAL T>100.5 09/10/16 17:00 10/10/16 16:59 09/29/16 16:38 Al Hydroxide/Mg Hydroxide (Mylanta II) 30 ml Q6H PRN ORAL dyspepsia 09/10/16 17:00 10/10/16 16:59 Chlordiazepoxide (Librium) 25 mg Q8H PRN ORAL Agitation 09/25/16 13:45 10/02/16 13:44 09/28/16 18:18 Clonidine HCl (Catapres) 0.1 mg Q6H PRN ORAL SBP>160 09/11/16 12:00 10/11/16 11:59 Dextrose (Dextrose 50%) STAT PRN IV Hypoglycemia 09/10/16 17:00 10/10/16 16:59 Diphenhydramine HCl (Benadryl) 25 mg Q6H PRN ORAL Itching/Pruritis 09/10/16 17:00 10/10/16 16:59 09/29/16 22:59 Lactulose (Cephulac) 30 gm THREE TIMES A DAY ORAL 09/10/16 18:00 10/10/16 17:59 09/30/16 09:28 Ondansetron HCl (Zofran) 4 mg Q6H PRN IVP Nausea & Vomiting 09/10/16 17:00 10/10/16 16:59 Pantoprazole (Protonix) 40 mg DAILY ORAL 09/15/16 09:00 10/15/16 08:59 09/30/16 09:31 Promethazine HCl/ Codeine (Phenergan with Codeine) 5 ml Q6HR PRN ORAL For Cough 09/15/16 08:30 10/15/16 08:29 09/29/16 01:43 Thiamine HCl (Vitamin B1) 100 mg DAILY ORAL 09/22/16 14:00 10/22/16 13:59 09/30/16 09:32 Vitamin A/Vitamin D (A & D Oint) 1 applic EVERY 12 HOURS TOPIC 09/21/16 09:00 10/21/16 08:59 09/30/16 09:33 Vitamin D (Vitamin D) 1,000 intlu DAILY ORAL 09/22/16 14:00 10/22/16 13:59 09/30/16 09:30 JACQUELINE LUGO M.D. September 30, 2016 09:59
[2016-09-30 10:06] LABS: ANISOCYTOSIS 1+; BAND NEUTROPHILS % (MANUAL) 0 % (0-8); BASOPHILS % (MANUAL) 0 % (0-2); EOSINOPHILS % (MANUAL) 5 % (0-3); HYPOCHROMASIA 2+; LYMPHOCYTES % (MANUAL) 17 % (20-45); NEUTROPHILS % (MANUAL) 71 % (45-75); PLATELET ESTIMATE DECREASED; PLATELET MORPHOLOGY NORMAL; TOTAL CELLS COUNTED 100
--- NOTE | 2016-09-30 11:21 | GI Progress Note ---
Assessment/Plan Problems: (1) Liver cirrhosis ICD Codes: K74.60 - Unspecified cirrhosis of liver SNOMED: 66777727 (2) LFT elevation ICD Codes: R94.5 - Abnormal results of liver function studies SNOMED: 789099082 (3) Anemia due to acute blood loss ICD Codes: D62 - Acute posthemorrhagic anemia SNOMED: 747667481 (4) Hypoalbuminemia ICD Codes: E88.09 - Other disorders of plasma-protein metabolism, not elsewhere classified SNOMED: 038548929 (5) Gastrointestinal hemorrhage ICD Codes: K92.2 - Gastrointestinal hemorrhage, unspecified SNOMED: 05647377 (6) Alcohol abuse ICD Codes: F10.10 - Alcohol abuse, uncomplicated SNOMED: 42567095 (7) Tear of lower esophagus with hemorrhage ICD Codes: K22.6 - Gastro-esophageal laceration-hemorrhage syndrome SNOMED: 15938908, 863756011 Status: doing well Status Narrative Discussed with Dr. Wright. Assessment/Plan S/P EGD - SUMMARY OF FINDINGS: Active bleeding from the distal esophageal tears status post hemoclip x 2. US : Evidence of portal hypertension, with borderline splenomegaly, ascites, 09/15 SP paracentesis : Successful ultrasound-guided paracentesis, yielding 1.6 liters of fluid ( no evidence of SBP ) ok for DC per GI standpoint no recurrent active bleed soft diet, tolerating elevated ammonia >> lactulose + Xifaxan stable H&H, transfuse prn PT eval fu labs Subjective Gastrointestinal/Abdominal: Reports: no symptoms Subjective denies any abdominal pain Objective Last 24 Hour Vital Signs Date Time Temp Pulse Resp B/P Pulse Ox O2 Delivery O2 Flow Rate FiO2 09/30/16 08:03 97.7 87 16 111/67 92 Room Air 09/30/16 04:00 97.9 81 18 110/58 95 Room Air 09/30/16 00:00 98.2 85 18 99/56 93 Room Air 09/29/16 20:00 98.4 86 18 109/81 95 Room Air 09/29/16 16:09 97.6 90 18 116/68 94 Room Air 09/29/16 11:59 98.2 79 18 116/66 97 Room Air Intake and Output 09/29/16 09/30/16 19:00 07:00 Intake Total 1080 ml 375 ml Output Total 600 ml 975 ml Balance 480 ml -600 ml Intake Oral 1080 ml 375 ml Output Urine Total 600 ml 975 ml # Voids 2 # Bowel Movements 4 1 Laboratory Tests Test 09/30/16 06:05 White Blood Count 4.5 K/UL (4.8-10.8) L Red Blood Count 3.34 M/UL (4.70-6.10) L Hemoglobin 9.3 G/DL (14.2-18.0) L Hematocrit 29.9 % (42.0-52.0) L Mean Corpuscular Volume 90 FL (80-99) Mean Corpuscular Hemoglobin 28.0 PG (27.0-31.0) Mean Corpuscular Hemoglobin Concent 31.2 G/DL (32.0-36.0) L Red Cell Distribution Width 16.3 % (11.6-14.8) H Platelet Count 86 K/UL (150-450) L Mean Platelet Volume 7.3 FL (6.5-10.1) Neutrophils (%) (Auto) % (45.0-75.0) Lymphocytes (%) (Auto) % (20.0-45.0) Monocytes (%) (Auto) % (1.0-10.0) Eosinophils (%) (Auto) % (0.0-3.0) Basophils (%) (Auto) % (0.0-2.0) Differential Total Cells Counted 100 Neutrophils % (Manual) 71 % (45-75) Lymphocytes % (Manual) 17 % (20-45) L Monocytes % (Manual) 7 % (1-10) Eosinophils % (Manual) 5 % (0-3) H Basophils % (Manual) 0 % (0-2) Band Neutrophils 0 % (0-8) Platelet Estimate Decreased L Platelet Morphology Normal Hypochromasia 2+ Anisocytosis 1+ Sodium Level 140 mEQ/L (135-145) Potassium Level 3.8 mEQ/L (3.4-4.9) Chloride Level 103 mEQ/L (98-107) Carbon Dioxide Level 25 mEQ/L (20-30) Anion Gap 12 (5-15) Blood Urea Nitrogen 7 mg/dL (7-23) Creatinine 0.9 mg/dL (0.7-1.2) Estimat Glomerular Filtration Rate > 60 mL/min (>60) Glucose Level 97 mg/dL (74-106) Calcium Level 8.1 mg/dL (8.6-10.2) L Height (Feet): 6 Height (Inches): 3.00 Weight (Pounds): 210 General Appearance: no apparent distress, alert Cardiovascular: normal rate Respiratory/Chest: normal breath sounds, no respiratory distress Abdominal Exam: normal bowel sounds, non tender, soft Mary Norman N.P. September 30, 2016 11:21
[2016-09-30] MEDS: Promethazine/Codeine 5ml UD ORAL PRN (20:20)
[2016-09-30] MEDS: chlordiazePOXIDE 25mg Cap ORAL PRN (22:03)
--- NOTE | 2016-09-30 22:48 | Pulmonology Progress Note ---
Assessment/Plan Problems: (1) Anemia due to acute blood loss (2) Alcohol abuse (3) Liver cirrhosis (4) Gastrointestinal hemorrhage (5) Coagulopathy (6) Fever Assessment/Plan lactulose pt/ot social service awaiting placement Subjective Allergies: Coded Allergies: No Known Allergies (Unverified , 08/12/16) Objective Last 24 Hour Vital Signs Date Time Temp Pulse Resp B/P Pulse Ox O2 Delivery O2 Flow Rate FiO2 09/30/16 20:00 98.2 91 18 121/80 93 Room Air 09/30/16 16:10 98.2 92 20 103/57 93 Room Air 09/30/16 11:52 97.7 86 15 118/73 98 Room Air 09/30/16 08:03 97.7 87 16 111/67 92 Room Air 09/30/16 04:00 97.9 81 18 110/58 95 Room Air 09/30/16 00:00 98.2 85 18 99/56 93 Room Air Intake and Output 09/29/16 09/30/16 19:00 07:00 Intake Total 1080 ml 375 ml Output Total 600 ml 975 ml Balance 480 ml -600 ml Intake Oral 1080 ml 375 ml Output Urine Total 600 ml 975 ml # Voids 2 # Bowel Movements 4 1 Objective General Appearance: WD/WN HEENT: normocephalic Respiratory/Chest: chest wall non-tender, lungs clear, normal breath sounds Cardiovascular: normal peripheral pulses, normal rate, regular rhythm Abdomen: normal bowel sounds, soft, non tender, no organomegaly, non distended Extremities: no cyanosis, no clubbing Skin: no rash, no lesions 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 Laboratory Tests 09/30/16 06:05: White Blood Count 4.5L, Red Blood Count 3.34L, Hemoglobin 9.3L, Hematocrit 29.9L , Mean Corpuscular Volume 90, Mean Corpuscular Hemoglobin 28.0, Mean Corpuscular Hemoglobin Concent 31.2L, Red Cell Distribution Width 16.3H, Platelet Count 86L, Mean Platelet Volume 7.3, Neutrophils (%) (Auto) , Lymphocytes (%) (Auto) , Monocytes (%) (Auto) , Eosinophils (%) (Auto) , Basophils (%) (Auto) , Differential Total Cells Counted 100, Neutrophils % ( Manual) 71, Lymphocytes % (Manual) 17L, Monocytes % (Manual) 7, Eosinophils % ( Manual) 5H, Basophils % (Manual) 0, Band Neutrophils 0, Platelet Estimate DecreasedL, Platelet Morphology Normal, Hypochromasia 2+, Anisocytosis 1+, Sodium Level 140, Potassium Level 3.8, Chloride Level 103, Carbon Dioxide Level 25, Anion Gap 12, Blood Urea Nitrogen 7, Creatinine 0.9, Estimat Glomerular Filtration Rate > 60, Glucose Level 97, Calcium Level 8.1L Current Medications Medications (Trade) Dose Ordered Sig/Saturnino Route PRN Reason Start Time Stop Time Status Last Admin Dose Admin Acetaminophen (Tylenol) 650 mg Q4H PRN ORAL T>100.5 09/10/16 17:00 10/10/16 16:59 09/30/16 17:32 Al Hydroxide/Mg Hydroxide (Mylanta II) 30 ml Q6H PRN ORAL dyspepsia 09/10/16 17:00 10/10/16 16:59 Chlordiazepoxide (Librium) 25 mg Q8H PRN ORAL Agitation 09/25/16 13:45 10/02/16 13:44 09/30/16 22:03 Clonidine HCl (Catapres) 0.1 mg Q6H PRN ORAL SBP>160 09/11/16 12:00 10/11/16 11:59 Dextrose (Dextrose 50%) STAT PRN IV Hypoglycemia 09/10/16 17:00 10/10/16 16:59 Diphenhydramine HCl (Benadryl) 25 mg Q6H PRN ORAL Itching/Pruritis 09/10/16 17:00 10/10/16 16:59 09/29/16 22:59 Lactulose (Cephulac) 30 gm THREE TIMES A DAY ORAL 09/10/16 18:00 10/10/16 17:59 09/30/16 13:11 Ondansetron HCl (Zofran) 4 mg Q6H PRN IVP Nausea & Vomiting 09/10/16 17:00 10/10/16 16:59 Pantoprazole (Protonix) 40 mg DAILY ORAL 09/15/16 09:00 10/15/16 08:59 09/30/16 09:31 Promethazine HCl/ Codeine (Phenergan with Codeine) 5 ml Q6HR PRN ORAL For Cough 09/15/16 08:30 10/15/16 08:29 09/30/16 20:20 Thiamine HCl (Vitamin B1) 100 mg DAILY ORAL 09/22/16 14:00 10/22/16 13:59 09/30/16 09:32 Vitamin A/Vitamin D (A & D Oint) 1 applic EVERY 12 HOURS TOPIC 09/21/16 09:00 10/21/16 08:59 09/30/16 20:21 Vitamin D (Vitamin D) 1,000 intlu DAILY ORAL 09/22/16 14:00 10/22/16 13:59 09/30/16 09:30 SPENCER BERGER September 30, 2016 22:48
[2016-10-01 04:00] VITALS: BP 111/66
[2016-10-01 06:34] LABS: MEAN CORPUSCULAR HEMOGLOBIN 28.5 PG (27.0-31.0); MEAN CORPUSCULAR HGB CONC 31.8 G/DL (32.0-36.0); MEAN CORPUSCULAR VOLUME 90 FL (80-99); MEAN PLATELET VOLUME 6.9 FL (6.5-10.1); PLATELET COUNT 84 K/UL (150-450); RED BLOOD COUNT 2.98 M/UL (4.70-6.10); RED CELL DISTRIBUTION WIDTH 15.9 % (11.6-14.8); WHITE BLOOD COUNT 5.1 K/UL (4.8-10.8)
[2016-10-01 06:54] LABS: ANION GAP 11 (5-15); CALCIUM 7.7 mg/dL (8.6-10.2); CARBON DIOXIDE 25 mEQ/L (20-30); CHLORIDE 103 mEQ/L (98-107); CREATININE 0.9 mg/dL (0.7-1.2); GLOMERULAR FILTRATION RATE > 60 mL/min (>60); HEMOLYSIS 2; POTASSIUM 3.6 mEQ/L (3.4-4.9); SODIUM 139 mEQ/L (135-145)
[2016-10-01 07:45] VITALS: BP 98/57
[2016-10-01 10:03] LABS: ANISOCYTOSIS 1+; BAND NEUTROPHILS % (MANUAL) 0 % (0-8); BASOPHILS % (MANUAL) 1 % (0-2); EOSINOPHILS % (MANUAL) 7 % (0-3); HYPOCHROMASIA 2+; LYMPHOCYTES % (MANUAL) 25 % (20-45); NEUTROPHILS % (MANUAL) 55 % (45-75); PLATELET ESTIMATE DECREASED; PLATELET MORPHOLOGY NORMAL; TOTAL CELLS COUNTED 100
[2016-10-01] MEDS: Vitamin D 1000 IU Tab ORAL SCH (10:18)
[2016-10-01] MEDS: Vitamin A&D Oint 2oz Tube TOPIC SCH ×2 (10:22→21:21)
--- NOTE | 2016-10-01 10:30 | GI Progress Note ---
Assessment/Plan Problems: (1) Liver cirrhosis ICD Codes: K74.60 - Unspecified cirrhosis of liver SNOMED: 78151977 (2) LFT elevation ICD Codes: R94.5 - Abnormal results of liver function studies SNOMED: 824350720 (3) Anemia due to acute blood loss ICD Codes: D62 - Acute posthemorrhagic anemia SNOMED: 956821270 (4) Hypoalbuminemia ICD Codes: E88.09 - Other disorders of plasma-protein metabolism, not elsewhere classified SNOMED: 201612803 (5) Gastrointestinal hemorrhage ICD Codes: K92.2 - Gastrointestinal hemorrhage, unspecified SNOMED: 62433546 (6) Alcohol abuse ICD Codes: F10.10 - Alcohol abuse, uncomplicated SNOMED: 54505487 (7) Tear of lower esophagus with hemorrhage ICD Codes: K22.6 - Gastro-esophageal laceration-hemorrhage syndrome SNOMED: 46803895, 862550589 Status: unchanged Status Narrative Discussed with Dr. Wright. Assessment/Plan S/P EGD - SUMMARY OF FINDINGS: Active bleeding from the distal esophageal tears status post hemoclip x 2. US : Evidence of portal hypertension, with borderline splenomegaly, ascites, 09/15 SP paracentesis : Successful ultrasound-guided paracentesis, yielding 1.6 liters of fluid ( no evidence of SBP ) ok for DC per GI standpoint no recurrent active bleed soft diet, tolerating elevated ammonia >> lactulose + Xifaxan stable H&H, transfuse prn PT eval fu labs Subjective Subjective denies any abdominal pain Objective Last 24 Hour Vital Signs Date Time Temp Pulse Resp B/P Pulse Ox O2 Delivery O2 Flow Rate FiO2 10/01/16 07:45 97.1 97 12 98/57 92 Room Air 10/01/16 04:00 98.1 91 18 111/66 93 Room Air 09/30/16 23:44 98.2 93 18 118/69 91 Room Air 09/30/16 20:00 98.2 91 18 121/80 93 Room Air 09/30/16 16:10 98.2 92 20 103/57 93 Room Air 09/30/16 11:52 97.7 86 15 118/73 98 Room Air Intake and Output 09/30/16 10/01/16 19:00 07:00 Intake Total 1080 ml Output Total 760 ml Balance 1080 ml -760 ml Intake Oral 1080 ml Output Urine Total 760 ml # Voids 2 Laboratory Tests Test 10/01/16 05:00 White Blood Count 5.1 K/UL (4.8-10.8) Red Blood Count 2.98 M/UL (4.70-6.10) L Hemoglobin 8.5 G/DL (14.2-18.0) L Hematocrit 26.7 % (42.0-52.0) L Mean Corpuscular Volume 90 FL (80-99) Mean Corpuscular Hemoglobin 28.5 PG (27.0-31.0) Mean Corpuscular Hemoglobin Concent 31.8 G/DL (32.0-36.0) L Red Cell Distribution Width 15.9 % (11.6-14.8) H Platelet Count 84 K/UL (150-450) L Mean Platelet Volume 6.9 FL (6.5-10.1) Neutrophils (%) (Auto) % (45.0-75.0) Lymphocytes (%) (Auto) % (20.0-45.0) Monocytes (%) (Auto) % (1.0-10.0) Eosinophils (%) (Auto) % (0.0-3.0) Basophils (%) (Auto) % (0.0-2.0) Differential Total Cells Counted 100 Neutrophils % (Manual) 55 % (45-75) Lymphocytes % (Manual) 25 % (20-45) Monocytes % (Manual) 12 % (1-10) H Eosinophils % (Manual) 7 % (0-3) H Basophils % (Manual) 1 % (0-2) Band Neutrophils 0 % (0-8) Platelet Estimate Decreased L Platelet Morphology Normal Hypochromasia 2+ Anisocytosis 1+ Sodium Level 139 mEQ/L (135-145) Potassium Level 3.6 mEQ/L (3.4-4.9) Chloride Level 103 mEQ/L (98-107) Carbon Dioxide Level 25 mEQ/L (20-30) Anion Gap 11 (5-15) Blood Urea Nitrogen 8 mg/dL (7-23) Creatinine 0.9 mg/dL (0.7-1.2) Estimat Glomerular Filtration Rate > 60 mL/min (>60) Glucose Level 104 mg/dL (74-106) Calcium Level 7.7 mg/dL (8.6-10.2) L Height (Feet): 6 Height (Inches): 3.00 Weight (Pounds): 210 General Appearance: no apparent distress, alert Cardiovascular: normal rate Respiratory/Chest: normal breath sounds, no respiratory distress Abdominal Exam: normal bowel sounds, non tender, soft Mary Norman N.P. October 01, 2016 10:30
[2016-10-01] MEDS: Thiamine 100mg tab ORAL SCH (10:52)
[2016-10-01] MEDS: Lactulose 20gm/30ml UDC ORAL SCH ×3 (10:54→18:41)
[2016-10-01 11:08] VITALS: BP 120/70
[2016-10-01] MEDS: Promethazine/Codeine 5ml UD ORAL PRN (11:10)
[2016-10-01 15:23] VITALS: BP 121/64
[2016-10-01] MEDS: chlordiazePOXIDE 25mg Cap ORAL PRN (18:37)
[2016-10-01 19:53] VITALS: BP 111/74
[2016-10-01] MEDS ORDERED: Tubing IV Secondary IV ONE (21:06)
--- NOTE | 2016-10-01 21:45 | Infectious Diseases Prog Note ---
Assessment/Plan Assessment/Plan A: The patient is a 50-year-old male w Aspiration pneumonia, SP Rx Possible sepsis , SP Low grade fever, sp US : Evidence of portal hypertension, with borderline splenomegaly, ascites, 09/15 SP paracentesis : Successful ultrasound-guided paracentesis, yielding 1.6 liters of fluid ( no evidence of SBP ) Severe gait ataxia and both lower extremities paraparesis : Neuro is following ALOC / hepatic Encephalopathy improved GI bleed, SP Hx of Alcohol abuse Alcoholic liver cirrhosis. History of portal hypertension PLAN: monitor pt off of AB Rx ( 09/16 SP DC IV Zosyn d# 7 ) CBC Monitor BMP. monitor Chest x-ray, DNR await placement Subjective Constitutional: Denies: anorexia, chills, drenching sweats, fatigue, fever, no symptoms, other Allergies: Coded Allergies: No Known Allergies (Unverified , 08/12/16) Subjective Objective Vital Signs Last 24 Hour Vital Signs Date Time Temp Pulse Resp B/P Pulse Ox O2 Delivery O2 Flow Rate FiO2 10/01/16 19:53 99.1 94 20 111/74 93 Room Air 10/01/16 15:23 97.0 97 21 121/64 92 Room Air 10/01/16 11:08 98.2 89 14 120/70 97 Room Air 10/01/16 07:45 97.1 97 12 98/57 92 Room Air 10/01/16 04:00 98.1 91 18 111/66 93 Room Air 09/30/16 23:44 98.2 93 18 118/69 91 Room Air Height (Feet): 6 Height (Inches): 3.00 Weight (Pounds): 210 HEENT: anicteric Respiratory/Chest: no respiratory distress Cardiovascular: no gallop/murmur Abdomen: non distended Laboratory Tests Test 10/01/16 05:00 White Blood Count 5.1 K/UL (4.8-10.8) Red Blood Count 2.98 M/UL (4.70-6.10) L Hemoglobin 8.5 G/DL (14.2-18.0) L Hematocrit 26.7 % (42.0-52.0) L Mean Corpuscular Volume 90 FL (80-99) Mean Corpuscular Hemoglobin 28.5 PG (27.0-31.0) Mean Corpuscular Hemoglobin Concent 31.8 G/DL (32.0-36.0) L Red Cell Distribution Width 15.9 % (11.6-14.8) H Platelet Count 84 K/UL (150-450) L Mean Platelet Volume 6.9 FL (6.5-10.1) Neutrophils (%) (Auto) % (45.0-75.0) Lymphocytes (%) (Auto) % (20.0-45.0) Monocytes (%) (Auto) % (1.0-10.0) Eosinophils (%) (Auto) % (0.0-3.0) Basophils (%) (Auto) % (0.0-2.0) Differential Total Cells Counted 100 Neutrophils % (Manual) 55 % (45-75) Lymphocytes % (Manual) 25 % (20-45) Monocytes % (Manual) 12 % (1-10) H Eosinophils % (Manual) 7 % (0-3) H Basophils % (Manual) 1 % (0-2) Band Neutrophils 0 % (0-8) Platelet Estimate Decreased L Platelet Morphology Normal Hypochromasia 2+ Anisocytosis 1+ Sodium Level 139 mEQ/L (135-145) Potassium Level 3.6 mEQ/L (3.4-4.9) Chloride Level 103 mEQ/L (98-107) Carbon Dioxide Level 25 mEQ/L (20-30) Anion Gap 11 (5-15) Blood Urea Nitrogen 8 mg/dL (7-23) Creatinine 0.9 mg/dL (0.7-1.2) Estimat Glomerular Filtration Rate > 60 mL/min (>60) Glucose Level 104 mg/dL (74-106) Calcium Level 7.7 mg/dL (8.6-10.2) L Current Medications Medications (Trade) Dose Ordered Sig/Saturnino Route PRN Reason Start Time Stop Time Status Last Admin Dose Admin Acetaminophen (Tylenol) 650 mg Q4H PRN ORAL T>100.5 09/10/16 17:00 10/10/16 16:59 10/01/16 18:40 Al Hydroxide/Mg Hydroxide (Mylanta II) 30 ml Q6H PRN ORAL dyspepsia 09/10/16 17:00 10/10/16 16:59 Chlordiazepoxide (Librium) 25 mg Q8H PRN ORAL Agitation 09/25/16 13:45 10/02/16 13:44 10/01/16 18:37 Clonidine HCl (Catapres) 0.1 mg Q6H PRN ORAL SBP>160 09/11/16 12:00 10/11/16 11:59 Dextrose (Dextrose 50%) STAT PRN IV Hypoglycemia 09/10/16 17:00 10/10/16 16:59 Diphenhydramine HCl (Benadryl) 25 mg Q6H PRN ORAL Itching/Pruritis 09/10/16 17:00 10/10/16 16:59 10/01/16 00:44 Lactulose (Cephulac) 30 gm THREE TIMES A DAY ORAL 09/10/16 18:00 10/10/16 17:59 10/01/16 18:41 Ondansetron HCl (Zofran) 4 mg Q6H PRN IVP Nausea & Vomiting 09/10/16 17:00 10/10/16 16:59 Pantoprazole (Protonix) 40 mg DAILY ORAL 09/15/16 09:00 10/15/16 08:59 10/01/16 10:21 Promethazine HCl/ Codeine (Phenergan with Codeine) 5 ml Q6HR PRN ORAL For Cough 09/15/16 08:30 10/15/16 08:29 10/01/16 11:10 Thiamine HCl (Vitamin B1) 100 mg DAILY ORAL 09/22/16 14:00 10/22/16 13:59 10/01/16 10:52 Vitamin A/Vitamin D (A & D Oint) 1 applic EVERY 12 HOURS TOPIC 09/21/16 09:00 10/21/16 08:59 10/01/16 21:21 Vitamin D (Vitamin D) 1,000 intlu DAILY ORAL 09/22/16 14:00 10/22/16 13:59 10/01/16 10:18 JACQUELINE LUGO M.D. October 01, 2016 21:45
--- NOTE | 2016-10-01 23:13 | Pulmonology Progress Note ---
Assessment/Plan Problems: (1) Anemia due to acute blood loss (2) Alcohol abuse (3) Liver cirrhosis (4) Gastrointestinal hemorrhage (5) Coagulopathy (6) Fever Assessment/Plan lactulose pt/ot social service awaiting placement Subjective Allergies: Coded Allergies: No Known Allergies (Unverified , 08/12/16) Objective Last 24 Hour Vital Signs Date Time Temp Pulse Resp B/P Pulse Ox O2 Delivery O2 Flow Rate FiO2 10/01/16 19:53 99.1 94 20 111/74 93 Room Air 10/01/16 15:23 97.0 97 21 121/64 92 Room Air 10/01/16 11:08 98.2 89 14 120/70 97 Room Air 10/01/16 07:45 97.1 97 12 98/57 92 Room Air 10/01/16 04:00 98.1 91 18 111/66 93 Room Air 09/30/16 23:44 98.2 93 18 118/69 91 Room Air Intake and Output 09/30/16 10/01/16 19:00 07:00 Intake Total 1080 ml Output Total 760 ml Balance 1080 ml -760 ml Intake Oral 1080 ml Output Urine Total 760 ml # Voids 2 Objective General Appearance: WD/WN HEENT: normocephalic Respiratory/Chest: chest wall non-tender, lungs clear, normal breath sounds Cardiovascular: normal peripheral pulses, normal rate, regular rhythm Abdomen: normal bowel sounds, soft, non tender, no organomegaly, non distended Extremities: no cyanosis, no clubbing Skin: no rash, no lesions 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 Laboratory Tests 10/01/16 05:00: White Blood Count 5.1, Red Blood Count 2.98L, Hemoglobin 8.5L, Hematocrit 26.7L , Mean Corpuscular Volume 90, Mean Corpuscular Hemoglobin 28.5, Mean Corpuscular Hemoglobin Concent 31.8L, Red Cell Distribution Width 15.9H, Platelet Count 84L, Mean Platelet Volume 6.9, Neutrophils (%) (Auto) , Lymphocytes (%) (Auto) , Monocytes (%) (Auto) , Eosinophils (%) (Auto) , Basophils (%) (Auto) , Differential Total Cells Counted 100, Neutrophils % ( Manual) 55, Lymphocytes % (Manual) 25, Monocytes % (Manual) 12H, Eosinophils % ( Manual) 7H, Basophils % (Manual) 1, Band Neutrophils 0, Platelet Estimate DecreasedL, Platelet Morphology Normal, Hypochromasia 2+, Anisocytosis 1+, Sodium Level 139, Potassium Level 3.6, Chloride Level 103, Carbon Dioxide Level 25, Anion Gap 11, Blood Urea Nitrogen 8, Creatinine 0.9, Estimat Glomerular Filtration Rate > 60, Glucose Level 104, Calcium Level 7.7L Current Medications Medications (Trade) Dose Ordered Sig/Saturnino Route PRN Reason Start Time Stop Time Status Last Admin Dose Admin Acetaminophen (Tylenol) 650 mg Q4H PRN ORAL T>100.5 09/10/16 17:00 10/10/16 16:59 10/01/16 18:40 Al Hydroxide/Mg Hydroxide (Mylanta II) 30 ml Q6H PRN ORAL dyspepsia 09/10/16 17:00 10/10/16 16:59 Chlordiazepoxide (Librium) 25 mg Q8H PRN ORAL Agitation 09/25/16 13:45 10/02/16 13:44 10/01/16 18:37 Clonidine HCl (Catapres) 0.1 mg Q6H PRN ORAL SBP>160 09/11/16 12:00 10/11/16 11:59 Dextrose (Dextrose 50%) STAT PRN IV Hypoglycemia 09/10/16 17:00 10/10/16 16:59 Diphenhydramine HCl (Benadryl) 25 mg Q6H PRN ORAL Itching/Pruritis 09/10/16 17:00 10/10/16 16:59 10/01/16 00:44 Lactulose (Cephulac) 30 gm THREE TIMES A DAY ORAL 09/10/16 18:00 10/10/16 17:59 10/01/16 18:41 Ondansetron HCl (Zofran) 4 mg Q6H PRN IVP Nausea & Vomiting 09/10/16 17:00 10/10/16 16:59 Pantoprazole (Protonix) 40 mg DAILY ORAL 09/15/16 09:00 10/15/16 08:59 10/01/16 10:21 Promethazine HCl/ Codeine (Phenergan with Codeine) 5 ml Q6HR PRN ORAL For Cough 09/15/16 08:30 10/15/16 08:29 10/01/16 11:10 Thiamine HCl (Vitamin B1) 100 mg DAILY ORAL 09/22/16 14:00 10/22/16 13:59 10/01/16 10:52 Vitamin A/Vitamin D (A & D Oint) 1 applic EVERY 12 HOURS TOPIC 09/21/16 09:00 10/21/16 08:59 10/01/16 21:21 Vitamin D (Vitamin D) 1,000 intlu DAILY ORAL 09/22/16 14:00 10/22/16 13:59 10/01/16 10:18 SPENCER BERGER October 01, 2016 23:13
[2016-10-01 23:58] VITALS: BP 114/61
[2016-10-02 04:33] VITALS: BP 108/71
[2016-10-02 06:45] LABS: MEAN CORPUSCULAR HEMOGLOBIN 28.1 PG (27.0-31.0); MEAN CORPUSCULAR HGB CONC 31.7 G/DL (32.0-36.0); MEAN CORPUSCULAR VOLUME 89 FL (80-99); MEAN PLATELET VOLUME 7.8 FL (6.5-10.1); PLATELET COUNT 89 K/UL (150-450); RED BLOOD COUNT 3.09 M/UL (4.70-6.10); RED CELL DISTRIBUTION WIDTH 15.9 % (11.6-14.8); WHITE BLOOD COUNT 4.9 K/UL (4.8-10.8)
[2016-10-02 07:05] LABS: ANION GAP 11 (5-15); CALCIUM 7.6 mg/dL (8.6-10.2); CARBON DIOXIDE 23 mEQ/L (20-30); CHLORIDE 105 mEQ/L (98-107); CREATININE 0.8 mg/dL (0.7-1.2); GLOMERULAR FILTRATION RATE > 60 mL/min (>60); HEMOLYSIS 1; POTASSIUM 3.9 mEQ/L (3.4-4.9); SODIUM 139 mEQ/L (135-145)
[2016-10-02 08:02] LABS: BAND NEUTROPHILS % (MANUAL) 0 % (0-8); BASOPHILS % (MANUAL) 0 % (0-2); EOSINOPHILS % (MANUAL) 1 % (0-3); LYMPHOCYTES % (MANUAL) 23 % (20-45); NEUTROPHILS % (MANUAL) 67 % (45-75); PLATELET ESTIMATE DECREASED; PLATELET MORPHOLOGY NORMAL; TOTAL CELLS COUNTED 100
[2016-10-02 08:04] VITALS: BP 112/63
[2016-10-02] MEDS: Lactulose 20gm/30ml UDC ORAL SCH ×3 (08:56→18:00)
[2016-10-02] MEDS: Vitamin A&D Oint 2oz Tube TOPIC SCH ×2 (09:02→20:28)
[2016-10-02] MEDS: Vitamin D 1000 IU Tab ORAL SCH (09:02)
[2016-10-02] MEDS: Thiamine 100mg tab ORAL SCH (09:02)
[2016-10-02] MEDS: Promethazine/Codeine 5ml UD ORAL PRN (09:03)
--- NOTE | 2016-10-02 09:49 | GI Progress Note ---
Assessment/Plan Problems: (1) Liver cirrhosis ICD Codes: K74.60 - Unspecified cirrhosis of liver SNOMED: 07231027 (2) LFT elevation ICD Codes: R94.5 - Abnormal results of liver function studies SNOMED: 990971116 (3) Anemia due to acute blood loss ICD Codes: D62 - Acute posthemorrhagic anemia SNOMED: 694721942 (4) Hypoalbuminemia ICD Codes: E88.09 - Other disorders of plasma-protein metabolism, not elsewhere classified SNOMED: 223611837 (5) Gastrointestinal hemorrhage ICD Codes: K92.2 - Gastrointestinal hemorrhage, unspecified SNOMED: 40144505 (6) Alcohol abuse ICD Codes: F10.10 - Alcohol abuse, uncomplicated SNOMED: 32230490 (7) Tear of lower esophagus with hemorrhage ICD Codes: K22.6 - Gastro-esophageal laceration-hemorrhage syndrome SNOMED: 13145781, 218773647 Status: stable Status Narrative Discussed with Dr. Wright Assessment/Plan S/P EGD - SUMMARY OF FINDINGS: Active bleeding from the distal esophageal tears status post hemoclip x 2. US : Evidence of portal hypertension, with borderline splenomegaly, ascites, 09/15 SP paracentesis : Successful ultrasound-guided paracentesis, yielding 1.6 liters of fluid ( no evidence of SBP ) ok for DC per GI standpoint no recurrent active bleed soft diet, tolerating elevated ammonia >> lactulose + Xifaxan stable H&H, transfuse prn PT eval fu labs Subjective Subjective denies any abdominal pain Objective Last 24 Hour Vital Signs Date Time Temp Pulse Resp B/P Pulse Ox O2 Delivery O2 Flow Rate FiO2 10/02/16 08:04 98.4 96 20 112/63 98 Room Air 10/02/16 04:33 97.7 87 17 108/71 92 Room Air 10/01/16 23:58 97.5 90 17 114/61 93 Room Air 10/01/16 19:53 99.1 94 20 111/74 93 Room Air 10/01/16 15:23 97.0 97 21 121/64 92 Room Air 10/01/16 11:08 98.2 89 14 120/70 97 Room Air Intake and Output 10/01/16 10/02/16 19:00 07:00 # Voids 1 3 # Bowel Movements 1 2 Laboratory Tests Test 10/02/16 04:35 White Blood Count 4.9 K/UL (4.8-10.8) Red Blood Count 3.09 M/UL (4.70-6.10) L Hemoglobin 8.7 G/DL (14.2-18.0) L Hematocrit 27.5 % (42.0-52.0) L Mean Corpuscular Volume 89 FL (80-99) Mean Corpuscular Hemoglobin 28.1 PG (27.0-31.0) Mean Corpuscular Hemoglobin Concent 31.7 G/DL (32.0-36.0) L Red Cell Distribution Width 15.9 % (11.6-14.8) H Platelet Count 89 K/UL (150-450) L Mean Platelet Volume 7.8 FL (6.5-10.1) Neutrophils (%) (Auto) % (45.0-75.0) Lymphocytes (%) (Auto) % (20.0-45.0) Monocytes (%) (Auto) % (1.0-10.0) Eosinophils (%) (Auto) % (0.0-3.0) Basophils (%) (Auto) % (0.0-2.0) Differential Total Cells Counted 100 Neutrophils % (Manual) 67 % (45-75) Lymphocytes % (Manual) 23 % (20-45) Monocytes % (Manual) 9 % (1-10) Eosinophils % (Manual) 1 % (0-3) Basophils % (Manual) 0 % (0-2) Band Neutrophils 0 % (0-8) Platelet Estimate Decreased L Platelet Morphology Normal Red Blood Cell Morphology Normal Sodium Level 139 mEQ/L (135-145) Potassium Level 3.9 mEQ/L (3.4-4.9) Chloride Level 105 mEQ/L (98-107) Carbon Dioxide Level 23 mEQ/L (20-30) Anion Gap 11 (5-15) Blood Urea Nitrogen 6 mg/dL (7-23) L Creatinine 0.8 mg/dL (0.7-1.2) Estimat Glomerular Filtration Rate > 60 mL/min (>60) Glucose Level 116 mg/dL (74-106) H Calcium Level 7.6 mg/dL (8.6-10.2) L Height (Feet): 6 Height (Inches): 3.00 Weight (Pounds): 210 General Appearance: no apparent distress, alert Cardiovascular: normal rate Respiratory/Chest: normal breath sounds, no respiratory distress Abdominal Exam: normal bowel sounds, non tender, soft Mary Norman N.P. October 02, 2016 09:49
--- NOTE | 2016-10-02 11:28 | Infectious Diseases Prog Note ---
Assessment/Plan Assessment/Plan A: The patient is a 50-year-old male w no leukocytosis , Aspiration pneumonia, SP Rx Possible sepsis , SP Low grade fever, sp US : Evidence of portal hypertension, with borderline splenomegaly, ascites, 09/15 SP paracentesis : Successful ultrasound-guided paracentesis, yielding 1.6 liters of fluid ( no evidence of SBP ) Severe gait ataxia and both lower extremities paraparesis : Neuro is following ALOC / hepatic Encephalopathy improved GI bleed, SP Hx of Alcohol abuse Alcoholic liver cirrhosis. History of portal hypertension PLAN: monitor pt off of AB Rx ( 09/16 SP DC IV Zosyn d# 7 ) CBC Monitor BMP. monitor Chest x-ray, DNR await placement Subjective Allergies: Coded Allergies: No Known Allergies (Unverified , 08/12/16) Subjective no pain , afebrile Objective Vital Signs Last 24 Hour Vital Signs Date Time Temp Pulse Resp B/P Pulse Ox O2 Delivery O2 Flow Rate FiO2 10/02/16 08:04 98.4 96 20 112/63 98 Room Air 10/02/16 04:33 97.7 87 17 108/71 92 Room Air 10/01/16 23:58 97.5 90 17 114/61 93 Room Air 10/01/16 19:53 99.1 94 20 111/74 93 Room Air 10/01/16 15:23 97.0 97 21 121/64 92 Room Air Height (Feet): 6 Height (Inches): 3.00 Weight (Pounds): 210 HEENT: anicteric Respiratory/Chest: lungs clear Cardiovascular: normal rate Abdomen: no organomegaly Laboratory Tests Test 10/02/16 04:35 White Blood Count 4.9 K/UL (4.8-10.8) Red Blood Count 3.09 M/UL (4.70-6.10) L Hemoglobin 8.7 G/DL (14.2-18.0) L Hematocrit 27.5 % (42.0-52.0) L Mean Corpuscular Volume 89 FL (80-99) Mean Corpuscular Hemoglobin 28.1 PG (27.0-31.0) Mean Corpuscular Hemoglobin Concent 31.7 G/DL (32.0-36.0) L Red Cell Distribution Width 15.9 % (11.6-14.8) H Platelet Count 89 K/UL (150-450) L Mean Platelet Volume 7.8 FL (6.5-10.1) Neutrophils (%) (Auto) % (45.0-75.0) Lymphocytes (%) (Auto) % (20.0-45.0) Monocytes (%) (Auto) % (1.0-10.0) Eosinophils (%) (Auto) % (0.0-3.0) Basophils (%) (Auto) % (0.0-2.0) Differential Total Cells Counted 100 Neutrophils % (Manual) 67 % (45-75) Lymphocytes % (Manual) 23 % (20-45) Monocytes % (Manual) 9 % (1-10) Eosinophils % (Manual) 1 % (0-3) Basophils % (Manual) 0 % (0-2) Band Neutrophils 0 % (0-8) Platelet Estimate Decreased L Platelet Morphology Normal Red Blood Cell Morphology Normal Sodium Level 139 mEQ/L (135-145) Potassium Level 3.9 mEQ/L (3.4-4.9) Chloride Level 105 mEQ/L (98-107) Carbon Dioxide Level 23 mEQ/L (20-30) Anion Gap 11 (5-15) Blood Urea Nitrogen 6 mg/dL (7-23) L Creatinine 0.8 mg/dL (0.7-1.2) Estimat Glomerular Filtration Rate > 60 mL/min (>60) Glucose Level 116 mg/dL (74-106) H Calcium Level 7.6 mg/dL (8.6-10.2) L Current Medications Medications (Trade) Dose Ordered Sig/Saturnino Route PRN Reason Start Time Stop Time Status Last Admin Dose Admin Acetaminophen (Tylenol) 650 mg Q4H PRN ORAL T>100.5 09/10/16 17:00 10/10/16 16:59 10/01/16 18:40 Al Hydroxide/Mg Hydroxide (Mylanta II) 30 ml Q6H PRN ORAL dyspepsia 09/10/16 17:00 10/10/16 16:59 Chlordiazepoxide (Librium) 25 mg Q8H PRN ORAL Agitation 09/25/16 13:45 10/02/16 13:44 10/01/16 18:37 Clonidine HCl (Catapres) 0.1 mg Q6H PRN ORAL SBP>160 09/11/16 12:00 10/11/16 11:59 Dextrose (Dextrose 50%) STAT PRN IV Hypoglycemia 09/10/16 17:00 10/10/16 16:59 Diphenhydramine HCl (Benadryl) 25 mg Q6H PRN ORAL Itching/Pruritis 09/10/16 17:00 10/10/16 16:59 10/01/16 00:44 Lactulose (Cephulac) 30 gm THREE TIMES A DAY ORAL 09/10/16 18:00 10/10/16 17:59 10/01/16 18:41 Ondansetron HCl (Zofran) 4 mg Q6H PRN IVP Nausea & Vomiting 09/10/16 17:00 10/10/16 16:59 Pantoprazole (Protonix) 40 mg DAILY ORAL 09/15/16 09:00 10/15/16 08:59 10/02/16 09:01 Promethazine HCl/ Codeine (Phenergan with Codeine) 5 ml Q6HR PRN ORAL For Cough 09/15/16 08:30 10/15/16 08:29 10/02/16 09:03 Thiamine HCl (Vitamin B1) 100 mg DAILY ORAL 09/22/16 14:00 10/22/16 13:59 10/02/16 09:02 Vitamin A/Vitamin D (A & D Oint) 1 applic EVERY 12 HOURS TOPIC 09/21/16 09:00 10/21/16 08:59 10/02/16 09:02 Vitamin D (Vitamin D) 1,000 intlu DAILY ORAL 09/22/16 14:00 10/22/16 13:59 10/02/16 09:02 JACQUELINE LUGO M.D. October 02, 2016 11:28
[2016-10-02 11:46] VITALS: BP 115/65
[2016-10-02 15:53] VITALS: BP 122/75
[2016-10-02 20:50] VITALS: BP 111/64
--- NOTE | 2016-10-02 22:53 | Pulmonology Progress Note ---
Assessment/Plan Problems: (1) Anemia due to acute blood loss (2) Alcohol abuse (3) Liver cirrhosis (4) Gastrointestinal hemorrhage (5) Coagulopathy (6) Fever Assessment/Plan lactulose pt/ot social service awaiting placement Subjective ROS Limited/Unobtainable: No Allergies: Coded Allergies: No Known Allergies (Unverified , 08/12/16) Objective Last 24 Hour Vital Signs Date Time Temp Pulse Resp B/P Pulse Ox O2 Delivery O2 Flow Rate FiO2 10/02/16 21:38 98.1 10/02/16 20:50 98.1 86 20 111/64 93 Room Air 10/02/16 15:53 98.2 96 20 122/75 96 Room Air 10/02/16 11:46 98.0 92 20 115/65 98 Room Air 10/02/16 08:04 98.4 96 20 112/63 98 Room Air 10/02/16 04:33 97.7 87 17 108/71 92 Room Air 10/01/16 23:58 97.5 90 17 114/61 93 Room Air Intake and Output 10/01/16 10/02/16 19:00 07:00 # Voids 1 3 # Bowel Movements 1 2 Objective General Appearance: WD/WN HEENT: normocephalic Respiratory/Chest: chest wall non-tender, lungs clear, normal breath sounds Cardiovascular: normal peripheral pulses, normal rate, regular rhythm Abdomen: normal bowel sounds, soft, non tender, no organomegaly, non distended Extremities: no cyanosis, no clubbing Skin: no rash, no lesions 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 Laboratory Tests 10/02/16 04:35: White Blood Count 4.9, Red Blood Count 3.09L, Hemoglobin 8.7L, Hematocrit 27.5L , Mean Corpuscular Volume 89, Mean Corpuscular Hemoglobin 28.1, Mean Corpuscular Hemoglobin Concent 31.7L, Red Cell Distribution Width 15.9H, Platelet Count 89L, Mean Platelet Volume 7.8, Neutrophils (%) (Auto) , Lymphocytes (%) (Auto) , Monocytes (%) (Auto) , Eosinophils (%) (Auto) , Basophils (%) (Auto) , Differential Total Cells Counted 100, Neutrophils % ( Manual) 67, Lymphocytes % (Manual) 23, Monocytes % (Manual) 9, Eosinophils % ( Manual) 1, Basophils % (Manual) 0, Band Neutrophils 0, Platelet Estimate DecreasedL, Platelet Morphology Normal, Red Blood Cell Morphology Normal, Sodium Level 139, Potassium Level 3.9, Chloride Level 105, Carbon Dioxide Level 23, Anion Gap 11, Blood Urea Nitrogen 6L, Creatinine 0.8, Estimat Glomerular Filtration Rate > 60, Glucose Level 116H, Calcium Level 7.6L Current Medications Medications (Trade) Dose Ordered Sig/Saturnino Route PRN Reason Start Time Stop Time Status Last Admin Dose Admin Acetaminophen (Tylenol) 650 mg Q4H PRN ORAL T>100.5 09/10/16 17:00 10/10/16 16:59 10/02/16 20:39 Al Hydroxide/Mg Hydroxide (Mylanta II) 30 ml Q6H PRN ORAL dyspepsia 09/10/16 17:00 10/10/16 16:59 Clonidine HCl (Catapres) 0.1 mg Q6H PRN ORAL SBP>160 09/11/16 12:00 10/11/16 11:59 Dextrose (Dextrose 50%) STAT PRN IV Hypoglycemia 09/10/16 17:00 10/10/16 16:59 Diphenhydramine HCl (Benadryl) 25 mg Q6H PRN ORAL Itching/Pruritis 09/10/16 17:00 10/10/16 16:59 10/02/16 20:27 Lactulose (Cephulac) 30 gm THREE TIMES A DAY ORAL 09/10/16 18:00 10/10/16 17:59 10/01/16 18:41 Ondansetron HCl (Zofran) 4 mg Q6H PRN IVP Nausea & Vomiting 09/10/16 17:00 10/10/16 16:59 Pantoprazole (Protonix) 40 mg DAILY ORAL 09/15/16 09:00 10/15/16 08:59 10/02/16 09:01 Promethazine HCl/ Codeine (Phenergan with Codeine) 5 ml Q6HR PRN ORAL For Cough 09/15/16 08:30 10/15/16 08:29 10/02/16 09:03 Thiamine HCl (Vitamin B1) 100 mg DAILY ORAL 09/22/16 14:00 10/22/16 13:59 10/02/16 09:02 Vitamin A/Vitamin D (A & D Oint) 1 applic EVERY 12 HOURS TOPIC 09/21/16 09:00 10/21/16 08:59 10/02/16 20:28 Vitamin D (Vitamin D) 1,000 intlu DAILY ORAL 09/22/16 14:00 10/22/16 13:59 10/02/16 09:02 SPENCER BERGER October 02, 2016 22:53
[2016-10-03 00:57] VITALS: BP 108/60
[2016-10-03 04:39] VITALS: BP 104/56
[2016-10-03 07:16] LABS: MEAN CORPUSCULAR HEMOGLOBIN 29.4 PG (27.0-31.0); MEAN CORPUSCULAR HGB CONC 33.4 G/DL (32.0-36.0); MEAN CORPUSCULAR VOLUME 88 FL (80-99); MEAN PLATELET VOLUME 6.1 FL (6.5-10.1); PLATELET COUNT 83 K/UL (150-450); RED BLOOD COUNT 2.92 M/UL (4.70-6.10); WHITE BLOOD COUNT 4.2 K/UL (4.8-10.8)
[2016-10-03 07:46] LABS: ANION GAP 12 (5-15); CALCIUM 7.9 mg/dL (8.6-10.2); CARBON DIOXIDE 25 mEQ/L (20-30); CHLORIDE 105 mEQ/L (98-107); CREATININE 0.9 mg/dL (0.7-1.2); GLOMERULAR FILTRATION RATE > 60 mL/min (>60); HEMOLYSIS 2; POTASSIUM 3.5 mEQ/L (3.4-4.9); SODIUM 142 mEQ/L (135-145)
[2016-10-03 08:14] VITALS: BP 111/70
[2016-10-03] MEDS: Thiamine 100mg tab ORAL SCH (08:36)
[2016-10-03] MEDS: Vitamin D 1000 IU Tab ORAL SCH (08:36)
[2016-10-03] MEDS: Vitamin A&D Oint 2oz Tube TOPIC SCH ×2 (08:39→21:20)
[2016-10-03] MEDS: Lactulose 20gm/30ml UDC ORAL SCH ×3 (08:40→17:29)
[2016-10-03 10:17] LABS: ANISOCYTOSIS 1+; BAND NEUTROPHILS % (MANUAL) 0 % (0-8); BASOPHILS % (MANUAL) 0 % (0-2); EOSINOPHILS % (MANUAL) 6 % (0-3); HYPOCHROMASIA 1+; LYMPHOCYTES % (MANUAL) 23 % (20-45); NEUTROPHILS % (MANUAL) 67 % (45-75); PLATELET ESTIMATE DECREASED; PLATELET MORPHOLOGY NORMAL; TOTAL CELLS COUNTED 100
--- NOTE | 2016-10-03 10:48 | GI Progress Note ---
Assessment/Plan Problems: (1) Liver cirrhosis ICD Codes: K74.60 - Unspecified cirrhosis of liver SNOMED: 99518846 (2) LFT elevation ICD Codes: R94.5 - Abnormal results of liver function studies SNOMED: 987376188 (3) Anemia due to acute blood loss ICD Codes: D62 - Acute posthemorrhagic anemia SNOMED: 112926175 (4) Hypoalbuminemia ICD Codes: E88.09 - Other disorders of plasma-protein metabolism, not elsewhere classified SNOMED: 354902086 (5) Gastrointestinal hemorrhage ICD Codes: K92.2 - Gastrointestinal hemorrhage, unspecified SNOMED: 92416740 (6) Alcohol abuse ICD Codes: F10.10 - Alcohol abuse, uncomplicated SNOMED: 84709386 (7) Tear of lower esophagus with hemorrhage ICD Codes: K22.6 - Gastro-esophageal laceration-hemorrhage syndrome SNOMED: 49141898, 620621018 Status: stable, progressing, tolerating diet, ambulating well Status Narrative Discussed with Dr. Wright. Assessment/Plan S/P EGD - SUMMARY OF FINDINGS: Active bleeding from the distal esophageal tears status post hemoclip x 2. US : Evidence of portal hypertension, with borderline splenomegaly, ascites, 09/15 SP paracentesis : Successful ultrasound-guided paracentesis, yielding 1.6 liters of fluid ( no evidence of SBP ) ok for DC per GI standpoint no recurrent active bleed soft diet, tolerating elevated ammonia >> lactulose + Xifaxan stable H&H, transfuse prn PT eval fu labs Subjective Gastrointestinal/Abdominal: Reports: no symptoms Subjective denies any abdominal pain Objective Last 24 Hour Vital Signs Date Time Temp Pulse Resp B/P Pulse Ox O2 Delivery O2 Flow Rate FiO2 10/03/16 08:14 98.6 99 20 111/70 92 Room Air 10/03/16 04:39 97.7 87 20 104/56 92 Room Air 10/03/16 00:57 98.1 70 20 108/60 95 Room Air 10/02/16 21:38 98.1 10/02/16 20:50 98.1 86 20 111/64 93 Room Air 10/02/16 15:53 98.2 96 20 122/75 96 Room Air 10/02/16 11:46 98.0 92 20 115/65 98 Room Air Intake and Output 10/02/16 10/03/16 19:00 07:00 Intake Total 1440 ml Output Total 1280 ml Balance 160 ml Intake Oral 1440 ml Output Urine Total 1280 ml # Voids 3 # Bowel Movements 2 Laboratory Tests Test 10/03/16 05:10 White Blood Count 4.2 K/UL (4.8-10.8) L Red Blood Count 2.92 M/UL (4.70-6.10) L Hemoglobin 8.6 G/DL (14.2-18.0) L Hematocrit 25.8 % (42.0-52.0) L Mean Corpuscular Volume 88 FL (80-99) Mean Corpuscular Hemoglobin 29.4 PG (27.0-31.0) Mean Corpuscular Hemoglobin Concent 33.4 G/DL (32.0-36.0) Red Cell Distribution Width 16.0 % (11.6-14.8) H Platelet Count 83 K/UL (150-450) L Mean Platelet Volume 6.1 FL (6.5-10.1) L Neutrophils (%) (Auto) % (45.0-75.0) Lymphocytes (%) (Auto) % (20.0-45.0) Monocytes (%) (Auto) % (1.0-10.0) Eosinophils (%) (Auto) % (0.0-3.0) Basophils (%) (Auto) % (0.0-2.0) Differential Total Cells Counted 100 Neutrophils % (Manual) 67 % (45-75) Lymphocytes % (Manual) 23 % (20-45) Monocytes % (Manual) 4 % (1-10) Eosinophils % (Manual) 6 % (0-3) H Basophils % (Manual) 0 % (0-2) Band Neutrophils 0 % (0-8) Platelet Estimate Decreased L Platelet Morphology Normal Hypochromasia 1+ Anisocytosis 1+ Sodium Level 142 mEQ/L (135-145) Potassium Level 3.5 mEQ/L (3.4-4.9) Chloride Level 105 mEQ/L (98-107) Carbon Dioxide Level 25 mEQ/L (20-30) Anion Gap 12 (5-15) Blood Urea Nitrogen 5 mg/dL (7-23) L Creatinine 0.9 mg/dL (0.7-1.2) Estimat Glomerular Filtration Rate > 60 mL/min (>60) Glucose Level 138 mg/dL (74-106) H Calcium Level 7.9 mg/dL (8.6-10.2) L Height (Feet): 6 Height (Inches): 3.00 Weight (Pounds): 210 General Appearance: no apparent distress, alert Cardiovascular: normal rate Respiratory/Chest: normal breath sounds, no respiratory distress Abdominal Exam: normal bowel sounds, non tender, soft Mary Norman N.P. October 03, 2016 10:48
[2016-10-03 12:15] VITALS: BP 118/77
[2016-10-03] MEDS: Promethazine/Codeine 5ml UD ORAL PRN (13:20)
[2016-10-03] MEDS: chlordiazePOXIDE 25mg Cap ORAL PRN ×2 (13:40→21:19)
[2016-10-03] MEDS ORDERED: chlordiazePOXIDE 25mg Cap ORAL PRN (14:00)
[2016-10-03] MEDS ORDERED: chlordiazePOXIDE 25mg Cap ORAL ONE (14:00)
--- NOTE | 2016-10-03 16:01 | Pulmonology Progress Note ---
Assessment/Plan Problems: (1) Anemia due to acute blood loss (2) Alcohol abuse (3) Liver cirrhosis (4) Gastrointestinal hemorrhage (5) Coagulopathy (6) Fever Assessment/Plan lactulose pt/ot social service awaiting placement Subjective ROS Limited/Unobtainable: No Allergies: Coded Allergies: No Known Allergies (Unverified , 08/12/16) Objective Last 24 Hour Vital Signs Date Time Temp Pulse Resp B/P Pulse Ox O2 Delivery O2 Flow Rate FiO2 10/03/16 12:15 97.6 78 21 118/77 96 Room Air 10/03/16 08:14 98.6 99 20 111/70 92 Room Air 10/03/16 04:39 97.7 87 20 104/56 92 Room Air 10/03/16 00:57 98.1 70 20 108/60 95 Room Air 10/02/16 21:38 98.1 10/02/16 20:50 98.1 86 20 111/64 93 Room Air Intake and Output 10/02/16 10/03/16 19:00 07:00 Intake Total 1440 ml Output Total 1280 ml Balance 160 ml Intake Oral 1440 ml Output Urine Total 1280 ml # Voids 3 # Bowel Movements 2 Objective General Appearance: WD/WN HEENT: normocephalic Respiratory/Chest: chest wall non-tender, lungs clear, normal breath sounds Cardiovascular: normal peripheral pulses, normal rate, regular rhythm Abdomen: normal bowel sounds, soft, non tender, no organomegaly, non distended Extremities: no cyanosis, no clubbing Skin: no rash, no lesions 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 Laboratory Tests 10/03/16 05:10: White Blood Count 4.2L, Red Blood Count 2.92L, Hemoglobin 8.6L, Hematocrit 25.8L , Mean Corpuscular Volume 88, Mean Corpuscular Hemoglobin 29.4, Mean Corpuscular Hemoglobin Concent 33.4, Red Cell Distribution Width 16.0H, Platelet Count 83L, Mean Platelet Volume 6.1L, Neutrophils (%) (Auto) , Lymphocytes (%) (Auto) , Monocytes (%) (Auto) , Eosinophils (%) (Auto) , Basophils (%) (Auto) , Differential Total Cells Counted 100, Neutrophils % ( Manual) 67, Lymphocytes % (Manual) 23, Monocytes % (Manual) 4, Eosinophils % ( Manual) 6H, Basophils % (Manual) 0, Band Neutrophils 0, Platelet Estimate DecreasedL, Platelet Morphology Normal, Hypochromasia 1+, Anisocytosis 1+, Sodium Level 142, Potassium Level 3.5, Chloride Level 105, Carbon Dioxide Level 25, Anion Gap 12, Blood Urea Nitrogen 5L, Creatinine 0.9, Estimat Glomerular Filtration Rate > 60, Glucose Level 138H, Calcium Level 7.9L Current Medications Medications (Trade) Dose Ordered Sig/Saturn[place] Route PRN Reason Start Time Stop Time Status Last Admin Dose Admin Acetaminophen (Tylenol) 650 mg Q4H PRN ORAL Mild Pain/Temp > 100.5 10/03/16 14:00 11/02/16 13:59 Al Hydroxide/Mg Hydroxide (Mylanta II) 30 ml Q6H PRN ORAL dyspepsia 09/10/16 17:00 10/10/16 16:59 Chlordiazepoxide (Librium) 25 mg Q8H PRN ORAL Agitation 10/03/16 13:30 10/10/16 13:29 10/03/16 13:40 Clonidine HCl (Catapres) 0.1 mg Q6H PRN ORAL SBP>160 09/11/16 12:00 10/11/16 11:59 Dextrose (Dextrose 50%) STAT PRN IV Hypoglycemia 09/10/16 17:00 10/10/16 16:59 Diphenhydramine HCl (Benadryl) 25 mg Q6H PRN ORAL Itching/Pruritis 09/10/16 17:00 10/10/16 16:59 10/02/16 20:27 Lactulose (Cephulac) 30 gm THREE TIMES A DAY ORAL 09/10/16 18:00 10/10/16 17:59 10/01/16 18:41 Ondansetron HCl (Zofran) 4 mg Q6H PRN IVP Nausea & Vomiting 09/10/16 17:00 10/10/16 16:59 Pantoprazole (Protonix) 40 mg DAILY ORAL 09/15/16 09:00 10/15/16 08:59 10/03/16 08:35 Promethazine HCl/ Codeine (Phenergan with Codeine) 5 ml Q6HR PRN ORAL For Cough 09/15/16 08:30 10/15/16 08:29 10/03/16 13:20 Thiamine HCl (Vitamin B1) 100 mg DAILY ORAL 09/22/16 14:00 10/22/16 13:59 10/03/16 08:36 Vitamin A/Vitamin D (A & D Oint) 1 applic EVERY 12 HOURS TOPIC 09/21/16 09:00 10/21/16 08:59 10/03/16 08:39 Vitamin D (Vitamin D) 1,000 intlu DAILY ORAL 09/22/16 14:00 10/22/16 13:59 10/03/16 08:36 SPENCER BERGER October 03, 2016 16:01
[2016-10-03 16:15] VITALS: BP 107/52
--- NOTE | 2016-10-03 16:50 | Infectious Diseases Prog Note ---
Assessment/Plan Assessment/Plan ASSESSMENT: 50-year-old male with: Aspiration pneumonia SP Rx Possible sepsis SP Low grade fever - resolved, no leukocytosis US : Evidence of portal hypertension, with borderline splenomegaly, ascites, 09/15 SP paracentesis : Successful ultrasound-guided paracentesis, yielding 1.6 liters of fluid ( no evidence of SBP ) Severe gait ataxia and both lower extremities paraparesis : Neuro is following ALOC / hepatic Encephalopathy improved GI bleed, SP Hx of Alcohol abuse Alcoholic liver cirrhosis. History of portal hypertension NKDA Full Code PLAN: ok to DC off of AB Rx from ID standpoint ( 09/16 SP IV Zosyn d# 7 ) monitor CBC, temperatures, re-culture if acute change Monitor BMP. monitor Chest x-ray await placement Subjective Allergies: Coded Allergies: No Known Allergies (Unverified , 08/12/16) Subjective remains afebrile awaiting placement Objective Vital Signs Last 24 Hour Vital Signs Date Time Temp Pulse Resp B/P Pulse Ox O2 Delivery O2 Flow Rate FiO2 10/03/16 16:15 98.1 93 21 107/52 95 Room Air 10/03/16 12:15 97.6 78 21 118/77 96 Room Air 10/03/16 08:14 98.6 99 20 111/70 92 Room Air 10/03/16 04:39 97.7 87 20 104/56 92 Room Air 10/03/16 00:57 98.1 70 20 108/60 95 Room Air 10/02/16 21:38 98.1 10/02/16 20:50 98.1 86 20 111/64 93 Room Air Height (Feet): 6 Height (Inches): 3.00 Weight (Pounds): 210 General Appearance: no acute distress Respiratory/Chest: no respiratory distress Cardiovascular: normal rate, regular rhythm Abdomen: normal bowel sounds, soft, non tender, non distended Laboratory Tests Test 10/03/16 05:10 White Blood Count 4.2 K/UL (4.8-10.8) L Red Blood Count 2.92 M/UL (4.70-6.10) L Hemoglobin 8.6 G/DL (14.2-18.0) L Hematocrit 25.8 % (42.0-52.0) L Mean Corpuscular Volume 88 FL (80-99) Mean Corpuscular Hemoglobin 29.4 PG (27.0-31.0) Mean Corpuscular Hemoglobin Concent 33.4 G/DL (32.0-36.0) Red Cell Distribution Width 16.0 % (11.6-14.8) H Platelet Count 83 K/UL (150-450) L Mean Platelet Volume 6.1 FL (6.5-10.1) L Neutrophils (%) (Auto) % (45.0-75.0) Lymphocytes (%) (Auto) % (20.0-45.0) Monocytes (%) (Auto) % (1.0-10.0) Eosinophils (%) (Auto) % (0.0-3.0) Basophils (%) (Auto) % (0.0-2.0) Differential Total Cells Counted 100 Neutrophils % (Manual) 67 % (45-75) Lymphocytes % (Manual) 23 % (20-45) Monocytes % (Manual) 4 % (1-10) Eosinophils % (Manual) 6 % (0-3) H Basophils % (Manual) 0 % (0-2) Band Neutrophils 0 % (0-8) Platelet Estimate Decreased L Platelet Morphology Normal Hypochromasia 1+ Anisocytosis 1+ Sodium Level 142 mEQ/L (135-145) Potassium Level 3.5 mEQ/L (3.4-4.9) Chloride Level 105 mEQ/L (98-107) Carbon Dioxide Level 25 mEQ/L (20-30) Anion Gap 12 (5-15) Blood Urea Nitrogen 5 mg/dL (7-23) L Creatinine 0.9 mg/dL (0.7-1.2) Estimat Glomerular Filtration Rate > 60 mL/min (>60) Glucose Level 138 mg/dL (74-106) H Calcium Level 7.9 mg/dL (8.6-10.2) L Current Medications Medications (Trade) Dose Ordered Sig/Saturn[place] Route PRN Reason Start Time Stop Time Status Last Admin Dose Admin Acetaminophen (Tylenol) 650 mg Q4H PRN ORAL Mild Pain/Temp > 100.5 10/03/16 14:00 11/02/16 13:59 Al Hydroxide/Mg Hydroxide (Mylanta II) 30 ml Q6H PRN ORAL dyspepsia 09/10/16 17:00 10/10/16 16:59 Chlordiazepoxide (Librium) 25 mg Q8H PRN ORAL Agitation 5/12/17 13:30 10/10/16 13:29 10/03/16 13:40 Clonidine HCl (Catapres) 0.1 mg Q6H PRN ORAL SBP>160 09/11/16 12:00 10/11/16 11:59 Dextrose (Dextrose 50%) STAT PRN IV Hypoglycemia 09/10/16 17:00 10/10/16 16:59 Diphenhydramine HCl (Benadryl) 25 mg Q6H PRN ORAL Itching/Pruritis 09/10/16 17:00 10/10/16 16:59 10/02/16 20:27 Lactulose (Cephulac) 30 gm THREE TIMES A DAY ORAL 09/10/16 18:00 10/10/16 17:59 10/01/16 18:41 Ondansetron HCl (Zofran) 4 mg Q6H PRN IVP Nausea & Vomiting 09/10/16 17:00 10/10/16 16:59 Pantoprazole (Protonix) 40 mg DAILY ORAL 09/15/16 09:00 10/15/16 08:59 10/03/16 08:35 Promethazine HCl/ Codeine (Phenergan with Codeine) 5 ml Q6HR PRN ORAL For Cough 09/15/16 08:30 10/15/16 08:29 10/03/16 13:20 Thiamine HCl (Vitamin B1) 100 mg DAILY ORAL 09/22/16 14:00 10/22/16 13:59 10/03/16 08:36 Vitamin A/Vitamin D (A & D Oint) 1 applic EVERY 12 HOURS TOPIC 09/21/16 09:00 10/21/16 08:59 10/03/16 08:39 Vitamin D (Vitamin D) 1,000 intlu DAILY ORAL 09/22/16 14:00 10/22/16 13:59 10/03/16 08:36 CAREN WILSON October 03, 2016 16:50
[2016-10-03 20:00] VITALS: BP 110/71
[2016-10-04] VITALS: BP 112/63
[2016-10-04 04:00] VITALS: BP 114/63
[2016-10-04 07:03] LABS: MEAN CORPUSCULAR HEMOGLOBIN 28.6 PG (27.0-31.0); MEAN CORPUSCULAR HGB CONC 32.6 G/DL (32.0-36.0); MEAN CORPUSCULAR VOLUME 88 FL (80-99); MEAN PLATELET VOLUME 7.7 FL (6.5-10.1); PLATELET COUNT 88 K/UL (150-450); RED CELL DISTRIBUTION WIDTH 15.5 % (11.6-14.8); WHITE BLOOD COUNT 4.9 K/UL (4.8-10.8)
[2016-10-04 07:17] LABS: ANION GAP 13 (5-15); CALCIUM 7.9 mg/dL (8.6-10.2); CARBON DIOXIDE 23 mEQ/L (20-30); CHLORIDE 105 mEQ/L (98-107); CREATININE 0.9 mg/dL (0.7-1.2); GLOMERULAR FILTRATION RATE > 60 mL/min (>60); HEMOLYSIS 30; POTASSIUM 3.7 mEQ/L (3.4-4.9); SODIUM 141 mEQ/L (135-145)
[2016-10-04 08:26] VITALS: BP 115/70
--- NOTE | 2016-10-04 08:26 | General Progress Note ---
Assessment/Plan Problem List: (1) Alcohol abuse ICD Codes: F10.10 - Alcohol abuse, uncomplicated SNOMED: 38959064 (2) Gastrointestinal hemorrhage ICD Codes: K92.2 - Gastrointestinal hemorrhage, unspecified SNOMED: 64339973 (3) Hypoalbuminemia ICD Codes: E88.09 - Other disorders of plasma-protein metabolism, not elsewhere classified SNOMED: 559145662 (4) Liver cirrhosis ICD Codes: K74.60 - Unspecified cirrhosis of liver SNOMED: 24758334 (5) Coagulopathy ICD Codes: D68.9 - Coagulation defect, unspecified SNOMED: 97325480 (6) Hepatic encephalopathy ICD Codes: K72.90 - Hepatic failure, unspecified without coma SNOMED: 71972486 Assessment/Plan no recurrent active bleed lactulose and xifaxan fu labs pend placement Subjective ROS Limited/Unobtainable: Yes Allergies: Coded Allergies: No Known Allergies (Unverified , 08/12/16) Subjective no event Objective Last 24 Hour Vital Signs Date Time Temp Pulse Resp B/P Pulse Ox O2 Delivery O2 Flow Rate FiO2 10/04/16 04:00 98.1 74 18 114/63 100 Room Air 10/04/16 00:00 97.9 81 20 112/63 100 Room Air 10/03/16 20:00 98.1 79 18 110/71 99 Room Air 10/03/16 16:15 98.1 93 21 107/52 95 Room Air 10/03/16 12:15 97.6 78 21 118/77 96 Room Air Intake and Output 10/03/16 10/04/16 19:00 07:00 Intake Total 900 ml Balance 900 ml Intake Oral 900 ml # Voids 3 3 # Bowel Movements 2 1 Laboratory Tests 10/04/16 05:05: White Blood Count 4.9, Red Blood Count 3.00L, Hemoglobin 8.6L, Hematocrit 26.3L , Mean Corpuscular Volume 88, Mean Corpuscular Hemoglobin 28.6, Mean Corpuscular Hemoglobin Concent 32.6, Red Cell Distribution Width 15.5H, Platelet Count 88L, Mean Platelet Volume 7.7, Neutrophils (%) (Auto) , Lymphocytes (%) (Auto) , Monocytes (%) (Auto) , Eosinophils (%) (Auto) , Basophils (%) (Auto) , Neutrophils % (Manual) [Pending], Lymphocytes % (Manual) [Pending], Platelet Estimate [Pending], Platelet Morphology [Pending], Sodium Level 141, Potassium Level 3.7, Chloride Level 105, Carbon Dioxide Level 23, Anion Gap 13, Blood Urea Nitrogen 5L, Creatinine 0.9, Estimat Glomerular Filtration Rate > 60, Glucose Level 130H, Calcium Level 7.9L Height (Feet): 6 Height (Inches): 3.00 Weight (Pounds): 210 General Appearance: alert EENT: normal ENT inspection Neck: supple Cardiovascular: normal rate Respiratory/Chest: lungs clear Abdomen: non tender, soft, hypoactive bowel sounds Extremities: non-tender GURWINDER STANLEY October 04, 2016 08:26
[2016-10-04] MEDS: Vitamin A&D Oint 2oz Tube TOPIC SCH ×2 (08:48→20:27)
[2016-10-04] MEDS: Lactulose 20gm/30ml UDC ORAL SCH ×3 (08:48→17:21)
[2016-10-04] MEDS: Thiamine 100mg tab ORAL SCH (08:48)
[2016-10-04] MEDS: Vitamin D 1000 IU Tab ORAL SCH (08:48)
[2016-10-04 11:17] LABS: ANISOCYTOSIS 1+; BAND NEUTROPHILS % (MANUAL) 0 % (0-8); BASOPHILS % (MANUAL) 2 % (0-2); EOSINOPHILS % (MANUAL) 8 % (0-3); HYPOCHROMASIA 2+; LYMPHOCYTES % (MANUAL) 31 % (20-45); NEUTROPHILS % (MANUAL) 48 % (45-75); PLATELET ESTIMATE DECREASED; PLATELET MORPHOLOGY NORMAL; TOTAL CELLS COUNTED 100
[2016-10-04 12:08] VITALS: BP 138/77
[2016-10-04] MEDS: chlordiazePOXIDE 25mg Cap ORAL PRN ×2 (14:42→22:52)
[2016-10-04 15:32] VITALS: BP 110/63
[2016-10-04 20:00] VITALS: BP 123/71
--- NOTE | 2016-10-04 20:28 | Infectious Diseases Prog Note ---
Assessment/Plan Assessment/Plan ASSESSMENT: 50-year-old male with: Aspiration pneumonia SP Rx Possible sepsis SP Low grade fever - resolved, no leukocytosis US : Evidence of portal hypertension, with borderline splenomegaly, ascites, 09/15 SP paracentesis : Successful ultrasound-guided paracentesis, yielding 1.6 liters of fluid ( no evidence of SBP ) Severe gait ataxia and both lower extremities paraparesis : Neuro is following ALOC / hepatic Encephalopathy improved GI bleed, SP Hx of Alcohol abuse Alcoholic liver cirrhosis. History of portal hypertension NKDA Full Code PLAN: ok to DC off of AB Rx from ID standpoint ( 09/16 SP IV Zosyn d# 7 ) monitor CBC, temperatures, re-culture if acute change Monitor BMP. monitor Chest x-ray await placement Subjective Allergies: Coded Allergies: No Known Allergies (Unverified , 08/12/16) Subjective remains afebrile awaiting placement Objective Vital Signs Last 24 Hour Vital Signs Date Time Temp Pulse Resp B/P Pulse Ox O2 Delivery O2 Flow Rate FiO2 10/04/16 20:00 98.1 93 20 123/71 94 Room Air 10/04/16 15:41 98.2 10/04/16 15:32 98.2 94 20 110/63 95 Room Air 10/04/16 12:08 98.4 97 20 138/77 95 Room Air 10/04/16 08:26 97.8 104 20 115/70 95 Room Air 10/04/16 04:00 98.1 74 18 114/63 100 Room Air 10/04/16 00:00 97.9 81 20 112/63 100 Room Air Height (Feet): 6 Height (Inches): 3.00 Weight (Pounds): 210 General Appearance: no acute distress Respiratory/Chest: no respiratory distress Cardiovascular: normal rate, regular rhythm Abdomen: normal bowel sounds, soft, non tender, non distended Laboratory Tests Test 10/04/16 05:05 White Blood Count 4.9 K/UL (4.8-10.8) Red Blood Count 3.00 M/UL (4.70-6.10) L Hemoglobin 8.6 G/DL (14.2-18.0) L Hematocrit 26.3 % (42.0-52.0) L Mean Corpuscular Volume 88 FL (80-99) Mean Corpuscular Hemoglobin 28.6 PG (27.0-31.0) Mean Corpuscular Hemoglobin Concent 32.6 G/DL (32.0-36.0) Red Cell Distribution Width 15.5 % (11.6-14.8) H Platelet Count 88 K/UL (150-450) L Mean Platelet Volume 7.7 FL (6.5-10.1) Neutrophils (%) (Auto) % (45.0-75.0) Lymphocytes (%) (Auto) % (20.0-45.0) Monocytes (%) (Auto) % (1.0-10.0) Eosinophils (%) (Auto) % (0.0-3.0) Basophils (%) (Auto) % (0.0-2.0) Differential Total Cells Counted 100 Neutrophils % (Manual) 48 % (45-75) Lymphocytes % (Manual) 31 % (20-45) Monocytes % (Manual) 11 % (1-10) H Eosinophils % (Manual) 8 % (0-3) H Basophils % (Manual) 2 % (0-2) Band Neutrophils 0 % (0-8) Platelet Estimate Decreased L Platelet Morphology Normal Hypochromasia 2+ Anisocytosis 1+ Sodium Level 141 mEQ/L (135-145) Potassium Level 3.7 mEQ/L (3.4-4.9) Chloride Level 105 mEQ/L (98-107) Carbon Dioxide Level 23 mEQ/L (20-30) Anion Gap 13 (5-15) Blood Urea Nitrogen 5 mg/dL (7-23) L Creatinine 0.9 mg/dL (0.7-1.2) Estimat Glomerular Filtration Rate > 60 mL/min (>60) Glucose Level 130 mg/dL (74-106) H Calcium Level 7.9 mg/dL (8.6-10.2) L Current Medications Medications (Trade) Dose Ordered Sig/Saturnino Route PRN Reason Start Time Stop Time Status Last Admin Dose Admin Acetaminophen (Tylenol) 650 mg Q4H PRN ORAL Mild Pain/Temp > 100.5 10/03/16 14:00 11/02/16 13:59 10/04/16 20:28 Al Hydroxide/Mg Hydroxide (Mylanta II) 30 ml Q6H PRN ORAL dyspepsia 09/10/16 17:00 10/10/16 16:59 Chlordiazepoxide (Librium) 25 mg Q8H PRN ORAL Agitation 10/03/16 13:30 10/10/16 13:29 10/04/16 14:42 Clonidine HCl (Catapres) 0.1 mg Q6H PRN ORAL SBP>160 09/11/16 12:00 10/11/16 11:59 Dextrose (Dextrose 50%) STAT PRN IV Hypoglycemia 09/10/16 17:00 10/10/16 16:59 Diphenhydramine HCl (Benadryl) 25 mg Q6H PRN ORAL Itching/Pruritis 09/10/16 17:00 10/10/16 16:59 10/04/16 03:02 Lactulose (Cephulac) 30 gm THREE TIMES A DAY ORAL 09/10/16 18:00 10/10/16 17:59 10/01/16 18:41 Ondansetron HCl (Zofran) 4 mg Q6H PRN IVP Nausea & Vomiting 09/10/16 17:00 10/10/16 16:59 Pantoprazole (Protonix) 40 mg DAILY ORAL 09/15/16 09:00 10/15/16 08:59 10/04/16 08:48 Promethazine HCl/ Codeine (Phenergan with Codeine) 5 ml Q6HR PRN ORAL For Cough 09/15/16 08:30 10/15/16 08:29 10/03/16 13:20 Thiamine HCl (Vitamin B1) 100 mg DAILY ORAL 09/22/16 14:00 10/22/16 13:59 10/04/16 08:48 Vitamin A/Vitamin D (A & D Oint) 1 applic EVERY 12 HOURS TOPIC 09/21/16 09:00 10/21/16 08:59 10/04/16 20:27 Vitamin D (Vitamin D) 1,000 intlu DAILY ORAL 09/22/16 14:00 10/22/16 13:59 10/04/16 08:48 CAREN WILSON October 04, 2016 20:28
--- NOTE | 2016-10-04 22:41 | Pulmonology Progress Note ---
Assessment/Plan Problems: (1) Anemia due to acute blood loss (2) Alcohol abuse (3) Liver cirrhosis (4) Gastrointestinal hemorrhage (5) Coagulopathy (6) Fever Assessment/Plan lactulose pt/ot social service awaiting placement Subjective ROS Limited/Unobtainable: No Allergies: Coded Allergies: No Known Allergies (Unverified , 08/12/16) Objective Last 24 Hour Vital Signs Date Time Temp Pulse Resp B/P Pulse Ox O2 Delivery O2 Flow Rate FiO2 10/04/16 21:27 98.1 10/04/16 20:00 98.1 93 20 123/71 94 Room Air 10/04/16 15:32 98.2 94 20 110/63 95 Room Air 10/04/16 12:08 98.4 97 20 138/77 95 Room Air 10/04/16 08:26 97.8 104 20 115/70 95 Room Air 10/04/16 04:00 98.1 74 18 114/63 100 Room Air 10/04/16 00:00 97.9 81 20 112/63 100 Room Air Intake and Output 10/03/16 10/04/16 19:00 07:00 Intake Total 900 ml Balance 900 ml Intake Oral 900 ml # Voids 3 3 # Bowel Movements 2 1 Objective General Appearance: WD/WN HEENT: normocephalic Respiratory/Chest: chest wall non-tender, lungs clear, normal breath sounds Cardiovascular: normal peripheral pulses, normal rate, regular rhythm Abdomen: normal bowel sounds, soft, non tender, no organomegaly, non distended Extremities: no cyanosis, no clubbing Skin: no rash, no lesions 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 Laboratory Tests 10/04/16 05:05: White Blood Count 4.9, Red Blood Count 3.00L, Hemoglobin 8.6L, Hematocrit 26.3L , Mean Corpuscular Volume 88, Mean Corpuscular Hemoglobin 28.6, Mean Corpuscular Hemoglobin Concent 32.6, Red Cell Distribution Width 15.5H, Platelet Count 88L, Mean Platelet Volume 7.7, Neutrophils (%) (Auto) , Lymphocytes (%) (Auto) , Monocytes (%) (Auto) , Eosinophils (%) (Auto) , Basophils (%) (Auto) , Differential Total Cells Counted 100, Neutrophils % ( Manual) 48, Lymphocytes % (Manual) 31, Monocytes % (Manual) 11H, Eosinophils % ( Manual) 8H, Basophils % (Manual) 2, Band Neutrophils 0, Platelet Estimate DecreasedL, Platelet Morphology Normal, Hypochromasia 2+, Anisocytosis 1+, Sodium Level 141, Potassium Level 3.7, Chloride Level 105, Carbon Dioxide Level 23, Anion Gap 13, Blood Urea Nitrogen 5L, Creatinine 0.9, Estimat Glomerular Filtration Rate > 60, Glucose Level 130H, Calcium Level 7.9L Current Medications Medications (Trade) Dose Ordered Sig/Saturnino Route PRN Reason Start Time Stop Time Status Last Admin Dose Admin Acetaminophen (Tylenol) 650 mg Q4H PRN ORAL Mild Pain/Temp > 100.5 10/03/16 14:00 11/02/16 13:59 10/04/16 20:28 Al Hydroxide/Mg Hydroxide (Mylanta II) 30 ml Q6H PRN ORAL dyspepsia 09/10/16 17:00 10/10/16 16:59 Chlordiazepoxide (Librium) 25 mg Q8H PRN ORAL Agitation 10/03/16 13:30 10/10/16 13:29 10/04/16 14:42 Clonidine HCl (Catapres) 0.1 mg Q6H PRN ORAL SBP>160 09/11/16 12:00 10/11/16 11:59 Dextrose (Dextrose 50%) STAT PRN IV Hypoglycemia 09/10/16 17:00 10/10/16 16:59 Diphenhydramine HCl (Benadryl) 25 mg Q6H PRN ORAL Itching/Pruritis 09/10/16 17:00 10/10/16 16:59 10/04/16 21:41 Docusate Sodium (Colace) 100 mg THREE TIMES A DAY PRN ORAL Constipation 10/04/16 22:15 11/03/16 22:14 Lactulose (Cephulac) 30 gm THREE TIMES A DAY ORAL 09/10/16 18:00 10/10/16 17:59 10/01/16 18:41 Ondansetron HCl (Zofran) 4 mg Q6H PRN IVP Nausea & Vomiting 09/10/16 17:00 10/10/16 16:59 Pantoprazole (Protonix) 40 mg DAILY ORAL 09/15/16 09:00 10/15/16 08:59 10/04/16 08:48 Promethazine HCl/ Codeine (Phenergan with Codeine) 5 ml Q6HR PRN ORAL For Cough 09/15/16 08:30 10/15/16 08:29 10/03/16 13:20 Thiamine HCl (Vitamin B1) 100 mg DAILY ORAL 09/22/16 14:00 10/22/16 13:59 10/04/16 08:48 Vitamin A/Vitamin D (A & D Oint) 1 applic EVERY 12 HOURS TOPIC 09/21/16 09:00 10/21/16 08:59 10/04/16 20:27 Vitamin D (Vitamin D) 1,000 intlu DAILY ORAL 09/22/16 14:00 10/22/16 13:59 10/04/16 08:48 SPENCER BERGER October 04, 2016 22:41
[2016-10-04] MEDS: Docusate 100mg cap ORAL PRN (22:52)
[2016-10-05] VITALS: BP 113/65
[2016-10-05 04:00] VITALS: BP 111/72
--- NOTE | 2016-10-05 07:33 | General Progress Note ---
Assessment/Plan Problem List: (1) Alcohol abuse ICD Codes: F10.10 - Alcohol abuse, uncomplicated SNOMED: 69645853 (2) Gastrointestinal hemorrhage ICD Codes: K92.2 - Gastrointestinal hemorrhage, unspecified SNOMED: 49486749 (3) Hypoalbuminemia ICD Codes: E88.09 - Other disorders of plasma-protein metabolism, not elsewhere classified SNOMED: 841874279 (4) Liver cirrhosis ICD Codes: K74.60 - Unspecified cirrhosis of liver SNOMED: 86117880 (5) Coagulopathy ICD Codes: D68.9 - Coagulation defect, unspecified SNOMED: 98401779 (6) Hepatic encephalopathy ICD Codes: K72.90 - Hepatic failure, unspecified without coma SNOMED: 71932599 Assessment/Plan no recurrent active bleed lactulose and xifaxan fu labs pend placement Subjective ROS Limited/Unobtainable: Yes Allergies: Coded Allergies: No Known Allergies (Unverified , 08/12/16) Subjective no event Objective Last 24 Hour Vital Signs Date Time Temp Pulse Resp B/P Pulse Ox O2 Delivery O2 Flow Rate FiO2 10/05/16 04:00 97.9 77 18 111/72 94 Room Air 10/05/16 00:00 98.2 74 20 113/65 96 Room Air 10/04/16 21:27 98.1 10/04/16 20:00 98.1 93 20 123/71 94 Room Air 10/04/16 15:32 98.2 94 20 110/63 95 Room Air 10/04/16 12:08 98.4 97 20 138/77 95 Room Air 10/04/16 08:26 97.8 104 20 115/70 95 Room Air Intake and Output 10/04/16 10/05/16 19:00 07:00 Intake Total 1100 ml 490 ml Output Total 600 ml Balance 500 ml 490 ml Intake Oral 1100 ml 490 ml Output Urine Total 600 ml # Voids 1 5 # Bowel Movements 2 3 Height (Feet): 6 Height (Inches): 3.00 Weight (Pounds): 210 General Appearance: alert EENT: normal ENT inspection Neck: supple Cardiovascular: normal rate Respiratory/Chest: decreased breath sounds Abdomen: normal bowel sounds, non tender, soft Extremities: non-tender GURWINDER STANLEY October 05, 2016 07:33
[2016-10-05 08:00] VITALS: BP 131/75
[2016-10-05] MEDS: Vitamin A&D Oint 2oz Tube TOPIC SCH ×2 (09:00→20:18)
[2016-10-05] MEDS: Lactulose 20gm/30ml UDC ORAL SCH ×4 (09:00→17:27)
[2016-10-05] MEDS: chlordiazePOXIDE 25mg Cap ORAL PRN ×2 (09:06→17:11)
[2016-10-05] MEDS: Thiamine 100mg tab ORAL SCH (09:06)
[2016-10-05] MEDS: Vitamin D 1000 IU Tab ORAL SCH (09:06)
--- NOTE | 2016-10-05 10:31 | Diagnostic Imaging Report ---
Indication: Right knee pain Technique: XRAY KNEE THREE VIEWS RIGHT Comparison: None Findings: There is no acute fracture or dislocation. Atherosclerotic changes are present. No joint effusion is identified. Mild soft tissue swelling is present. Impression: No acute osseous abnormality. Mild soft tissue swelling. Atherosclerotic changes.
--- NOTE | 2016-10-05 10:32 | Diagnostic Imaging Report ---
Indication: Left knee pain Technique: XRAY KNEE THREE VIEWS LEFT Comparison: None Findings: There is no acute fracture or dislocation. Soft tissue swelling is noted. Atherosclerotic changes are seen. There is no joint effusion. Impression: No acute osseous abnormality. Mild soft tissue swelling. Atherosclerotic changes.
[2016-10-05 16:00] VITALS: BP 118/67
--- NOTE | 2016-10-05 18:28 | Infectious Diseases Prog Note ---
Assessment/Plan Assessment/Plan ASSESSMENT: 50-year-old male with: Aspiration pneumonia SP Rx Possible sepsis SP Low grade fever - resolved, no leukocytosis US : Evidence of portal hypertension, with borderline splenomegaly, ascites, 09/15 SP paracentesis : Successful ultrasound-guided paracentesis, yielding 1.6 liters of fluid ( no evidence of SBP ) Severe gait ataxia and both lower extremities paraparesis : Neuro is following ALOC / hepatic Encephalopathy improved GI bleed, SP Hx of Alcohol abuse Alcoholic liver cirrhosis. History of portal hypertension NKDA Full Code PLAN: ok to DC off of AB Rx from ID standpoint ( 09/16 SP IV Zosyn d# 7 ) monitor CBC, temperatures, re-culture if acute change Monitor BMP. monitor Chest x-ray await placement Subjective Allergies: Coded Allergies: No Known Allergies (Unverified , 08/12/16) Subjective remains afebrile awaiting placement Objective Vital Signs Last 24 Hour Vital Signs Date Time Temp Pulse Resp B/P Pulse Ox O2 Delivery O2 Flow Rate FiO2 10/05/16 16:00 97.7 95 22 118/67 93 Room Air 10/05/16 15:35 98.1 10/05/16 08:00 98.1 105 22 131/75 95 Room Air 10/05/16 04:00 97.9 77 18 111/72 94 Room Air 10/05/16 00:00 98.2 74 20 113/65 96 Room Air 10/04/16 20:00 98.1 93 20 123/71 94 Room Air Height (Feet): 6 Height (Inches): 3.00 Weight (Pounds): 210 General Appearance: no acute distress Respiratory/Chest: no respiratory distress Cardiovascular: normal rate, regular rhythm Abdomen: normal bowel sounds, soft, non tender, non distended Current Medications Medications (Trade) Dose Ordered Sig/Saturnino Route PRN Reason Start Time Stop Time Status Last Admin Dose Admin Acetaminophen (Tylenol) 650 mg Q4H PRN ORAL Mild Pain/Temp > 100.5 10/03/16 14:00 11/02/16 13:59 10/05/16 14:36 Al Hydroxide/Mg Hydroxide (Mylanta II) 30 ml Q6H PRN ORAL dyspepsia 09/10/16 17:00 10/10/16 16:59 Chlordiazepoxide (Librium) 25 mg Q8H PRN ORAL Agitation 10/03/16 13:30 10/10/16 13:29 10/05/16 17:11 Clonidine HCl (Catapres) 0.1 mg Q6H PRN ORAL SBP>160 09/11/16 12:00 10/11/16 11:59 Dextrose (Dextrose 50%) STAT PRN IV Hypoglycemia 09/10/16 17:00 10/10/16 16:59 Diphenhydramine HCl (Benadryl) 25 mg Q6H PRN ORAL Itching/Pruritis 09/10/16 17:00 10/10/16 16:59 10/04/16 21:41 Docusate Sodium (Colace) 100 mg THREE TIMES A DAY PRN ORAL Constipation 10/04/16 22:15 11/03/16 22:14 10/04/16 22:52 Lactulose (Cephulac) 30 gm THREE TIMES A DAY ORAL 09/10/16 18:00 10/10/16 17:59 10/05/16 17:27 Ondansetron HCl (Zofran) 4 mg Q6H PRN IVP Nausea & Vomiting 09/10/16 17:00 10/10/16 16:59 Pantoprazole (Protonix) 40 mg DAILY ORAL 09/15/16 09:00 10/15/16 08:59 10/05/16 09:06 Promethazine HCl/ Codeine (Phenergan with Codeine) 5 ml Q6HR PRN ORAL For Cough 09/15/16 08:30 10/15/16 08:29 10/03/16 13:20 Thiamine HCl (Vitamin B1) 100 mg DAILY ORAL 09/22/16 14:00 10/22/16 13:59 10/05/16 09:06 Vitamin A/Vitamin D (A & D Oint) 1 applic EVERY 12 HOURS TOPIC 09/21/16 09:00 10/21/16 08:59 10/05/16 09:00 Vitamin D (Vitamin D) 1,000 intlu DAILY ORAL 09/22/16 14:00 10/22/16 13:59 10/05/16 09:06 CAREN WILSON October 05, 2016 18:28
[2016-10-05 20:04] VITALS: BP 115/64
[2016-10-05] MEDS: Promethazine/Codeine 5ml UD ORAL PRN (20:18)
--- NOTE | 2016-10-05 22:13 | Pulmonology Progress Note ---
Assessment/Plan Problems: (1) Anemia due to acute blood loss (2) Alcohol abuse (3) Liver cirrhosis (4) Gastrointestinal hemorrhage (5) Coagulopathy (6) Fever Assessment/Plan lactulose pt/ot social service awaiting placement Subjective ROS Limited/Unobtainable: No Allergies: Coded Allergies: No Known Allergies (Unverified , 08/12/16) Objective Last 24 Hour Vital Signs Date Time Temp Pulse Resp B/P Pulse Ox O2 Delivery O2 Flow Rate FiO2 10/05/16 20:04 98.1 94 20 115/64 93 Room Air 10/05/16 16:00 97.7 95 22 118/67 93 Room Air 10/05/16 15:35 98.1 10/05/16 08:00 98.1 105 22 131/75 95 Room Air 10/05/16 04:00 97.9 77 18 111/72 94 Room Air 10/05/16 00:00 98.2 74 20 113/65 96 Room Air Intake and Output 10/04/16 10/05/16 19:00 07:00 Intake Total 1100 ml 490 ml Output Total 600 ml Balance 500 ml 490 ml Intake Oral 1100 ml 490 ml Output Urine Total 600 ml # Voids 1 5 # Bowel Movements 2 3 Objective General Appearance: WD/WN HEENT: normocephalic Respiratory/Chest: chest wall non-tender, lungs clear, normal breath sounds Cardiovascular: normal peripheral pulses, normal rate, regular rhythm Abdomen: normal bowel sounds, soft, non tender, no organomegaly, non distended Extremities: no cyanosis, no clubbing Skin: no rash, no lesions 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 Current Medications Medications (Trade) Dose Ordered Sig/Saturnino Route PRN Reason Start Time Stop Time Status Last Admin Dose Admin Acetaminophen (Tylenol) 650 mg Q4H PRN ORAL Mild Pain/Temp > 100.5 10/03/16 14:00 11/02/16 13:59 10/05/16 14:36 Al Hydroxide/Mg Hydroxide (Mylanta II) 30 ml Q6H PRN ORAL dyspepsia 09/10/16 17:00 10/10/16 16:59 Chlordiazepoxide (Librium) 25 mg Q8H PRN ORAL Agitation 10/03/16 13:30 10/10/16 13:29 10/05/16 17:11 Clonidine HCl (Catapres) 0.1 mg Q6H PRN ORAL SBP>160 09/11/16 12:00 10/11/16 11:59 Dextrose (Dextrose 50%) STAT PRN IV Hypoglycemia 09/10/16 17:00 10/10/16 16:59 Diphenhydramine HCl (Benadryl) 25 mg Q6H PRN ORAL Itching/Pruritis 09/10/16 17:00 10/10/16 16:59 10/05/16 18:47 Docusate Sodium (Colace) 100 mg THREE TIMES A DAY PRN ORAL Constipation 10/04/16 22:15 11/03/16 22:14 10/04/16 22:52 Lactulose (Cephulac) 30 gm THREE TIMES A DAY ORAL 09/10/16 18:00 10/10/16 17:59 10/05/16 17:27 Ondansetron HCl (Zofran) 4 mg Q6H PRN IVP Nausea & Vomiting 09/10/16 17:00 10/10/16 16:59 Pantoprazole (Protonix) 40 mg DAILY ORAL 09/15/16 09:00 10/15/16 08:59 10/05/16 09:06 Promethazine HCl/ Codeine (Phenergan with Codeine) 5 ml Q6HR PRN ORAL For Cough 09/15/16 08:30 10/15/16 08:29 10/05/16 20:18 Thiamine HCl (Vitamin B1) 100 mg DAILY ORAL 09/22/16 14:00 10/22/16 13:59 10/05/16 09:06 Vitamin A/Vitamin D (A & D Oint) 1 applic EVERY 12 HOURS TOPIC 09/21/16 09:00 10/21/16 08:59 10/05/16 09:00 Vitamin D (Vitamin D) 1,000 intlu DAILY ORAL 09/22/16 14:00 10/22/16 13:59 10/05/16 09:06 SPENCER BERGER October 05, 2016 22:13
[2016-10-06] VITALS (7 sets, daily range): BP systolic 105–129; BP diastolic 62–78
[2016-10-06] MEDS: Thiamine 100mg tab ORAL SCH (08:17)
[2016-10-06] MEDS: Vitamin D 1000 IU Tab ORAL SCH (08:17)
[2016-10-06] MEDS: chlordiazePOXIDE 25mg Cap ORAL PRN ×2 (08:17→17:49)
[2016-10-06] MEDS: Lactulose 20gm/30ml UDC ORAL SCH ×3 (08:17→17:46)
[2016-10-06] MEDS: Vitamin A&D Oint 2oz Tube TOPIC SCH ×2 (08:20→21:00)
--- NOTE | 2016-10-06 09:21 | Infectious Diseases Prog Note ---
Assessment/Plan Assessment/Plan ASSESSMENT: 50-year-old male with: Aspiration pneumonia SP Rx Possible sepsis SP Low grade fever - resolved, no leukocytosis US : Evidence of portal hypertension, with borderline splenomegaly, ascites, 09/15 SP paracentesis : Successful ultrasound-guided paracentesis, yielding 1.6 liters of fluid ( no evidence of SBP ) Severe gait ataxia and both lower extremities paraparesis : Neuro is following ALOC / hepatic Encephalopathy improved GI bleed, SP Hx of Alcohol abuse Alcoholic liver cirrhosis. History of portal hypertension NKDA Full Code PLAN: ok to DC off of AB Rx from ID standpoint ( 09/16 SP IV Zosyn d# 7 ) monitor CBC, temperatures, re-culture if acute change Monitor BMP. monitor Chest x-ray await placement Subjective Allergies: Coded Allergies: No Known Allergies (Unverified , 08/12/16) Subjective no new complain Objective Vital Signs Last 24 Hour Vital Signs Date Time Temp Pulse Resp B/P Pulse Ox O2 Delivery O2 Flow Rate FiO2 10/06/16 07:59 97.9 107 20 128/78 95 Room Air 10/06/16 05:08 97.2 10/06/16 04:00 96.8 99 22 129/76 96 Room Air 10/06/16 00:10 92 Room Air 10/06/16 00:06 97.2 89 22 105/62 91 Room Air 10/05/16 20:04 98.1 94 20 115/64 93 Room Air 10/05/16 16:00 97.7 95 22 118/67 93 Room Air Height (Feet): 6 Height (Inches): 3.00 Weight (Pounds): 210 HEENT: anicteric Respiratory/Chest: no respiratory distress Cardiovascular: regular rhythm Abdomen: non distended Current Medications Medications (Trade) Dose Ordered Sig/Saturn[place] Route PRN Reason Start Time Stop Time Status Last Admin Dose Admin Acetaminophen (Tylenol) 650 mg Q4H PRN ORAL Mild Pain/Temp > 100.5 10/03/16 14:00 11/02/16 13:59 10/06/16 04:09 Al Hydroxide/Mg Hydroxide (Mylanta II) 30 ml Q6H PRN ORAL dyspepsia 09/10/16 17:00 10/10/16 16:59 Chlordiazepoxide (Librium) 25 mg Q8H PRN ORAL Agitation 10/03/16 13:30 10/10/16 13:29 10/06/16 08:17 Clonidine HCl (Catapres) 0.1 mg Q6H PRN ORAL SBP>160 09/11/16 12:00 10/11/16 11:59 Dextrose (Dextrose 50%) STAT PRN IV Hypoglycemia 09/10/16 17:00 10/10/16 16:59 Diphenhydramine HCl (Benadryl) 25 mg Q6H PRN ORAL Itching/Pruritis 09/10/16 17:00 10/10/16 16:59 10/05/16 18:47 Docusate Sodium (Colace) 100 mg THREE TIMES A DAY PRN ORAL Constipation 10/04/16 22:15 11/03/16 22:14 10/04/16 22:52 Lactulose (Cephulac) 30 gm THREE TIMES A DAY ORAL 09/10/16 18:00 10/10/16 17:59 10/06/16 08:17 Ondansetron HCl (Zofran) 4 mg Q6H PRN IVP Nausea & Vomiting 09/10/16 17:00 10/10/16 16:59 Pantoprazole (Protonix) 40 mg DAILY ORAL 09/15/16 09:00 10/15/16 08:59 10/06/16 08:17 Promethazine HCl/ Codeine (Phenergan with Codeine) 5 ml Q6HR PRN ORAL For Cough 09/15/16 08:30 10/15/16 08:29 10/05/16 20:18 Thiamine HCl (Vitamin B1) 100 mg DAILY ORAL 09/22/16 14:00 10/22/16 13:59 10/06/16 08:17 Vitamin A/Vitamin D (A & D Oint) 1 applic EVERY 12 HOURS TOPIC 09/21/16 09:00 10/21/16 08:59 10/05/16 09:00 Vitamin D (Vitamin D) 1,000 intlu DAILY ORAL 09/22/16 14:00 10/22/16 13:59 10/06/16 08:17 JACQUELINE LUGO M.D. October 06, 2016 09:21
--- NOTE | 2016-10-06 12:47 | GI Progress Note ---
Assessment/Plan Problems: (1) Liver cirrhosis ICD Codes: K74.60 - Unspecified cirrhosis of liver SNOMED: 12626860 (2) LFT elevation ICD Codes: R94.5 - Abnormal results of liver function studies SNOMED: 665057037 (3) Anemia due to acute blood loss ICD Codes: D62 - Acute posthemorrhagic anemia SNOMED: 788630936 (4) Hypoalbuminemia ICD Codes: E88.09 - Other disorders of plasma-protein metabolism, not elsewhere classified SNOMED: 196453484 (5) Gastrointestinal hemorrhage ICD Codes: K92.2 - Gastrointestinal hemorrhage, unspecified SNOMED: 42749709 (6) Alcohol abuse ICD Codes: F10.10 - Alcohol abuse, uncomplicated SNOMED: 62401381 (7) Tear of lower esophagus with hemorrhage ICD Codes: K22.6 - Gastro-esophageal laceration-hemorrhage syndrome SNOMED: 39147452, 124394386 Status: stable Status Narrative Discussed with Dr. Wright. Assessment/Plan S/P EGD - SUMMARY OF FINDINGS: Active bleeding from the distal esophageal tears status post hemoclip x 2. US : Evidence of portal hypertension, with borderline splenomegaly, ascites, 09/15 SP paracentesis : Successful ultrasound-guided paracentesis, yielding 1.6 liters of fluid ( no evidence of SBP ) ok for DC per GI standpoint no recurrent active bleed soft diet, tolerating elevated ammonia >> lactulose + Xifaxan stable H&H, transfuse prn PT eval fu labs Subjective Subjective denies any abdominal pain Objective Last 24 Hour Vital Signs Date Time Temp Pulse Resp B/P Pulse Ox O2 Delivery O2 Flow Rate FiO2 10/06/16 12:01 98.1 105 20 121/68 96 Room Air 10/06/16 07:59 97.9 107 20 128/78 95 Room Air 10/06/16 05:08 97.2 10/06/16 04:00 96.8 99 22 129/76 96 Room Air 10/06/16 00:10 92 Room Air 10/06/16 00:06 97.2 89 22 105/62 91 Room Air 10/05/16 20:04 98.1 94 20 115/64 93 Room Air 10/05/16 16:00 97.7 95 22 118/67 93 Room Air Intake and Output 10/05/16 10/06/16 19:00 07:00 Intake Total 482 ml Output Total 500 ml 750 ml Balance -18 ml -750 ml Intake Oral 482 ml Output Urine Total 500 ml 750 ml # Voids 3 1 # Bowel Movements 2 Height (Feet): 6 Height (Inches): 3.00 Weight (Pounds): 210 General Appearance: no apparent distress, alert Cardiovascular: normal rate Respiratory/Chest: normal breath sounds, no respiratory distress Abdominal Exam: normal bowel sounds, non tender, soft Extremities: normal range of motion Mary Norman N.P. October 06, 2016 12:47
[2016-10-06] MEDS: Promethazine/Codeine 5ml UD ORAL PRN (13:36)
--- NOTE | 2016-10-06 22:35 | Pulmonology Progress Note ---
Assessment/Plan Problems: (1) Anemia due to acute blood loss (2) Alcohol abuse (3) Liver cirrhosis (4) Gastrointestinal hemorrhage (5) Coagulopathy (6) Fever Assessment/Plan continue current treatment symptomatic treatment awaiting dc planning all notes, labs reviewed Subjective ROS Limited/Unobtainable: No Allergies: Coded Allergies: No Known Allergies (Unverified , 08/12/16) Objective Last 24 Hour Vital Signs Date Time Temp Pulse Resp B/P Pulse Ox O2 Delivery O2 Flow Rate FiO2 10/06/16 20:00 98.4 97 18 121/73 95 Room Air 10/06/16 16:01 98.1 90 18 123/71 95 Room Air 10/06/16 12:01 98.1 105 20 121/68 96 Room Air 10/06/16 07:59 97.9 107 20 128/78 95 Room Air 10/06/16 05:08 97.2 10/06/16 04:00 96.8 99 22 129/76 96 Room Air 10/06/16 00:10 92 Room Air 10/06/16 00:06 97.2 89 22 105/62 91 Room Air Intake and Output 10/05/16 10/06/16 19:00 07:00 Intake Total 482 ml Output Total 500 ml 750 ml Balance -18 ml -750 ml Intake Oral 482 ml Output Urine Total 500 ml 750 ml # Voids 3 1 # Bowel Movements 2 Objective General Appearance: WD/WN HEENT: normocephalic Respiratory/Chest: chest wall non-tender, lungs clear, normal breath sounds Cardiovascular: normal peripheral pulses, normal rate, regular rhythm Abdomen: normal bowel sounds, soft, non tender, no organomegaly, non distended Extremities: no cyanosis, no clubbing Skin: no rash, no lesions 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: 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 normal Current Medications Medications (Trade) Dose Ordered Sig/Saturnino Route PRN Reason Start Time Stop Time Status Last Admin Dose Admin Acetaminophen (Tylenol) 650 mg Q4H PRN ORAL Mild Pain/Temp > 100.5 10/03/16 14:00 11/02/16 13:59 10/06/16 17:59 Al Hydroxide/Mg Hydroxide (Mylanta II) 30 ml Q6H PRN ORAL dyspepsia 09/10/16 17:00 10/10/16 16:59 Chlordiazepoxide (Librium) 25 mg Q8H PRN ORAL Agitation 10/03/16 13:30 10/10/16 13:29 10/06/16 17:49 Clonidine HCl (Catapres) 0.1 mg Q6H PRN ORAL SBP>160 09/11/16 12:00 10/11/16 11:59 Dextrose (Dextrose 50%) STAT PRN IV Hypoglycemia 09/10/16 17:00 10/10/16 16:59 Diphenhydramine HCl (Benadryl) 25 mg Q6H PRN ORAL Itching/Pruritis 09/10/16 17:00 10/10/16 16:59 10/06/16 22:24 Docusate Sodium (Colace) 100 mg THREE TIMES A DAY PRN ORAL Constipation 10/04/16 22:15 11/03/16 22:14 10/04/16 22:52 Lactulose (Cephulac) 30 gm THREE TIMES A DAY ORAL 09/10/16 18:00 10/10/16 17:59 10/06/16 08:17 Ondansetron HCl (Zofran) 4 mg Q6H PRN IVP Nausea & Vomiting 09/10/16 17:00 10/10/16 16:59 Pantoprazole (Protonix) 40 mg DAILY ORAL 09/15/16 09:00 10/15/16 08:59 10/06/16 08:17 Promethazine HCl/ Codeine (Phenergan with Codeine) 5 ml Q6HR PRN ORAL For Cough 09/15/16 08:30 10/15/16 08:29 10/06/16 13:36 Thiamine HCl (Vitamin B1) 100 mg DAILY ORAL 09/22/16 14:00 10/22/16 13:59 10/06/16 08:17 Vitamin A/Vitamin D (A & D Oint) 1 applic EVERY 12 HOURS TOPIC 09/21/16 09:00 10/21/16 08:59 10/05/16 09:00 Vitamin D (Vitamin D) 1,000 intlu DAILY ORAL 09/22/16 14:00 10/22/16 13:59 10/06/16 08:17 SPENCER BERGER October 06, 2016 22:35
[2016-10-07 04:00] VITALS: BP 109/58
[2016-10-07 07:05] LABS: MEAN CORPUSCULAR HEMOGLOBIN 27.4 PG (27.0-31.0); MEAN CORPUSCULAR HGB CONC 31.3 G/DL (32.0-36.0); MEAN CORPUSCULAR VOLUME 88 FL (80-99); MEAN PLATELET VOLUME 6.9 FL (6.5-10.1); PLATELET COUNT 77 K/UL (150-450); RED BLOOD COUNT 3.19 M/UL (4.70-6.10); RED CELL DISTRIBUTION WIDTH 15.7 % (11.6-14.8); WHITE BLOOD COUNT 4.8 K/UL (4.8-10.8)
[2016-10-07 07:33] LABS: ANION GAP 13 (5-15); CALCIUM 8.1 mg/dL (8.6-10.2); CARBON DIOXIDE 23 mEQ/L (20-30); CHLORIDE 104 mEQ/L (98-107); CREATININE 0.9 mg/dL (0.7-1.2); GLOMERULAR FILTRATION RATE > 60 mL/min (>60); HEMOLYSIS 1; POTASSIUM 3.5 mEQ/L (3.4-4.9); SODIUM 140 mEQ/L (135-145)
[2016-10-07 07:52] VITALS: BP 122/64
[2016-10-07 08:48] LABS: ANISOCYTOSIS 1+; BAND NEUTROPHILS % (MANUAL) 0 % (0-8); BASOPHILS % (MANUAL) 0 % (0-2); EOSINOPHILS % (MANUAL) 7 % (0-3); HYPOCHROMASIA 2+; LYMPHOCYTES % (MANUAL) 29 % (20-45); NEUTROPHILS % (MANUAL) 53 % (45-75); PLATELET ESTIMATE ADEQUATE; PLATELET MORPHOLOGY NORMAL; TOTAL CELLS COUNTED 100
[2016-10-07] MEDS: Vitamin A&D Oint 2oz Tube TOPIC SCH ×2 (09:00→21:10)
[2016-10-07] MEDS: Lactulose 20gm/30ml UDC ORAL SCH ×2 (09:00→17:49)
[2016-10-07] MEDS: Thiamine 100mg tab ORAL SCH (09:23)
[2016-10-07] MEDS: Vitamin D 1000 IU Tab ORAL SCH (09:24)
[2016-10-07] MEDS: chlordiazePOXIDE 25mg Cap ORAL PRN ×2 (09:24→19:59)
[2016-10-07] MEDS: Docusate 100mg cap ORAL PRN (09:25)
--- NOTE | 2016-10-07 09:26 | GI Progress Note ---
Assessment/Plan Problems: (1) Liver cirrhosis ICD Codes: K74.60 - Unspecified cirrhosis of liver SNOMED: 73377583 (2) LFT elevation ICD Codes: R94.5 - Abnormal results of liver function studies SNOMED: 997129566 (3) Anemia due to acute blood loss ICD Codes: D62 - Acute posthemorrhagic anemia SNOMED: 409710786 (4) Hypoalbuminemia ICD Codes: E88.09 - Other disorders of plasma-protein metabolism, not elsewhere classified SNOMED: 904192555 (5) Gastrointestinal hemorrhage ICD Codes: K92.2 - Gastrointestinal hemorrhage, unspecified SNOMED: 25778670 (6) Alcohol abuse ICD Codes: F10.10 - Alcohol abuse, uncomplicated SNOMED: 01194669 (7) Tear of lower esophagus with hemorrhage ICD Codes: K22.6 - Gastro-esophageal laceration-hemorrhage syndrome SNOMED: 29381239, 442545285 Status: stable, unchanged Status Narrative Discussed with Dr. Wright. Assessment/Plan S/P EGD - SUMMARY OF FINDINGS: Active bleeding from the distal esophageal tears status post hemoclip x 2. US : Evidence of portal hypertension, with borderline splenomegaly, ascites, 09/15 SP paracentesis : Successful ultrasound-guided paracentesis, yielding 1.6 liters of fluid ( no evidence of SBP ) ok for DC per GI standpoint no recurrent active bleed soft diet, tolerating elevated ammonia >> lactulose + Xifaxan stable H&H, transfuse prn PT eval fu labs Subjective Subjective denies any abdominal pain refusing to take lactulose Objective Last 24 Hour Vital Signs Date Time Temp Pulse Resp B/P Pulse Ox O2 Delivery O2 Flow Rate FiO2 10/07/16 07:52 97.7 113 22 122/64 92 Room Air 10/07/16 04:00 97.5 95 18 109/58 91 Room Air 10/06/16 23:50 98.1 99 18 120/68 95 Room Air 10/06/16 20:00 98.4 97 18 121/73 95 Room Air 10/06/16 16:01 98.1 90 18 123/71 95 Room Air 10/06/16 12:01 98.1 105 20 121/68 96 Room Air Intake and Output 10/06/16 10/07/16 19:00 07:00 Intake Total 1320 ml 340 ml Balance 1320 ml 340 ml Intake Oral 1320 ml 340 ml # Voids 8 3 # Bowel Movements 1 3 Laboratory Tests Test 10/07/16 05:15 White Blood Count 4.8 K/UL (4.8-10.8) Red Blood Count 3.19 M/UL (4.70-6.10) L Hemoglobin 8.7 G/DL (14.2-18.0) L Hematocrit 27.9 % (42.0-52.0) L Mean Corpuscular Volume 88 FL (80-99) Mean Corpuscular Hemoglobin 27.4 PG (27.0-31.0) Mean Corpuscular Hemoglobin Concent 31.3 G/DL (32.0-36.0) L Red Cell Distribution Width 15.7 % (11.6-14.8) H Platelet Count 77 K/UL (150-450) L Mean Platelet Volume 6.9 FL (6.5-10.1) Neutrophils (%) (Auto) % (45.0-75.0) Lymphocytes (%) (Auto) % (20.0-45.0) Monocytes (%) (Auto) % (1.0-10.0) Eosinophils (%) (Auto) % (0.0-3.0) Basophils (%) (Auto) % (0.0-2.0) Differential Total Cells Counted 100 Neutrophils % (Manual) 53 % (45-75) Lymphocytes % (Manual) 29 % (20-45) Monocytes % (Manual) 11 % (1-10) H Eosinophils % (Manual) 7 % (0-3) H Basophils % (Manual) 0 % (0-2) Band Neutrophils 0 % (0-8) Platelet Estimate Adequate Platelet Morphology Normal Hypochromasia 2+ Anisocytosis 1+ Sodium Level 140 mEQ/L (135-145) Potassium Level 3.5 mEQ/L (3.4-4.9) Chloride Level 104 mEQ/L (98-107) Carbon Dioxide Level 23 mEQ/L (20-30) Anion Gap 13 (5-15) Blood Urea Nitrogen 5 mg/dL (7-23) L Creatinine 0.9 mg/dL (0.7-1.2) Estimat Glomerular Filtration Rate > 60 mL/min (>60) Glucose Level 85 mg/dL (74-106) Calcium Level 8.1 mg/dL (8.6-10.2) L Height (Feet): 6 Height (Inches): 3.00 Weight (Pounds): 210 General Appearance: no apparent distress, alert Cardiovascular: normal rate Respiratory/Chest: normal breath sounds, no respiratory distress Abdominal Exam: normal bowel sounds, non tender, soft Mary Norman N.P. October 07, 2016 09:26
--- NOTE | 2016-10-07 10:16 | Infectious Diseases Prog Note ---
Assessment/Plan Assessment/Plan ASSESSMENT: 50-year-old male with: Aspiration pneumonia SP Rx Possible sepsis SP Low grade fever - resolved, no leukocytosis US : Evidence of portal hypertension, with borderline splenomegaly, ascites, 09/15 SP paracentesis : Successful ultrasound-guided paracentesis, yielding 1.6 liters of fluid ( no evidence of SBP ) Severe gait ataxia and both lower extremities paraparesis : Neuro is following ALOC / hepatic Encephalopathy improved GI bleed, SP Hx of Alcohol abuse Alcoholic liver cirrhosis. History of portal hypertension NKDA Full Code PLAN: ok to DC off of AB Rx from ID standpoint ( 09/16 SP IV Zosyn d# 7 ) monitor CBC, temperatures, re-culture if acute change Monitor BMP. monitor Chest x-ray await placement Subjective Constitutional: Denies: anorexia, chills, drenching sweats, fatigue, fever, no symptoms, other Allergies: Coded Allergies: No Known Allergies (Unverified , 08/12/16) Subjective afebrile Objective Vital Signs Last 24 Hour Vital Signs Date Time Temp Pulse Resp B/P Pulse Ox O2 Delivery O2 Flow Rate FiO2 10/07/16 07:52 97.7 113 22 122/64 92 Room Air 10/07/16 04:00 97.5 95 18 109/58 91 Room Air 10/06/16 23:50 98.1 99 18 120/68 95 Room Air 10/06/16 20:00 98.4 97 18 121/73 95 Room Air 10/06/16 16:01 98.1 90 18 123/71 95 Room Air 10/06/16 12:01 98.1 105 20 121/68 96 Room Air Height (Feet): 6 Height (Inches): 3.00 Weight (Pounds): 210 HEENT: anicteric Respiratory/Chest: no respiratory distress Cardiovascular: regular rhythm Abdomen: no organomegaly Laboratory Tests Test 10/07/16 05:15 White Blood Count 4.8 K/UL (4.8-10.8) Red Blood Count 3.19 M/UL (4.70-6.10) L Hemoglobin 8.7 G/DL (14.2-18.0) L Hematocrit 27.9 % (42.0-52.0) L Mean Corpuscular Volume 88 FL (80-99) Mean Corpuscular Hemoglobin 27.4 PG (27.0-31.0) Mean Corpuscular Hemoglobin Concent 31.3 G/DL (32.0-36.0) L Red Cell Distribution Width 15.7 % (11.6-14.8) H Platelet Count 77 K/UL (150-450) L Mean Platelet Volume 6.9 FL (6.5-10.1) Neutrophils (%) (Auto) % (45.0-75.0) Lymphocytes (%) (Auto) % (20.0-45.0) Monocytes (%) (Auto) % (1.0-10.0) Eosinophils (%) (Auto) % (0.0-3.0) Basophils (%) (Auto) % (0.0-2.0) Differential Total Cells Counted 100 Neutrophils % (Manual) 53 % (45-75) Lymphocytes % (Manual) 29 % (20-45) Monocytes % (Manual) 11 % (1-10) H Eosinophils % (Manual) 7 % (0-3) H Basophils % (Manual) 0 % (0-2) Band Neutrophils 0 % (0-8) Platelet Estimate Adequate Platelet Morphology Normal Hypochromasia 2+ Anisocytosis 1+ Sodium Level 140 mEQ/L (135-145) Potassium Level 3.5 mEQ/L (3.4-4.9) Chloride Level 104 mEQ/L (98-107) Carbon Dioxide Level 23 mEQ/L (20-30) Anion Gap 13 (5-15) Blood Urea Nitrogen 5 mg/dL (7-23) L Creatinine 0.9 mg/dL (0.7-1.2) Estimat Glomerular Filtration Rate > 60 mL/min (>60) Glucose Level 85 mg/dL (74-106) Calcium Level 8.1 mg/dL (8.6-10.2) L Current Medications Medications (Trade) Dose Ordered Sig/Saturnino Route PRN Reason Start Time Stop Time Status Last Admin Dose Admin Acetaminophen (Tylenol) 650 mg Q4H PRN ORAL Mild Pain/Temp > 100.5 10/03/16 14:00 11/02/16 13:59 10/06/16 17:59 Al Hydroxide/Mg Hydroxide (Mylanta II) 30 ml Q6H PRN ORAL dyspepsia 09/10/16 17:00 10/10/16 16:59 Chlordiazepoxide (Librium) 25 mg Q8H PRN ORAL Agitation 10/03/16 13:30 10/10/16 13:29 10/07/16 09:24 Clonidine HCl (Catapres) 0.1 mg Q6H PRN ORAL SBP>160 09/11/16 12:00 10/11/16 11:59 Dextrose (Dextrose 50%) STAT PRN IV Hypoglycemia 09/10/16 17:00 10/10/16 16:59 Diphenhydramine HCl (Benadryl) 25 mg Q6H PRN ORAL Itching/Pruritis 09/10/16 17:00 10/10/16 16:59 10/07/16 05:51 Docusate Sodium (Colace) 100 mg THREE TIMES A DAY PRN ORAL Constipation 10/04/16 22:15 11/03/16 22:14 10/07/16 09:25 Lactulose (Cephulac) 20 gm BID ORAL 10/07/16 18:00 11/06/16 17:59 Ondansetron HCl (Zofran) 4 mg Q6H PRN IVP Nausea & Vomiting 09/10/16 17:00 10/10/16 16:59 Pantoprazole (Protonix) 40 mg DAILY ORAL 09/15/16 09:00 10/15/16 08:59 10/07/16 09:23 Promethazine HCl/ Codeine (Phenergan with Codeine) 5 ml Q6HR PRN ORAL For Cough 09/15/16 08:30 10/15/16 08:29 10/06/16 13:36 Thiamine HCl (Vitamin B1) 100 mg DAILY ORAL 09/22/16 14:00 10/22/16 13:59 10/07/16 09:23 Vitamin A/Vitamin D (A & D Oint) 1 applic EVERY 12 HOURS TOPIC 09/21/16 09:00 10/21/16 08:59 10/05/16 09:00 Vitamin D (Vitamin D) 1,000 intlu DAILY ORAL 09/22/16 14:00 10/22/16 13:59 10/07/16 09:24 JACQUELINE LUGO M.D. October 07, 2016 10:16
[2016-10-07 12:30] VITALS: BP 120/76
[2016-10-07 16:43] VITALS: BP 122/66
[2016-10-07] MEDS: Promethazine/Codeine 5ml UD ORAL PRN (16:51)
[2016-10-07 20:00] VITALS: BP 120/78
--- NOTE | 2016-10-07 22:18 | Pulmonology Progress Note ---
Assessment/Plan Problems: (1) Anemia due to acute blood loss (2) Alcohol abuse (3) Liver cirrhosis (4) Gastrointestinal hemorrhage (5) Coagulopathy (6) Fever Assessment/Plan continue current treatment symptomatic treatment awaiting dc planning all notes, labs reviewed Subjective Allergies: Coded Allergies: No Known Allergies (Unverified , 08/12/16) Objective Last 24 Hour Vital Signs Date Time Temp Pulse Resp B/P Pulse Ox O2 Delivery O2 Flow Rate FiO2 10/07/16 16:43 98.6 104 19 122/66 94 Room Air 10/07/16 12:30 97.5 14 14 120/76 Room Air 10/07/16 07:52 97.7 113 22 122/64 92 Room Air 10/07/16 04:00 97.5 95 18 109/58 91 Room Air 10/06/16 23:50 98.1 99 18 120/68 95 Room Air Intake and Output 10/06/16 10/07/16 18:59 06:59 Intake Total 1320 ml 340 ml Balance 1320 ml 340 ml Intake Oral 1320 ml 340 ml # Voids 8 3 # Bowel Movements 1 3 Objective General Appearance: WD/WN HEENT: normocephalic Respiratory/Chest: chest wall non-tender, lungs clear, normal breath sounds Cardiovascular: normal peripheral pulses, normal rate, regular rhythm Abdomen: normal bowel sounds, soft, non tender, no organomegaly, non distended Extremities: no cyanosis, no clubbing Skin: no rash, no lesions 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: crankshaft balancer II-XII grossly normal Laboratory Tests 10/07/16 05:15: White Blood Count 4.8, Red Blood Count 3.19L, Hemoglobin 8.7L, Hematocrit 27.9L , Mean Corpuscular Volume 88, Mean Corpuscular Hemoglobin 27.4, Mean Corpuscular Hemoglobin Concent 31.3L, Red Cell Distribution Width 15.7H, Platelet Count 77L, Mean Platelet Volume 6.9, Neutrophils (%) (Auto) , Lymphocytes (%) (Auto) , Monocytes (%) (Auto) , Eosinophils (%) (Auto) , Basophils (%) (Auto) , Differential Total Cells Counted 100, Neutrophils % ( Manual) 53, Lymphocytes % (Manual) 29, Monocytes % (Manual) 11H, Eosinophils % ( Manual) 7H, Basophils % (Manual) 0, Band Neutrophils 0, Platelet Estimate Adequate, Platelet Morphology Normal, Hypochromasia 2+, Anisocytosis 1+, Sodium Level 140, Potassium Level 3.5, Chloride Level 104, Carbon Dioxide Level 23, Anion Gap 13, Blood Urea Nitrogen 5L, Creatinine 0.9, Estimat Glomerular Filtration Rate > 60, Glucose Level 85, Calcium Level 8.1L Current Medications Medications (Trade) Dose Ordered Sig/Saturnino Route PRN Reason Start Time Stop Time Status Last Admin Dose Admin Acetaminophen (Tylenol) 650 mg Q4H PRN ORAL Mild Pain/Temp > 100.5 10/03/16 14:00 11/02/16 13:59 10/07/16 14:43 Al Hydroxide/Mg Hydroxide (Mylanta II) 30 ml Q6H PRN ORAL dyspepsia 09/10/16 17:00 10/10/16 16:59 Chlordiazepoxide (Librium) 25 mg Q8H PRN ORAL Agitation 10/03/16 13:30 10/10/16 13:29 10/07/16 19:59 Clonidine HCl (Catapres) 0.1 mg Q6H PRN ORAL SBP>160 09/11/16 12:00 10/11/16 11:59 Dextrose (Dextrose 50%) STAT PRN IV Hypoglycemia 09/10/16 17:00 10/10/16 16:59 Diphenhydramine HCl (Benadryl) 25 mg Q6H PRN ORAL Itching/Pruritis 09/10/16 17:00 10/10/16 16:59 10/07/16 21:37 Docusate Sodium (Colace) 100 mg THREE TIMES A DAY PRN ORAL Constipation 10/04/16 22:15 11/03/16 22:14 10/07/16 09:25 Lactulose (Cephulac) 20 gm BID ORAL 10/07/16 18:00 11/06/16 17:59 Ondansetron HCl (Zofran) 4 mg Q6H PRN IVP Nausea & Vomiting 09/10/16 17:00 10/10/16 16:59 Pantoprazole (Protonix) 40 mg DAILY ORAL 09/15/16 09:00 10/15/16 08:59 10/07/16 09:23 Promethazine HCl/ Codeine (Phenergan with Codeine) 5 ml Q6HR PRN ORAL For Cough 09/15/16 08:30 10/15/16 08:29 10/07/16 16:51 Thiamine HCl (Vitamin B1) 100 mg DAILY ORAL 09/22/16 14:00 10/22/16 13:59 10/07/16 09:23 Vitamin A/Vitamin D (A & D Oint) 1 applic EVERY 12 HOURS TOPIC 09/21/16 09:00 10/21/16 08:59 10/07/16 21:10 Vitamin D (Vitamin D) 1,000 intlu DAILY ORAL 09/22/16 14:00 10/22/16 13:59 10/07/16 09:24 SPENCER BERGER October 07, 2016 22:18
[2016-10-08] VITALS: BP 129/77
[2016-10-08 04:00] VITALS: BP 114/62
[2016-10-08 07:50] LABS: AMMONIA 56 umol/L (16-60)
[2016-10-08 07:56] LABS: ANION GAP 11 (5-15); CALCIUM 8.4 mg/dL (8.6-10.2); CARBON DIOXIDE 24 mEQ/L (20-30); CHLORIDE 105 mEQ/L (98-107); CREATININE 0.9 mg/dL (0.7-1.2); GLOMERULAR FILTRATION RATE > 60 mL/min (>60); HEMOLYSIS 2; POTASSIUM 3.6 mEQ/L (3.4-4.9); SODIUM 140 mEQ/L (135-145)
[2016-10-08 08:01] LABS: MEAN CORPUSCULAR HEMOGLOBIN 27.9 PG (27.0-31.0); MEAN CORPUSCULAR HGB CONC 31.9 G/DL (32.0-36.0); MEAN CORPUSCULAR VOLUME 87 FL (80-99); MEAN PLATELET VOLUME 7.7 FL (6.5-10.1); PLATELET COUNT 76 K/UL (150-450); RED BLOOD COUNT 3.29 M/UL (4.70-6.10); RED CELL DISTRIBUTION WIDTH 15.7 % (11.6-14.8); WHITE BLOOD COUNT 4.4 K/UL (4.8-10.8)
[2016-10-08 08:03] VITALS: BP 117/71
[2016-10-08] MEDS: Lactulose 20gm/30ml UDC ORAL SCH ×2 (09:00→18:51)
[2016-10-08] MEDS: Vitamin D 1000 IU Tab ORAL SCH (09:26)
[2016-10-08] MEDS: Thiamine 100mg tab ORAL SCH (09:27)
[2016-10-08] MEDS: Docusate 100mg cap ORAL PRN ×2 (09:28→21:56)
[2016-10-08] MEDS: Vitamin A&D Oint 2oz Tube TOPIC SCH ×2 (09:28→20:56)
[2016-10-08 10:56] LABS: EOSINOPHILS % (MANUAL) 4 % (0-3); LYMPHOCYTES % (MANUAL) 26 % (20-45); NEUTROPHILS % (MANUAL) 58 % (45-75); TOTAL CELLS COUNTED 100
[2016-10-08 10:57] LABS: ANISOCYTOSIS 1+; BAND NEUTROPHILS % (MANUAL) 0 % (0-8); BASOPHILS % (MANUAL) 0 % (0-2); HYPOCHROMASIA 2+; PLATELET ESTIMATE DECREASED; PLATELET MORPHOLOGY NORMAL
[2016-10-08] MEDS: chlordiazePOXIDE 25mg Cap ORAL PRN ×2 (11:00→18:51)
--- NOTE | 2016-10-08 11:24 | GI Progress Note ---
Assessment/Plan Problems: (1) Liver cirrhosis ICD Codes: K74.60 - Unspecified cirrhosis of liver SNOMED: 84788225 (2) LFT elevation ICD Codes: R94.5 - Abnormal results of liver function studies SNOMED: 262761023 (3) Anemia due to acute blood loss ICD Codes: D62 - Acute posthemorrhagic anemia SNOMED: 028199328 (4) Hypoalbuminemia ICD Codes: E88.09 - Other disorders of plasma-protein metabolism, not elsewhere classified SNOMED: 609171914 (5) Gastrointestinal hemorrhage ICD Codes: K92.2 - Gastrointestinal hemorrhage, unspecified SNOMED: 72631920 (6) Alcohol abuse ICD Codes: F10.10 - Alcohol abuse, uncomplicated SNOMED: 83158382 (7) Tear of lower esophagus with hemorrhage ICD Codes: K22.6 - Gastro-esophageal laceration-hemorrhage syndrome SNOMED: 14641190, 321241767 Status: stable Status Narrative Discussed with Dr. Wright. Assessment/Plan S/P EGD - SUMMARY OF FINDINGS: Active bleeding from the distal esophageal tears status post hemoclip x 2. US : Evidence of portal hypertension, with borderline splenomegaly, ascites, 09/15 SP paracentesis : Successful ultrasound-guided paracentesis, yielding 1.6 liters of fluid ( no evidence of SBP ) ok for DC per GI standpoint no recurrent active bleed soft diet, tolerating elevated ammonia >> lactulose + Xifaxan stable H&H, transfuse prn PT eval fu labs Subjective Subjective denies any abdominal pain refusing to take lactulose Objective Last 24 Hour Vital Signs Date Time Temp Pulse Resp B/P Pulse Ox O2 Delivery O2 Flow Rate FiO2 10/08/16 08:03 97.7 113 18 117/71 93 Room Air 10/08/16 04:00 97.3 94 18 114/62 91 Room Air 3.0 10/08/16 00:00 98.1 93 18 129/77 94 Room Air 3.0 10/07/16 20:00 97.7 68 19 120/78 98 Room Air 3.0 10/07/16 16:43 98.6 104 19 122/66 94 Room Air 10/07/16 12:30 97.5 14 14 120/76 Room Air Intake and Output 10/07/16 10/08/16 19:00 07:00 Intake Total 900 ml 340 ml Balance 900 ml 340 ml Intake Oral 900 ml 340 ml # Voids 3 4 Laboratory Tests Test 10/08/16 06:45 White Blood Count 4.4 K/UL (4.8-10.8) L Red Blood Count 3.29 M/UL (4.70-6.10) L Hemoglobin 9.2 G/DL (14.2-18.0) L Hematocrit 28.7 % (42.0-52.0) L Mean Corpuscular Volume 87 FL (80-99) Mean Corpuscular Hemoglobin 27.9 PG (27.0-31.0) Mean Corpuscular Hemoglobin Concent 31.9 G/DL (32.0-36.0) L Red Cell Distribution Width 15.7 % (11.6-14.8) H Platelet Count 76 K/UL (150-450) L Mean Platelet Volume 7.7 FL (6.5-10.1) Neutrophils (%) (Auto) % (45.0-75.0) Lymphocytes (%) (Auto) % (20.0-45.0) Monocytes (%) (Auto) % (1.0-10.0) Eosinophils (%) (Auto) % (0.0-3.0) Basophils (%) (Auto) % (0.0-2.0) Differential Total Cells Counted 100 Neutrophils % (Manual) 58 % (45-75) Lymphocytes % (Manual) 26 % (20-45) Monocytes % (Manual) 12 % (1-10) H Eosinophils % (Manual) 4 % (0-3) H Basophils % (Manual) 0 % (0-2) Band Neutrophils 0 % (0-8) Platelet Estimate Decreased L Platelet Morphology Normal Hypochromasia 2+ Anisocytosis 1+ Sodium Level 140 mEQ/L (135-145) Potassium Level 3.6 mEQ/L (3.4-4.9) Chloride Level 105 mEQ/L (98-107) Carbon Dioxide Level 24 mEQ/L (20-30) Anion Gap 11 (5-15) Blood Urea Nitrogen 5 mg/dL (7-23) L Creatinine 0.9 mg/dL (0.7-1.2) Estimat Glomerular Filtration Rate > 60 mL/min (>60) Glucose Level 93 mg/dL (74-106) Calcium Level 8.4 mg/dL (8.6-10.2) L Ammonia 56 umol/L (16-60) Height (Feet): 6 Height (Inches): 3.00 Weight (Pounds): 210 General Appearance: no apparent distress, alert Cardiovascular: normal rate Respiratory/Chest: normal breath sounds, no respiratory distress Abdominal Exam: normal bowel sounds, non tender, soft Mary Norman N.P. October 08, 2016 11:24
[2016-10-08 11:42] VITALS: BP 133/76
[2016-10-08 16:00] VITALS: BP 127/74
--- NOTE | 2016-10-08 18:37 | Infectious Diseases Prog Note ---
Assessment/Plan Assessment/Plan ASSESSMENT: 50-year-old male with: Aspiration pneumonia SP Rx Possible sepsis SP Low grade fever - resolved, no leukocytosis US : Evidence of portal hypertension, with borderline splenomegaly, ascites, 09/15 SP paracentesis : Successful ultrasound-guided paracentesis, yielding 1.6 liters of fluid ( no evidence of SBP ) Severe gait ataxia and both lower extremities paraparesis : Neuro is following ALOC / hepatic Encephalopathy improved GI bleed, SP Hx of Alcohol abuse Alcoholic liver cirrhosis. History of portal hypertension NKDA Full Code PLAN: ok to DC off of AB Rx from ID standpoint ( 09/16 SP IV Zosyn d# 7 ) monitor CBC, temperatures, re-culture if acute change Monitor BMP. monitor Chest x-ray await placement Subjective Constitutional: Denies: anorexia, chills, drenching sweats, fatigue, fever, no symptoms, other Allergies: Coded Allergies: No Known Allergies (Unverified , 08/12/16) Subjective afebrile Objective Vital Signs Last 24 Hour Vital Signs Date Time Temp Pulse Resp B/P Pulse Ox O2 Delivery O2 Flow Rate FiO2 10/08/16 16:00 97.7 107 20 127/74 95 Room Air 10/08/16 11:42 98.2 114 15 133/76 97 Room Air 10/08/16 08:03 97.7 113 18 117/71 93 Room Air 10/08/16 04:00 97.3 94 18 114/62 91 Room Air 3.0 10/08/16 00:00 98.1 93 18 129/77 94 Room Air 3.0 10/07/16 20:00 97.7 68 19 120/78 98 Room Air 3.0 Height (Feet): 6 Height (Inches): 3.00 Weight (Pounds): 210 HEENT: atraumatic Respiratory/Chest: lungs clear Cardiovascular: regular rhythm Abdomen: non distended Laboratory Tests Test 10/08/16 06:45 White Blood Count 4.4 K/UL (4.8-10.8) L Red Blood Count 3.29 M/UL (4.70-6.10) L Hemoglobin 9.2 G/DL (14.2-18.0) L Hematocrit 28.7 % (42.0-52.0) L Mean Corpuscular Volume 87 FL (80-99) Mean Corpuscular Hemoglobin 27.9 PG (27.0-31.0) Mean Corpuscular Hemoglobin Concent 31.9 G/DL (32.0-36.0) L Red Cell Distribution Width 15.7 % (11.6-14.8) H Platelet Count 76 K/UL (150-450) L Mean Platelet Volume 7.7 FL (6.5-10.1) Neutrophils (%) (Auto) % (45.0-75.0) Lymphocytes (%) (Auto) % (20.0-45.0) Monocytes (%) (Auto) % (1.0-10.0) Eosinophils (%) (Auto) % (0.0-3.0) Basophils (%) (Auto) % (0.0-2.0) Differential Total Cells Counted 100 Neutrophils % (Manual) 58 % (45-75) Lymphocytes % (Manual) 26 % (20-45) Monocytes % (Manual) 12 % (1-10) H Eosinophils % (Manual) 4 % (0-3) H Basophils % (Manual) 0 % (0-2) Band Neutrophils 0 % (0-8) Platelet Estimate Decreased L Platelet Morphology Normal Hypochromasia 2+ Anisocytosis 1+ Sodium Level 140 mEQ/L (135-145) Potassium Level 3.6 mEQ/L (3.4-4.9) Chloride Level 105 mEQ/L (98-107) Carbon Dioxide Level 24 mEQ/L (20-30) Anion Gap 11 (5-15) Blood Urea Nitrogen 5 mg/dL (7-23) L Creatinine 0.9 mg/dL (0.7-1.2) Estimat Glomerular Filtration Rate > 60 mL/min (>60) Glucose Level 93 mg/dL (74-106) Calcium Level 8.4 mg/dL (8.6-10.2) L Ammonia 56 umol/L (16-60) Current Medications Medications (Trade) Dose Ordered Sig/Saturn[place] Route PRN Reason Start Time Stop Time Status Last Admin Dose Admin Acetaminophen (Tylenol) 650 mg Q4H PRN ORAL Mild Pain/Temp > 100.5 10/03/16 14:00 11/02/16 13:59 10/08/16 15:49 Al Hydroxide/Mg Hydroxide (Mylanta II) 30 ml Q6H PRN ORAL dyspepsia 09/10/16 17:00 10/10/16 16:59 Chlordiazepoxide (Librium) 25 mg Q8H PRN ORAL Agitation 10/03/16 13:30 10/10/16 13:29 10/08/16 11:00 Clonidine HCl (Catapres) 0.1 mg Q6H PRN ORAL SBP>160 09/11/16 12:00 10/11/16 11:59 Dextrose (Dextrose 50%) STAT PRN IV Hypoglycemia 09/10/16 17:00 10/10/16 16:59 Diphenhydramine HCl (Benadryl) 25 mg Q6H PRN ORAL Itching/Pruritis 09/10/16 17:00 10/10/16 16:59 10/07/16 21:37 Docusate Sodium (Colace) 100 mg THREE TIMES A DAY PRN ORAL Constipation 10/04/16 22:15 11/03/16 22:14 10/08/16 09:28 Lactulose (Cephulac) 20 gm BID ORAL 10/07/16 18:00 11/06/16 17:59 Ondansetron HCl (Zofran) 4 mg Q6H PRN IVP Nausea & Vomiting 09/10/16 17:00 10/10/16 16:59 Pantoprazole (Protonix) 40 mg DAILY ORAL 09/15/16 09:00 10/15/16 08:59 10/08/16 09:27 Promethazine HCl/ Codeine (Phenergan with Codeine) 5 ml Q6HR PRN ORAL For Cough 09/15/16 08:30 10/15/16 08:29 10/07/16 16:51 Thiamine HCl (Vitamin B1) 100 mg DAILY ORAL 09/22/16 14:00 10/22/16 13:59 10/08/16 09:27 Vitamin A/Vitamin D (A & D Oint) 1 applic EVERY 12 HOURS TOPIC 09/21/16 09:00 10/21/16 08:59 10/08/16 09:28 Vitamin D (Vitamin D) 1,000 intlu DAILY ORAL 09/22/16 14:00 10/22/16 13:59 10/08/16 09:26 JACQUELINE LUGO M.D. October 08, 2016 18:37
[2016-10-08] MEDS: Promethazine/Codeine 5ml UD ORAL PRN (21:56)
--- NOTE | 2016-10-08 22:11 | Pulmonology Progress Note ---
Assessment/Plan Problems: (1) Anemia due to acute blood loss (2) Alcohol abuse (3) Liver cirrhosis (4) Gastrointestinal hemorrhage (5) Coagulopathy (6) Fever Assessment/Plan continue current treatment symptomatic treatment awaiting dc planning all notes, labs reviewed Subjective Allergies: Coded Allergies: No Known Allergies (Unverified , 08/12/16) Objective Last 24 Hour Vital Signs Date Time Temp Pulse Resp B/P Pulse Ox O2 Delivery O2 Flow Rate FiO2 10/08/16 16:00 97.7 107 20 127/74 95 Room Air 10/08/16 11:42 98.2 114 15 133/76 97 Room Air 10/08/16 08:03 97.7 113 18 117/71 93 Room Air 10/08/16 04:00 97.3 94 18 114/62 91 Room Air 3.0 10/08/16 00:00 98.1 93 18 129/77 94 Room Air 3.0 Intake and Output 10/07/16 10/08/16 19:00 07:00 Intake Total 900 ml 340 ml Balance 900 ml 340 ml Intake Oral 900 ml 340 ml # Voids 3 4 Objective General Appearance: WD/WN HEENT: normocephalic Respiratory/Chest: chest wall non-tender, lungs clear, normal breath sounds Cardiovascular: normal peripheral pulses, normal rate, regular rhythm Abdomen: normal bowel sounds, soft, non tender, no organomegaly, non distended Extremities: no cyanosis, no clubbing Skin: no rash, no lesions 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: 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 normal Laboratory Tests 10/08/16 06:45: White Blood Count 4.4L, Red Blood Count 3.29L, Hemoglobin 9.2L, Hematocrit 28.7L , Mean Corpuscular Volume 87, Mean Corpuscular Hemoglobin 27.9, Mean Corpuscular Hemoglobin Concent 31.9L, Red Cell Distribution Width 15.7H, Platelet Count 76L, Mean Platelet Volume 7.7, Neutrophils (%) (Auto) , Lymphocytes (%) (Auto) , Monocytes (%) (Auto) , Eosinophils (%) (Auto) , Basophils (%) (Auto) , Differential Total Cells Counted 100, Neutrophils % ( Manual) 58, Lymphocytes % (Manual) 26, Monocytes % (Manual) 12H, Eosinophils % ( Manual) 4H, Basophils % (Manual) 0, Band Neutrophils 0, Platelet Estimate DecreasedL, Platelet Morphology Normal, Hypochromasia 2+, Anisocytosis 1+, Sodium Level 140, Potassium Level 3.6, Chloride Level 105, Carbon Dioxide Level 24, Anion Gap 11, Blood Urea Nitrogen 5L, Creatinine 0.9, Estimat Glomerular Filtration Rate > 60, Glucose Level 93, Calcium Level 8.4L, Ammonia 56 Current Medications Medications (Trade) Dose Ordered Sig/Saturnino Route PRN Reason Start Time Stop Time Status Last Admin Dose Admin Acetaminophen (Tylenol) 650 mg Q4H PRN ORAL Mild Pain/Temp > 100.5 10/03/16 14:00 11/02/16 13:59 10/08/16 15:49 Al Hydroxide/Mg Hydroxide (Mylanta II) 30 ml Q6H PRN ORAL dyspepsia 09/10/16 17:00 10/10/16 16:59 Chlordiazepoxide (Librium) 25 mg Q8H PRN ORAL Agitation 10/03/16 13:30 10/10/16 13:29 10/08/16 18:51 Clonidine HCl (Catapres) 0.1 mg Q6H PRN ORAL SBP>160 09/11/16 12:00 10/11/16 11:59 Dextrose (Dextrose 50%) STAT PRN IV Hypoglycemia 09/10/16 17:00 10/10/16 16:59 Diphenhydramine HCl (Benadryl) 25 mg Q6H PRN ORAL Itching/Pruritis 09/10/16 17:00 10/10/16 16:59 10/08/16 21:56 Docusate Sodium (Colace) 100 mg THREE TIMES A DAY PRN ORAL Constipation 10/04/16 22:15 11/03/16 22:14 10/08/16 21:56 Lactulose (Cephulac) 20 gm BID ORAL 10/07/16 18:00 11/06/16 17:59 10/08/16 18:51 Ondansetron HCl (Zofran) 4 mg Q6H PRN IVP Nausea & Vomiting 09/10/16 17:00 10/10/16 16:59 Pantoprazole (Protonix) 40 mg DAILY ORAL 09/15/16 09:00 10/15/16 08:59 10/08/16 09:27 Promethazine HCl/ Codeine (Phenergan with Codeine) 5 ml Q6HR PRN ORAL For Cough 09/15/16 08:30 10/15/16 08:29 10/08/16 21:56 Thiamine HCl (Vitamin B1) 100 mg DAILY ORAL 09/22/16 14:00 10/22/16 13:59 10/08/16 09:27 Vitamin A/Vitamin D (A & D Oint) 1 applic EVERY 12 HOURS TOPIC 09/21/16 09:00 10/21/16 08:59 10/08/16 09:28 Vitamin D (Vitamin D) 1,000 intlu DAILY ORAL 09/22/16 14:00 10/22/16 13:59 10/08/16 09:26 SPENCER BERGER October 08, 2016 22:11
[2016-10-09 04:00] VITALS: BP 104/57
[2016-10-09 08:08] VITALS: BP 114/60
[2016-10-09] MEDS: Thiamine 100mg tab ORAL SCH (08:23)
[2016-10-09] MEDS: Vitamin D 1000 IU Tab ORAL SCH (08:23)
[2016-10-09] MEDS: Lactulose 20gm/30ml UDC ORAL SCH (08:23)
[2016-10-09] MEDS: chlordiazePOXIDE 25mg Cap ORAL PRN ×2 (08:24→16:17)
[2016-10-09] MEDS: Vitamin A&D Oint 2oz Tube TOPIC SCH (08:24)
--- NOTE | 2016-10-09 10:32 | GI Progress Note ---
Assessment/Plan Problems: (1) Liver cirrhosis ICD Codes: K74.60 - Unspecified cirrhosis of liver SNOMED: 01487921 (2) LFT elevation ICD Codes: R94.5 - Abnormal results of liver function studies SNOMED: 025387616 (3) Anemia due to acute blood loss ICD Codes: D62 - Acute posthemorrhagic anemia SNOMED: 691568199 (4) Hypoalbuminemia ICD Codes: E88.09 - Other disorders of plasma-protein metabolism, not elsewhere classified SNOMED: 394362012 (5) Gastrointestinal hemorrhage ICD Codes: K92.2 - Gastrointestinal hemorrhage, unspecified SNOMED: 57228583 (6) Alcohol abuse ICD Codes: F10.10 - Alcohol abuse, uncomplicated SNOMED: 26824759 (7) Tear of lower esophagus with hemorrhage ICD Codes: K22.6 - Gastro-esophageal laceration-hemorrhage syndrome SNOMED: 21654838, 092570846 Status: stable Status Narrative Discussed with Dr. Wright. Assessment/Plan S/P EGD - SUMMARY OF FINDINGS: Active bleeding from the distal esophageal tears status post hemoclip x 2. US : Evidence of portal hypertension, with borderline splenomegaly, ascites, 09/15 SP paracentesis : Successful ultrasound-guided paracentesis, yielding 1.6 liters of fluid ( no evidence of SBP ) ok for DC per GI standpoint no recurrent active bleed soft diet, tolerating elevated ammonia >> lactulose + Xifaxan stable H&H, transfuse prn PT eval s/p fall, sitter for safety. fu labs Subjective Subjective denies any abdominal pain refusing to take lactulose Objective Last 24 Hour Vital Signs Date Time Temp Pulse Resp B/P Pulse Ox O2 Delivery O2 Flow Rate FiO2 10/09/16 08:08 97.7 100 20 114/60 96 Room Air 10/09/16 00:36 97.7 10/08/16 16:00 97.7 107 20 127/74 95 Room Air 10/08/16 11:42 98.2 114 15 133/76 97 Room Air Intake and Output 10/08/16 10/09/16 19:00 07:00 Intake Total 840 ml 600 ml Balance 840 ml 600 ml Intake Oral 840 ml 600 ml # Voids 3 3 # Bowel Movements 2 1 Height (Feet): 6 Height (Inches): 3.00 Weight (Pounds): 210 General Appearance: no apparent distress, alert Cardiovascular: normal rate Respiratory/Chest: normal breath sounds, no respiratory distress Abdominal Exam: normal bowel sounds, non tender, soft Mary Norman N.P. October 09, 2016 10:32
[2016-10-09 12:11] VITALS: BP 120/59
--- NOTE | 2016-10-09 13:00 | Infectious Diseases Prog Note ---
Assessment/Plan Assessment/Plan ASSESSMENT: 50-year-old male with: Aspiration pneumonia SP Rx Sepsis SP Rx Afebrile US : Evidence of portal hypertension, with borderline splenomegaly, ascites, 09/15 SP paracentesis : Successful ultrasound-guided paracentesis, yielding 1.6 liters of fluid ( no evidence of SBP ) Severe gait ataxia and both lower extremities paraparesis : Neuro is following ALOC / hepatic Encephalopathy improved GI bleed, SP Hx of Alcohol abuse Alcoholic liver cirrhosis. History of portal hypertension NKDA Full Code PLAN: ok to DC off of AB Rx from ID standpoint ( 09/16 SP IV Zosyn d# 7 ) monitor CBC, temperatures, re-culture if acute change Monitor BMP. monitor Chest x-ray await placement Subjective Allergies: Coded Allergies: No Known Allergies (Unverified , 08/12/16) Subjective no acute event Objective Vital Signs Last 24 Hour Vital Signs Date Time Temp Pulse Resp B/P Pulse Ox O2 Delivery O2 Flow Rate FiO2 10/09/16 12:11 96.9 97 20 120/59 96 Room Air 10/09/16 08:08 97.7 100 20 114/60 96 Room Air 10/09/16 00:36 97.7 10/08/16 16:00 97.7 107 20 127/74 95 Room Air Height (Feet): 6 Height (Inches): 3.00 Weight (Pounds): 210 HEENT: anicteric Respiratory/Chest: normal breath sounds Cardiovascular: normal rate Abdomen: no organomegaly Current Medications Medications (Trade) Dose Ordered Sig/Saturnino Route PRN Reason Start Time Stop Time Status Last Admin Dose Admin Acetaminophen (Tylenol) 650 mg Q4H PRN ORAL Mild Pain/Temp > 100.5 10/03/16 14:00 11/02/16 13:59 10/08/16 23:37 Al Hydroxide/Mg Hydroxide (Mylanta II) 30 ml Q6H PRN ORAL dyspepsia 09/10/16 17:00 10/10/16 16:59 Chlordiazepoxide (Librium) 25 mg Q8H PRN ORAL Agitation 10/03/16 13:30 10/10/16 13:29 10/09/16 08:24 Clonidine HCl (Catapres) 0.1 mg Q6H PRN ORAL SBP>160 09/11/16 12:00 10/11/16 11:59 Dextrose (Dextrose 50%) STAT PRN IV Hypoglycemia 09/10/16 17:00 10/10/16 16:59 Diphenhydramine HCl (Benadryl) 25 mg Q6H PRN ORAL Itching/Pruritis 09/10/16 17:00 10/10/16 16:59 10/08/16 21:56 Docusate Sodium (Colace) 100 mg THREE TIMES A DAY PRN ORAL Constipation 10/04/16 22:15 11/03/16 22:14 10/08/16 21:56 Lactulose (Cephulac) 20 gm BID ORAL 10/07/16 18:00 11/06/16 17:59 10/08/16 18:51 Ondansetron HCl (Zofran) 4 mg Q6H PRN IVP Nausea & Vomiting 09/10/16 17:00 10/10/16 16:59 Pantoprazole (Protonix) 40 mg DAILY ORAL 09/15/16 09:00 10/15/16 08:59 10/09/16 08:23 Promethazine HCl/ Codeine (Phenergan with Codeine) 5 ml Q6HR PRN ORAL For Cough 09/15/16 08:30 10/15/16 08:29 10/08/16 21:56 Thiamine HCl (Vitamin B1) 100 mg DAILY ORAL 09/22/16 14:00 10/22/16 13:59 10/09/16 08:23 Vitamin A/Vitamin D (A & D Oint) 1 applic EVERY 12 HOURS TOPIC 09/21/16 09:00 10/21/16 08:59 10/09/16 08:24 Vitamin D (Vitamin D) 1,000 intlu DAILY ORAL 09/22/16 14:00 10/22/16 13:59 10/09/16 08:23 JACQUELINE LUGO M.D. October 09, 2016 13:00
[2016-10-09 15:40] VITALS: BP 119/59
--- NOTE | 2016-10-09 16:24 | Pulmonology Progress Note ---
Assessment/Plan Problems: (1) Anemia due to acute blood loss (2) Alcohol abuse (3) Liver cirrhosis (4) Gastrointestinal hemorrhage (5) Coagulopathy (6) Fever Assessment/Plan continue current treatment symptomatic treatment awaiting dc planning to recuperative care Subjective ROS Limited/Unobtainable: No Allergies: Coded Allergies: No Known Allergies (Unverified , 08/12/16) Objective Last 24 Hour Vital Signs Date Time Temp Pulse Resp B/P Pulse Ox O2 Delivery O2 Flow Rate FiO2 10/09/16 15:40 97.8 99 19 119/59 98 Room Air 10/09/16 12:11 96.9 97 20 120/59 96 Room Air 10/09/16 08:08 97.7 100 20 114/60 96 Room Air 10/09/16 00:36 97.7 Intake and Output 10/08/16 10/09/16 19:00 07:00 Intake Total 840 ml 600 ml Balance 840 ml 600 ml Intake Oral 840 ml 600 ml # Voids 3 3 # Bowel Movements 2 1 Objective General Appearance: WD/WN HEENT: normocephalic Respiratory/Chest: chest wall non-tender, lungs clear, normal breath sounds Cardiovascular: normal peripheral pulses, normal rate, regular rhythm Abdomen: normal bowel sounds, soft, non tender, no organomegaly, non distended Extremities: no cyanosis, no clubbing Skin: no rash, no lesions 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 Current Medications Medications (Trade) Dose Ordered Sig/Saturnino Route PRN Reason Start Time Stop Time Status Last Admin Dose Admin Acetaminophen (Tylenol) 650 mg Q4H PRN ORAL Mild Pain/Temp > 100.5 10/03/16 14:00 11/02/16 13:59 10/08/16 23:37 Al Hydroxide/Mg Hydroxide (Mylanta II) 30 ml Q6H PRN ORAL dyspepsia 09/10/16 17:00 10/10/16 16:59 Chlordiazepoxide (Librium) 25 mg Q8H PRN ORAL Agitation 10/03/16 13:30 10/10/16 13:29 10/09/16 16:17 Clonidine HCl (Catapres) 0.1 mg Q6H PRN ORAL SBP>160 09/11/16 12:00 10/11/16 11:59 Dextrose (Dextrose 50%) STAT PRN IV Hypoglycemia 09/10/16 17:00 10/10/16 16:59 Diphenhydramine HCl (Benadryl) 25 mg Q6H PRN ORAL Itching/Pruritis 09/10/16 17:00 10/10/16 16:59 10/08/16 21:56 Docusate Sodium (Colace) 100 mg THREE TIMES A DAY PRN ORAL Constipation 10/04/16 22:15 11/03/16 22:14 10/08/16 21:56 Docusate Sodium (Colace) 250 mg DAILY ORAL 10/10/16 09:00 11/09/16 08:59 Ondansetron HCl (Zofran) 4 mg Q6H PRN IVP Nausea & Vomiting 09/10/16 17:00 10/10/16 16:59 Pantoprazole (Protonix) 40 mg DAILY ORAL 09/15/16 09:00 10/15/16 08:59 10/09/16 08:23 Promethazine HCl/ Codeine (Phenergan with Codeine) 5 ml Q6HR PRN ORAL For Cough 09/15/16 08:30 10/15/16 08:29 10/08/16 21:56 Thiamine HCl (Vitamin B1) 100 mg DAILY ORAL 09/22/16 14:00 10/22/16 13:59 10/09/16 08:23 Vitamin A/Vitamin D (A & D Oint) 1 applic EVERY 12 HOURS TOPIC 09/21/16 09:00 10/21/16 08:59 10/09/16 08:24 Vitamin D (Vitamin D) 1,000 intlu DAILY ORAL 09/22/16 14:00 10/22/16 13:59 10/09/16 08:23 SPENCER BERGER October 09, 2016 16:24
[2016-10-09] MEDS ORDERED: DOCUSATE SODIU100 M2 ORAL (16:27)
--- NOTE | 2016-10-09 23:14 | Pulmonology Progress Note ---
Assessment/Plan Problems: (1) Anemia due to acute blood loss (2) Alcohol abuse (3) Liver cirrhosis (4) Gastrointestinal hemorrhage (5) Coagulopathy (6) Fever Assessment/Plan continue current treatment symptomatic treatment awaiting dc planning to recuperative care Subjective ROS Limited/Unobtainable: No Allergies: Coded Allergies: No Known Allergies (Unverified , 08/12/16) Objective Last 24 Hour Vital Signs Date Time Temp Pulse Resp B/P Pulse Ox O2 Delivery O2 Flow Rate FiO2 10/09/16 15:40 97.8 99 19 119/59 98 Room Air 10/09/16 12:11 96.9 97 20 120/59 96 Room Air 10/09/16 08:08 97.7 100 20 114/60 96 Room Air 10/09/16 00:36 97.7 Intake and Output 10/08/16 10/09/16 19:00 07:00 Intake Total 840 ml 600 ml Balance 840 ml 600 ml Intake Oral 840 ml 600 ml # Voids 3 3 # Bowel Movements 2 1 Objective General Appearance: WD/WN HEENT: normocephalic Respiratory/Chest: chest wall non-tender, lungs clear, normal breath sounds Cardiovascular: normal peripheral pulses, normal rate, regular rhythm Abdomen: normal bowel sounds, soft, non tender, no organomegaly, non distended Extremities: no cyanosis, no clubbing Skin: no rash, no lesions 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: gill box tender II-XII grossly normal SPENCER BERGER October 09, 2016 23:14
[2016-10-10] MEDS ORDERED: Docusate 250mg cap ORAL SCH (09:00)
--- NOTE | 2016-10-10 16:13 | Discharge Summary ---
Discharge Summary Hospital Course Date of Admission Sep 08, 2016 at 09:15 Date of Discharge October 09, 2016 at 17:31 Admitting Diagnosis upper GI bleed, etoh abuse HPI Mario Ramirez is a 50 year old male who was admitted on Sep 08, 2016 at 09:15 for Gastrointestinal Bleed Etoh Abuse Hospital Course [id number] Discharge Discharge Disposition Patient was discharged to [facility] Discharge Diagnoses: Stacie Graham NP October 10, 2016 16:13
--- NOTE | 2016-10-11 00:31 | Discharge Summary 2 SIG ---
DATE OF ADMISSION: 09/08/2016 DATE OF DISCHARGE: 10/09/2016 CONSULTANTS: 1. Berhane Wright M.D. 2. Austin Rodriguez M.D. 3. Arvin Gonzalez M.D. 4. Matias Koch M.D. BRIEF HOSPITAL COURSE: The patient is a 50-year-old male with end-stage liver disease, was brought in by paramedics for hematemesis. He was having dark stools for the past two days and also had history of alcohol abuse and drank a bottle of vodka throughout the day. At ED, he was noted to have episodes of coffee-grounds emesis and was started on IV Protonix. Rhythm strip showed sinus tachycardia without PVCs or ectopy. He was noted to have a prior history of portal hypertension on ultrasound. He was admitted for inpatient care. Dr. Wright was consulted. LFTs were elevated. Serum alcohol was 191. Laboratories showed anemia. He was placed on NPO and was started on octreotide drip and continued on Protonix drip. He was started on ciprofloxacin IV 400 mg daily. He underwent EGD on 09/12/2016 with findings of esophageal tear. He also presented with elevated ammonia levels and was given lactulose and started on cephalexin. He was given banana bag. Venous duplex of lower extremity was negative for DVT. Head CT showed mild cerebral volume loss and periventricular deep white matter chronic changes. Negative for acute intracranial bleed or mass effect. He was given two units packed RBC transfusion for his anemia and diet was eventually advanced. Dr. Koch was consulted for evaluation of possible sepsis and was given IV Zosyn. The patient had low-grade fever and was given IV Zosyn. He underwent ultrasound-guided paracentesis on 09/15/2016 yielding 1.6 L of fluid with no evidence of SBP. Dr. Rodriguez was consulted as the patient had inability to ambulate. The patient had been in hospital for quite some time and as a result, he developed severe weakness and when tried to walk, he was unable to ambulate unless fully assisted. New onset of severe gait ataxia and debilitation was due to the misuse of lower extremities. Brain MRI done was negative for acute intracranial bleed, mass effect, or infarct with mild cervical loss out of proportion to the patient's age, likely related to alcohol abuse. Knee x-ray showed no acute osseous abnormality with mild soft tissue swelling. He was given physical therapy, thiamine, and vitamin supplements. The patient had difficulty with placement secondary to insurance. He was taken off antibiotic treatment with no evidence of recurrent active GI bleed. He was tolerating diet. He was eventually discharged to recuperative care and medications were filled by [facility]. He was discharged by ambulance. FINAL DIAGNOSES: 1. Acute gastrointestinal bleed secondary to esophageal varices. 2. Acute anemia secondary to gastrointestinal bleed. 3. Alcohol abuse. 4. Liver cirrhosis. 5. Ascites, status post paracentesis. 6. Sepsis. 7. Aspiration pneumonia. 8. Portal hypertension. 9. Gait ataxia. 10. Acute hepatic encephalopathy, resolved. 11. Alcoholic liver cirrhosis. 12. Hypoalbuminemia. 13. Status post esophagogastroduodenoscopy with hemoclip x2. 14. Borderline splenomegaly. Massiel Stevens M.D. I have been assigned to dictate discharge summary on this account and I was not involved in the patient's management. Stacie Graham N.P. DR: REINIER JOB#: [id number] CC:
== END 2016-10-09 17:31 | disposition home or self-care (01) | DRG 242 ==
LOC: EDBD 07:37 → EMR 08:13 → 2E 09:15 → EDBEDREQSVC 15:57 → EDBEDREQ 16:40 → 2E 17:26 → 4W 09-10 16:36
PROC: 0W3P8ZZ Control Bleeding in Gastrointestinal Tract, Via Natural or Artificial Opening Endoscopic (ICD-10-PCS; principal; 2016-09-12 12:37)
PROC: 0W9G3ZZ Drainage of Peritoneal Cavity, Percutaneous Approach (ICD-10-PCS; 2016-09-15)
DX: K22.6 Gastro-esophageal laceration-hemorrhage syndrome (principal); J69.0 Pneumonitis due to inhalation of food and vomit; A41.9 Sepsis, unspecified organism; D68.9 Coagulation defect, unspecified; D62 Acute posthemorrhagic anemia; K76.6 Portal hypertension; K70.31 Alcoholic cirrhosis of liver with ascites; G82.20 Paraplegia, unspecified; E88.09 Other disorders of plasma-protein metabolism, not elsewhere classified; K22.8 Other specified diseases of esophagus; K72.90 Hepatic failure, unspecified without coma; R26.0 Ataxic gait; E83.51 Hypocalcemia; F09 Unspecified mental disorder due to known physiological condition; F10.229 Alcohol dependence with intoxication, unspecified; Y90.6 Blood alcohol level of 120-199 mg/100 ml; K31.89 Other diseases of stomach and duodenum
CPT/HCPCS: 36415; 70450; 70551; 71010; 74000; 76700; 76942; 80048; 80053; 80061; 80329; 82140; 82150; 82248; 82270; 82330; 82550; 82553; 82607; 82962; 83690; 83735; 83921; 84100; 84443; 84484; 85007; 85025; 85610; 85730; 86039; 86850; 86900; 86901; 86920; 87040; 88104; 89051; 93005; 93970; 94003; 94150; J2405; J3430

== ENCOUNTER 2016-10-11 14:29 | Emergency (ER) | payer MEDICAID ==
[~2016-10-11] VITALS: Ht 190.5 cm; Wt 89.8 kg
[~2016-10-11 14:29] MED LIST changes: +DOCUSATE SODIU100 M2 ORAL; +NKM
[2016-10-11 15:00] VITALS: BP 122/66
[2016-10-11 15:57] LABS: MEAN CORPUSCULAR HEMOGLOBIN 29.8 PG (27.0-31.0); MEAN CORPUSCULAR HGB CONC 34.1 G/DL (32.0-36.0); MEAN CORPUSCULAR VOLUME 87 FL (80-99); MEAN PLATELET VOLUME 7.6 FL (6.5-10.1); PLATELET COUNT 71 K/UL (150-450); RED BLOOD COUNT 2.86 M/UL (4.70-6.10); RED CELL DISTRIBUTION WIDTH 15.6 % (11.6-14.8); WHITE BLOOD COUNT 5.4 K/UL (4.8-10.8)
[2016-10-11 16:12] LABS: TROPONIN I < 0.30 ng/mL (<=0.30)
[2016-10-11 16:16] LABS: ACETAMINOPHEN < 10 ug/mL (10-30); ALANINE AMINOTRANSFERASE 16 U/L (3-41); ALBUMIN/GLOBULIN RATIO 0.6 (1.0-2.7); ALCOHOL < 10 mg/dL; ANION GAP 14 (5-15); ASPARTATE AMINO TRANSFERASE 53 U/L (5-40); CALCIUM 8.2 mg/dL (8.6-10.2); CARBON DIOXIDE 22 mEQ/L (20-30); CHLORIDE 104 mEQ/L (98-107); GLOMERULAR FILTRATION RATE > 60 mL/min (>60); HEMOLYSIS 6; POTASSIUM 3.8 mEQ/L (3.4-4.9); SODIUM 140 mEQ/L (135-145); TOTAL PROTEIN 5.8 g/dL (6.6-8.7)
[2016-10-11 16:26] LABS: CKMB 4.1 ng/mL (< 6.7)
[2016-10-11] MEDS ORDERED: LORazepam Inj 2mg/ml 1ml IV ONE (16:30)
[2016-10-11 16:36] LABS: BILIRUBIN,DIRECT 1.2 mg/dL (0.1-0.3)
[2016-10-11 17:23] LABS: ANISOCYTOSIS 1+; BAND NEUTROPHILS % (MANUAL) 0 % (0-8); BASOPHILS % (MANUAL) 2 % (0-2); EOSINOPHILS % (MANUAL) 5 % (0-3); HYPOCHROMASIA 1+; LYMPHOCYTES % (MANUAL) 26 % (20-45); NEUTROPHILS % (MANUAL) 56 % (45-75); PLATELET ESTIMATE DECREASED; PLATELET MORPHOLOGY NORMAL; TOTAL CELLS COUNTED 100
[2016-10-11 18:40] VITALS: BP 113/71
[2016-10-11 19:11] VITALS: BP 113/71
[2016-10-12] MEDS ORDERED: ATIVAN1 MG ORAL (11:17)
--- NOTE | 2016-10-12 18:22 | Emergency Room Report ---
History of Present Illness General Chief Complaint: Multiple Trauma/Fall Source: Patient, Medical Record Present Illness HPI 50-year-old male presents ED for evaluation. States that he feels very weak and is having trouble walking. Patient states he was just discharged from [facility] a few days ago. Was sent to a rehabilitation house which he was not comfortable staying at. Says he had a panic attack and was taken to another emergency room. Patient states he was cleared and discharge. Patient states when leaving the emergency room he fell and hurt his back. When back to this emergency room and had x-rays were subsequently cleared. Patient is here because he feels weak. States he was admitted here for alcohol withdrawal. States he has not had a drink in several weeks. Denies any drug use. Denies any chest pain or shortness of breath. No other aggravating relieving factors. Denies any other associated symptoms Allergies: Coded Allergies: No Known Allergies (Unverified , 08/12/16) Patient History Past Medical History: none Past Surgical History: none Pertinent Family History: none Social History: Denies: alcohol use, drug use, smoking Immunizations: UTD Reviewed Nursing Documentation: PMH: Agreed, PSxH: Agreed Nursing Documentation-PMH Past Medical History: No History, Except For Review of Systems All Other Systems: negative except mentioned in HPI Physical Exam Vital Signs Date Time Temp Pulse Resp B/P Pulse Ox O2 Delivery O2 Flow Rate FiO2 10/11/16 14:41 98.8 109 16 122/66 99 Room Air Sp02 EP Interpretation: reviewed, normal General Appearance: no apparent distress, alert, GCS 15, non-toxic Head: normocephalic, atraumatic Eyes: bilateral eye PERRL, bilateral eye normal inspection ENT: hearing grossly normal, normal pharynx, no angioedema, normal voice Neck: full range of motion, supple/symm/no masses Respiratory: chest non-tender, lungs clear, normal breath sounds, speaking full sentences Cardiovascular #1: regular rate, rhythm, no edema Cardiovascular #2: 2+ carotid (R), 2+ carotid (L), 2+ radial (R), 2+ radial (L) , 2+ dorsalis pedis (R), 2+ dorsalis pedis (L) Gastrointestinal: normal bowel sounds, non tender, soft, non-distended, no guarding, no rebound Rectal: deferred Genitourinary: normal inspection, no CVA tenderness Musculoskeletal: back normal, gait/station normal, normal range of motion, non- tender Neurologic: alert, oriented x3, responsive, motor strength/tone normal, sensory intact, speech normal Psychiatric: judgement/insight normal, memory normal, no suicidal/homicidal ideation, anxious Reflexes: 3+ bicep (R), 3+ bicep (L), 3+ tricep (R), 3+ tricep (L), 3+ knee (R) , 3+ knee (L) Skin: normal color, no rash, warm/dry, well hydrated Lymphatic: no adenopathy Medical Decision Making Diagnostic Impression: Primary Impression: Weakness ER Course Hospital Course 50-year-old male presents ED complaining of shaking, weakness. recently discharged from hospital after alcohol withdrawal Differential diagnoses include: Alcohol intoxication, drug abuse, opioid withdrawal, alcohol withdrawal, dehydration, drug seeking behavior Clinical course Patient placed on stretcher. On panel monitor. After initial history and physical I ordered labs, IV fluids, Ativan Labs reviewed-electrolytes okay, hemoglobin/hematocrit stable, no leukocytosis, alcohol level < 10, aspirin/Tylenol levels negative, Utox + opiates, BZs patient feels better. no signs of acute withdrawal or DTs. patient can be safely discharged to home i. I feel this is a highly complex case requiring extensive working including EKG/Rhythm strip, Xray/CT/US, Blood/urine lab work, repeat exams while in ED, and administration of strong opiates/narcotics for pain control, admission to hospital or close patient follow up. Diagnosis - weakness Stable and discharged to home. Followup with PMD. Return to ED if symptoms recur or worsen Labs Test 10/11/16 15:28 10/11/16 17:15 White Blood Count 5.4 K/UL (4.8-10.8) Red Blood Count 2.86 M/UL (4.70-6.10) Hemoglobin 8.5 G/DL (14.2-18.0) Hematocrit 25.0 % (42.0-52.0) Mean Corpuscular Volume 87 FL (80-99) Mean Corpuscular Hemoglobin 29.8 PG (27.0-31.0) Mean Corpuscular Hemoglobin Concent 34.1 G/DL (32.0-36.0) Red Cell Distribution Width 15.6 % (11.6-14.8) Platelet Count 71 K/UL (150-450) Mean Platelet Volume 7.6 FL (6.5-10.1) Neutrophils (%) (Auto) % (45.0-75.0) Lymphocytes (%) (Auto) % (20.0-45.0) Monocytes (%) (Auto) % (1.0-10.0) Eosinophils (%) (Auto) % (0.0-3.0) Basophils (%) (Auto) % (0.0-2.0) Differential Total Cells Counted 100 Neutrophils % (Manual) 56 % (45-75) Lymphocytes % (Manual) 26 % (20-45) Monocytes % (Manual) 11 % (1-10) Eosinophils % (Manual) 5 % (0-3) Basophils % (Manual) 2 % (0-2) Band Neutrophils 0 % (0-8) Platelet Estimate Decreased Platelet Morphology Normal Hypochromasia 1+ Anisocytosis 1+ Sodium Level 140 mEQ/L (135-145) Potassium Level 3.8 mEQ/L (3.4-4.9) Chloride Level 104 mEQ/L (98-107) Carbon Dioxide Level 22 mEQ/L (20-30) Anion Gap 14 (5-15) Blood Urea Nitrogen 9 mg/dL (7-23) Creatinine 1.0 mg/dL (0.7-1.2) Estimat Glomerular Filtration Rate > 60 mL/min (>60) Glucose Level 139 mg/dL (74-106) Calcium Level 8.2 mg/dL (8.6-10.2) Total Bilirubin 2.6 mg/dL (0.0-1.2) Direct Bilirubin 1.2 mg/dL (0.1-0.3) Aspartate Amino Transf (AST/SGOT) 53 U/L (5-40) Alanine Aminotransferase (ALT/SGPT) 16 U/L (3-41) Alkaline Phosphatase 81 U/L (40-129) Total Creatine Kinase 542 U/L (38-174) Creatine Kinase MB 4.1 ng/mL (< 6.7) Creatine Kinase MB Relative Index 0.7 Troponin I < 0.30 ng/mL (<=0.30) Total Protein 5.8 g/dL (6.6-8.7) Albumin 2.3 g/dL (3.5-5.2) Globulin 3.5 g/dL Albumin/Globulin Ratio 0.6 (1.0-2.7) Salicylates Level < 1 mg/dL (10-30) Acetaminophen Level < 10 ug/mL (10-30) Serum Alcohol < 10 mg/dL Urine Opiates Screen Positive (NEGATIVE) Urine Barbiturates Screen Negative (NEGATIVE) Phencyclidine (PCP) Screen Negative (NEGATIVE) Urine Amphetamines Screen Negative (NEGATIVE) Urine Benzodiazepines Screen Positive (NEGATIVE) Urine Cocaine Screen Negative (NEGATIVE) Urine Marijuana (THC) Screen Negative (NEGATIVE) Last Vital Signs Date Time Temp Pulse Resp B/P Pulse Ox O2 Delivery O2 Flow Rate FiO2 10/11/16 19:11 98.8 114 20 113/71 98 Room Air Status: improved Disposition: HOME, SELF-CARE Condition: Stable Patient Instructions: Dehydration, Adult, [id number], Weakness, [id number] FRANKLIN RAMAN M.D. October 12, 2016 18:22
== END 2016-10-11 19:11 | disposition home or self-care (01) ==
LOC: EMR 15:59
DX: R53.1 Weakness (principal)
CPT/HCPCS: 36415; 80053; 80300; 80329; 82248; 82550; 82553; 84484; 85007; 85025; 96360; 96374; 99284; J7040

== ENCOUNTER 2016-10-12 09:23 | Emergency (ER) | payer MEDICAID ==
[~2016-10-12] VITALS: Ht 190.5 cm; Wt 81.2 kg
[2016-10-12] MEDS ORDERED: Famotidine 20 MG/ 2ML VIAL IVP ONE (10:00)
[2016-10-12] MEDS ORDERED: Ascorbic Acid 500mg tab ORAL ONE (10:00)
[2016-10-12] MEDS ORDERED: LORazepam 1mg tab ORAL ONE (10:00)
[2016-10-12 10:20] LABS: MEAN CORPUSCULAR HEMOGLOBIN 27.1 PG (27.0-31.0); MEAN CORPUSCULAR HGB CONC 31.8 G/DL (32.0-36.0); MEAN CORPUSCULAR VOLUME 85 FL (80-99); PLATELET COUNT 88 K/UL (150-450); RED BLOOD COUNT 3.41 M/UL (4.70-6.10); RED CELL DISTRIBUTION WIDTH 15.5 % (11.6-14.8); WHITE BLOOD COUNT 5.4 K/UL (4.8-10.8)
[2016-10-12 10:33] LABS: ALANINE AMINOTRANSFERASE 18 U/L (3-41); ALBUMIN/GLOBULIN RATIO 0.6 (1.0-2.7); ALCOHOL < 10 mg/dL; ANION GAP 16 (5-15); ASPARTATE AMINO TRANSFERASE 62 U/L (5-40); CALCIUM 8.2 mg/dL (8.6-10.2); CARBON DIOXIDE 22 mEQ/L (20-30); CHLORIDE 102 mEQ/L (98-107); GLOMERULAR FILTRATION RATE > 60 mL/min (>60); HEMOLYSIS 1; POTASSIUM 3.4 mEQ/L (3.4-4.9); SODIUM 140 mEQ/L (135-145); TOTAL PROTEIN 6.3 g/dL (6.6-8.7)
[2016-10-12 10:48] LABS: BILIRUBIN,DIRECT 0.1 mg/dL (0.1-0.3)
[2016-10-12 11:02] LABS: ANISOCYTOSIS 1+; BAND NEUTROPHILS % (MANUAL) 0 % (0-8); BASOPHILS % (MANUAL) 0 % (0-2); EOSINOPHILS % (MANUAL) 1 % (0-3); HYPOCHROMASIA 1+; LYMPHOCYTES % (MANUAL) 10 % (20-45); NEUTROPHILS % (MANUAL) 77 % (45-75); PLATELET ESTIMATE DECREASED; PLATELET MORPHOLOGY NORMAL; TOTAL CELLS COUNTED 100
[2016-10-12] MEDS ORDERED: ATIVAN1 MG ORAL (11:17)
[2016-10-12] MEDS ORDERED: Spironolactone 50mg tab ORAL ONE (11:30)
[2016-10-12 12:06] VITALS: BP 125/71
--- NOTE | 2016-10-12 13:14 | Emergency Room Report ---
History of Present Illness General Chief Complaint: Lower Extremity Injury Source: Patient Present Illness HPI Patient is a 50-year-old male who presented after having increased lower extremity swelling. Patient had gradual onset of symptoms. The patient reported having no recent alcohol use. Patient prior history of cirrhotic liver disease secondary alcohol abuse. Patient stated that he had not been bleeding. The patient recently been discharged from hospital to recuperative care. The patient was noted to have a baseline low hemoglobin as well as some swelling to his extremities. Allergies: Coded Allergies: No Known Allergies (Unverified , 08/12/16) Patient History Reviewed Nursing Documentation: PMH: Agreed, PSxH: Agreed Review of Systems All Other Systems: negative except mentioned in HPI Physical Exam Vital Signs Date Time Temp Pulse Resp B/P Pulse Ox O2 Delivery O2 Flow Rate FiO2 10/12/16 09:29 98.4 111 20 124/72 100 Room Air Sp02 EP Interpretation: reviewed, normal General Appearance: normal inspection, well appearing, no apparent distress, alert, GCS 15, non-toxic Head: atraumatic ENT: normal ENT inspection, hearing grossly normal, normal voice Neck: normal inspection, full range of motion, supple, no bony tend Respiratory: normal inspection, lungs clear, normal breath sounds, no respiratory distress, no retraction, no wheezing Cardiovascular #1: regular rate, rhythm, edema - pedal edema, no bruising noted Gastrointestinal: normal inspection, normal bowel sounds, non tender, soft, no guarding, no hernia Genitourinary: no CVA tenderness Musculoskeletal: normal inspection, back normal, normal range of motion Neurologic: normal inspection, alert, oriented x3, responsive, artillery officer III-XII nml as tested, speech normal Psychiatric: normal inspection, judgement/insight normal, mood/affect normal Skin: normal inspection, normal color, no rash Medical Decision Making Diagnostic Impression: Primary Impression: Pedal edema ER Course Patient presented for lower swelling. The differential diagnosis included wasn' t limited to fracture, cellulitis, cirrhosis, hypoalbuminemia among others. Because of complexity of patient's case laboratory testing and imaging studies were ordered. The patient was noted to have a blood count which was slightly improved from previous laboratory testing. The patient's a pedal edema appears to be related to his cirrhosis. The patient was noted to have had not been taking his Ativan for one day. Patient was given oral Ativan. The patient was advised followup previously scheduled appointments. The patient is advised to continue alcohol cessation. Labs Test 10/12/16 10:00 White Blood Count 5.4 K/UL (4.8-10.8) Red Blood Count 3.41 M/UL (4.70-6.10) Hemoglobin 9.2 G/DL (14.2-18.0) Hematocrit 29.0 % (42.0-52.0) Mean Corpuscular Volume 85 FL (80-99) Mean Corpuscular Hemoglobin 27.1 PG (27.0-31.0) Mean Corpuscular Hemoglobin Concent 31.8 G/DL (32.0-36.0) Red Cell Distribution Width 15.5 % (11.6-14.8) Platelet Count 88 K/UL (150-450) Mean Platelet Volume 8.0 FL (6.5-10.1) Neutrophils (%) (Auto) % (45.0-75.0) Lymphocytes (%) (Auto) % (20.0-45.0) Monocytes (%) (Auto) % (1.0-10.0) Eosinophils (%) (Auto) % (0.0-3.0) Basophils (%) (Auto) % (0.0-2.0) Differential Total Cells Counted 100 Neutrophils % (Manual) 77 % (45-75) Lymphocytes % (Manual) 10 % (20-45) Monocytes % (Manual) 12 % (1-10) Eosinophils % (Manual) 1 % (0-3) Basophils % (Manual) 0 % (0-2) Band Neutrophils 0 % (0-8) Platelet Estimate Decreased Platelet Morphology Normal Hypochromasia 1+ Anisocytosis 1+ Sodium Level 140 mEQ/L (135-145) Potassium Level 3.4 mEQ/L (3.4-4.9) Chloride Level 102 mEQ/L (98-107) Carbon Dioxide Level 22 mEQ/L (20-30) Anion Gap 16 (5-15) Blood Urea Nitrogen 8 mg/dL (7-23) Creatinine 1.0 mg/dL (0.7-1.2) Estimat Glomerular Filtration Rate > 60 mL/min (>60) Glucose Level 153 mg/dL (74-106) Calcium Level 8.2 mg/dL (8.6-10.2) Total Bilirubin 3.7 mg/dL (0.0-1.2) Direct Bilirubin 0.1 mg/dL (0.1-0.3) Aspartate Amino Transf (AST/SGOT) 62 U/L (5-40) Alanine Aminotransferase (ALT/SGPT) 18 U/L (3-41) Alkaline Phosphatase 74 U/L (40-129) Total Protein 6.3 g/dL (6.6-8.7) Albumin 2.5 g/dL (3.5-5.2) Globulin 3.8 g/dL Albumin/Globulin Ratio 0.6 (1.0-2.7) Serum Alcohol < 10 mg/dL Last Vital Signs Date Time Temp Pulse Resp B/P Pulse Ox O2 Delivery O2 Flow Rate FiO2 10/12/16 12:06 98.4 20 125/71 100 Room Air 10/12/16 09:29 111 Status: improved Disposition: HOME, SELF-CARE Condition: Stable Scripts Lorazepam* (ATIVAN*) 1 Mg Tablet 1 MG ORAL BEDTIME, #14 TAB Prov: Ramón Gay 10/12/16 Patient Instructions: Alcoholic Liver Disease, Edema, [id number] Ramón Gay October 12, 2016 13:14
== END 2016-10-12 12:12 | disposition home or self-care (01) ==
LOC: EMR 09:42
DX: R60.0 Localized edema (principal)
CPT/HCPCS: 36415; 80053; 80329; 82248; 85007; 85025; 86850; 86900; 86901; 96374; 99284; S0028